=== PATIENT | male | born 1970 | race Caucasian/White ===

== ENCOUNTER 2024-02-08 15:34 | Emergency (ER) | payer MEDICAID, OTHER ==
[~2024-02-08] VITALS: Ht 170.2 cm; Wt 72.7 kg
[2024-02-08 15:42] VITALS: BP 134/90; PULSE 66; RESP 16; O2SAT 98
[2024-02-08] MEDS: diphenhdrAMINE HCL 50 MG/1 ML VL IM ONE (20:27)
[2024-02-08] MEDS: HALOPERIDOL LACTATE 5 MG/ML INJ VIAL IM ONE (20:27)
== END 2024-02-09 09:30 | disposition home or self-care (01) ==
LOC: ER 15:34 → EDBD 15:34 → ER 02-09 09:30
DX: D17.0 Benign lipomatous neoplasm of skin and subcutaneous tissue of head, face and neck (principal)
CPT/HCPCS: 70450; 96372; 99285; J1200; J1630

== ENCOUNTER 2024-02-19 18:02 | Emergency (ER) | payer MEDICAID ==
[~2024-02-19] VITALS: Ht 172.7 cm; Wt 85.0 kg
[2024-02-19 20:22] LABS: Basophils # (auto) 0 10 ^3/uL (0-0.2); Basophils % (auto) 0.6 % (0.0-2.0); Eosinophils # (auto) 0.2 10 ^3/uL (0-0.8); Eosinophils % (auto) 2.9 % (0.0-7.0); Hematocrit 39.6 % (41.0-53.0); Hemoglobin 13.2 g/dL (13.5-17.5); Lymphocytes # (auto) 2.2 10 ^3/uL (0.4-5.4); Mean Corpuscular Hemoglobin 29.4 pg (28.0-32.0); Mean Corpuscular Hgb Conc. 33.4 g/dL (32.0-36.0); Monocytes # (auto) 0.7 10 ^3/uL (0-1.3); Monocytes % (auto) 8.6 % (0.0-12.0); Neutrophils # (auto) 4.8 10 ^3/uL (1.6-8.6); Neutrophils % (auto) 59.9 % (37.0-80.0); Nucleated Red Blood Cells % 0.1 %; Red Cell Distribution Width 17.1 % (11.8-14.3)
[2024-02-19 20:33] LABS: Chloride 107 mmol/L (98-107); Potassium 3.9 mmol/L (3.5-5.1); Sodium 143 mmol/L (136-145)
[2024-02-19 20:34] LABS: Anion Gap 8 (5-15); Calcium 9.6 mg/dL (8.5-10.1); Carbon Dioxide 28 mmol/L (20-30)
[2024-02-19 20:39] LABS: BUN/Creatinine Ratio 21.3 (10.0-20.0); Blood Urea Nitrogen 17 mg/dL (9-23); Glucose 96 mg/dL (74-106)
[2024-02-19 20:40] LABS: Blood Alcohol < 3.0 mg/dL (<10)
[2024-02-19 21:23] VITALS: TEMP 97.8
[2024-02-19 21:27] VITALS: PULSE 90; RESP 18; O2SAT 98
[2024-02-19] MEDS: LORazepam 2MG/ML-1ML VIAL IM ONE (21:55)
[2024-02-20 08:00] VITALS: BP 148/86; PULSE 101; RESP 22; O2SAT 98
[2024-02-20] MEDS: diphenhdrAMINE HCL 50 MG/1 ML VL IM ONE (08:00)
[2024-02-20] MEDS: LORazepam 2MG/ML-1ML VIAL IM ONE (08:00)
[2024-02-20] MEDS: HALOPERIDOL LACTATE 5 MG/ML INJ VIAL IM ONE (08:00)
[2024-02-20] MEDS: LORazepam 0.5 MG TAB PO ONE (11:56)
== END 2024-02-20 15:53 ==
LOC: EDBD 18:02 → ER 18:02
DX: R41.82 Altered mental status, unspecified (principal); F31.9 Bipolar disorder, unspecified; F20.9 Schizophrenia, unspecified
CPT/HCPCS: 36415; 71045; 80048; 80320; 83605; 85025; 96372; 99284; J1200; J1630; J2060

== ENCOUNTER 2024-03-10 03:54 | Emergency (ER) | payer MEDICAID ==
[~2024-03-10] VITALS: Ht 154.9 cm; Wt 54.4 kg
[2024-03-10 12:46] VITALS: BP 156/89; PULSE 106; RESP 18; TEMP 98; O2SAT 97
== END 2024-03-10 12:47 | disposition home or self-care (01) ==
LOC: EDBD 03:54 → ER 03:54
DX: S01.01XA Laceration without foreign body of scalp, initial encounter (principal); W18.09XA Striking against other object with subsequent fall, initial encounter; Y93.89 Activity, other specified; Y92.89 Other specified places as the place of occurrence of the external cause; Y99.8 Other external cause status
CPT/HCPCS: 12002; 70450

== ENCOUNTER 2024-05-22 22:07 | Emergency (ER) | payer MEDICAID ==
[~2024-05-22] VITALS: Ht 162.6 cm; Wt 65.0 kg
[2024-05-23] LABS: Basophils # (auto) 0 10 ^3/uL (0-0.2); Basophils % (auto) 0.3 % (0.0-2.0); Eosinophils # (auto) 0.2 10 ^3/uL (0-0.8); Eosinophils % (auto) 2.9 % (0.0-7.0); Hematocrit 36.4 % (41.0-53.0); Lymphocytes % (auto) 15.2 % (10.0-50.0); Mean Corpuscular Hemoglobin 31.2 pg (28.0-32.0); Mean Corpuscular Hgb Conc. 32.9 g/dL (32.0-36.0); Mean Corpuscular Volume 94.9 fL (80.0-100.0); Monocytes # (auto) 0.6 10 ^3/uL (0-1.3); Monocytes % (auto) 8.8 % (0.0-12.0); Neutrophils # (auto) 4.6 10 ^3/uL (1.6-8.6); Neutrophils % (auto) 72.8 % (37.0-80.0); Red Blood Cells 3.84 10^6/uL (4.5-5.90); White Blood Cell 6.3 10^3/uL (4.4-10.8)
[2024-05-23 00:05] LABS: Chloride 113 mmol/L (98-107); Sodium 148 mmol/L (136-145)
[2024-05-23 00:06] LABS: Anion Gap 8 (5-15); Carbon Dioxide 27 mmol/L (20-30)
[2024-05-23 00:07] VITALS: PULSE 85; RESP 17; O2SAT 100
[2024-05-23 00:07] LABS: Calcium 9.2 mg/dL (8.7-10.4)
[2024-05-23 00:12] LABS: Blood Urea Nitrogen 21 mg/dL (9-23); Glucose 87 mg/dL (74-106)
[2024-05-23] MEDS ORDERED: ACET1CAP14 PO (04:54)
[2024-05-23] MEDS ORDERED: BAC09TP TOP (04:54)
[2024-05-23] MEDS: SODIUM CHLORIDE 0.9% 1,000 ML IV ONE (04:57)
[2024-05-23 05:00] VITALS: TEMP 98.2
[2024-05-23 06:00] VITALS: BP 140/92; O2SAT 98
[2024-05-23 07:35] VITALS: RESP 18
[2024-05-23 07:50] VITALS: PULSE 67
[2024-05-23] MEDS: LORazepam 2MG/ML-1ML VIAL ONE (08:27)
[2024-05-23] MEDS: LORazepam 2MG/ML-1ML VIAL IV ONE (08:36)
== END 2024-05-23 13:05 | disposition home or self-care (01) ==
LOC: EDBD 22:07 → ER 22:07
DX: S00.31XA Abrasion of nose, initial encounter (principal); M54.2 Cervicalgia; W06.XXXA Fall from bed, initial encounter; Y93.89 Activity, other specified; Y92.89 Other specified places as the place of occurrence of the external cause; Y99.8 Other external cause status
CPT/HCPCS: 36415; 70450; 70486; 72125; 80048; 84484; 85025; 93005; 96361; 96374; 99285; J2060; J7030

== ENCOUNTER 2024-06-29 09:16 | Emergency (ER) | payer MEDICAID ==
[~2024-06-29] VITALS: Ht 152.4 cm; Wt 45.5 kg
[~2024-06-29 09:16] MED LIST: ACET1CAP14 PO; BAC09TP TOP
[2024-06-29] MEDS: LORazepam 2MG/ML-1ML VIAL IM ONE (11:20)
[2024-06-29] MEDS: diphenhdrAMINE HCL 50 MG/1 ML VL IM ONE (11:20)
[2024-06-29] MEDS: HALOPERIDOL LACTATE 5 MG/ML INJ VIAL IM ONE (11:20)
[2024-06-29 12:00] VITALS: RESP 12; O2SAT 99
[2024-06-29 12:01] VITALS: PULSE 51; RESP 12; O2SAT 95
[2024-06-29 18:00] VITALS: BP 139/83; RESP 12; TEMP 97.8; O2SAT 98
[2024-06-29 18:27] VITALS: PULSE 51
== END 2024-06-29 19:36 ==
LOC: ER 09:16 → EDBD 09:16 → ER 19:30
DX: M79.10 Myalgia, unspecified site (principal); F20.9 Schizophrenia, unspecified; Z79.1 Long term (current) use of non-steroidal anti-inflammatories (NSAID); W18.39XA Other fall on same level, initial encounter; Y93.89 Activity, other specified; Y92.89 Other specified places as the place of occurrence of the external cause; Y99.8 Other external cause status
CPT/HCPCS: 70450; 70486; 72125; 96372; 99285; J1200; J1630; J2060

== ENCOUNTER 2024-07-03 19:01 | Inpatient (IN) | payer MEDICAID ==
[~2024-07-03] VITALS: Ht 162.6 cm; Wt 52.0 kg
[2024-07-03] MEDS: SODIUM CHLORIDE 0.9% 1,000 ML IV ONE (19:29)
[2024-07-03 19:31] LABS: Basophils # (auto) 0 10 ^3/uL (0-0.2); Basophils % (auto) 0.6 % (0.0-2.0); Eosinophils # (auto) 0 10 ^3/uL (0-0.8); Eosinophils % (auto) 0.7 % (0.0-7.0); Hematocrit 28.4 % (41.0-53.0); Hemoglobin 9.7 g/dL (13.5-17.5); Lymphocytes # (auto) 0.7 10 ^3/uL (0.4-5.4); Lymphocytes % (auto) 11.7 % (10.0-50.0); Mean Corpuscular Hemoglobin 31.6 pg (28.0-32.0); Mean Corpuscular Hgb Conc. 34.4 g/dL (32.0-36.0); Monocytes # (auto) 0.4 10 ^3/uL (0-1.3); Monocytes % (auto) 6.5 % (0.0-12.0); Neutrophils # (auto) 4.6 10 ^3/uL (1.6-8.6); Neutrophils % (auto) 80.5 % (37.0-80.0); Red Blood Cells 3.08 10^6/uL (4.5-5.90); Red Cell Distribution Width 15.4 % (11.8-14.3); White Blood Cell 5.8 10^3/uL (4.4-10.8)
[2024-07-03 19:35] VITALS: PULSE 80; RESP 18; O2SAT 96
[2024-07-03] MEDS: ONDANSETRON HCL 4 MG/2 ML VIAL IV ONE (19:38)
[2024-07-03] MEDS: ACETAMINOPHEN IV 1000 MG/100ML (10MG/ML) IV STA (19:41)
[2024-07-03 19:57] LABS: Alanine Aminotransferase 17 U/L (7-40); Albumin 3.7 g/dL (3.2-4.8); Alkaline Phosphatase 100 U/L (46-116); Anion Gap 9 (5-15); Aspartate Aminotransferase 11 U/L (13-40); BUN/Creatinine Ratio 27.3 (10.0-20.0); Bilirubin, Total 0.5 mg/dL (0.2-1.0); Blood Urea Nitrogen 24 mg/dL (9-23); Calcium 8.4 mg/dL (8.7-10.4); Carbon Dioxide 24 mmol/L (20-30); Chloride 109 mmol/L (98-107); Glucose 148 mg/dL (74-106); Potassium 3.4 mmol/L (3.5-5.1); Sodium 142 mmol/L (136-145); Total Protein 5.8 g/dL (5.7-8.2)
[2024-07-03] MEDS: HALOPERIDOL LACTATE 5 MG/ML INJ VIAL ONE (23:08)
[2024-07-03] MEDS: HALOPERIDOL LACTATE 5 MG/ML INJ VIAL IM ONE (23:09)
[2024-07-03] MEDS ORDERED: HYDROcodone-ACET 5/325MG TAB PO PRN (23:30)
[2024-07-03] MEDS ORDERED: ONDANSETRON HCL 4 MG/2 ML VIAL IV PRN (23:30)
[2024-07-03] MEDS ORDERED: DOCUSATE SOD 100 MG CAP PO PRN (23:30)
[2024-07-03] MEDS ORDERED: ACETAMINOPHEN 325 MG TAB PO PRN (23:30)
[2024-07-03] MEDS ORDERED: NITROGLYCERIN 0.4 MG SL TAB SL PRN (23:45)
[2024-07-03] MEDS ORDERED: MORPHINE SULFATE INJ 2 MG/ml SYRG IV PRN (23:45)
[2024-07-04] MEDS: cefTRIAXone 1GM/50ML D5W 50 ML IV ONE (00:28)
[2024-07-04] MEDS: POTASSIUM CHL 20MEQ/100ML 100 ML IV ONE (01:04)
[2024-07-04 01:19] LABS: Urine Bacteria None Seen /hpf (None Seen)
[2024-07-04 01:29] LABS: Urine Blood Negative /uL (Negative); Urine Clarity Clear (Clear); Urine Color Yellow (Yellow); Urine Mucus MODERATE (None Seen); Urine Protein, UAD Negative (Negative); Urine Specific Gravity 1.019 (1.001-1.035); Urine Urobilinogen 4 mg/dL (Negative); Urine WBC 1 /hpf (0 - 3)
[2024-07-04] MEDS: SODIUM CHLOR 0.9% PF (SALINE LOCK) 10ML VIAL/SYR IV SCH (06:02)
[2024-07-04 06:52] LABS: Basophils # (auto) 0.1 10 ^3/uL (0-0.2); Basophils % (auto) 0.8 % (0.0-2.0); Eosinophils # (auto) 0.1 10 ^3/uL (0-0.8); Eosinophils % (auto) 1.6 % (0.0-7.0); Hematocrit 32.8 % (41.0-53.0); Hemoglobin 10.9 g/dL (13.5-17.5); Lymphocytes # (auto) 1.5 10 ^3/uL (0.4-5.4); Lymphocytes % (auto) 22.1 % (10.0-50.0); Mean Corpuscular Hemoglobin 30.9 pg (28.0-32.0); Mean Corpuscular Hgb Conc. 33.1 g/dL (32.0-36.0); Mean Corpuscular Volume 93.4 fL (80.0-100.0); Monocytes # (auto) 0.6 10 ^3/uL (0-1.3); Monocytes % (auto) 8.6 % (0.0-12.0); Neutrophils # (auto) 4.4 10 ^3/uL (1.6-8.6); Neutrophils % (auto) 66.9 % (37.0-80.0); Nucleated Red Blood Cells % 0.1 %; Red Blood Cells 3.51 10^6/uL (4.5-5.90); Red Cell Distribution Width 15.2 % (11.8-14.3); White Blood Cell 6.6 10^3/uL (4.4-10.8)
[2024-07-04 07:16] LABS: Alanine Aminotransferase 15 U/L (7-40); Albumin 3.3 g/dL (3.2-4.8); Alkaline Phosphatase 89 U/L (46-116); Anion Gap 5 (5-15); Aspartate Aminotransferase 17 U/L (13-40); BUN/Creatinine Ratio 17.2 (10.0-20.0); Bilirubin, Total 0.3 mg/dL (0.2-1.0); Blood Urea Nitrogen 10 mg/dL (9-23); Calcium 8.1 mg/dL (8.7-10.4); Carbon Dioxide 27 mmol/L (20-30); Chloride 108 mmol/L (98-107); Glucose 82 mg/dL (74-106); Potassium 3.6 mmol/L (3.5-5.1); Sodium 140 mmol/L (136-145); Total Protein 5.5 g/dL (5.7-8.2)
[2024-07-04 07:30] VITALS: PULSE 54; RESP 10; O2SAT 100
[2024-07-04] MEDS: D5W/SOD CHL 0.45% 1,000 ML IV SCH (12:01)
[2024-07-04] MEDS: hydrALAZINE HCL 20 MG/ML VL IV PRN (12:33)
[2024-07-04] MEDS: QUEtiapine FUMARATE 100 MG TAB PO SCH ×2 (14:14→21:38)
[2024-07-04] MEDS: LORazepam 0.5 MG TAB PO PRN (14:14)
[2024-07-04] MEDS: HALOPERIDOL LACTATE 5 MG/ML INJ VIAL IM PRN (15:51)
[2024-07-04] MEDS: LORazepam 2MG/ML-1ML VIAL ONE (21:37)
[2024-07-04] MEDS: LORazepam 2MG/ML-1ML VIAL IV PRN (21:38)
[2024-07-04 21:47] VITALS: PULSE 72; RESP 12; O2SAT 99
[2024-07-04 21:58] VITALS: BP 134/100; PULSE 65; RESP 18; TEMP 97.6; O2SAT 99
[2024-07-04 22:05] VITALS: BP 134/100; PULSE 65; RESP 17; TEMP 97.6; O2SAT 99
[2024-07-05 01:00] VITALS: BP 138/100; PULSE 61; RESP 16; TEMP 97.4; O2SAT 100
[2024-07-05] MEDS: MELATONIN 5 MG TAB PO SCH (01:05)
[2024-07-05 05:00] VITALS: BP 116/48; PULSE 53; RESP 14; TEMP 97.4; O2SAT 96
[2024-07-05 07:25] VITALS: PULSE 64
[2024-07-05] MEDS: LISINOPRIL 20 MG TAB PO SCH (08:29)
[2024-07-05 08:30] VITALS: BP 133/92; PULSE 66; RESP 18; TEMP 98; O2SAT 98
[2024-07-05] MEDS: BENZTROPINE MESY 0.5 MG TAB PO SCH (11:59)
[2024-07-05 13:47] LABS: Basophils # (auto) 0 10 ^3/uL (0-0.2); Basophils % (auto) 0.5 % (0.0-2.0); Eosinophils # (auto) 0.1 10 ^3/uL (0-0.8); Eosinophils % (auto) 1.5 % (0.0-7.0); Hematocrit 32.2 % (41.0-53.0); Hemoglobin 10.9 g/dL (13.5-17.5); Lymphocytes # (auto) 1.2 10 ^3/uL (0.4-5.4); Lymphocytes % (auto) 21.8 % (10.0-50.0); Mean Corpuscular Hemoglobin 31.3 pg (28.0-32.0); Mean Corpuscular Hgb Conc. 33.8 g/dL (32.0-36.0); Mean Corpuscular Volume 92.6 fL (80.0-100.0); Monocytes # (auto) 0.5 10 ^3/uL (0-1.3); Monocytes % (auto) 8.8 % (0.0-12.0); Neutrophils # (auto) 3.8 10 ^3/uL (1.6-8.6); Neutrophils % (auto) 67.4 % (37.0-80.0); Nucleated Red Blood Cells % 0.1 %; Red Blood Cells 3.48 10^6/uL (4.5-5.90); Red Cell Distribution Width 15.7 % (11.8-14.3); White Blood Cell 5.7 10^3/uL (4.4-10.8)
[2024-07-05 14:12] LABS: Alanine Aminotransferase 16 U/L (7-40); Albumin 3.3 g/dL (3.2-4.8); Alkaline Phosphatase 86 U/L (46-116); Anion Gap 5 (5-15); Aspartate Aminotransferase 13 U/L (13-40); BUN/Creatinine Ratio 17.9 (10.0-20.0); Blood Urea Nitrogen 10 mg/dL (9-23); Calcium 8.4 mg/dL (8.7-10.4); Carbon Dioxide 29 mmol/L (20-30); Chloride 109 mmol/L (98-107); Glucose 86 mg/dL (74-106); Potassium 3.8 mmol/L (3.5-5.1); Sodium 143 mmol/L (136-145)
[2024-07-05 14:13] LABS: Bilirubin, Total 0.4 mg/dL (0.2-1.0); Total Protein 5.3 g/dL (5.7-8.2)
[2024-07-05] MEDS: QUEtiapine FUMARATE 100 MG TAB PO SCH (16:14)
[2024-07-05] MEDS: LORazepam 2MG/ML-1ML VIAL IV PRN (16:14)
[2024-07-05 16:47] VITALS: BP 135/95; PULSE 61; RESP 18; TEMP 98.3; O2SAT 98
[2024-07-05] MEDS: HALOPERIDOL LACTATE 5 MG/ML INJ VIAL IM PRN (19:35)
[2024-07-06 05:00] VITALS: BP 136/92; PULSE 67; RESP 19; TEMP 98.2; O2SAT 97
[2024-07-06 08:00] VITALS: PULSE 64; RESP 17
[2024-07-06 09:00] VITALS: BP 120/90; PULSE 64; RESP 17; TEMP 98; O2SAT 98
[2024-07-06 13:00] VITALS: BP 112/81; PULSE 78; RESP 18; TEMP 97.8; O2SAT 98
[2024-07-06] MEDS ORDERED: QUET100T47 PO (15:05)
[2024-07-06] MEDS ORDERED: MELA5TAB16 PO (15:05)
[2024-07-06] MEDS ORDERED: LISI20TA56 PO (15:05)
[2024-07-06] MEDS ORDERED: DIVA1TAB58 PO (15:05)
[2024-07-06] MEDS ORDERED: BENZ0.5T PO (15:05)
[2024-07-06 17:00] VITALS: BP 116/79; PULSE 69; RESP 18; TEMP 97.9; O2SAT 97
== END 2024-07-06 19:43 | disposition home or self-care (01) | DRG 52 ==
LOC: EDBD 19:01 → ER 19:01 → TELE 23:33 → TELE-CENTR 07-04 22:00
PROVIDERS: ADMIT Nurse Practitioner Family; ATTEND Hospitalist
DX: G93.41 Metabolic encephalopathy (principal); E86.0 Dehydration; R53.1 Weakness; R50.9 Fever, unspecified; F20.9 Schizophrenia, unspecified; E87.6 Hypokalemia; Z87.820 Personal history of traumatic brain injury
CPT/HCPCS: 36415; 70450; 71045; 80053; 80164; 81001; 82140; 82550; 83605; 83880; 84484; 85025; 86850; 86900; 86901; 93005; 96365; 96372; 96375; G0378; J0131; J3480

== ENCOUNTER 2024-10-24 20:37 | Inpatient (IN) | payer MEDICAID ==
[~2024-10-24] VITALS: Ht 165.1 cm; Wt 68.0 kg
[~2024-10-24 20:37] MED LIST changes: +BENZ0.5T PO; +DIVA1TAB58 PO; +LISI20TA56 PO; +MELA5TAB16 PO; +QUET100T47 PO
--- NOTE | 2024-10-24 20:57 | ED.PDOC ---
Altered Mental Status HPI Comments 53-year-old with history of TBI who was responsive to pain but will not follow one-step commands, according to paramedics no one is sick at the facility per report, he has been lying in bed more than usual since about 4:00 a.m. which was about 5 hours ago, otherwise nothing abnormal reported earlier in the day. Per EMS patient is typically agitated and a bit more aggressive and his current behaviors different than normal. Patient is not able to perform 10 point review of systems at this time. Time Seen by MD: 20:43 Primary Care Provider: COLLIN Allergies: Coded Allergies: NO KNOWN ALLERGIES (Unverified , 02/08/24) Home Meds Active Scripts Benztropine Mesylate (Benztropine Mesylate) 0.5 Mg Tab, 1 MG PO DAILY, #30 TAB Prov:GWENDOLYN FERREIRA MD 07/06/24 Divalproex Sodium (Divalproex Sodium Dr) 250 Mg Tab, 250 MG PO TID, #30 TAB Prov:GWENDOLYN FERREIRA MD 07/06/24 Lisinopril (Lisinopril) 20 Mg Tab, 20 MG PO DAILY, #30 TAB Prov:GWENDOLYN FERREIRA MD 07/06/24 Melatonin (Melatonin) 5 Mg Tab, 5 MG PO HS, #30 TAB Prov:GWENDOLYN FERREIRA MD 07/06/24 Quetiapine Fumerate (QUETIAPINE FUMARATE) 100 Mg Tab, 200 MG PO TID, #30 TAB Prov:GWENDOLYN FERREIRA MD 07/06/24 Acetaminophen (Tylenol) 325 Mg Cap, 650 MG PO Q6HP PRN, #30 CAP Prov:CAROLINA MORALES MD 05/23/24 Bacitracin (Bacitracin Oint) 1 Applic Ap, 1 APPLIC TOP TID, #30 GRAMS Apply to facial abrasions Prov:CAROLINA MORALES MD 05/23/24 Past Medical History PAST MEDICAL HISTORY: Schizophrenia Surgical History: Denies all surgeries Family History Family History: Reviewed,noncontributory to illness, No family hx of Cancer, No family hx of DM, No family hx of Heart leilani, No family hx of HTN, No family hx ofKidney leilani, No family hx of Liver leilani, No family hx of Lung leilani, No family hx of Stroke Social History Smoker: Non-Smoker Alcohol: Denies ETOH Use Drugs: Denies Drug Use Lives In: Assisted Care Physical Exam General Appearance: No Apparent Distress, Thin HEENT: Normal ENT Inspection, Pharynx Normal Neck: Full Range of Motion Respiratory: No Accessory Muscle Use, Rhonchi Cardiovascular: Normal Peripheral Pulses Breast Exam: Deferred Gastrointestinal: Abnormal Bowel Sounds, Soft, Other (NTTP) Genitalia: Normal Pelvic: Deferred Rectal: Deferred Extremities: Non-tender, No pedal edema Neurologic: Other (Patient not following one-step commands, does respond to pain, does withdraw across all 4 extremities) Cerebellar Function: NOT DONE Reflexes: NOT DONE Skin: None Lymphatic: No Adenopathy EKG EKG : Comments Sinus rhythm with a left axis deviation no QT prolongation no acute ischemic findings this is a nonpathologic EKG in my opinion Was a procedure done? Was a procedure done?: No Differential Diagnosis (ALOC) Differential Diagnosis: Other Other Differential Diagnosis Infectious etiology including pneumonia being the most likely based on his lung sounds, X-Ray, Labs, Meds, VS Vital Signs Date Time Temp Pulse Resp B/P (MAP) Pulse Ox O2 Delivery O2 Flow Rate FiO2 10/25/24 00:00 67 14 137/98 (111) 97 10/24/24 22:26 81 18 96 Room Air* 0 21 10/24/24 22:00 69 11 133/93 (106) 97 10/24/24 21:20 97.9 81 18 159/81 (107) 96 97.9 10/24/24 21:04 73 10/24/24 20:55 98.6 70 16 137/74 (95) 97 Lab Test 10/24/24 22:15 10/24/24 21:37 10/24/24 21:02 Range/Units Troponin I High Sensitivity < 3 L < 3 L </=54 ng/L Blood Gas Specimen Type Arterial Blood Gas Sample Site Right brachial Blood Gas Patient Temperature 37.0 Arterial Blood Date Drawn [id number] Arterial Blood pH 7.462 H 7.350-7.450 Arterial Blood Partial Pressure CO2 35.4 35.0-48.0 mmHg Arterial Blood Partial Pressure O2 60.1 L 83.0-108.0 mmHg Arterial Blood HCO3 24.7 21.0-28.0 mmol/L Arterial Blood Oxygen Saturation 91.6 L 94.0-98.0 % Arterial Blood Base Excess 1.3 -2.0-3.0 mmol/L Arterial Blood Oxyhemoglobin 90.8 L 94.0-98.0 % Arterial Blood Carboxyhemoglobin 0.5 0.5-1.5 % Arterial Blood Methemoglobin 0.4 0.0-1.5 % Rafael Test Modified Blood Gas Total Hemoglobin 13.10 L 13.5-17.5 g/dL Blood Gas Liter Flow 0.00 Blood Gas Modality Room air Blood Gas Spontaneous Rate 18 FiO2 % 21.0 Specimen Drawn By Blanco jacobson, rt White Blood Count 7.7 4.4-10.8 10^3/uL Red Blood Count 4.35 L 4.5-5.90 10^6/uL Hemoglobin 13.1 L 13.5-17.5 g/dL Hematocrit 39.4 L 41.0-53.0 % Mean Corpuscular Volume 90.6 80.0-100.0 fL Mean Corpuscular Hemoglobin 30.1 28.0-32.0 pg Mean Corpuscular Hemoglobin Concent 33.3 32.0-36.0 g/dL Red Cell Distribution Width 15.8 H 11.8-14.3 % Platelet Count 61 L 140-450 10^3/uL Mean Platelet Volume 7.4 6.9-10.8 fL Neutrophils (%) (Auto) 67.2 37.0-80.0 % Lymphocytes (%) (Auto) 18.6 10.0-50.0 % Monocytes (%) (Auto) 11.9 0.0-12.0 % Eosinophils (%) (Auto) 2.1 0.0-7.0 % Basophils (%) (Auto) 0.2 0.0-2.0 % Neutrophils # (Auto) 5.2 1.6-8.6 10 ^3/uL Lymphocytes # (Auto) 1.4 0.4-5.4 10 ^3/uL Monocytes # (Auto) 0.9 0-1.3 10 ^3/uL Eosinophils # (Auto) 0.2 0-0.8 10 ^3/uL Basophils # (Auto) 0 0-0.2 10 ^3/uL Nucleated Red Blood Cells 0.0 % Prothrombin Time 11.4 9.3-11.8 sec Prothrombin Time INR 1.08 0.9-1.15 Activated Partial Thromboplast Time 28.2 24.5-34.5 SEC Sodium Level 141 136-145 mmol/L Potassium Level 4.3 3.5-5.1 mmol/L Chloride Level 108 H 98-107 mmol/L Carbon Dioxide Level 26 20-31 mmol/L Anion Gap 7 5-15 Blood Urea Nitrogen 17 9-23 mg/dL Creatinine 0.93 0.700-1.30 mg/dL Glomerular Filtration Rate Calc 98 >90 mL/min BUN/Creatinine Ratio 18.3 10.0-20.0 Serum Glucose 88 74-106 mg/dL Lactic Acid Level 1.0 0.4-2.0 mmol/L Calcium Level 9.0 8.7-10.4 mg/dL Total Bilirubin 0.5 0.2-1.0 mg/dL Aspartate Amino Transferase (AST) 15 13-40 U/L Alanine Aminotransferase (ALT) 17 7-40 U/L Alkaline Phosphatase 59 46-116 U/L B-Type Natriuretic Peptide 13.57 0-100 pg/mL Total Protein 6.2 5.7-8.2 g/dL Albumin 3.5 3.2-4.8 g/dL Plasma/Serum Blood Alcohol < 3.0 <10 mg/dL Current Medications Medications (Trade) Dose Ordered Sig/Negra Route Start Time Stop Time Status Last Admin Sodium Chloride 1,000 ml @ 1,000 mls/hr Q1H ONCE IVB 10/24/24 20:45 10/24/24 21:44 DC 10/24/24 22:38 Levofloxacin/ Dextrose 150 ml @ 100 mls/hr ONCE ONCE IV 10/24/24 21:45 10/24/24 23:14 DC 10/24/24 23:22 Ceftriaxone Sodium 50 ml @ 100 mls/hr ONCE ONCE IV 10/24/24 21:45 10/24/24 22:14 DC 10/24/24 22:37 X-Ray, Labs, Meds, VS Comment ORDERING PHYSICIAN: CHARBEL RODRIGUEZ MD PROCEDURE(s): HWOCT - HEAD WITHOUT CONTRAST REASON: AMS ORDER NUMBER(s): [id number], ACCESSION NUMBER(s): [id number] CT HEAD WITHOUT CONTRAST INDICATION: AMS COMPARISON: CT HEAD WITHOUT CONTRAST on DOS: 07/03/24, CT HEAD WITHOUT CONTRAST on DOS: 06/29/24, CT CERVICAL WITHOUT CONTRAST on DOS: 06/29/24, CT HEAD WITHOUT CONTRAST on DOS: 05/23/24, CT CERVICAL WITHOUT CONTRAST on DOS: 05/23/24 TECHNIQUE: CT of the head without intravenous contrast. RADIATION DOSE: CTDIvol: 56.2 mGy, DLP: 995 mGy*cm FINDINGS: There is no evidence of acute intracranial hemorrhage, extra-axial collection, mass effect, midline shift, herniation or hydrocephalus. The ventricles, sulci and cisterns are age appropriate. Postsurgical changes are again seen in the left frontoparietal brain. No evidence of acute infarct. The visualized paranasal sinuses and mastoid air cells are clear. The surrounding soft tissues and osseous structures are unremarkable. IMPRESSION: 1. No evidence of acute infarct or intracranial hemorrhage. ORDERING PHYSICIAN: CHARBEL RODRIGUEZ MD PROCEDURE(s): CXRP - CHEST PORTABLE REASON: [facility] ORDER NUMBER(s): [id number], ACCESSION NUMBER(s): [id number] CHEST RADIOGRAPH Indication: AMS Technique: Single frontal view of the chest was obtained COMPARISON: XY CHEST PORTABLE on DOS: 08/29/24, XY CHEST PORTABLE on DOS: 07/03/24, XY CHEST PORTABLE on DOS: 02/26/24, XY CHEST PORTABLE on DOS: 02/19/24 FINDINGS: Lines and Tubes: None Lungs: Questionable mild interstitial pulmonary edema. Pleura: No effusion. No pneumothorax. Cardiomediastinal contours: Mild cardiomegaly Bones: Unremarkable IMPRESSION: 1. Questionable mild interstitial pulmonary edema ICAL DISCREPANCY: I HAVE EVALUATED THE SAME CHEST X-RAY BUT I HAVE THE ADVANTAGE OF A CLINICAL EXAM AND I THINK THERE IS A RIGHT LOWER LOBE PNEUMONIA CONSISTENT WITH THE RHONCHI THAT THE PATIENT HAS THE RIGHT LOWER MIDDLE LOBES. Time of 1ST Reevaluation: 22:39 Reevaluation 1ST: Unchanged (He is lethargic but maintaining airway, O2 sat vessel it is but goes down to 88 and so nursing staff placed on supplemental oxygen which keeps the sat up) Patient Education/Counseling: Diagnosis, Treatment Family Education/Counseling: No Family Present Departure 1 Departure Time of Disposition: 00:46 Impression: Primary Impression: Altered mental status Additional Impressions: Pneumonia Hypoxia Disposition: ADMITTED INPATIENT Admit to: Tele Condition: Guarded Critical Care Note Critical Care Time?: No Stability Stability form required: No CHARBEL RODRIGUEZ MD Oct 24, 2024 20:57
[2024-10-24 21:16] LABS: Basophils # (auto) 0 10 ^3/uL (0-0.2); Basophils % (auto) 0.2 % (0.0-2.0); Eosinophils # (auto) 0.2 10 ^3/uL (0-0.8); Eosinophils % (auto) 2.1 % (0.0-7.0); Hematocrit 39.4 % (41.0-53.0); Hemoglobin 13.1 g/dL (13.5-17.5); Lymphocytes # (auto) 1.4 10 ^3/uL (0.4-5.4); Lymphocytes % (auto) 18.6 % (10.0-50.0); Mean Corpuscular Hemoglobin 30.1 pg (28.0-32.0); Mean Corpuscular Hgb Conc. 33.3 g/dL (32.0-36.0); Mean Corpuscular Volume 90.6 fL (80.0-100.0); Monocytes # (auto) 0.9 10 ^3/uL (0-1.3); Monocytes % (auto) 11.9 % (0.0-12.0); Neutrophils # (auto) 5.2 10 ^3/uL (1.6-8.6); Neutrophils % (auto) 67.2 % (37.0-80.0); Platelet Count (auto) 61 10^3/uL (140-450); Red Blood Cells 4.35 10^6/uL (4.5-5.90); Red Cell Distribution Width 15.8 % (11.8-14.3); White Blood Cell 7.7 10^3/uL (4.4-10.8)
--- NOTE | 2024-10-24 21:25 | ECG ---
[facility] Test Date: 2024-10-24 Test Time: 21:04:55 Pat Name: SUHAIL STEWARD Department: ER Room: [address] [place] [address] Gender: M Clinical Account Specialist: RASHARD : 1970 Requested By: CHARBEL RODRIGUEZ Order Number: [id number] Reading MD: Ernie Ling Measurements Intervals [place] Rate: 73 P: 6 TX: 152 QRS: -34 QRSD: 91 T: 159 QT: 359 QTc: 396 Interpretive Statements Sinus rhythm Left axis deviation Nonspecific T abnormalities, lateral leads Electronically Signed On 10-28-2024 16:10:44 PST by Ernie Ling Please click the below link to view image of tracing.
[2024-10-24 21:30] LABS: INR 1.08 (0.9-1.15); Partial Thromboplastin Time 28.2 SEC (24.5-34.5); Prothrombin Time 11.4 sec (9.3-11.8)
[2024-10-24 21:33] LABS: Alanine Aminotransferase 17 U/L (7-40); Albumin 3.5 g/dL (3.2-4.8); Alkaline Phosphatase 59 U/L (46-116); Anion Gap 7 (5-15); Aspartate Aminotransferase 15 U/L (13-40); BUN/Creatinine Ratio 18.3 (10.0-20.0); Bilirubin, Total 0.5 mg/dL (0.2-1.0); Blood Urea Nitrogen 17 mg/dL (9-23); Carbon Dioxide 26 mmol/L (20-31); Glucose 88 mg/dL (74-106); Potassium 4.3 mmol/L (3.5-5.1); Sodium 141 mmol/L (136-145); Total Protein 6.2 g/dL (5.7-8.2)
[2024-10-24 21:34] LABS: Blood Alcohol < 3.0 mg/dL (<10); Chloride 108 mmol/L (98-107)
[2024-10-24 21:43] LABS: Base Excess 1.3 mmol/L (-2.0-3.0)
[2024-10-24 22:26] VITALS: PULSE 81; RESP 18; O2SAT 96
[2024-10-24] MEDS: cefTRIAXone 1GM/50ML D5W 50 ML IV ONE (22:37)
[2024-10-24] MEDS: SODIUM CHLORIDE 0.9% 1,000 ML IVB ONE (22:38)
--- NOTE | 2024-10-24 23:06 | DVH ---
CHEST RADIOGRAPH Indication: AMS Technique: Single frontal view of the chest was obtained COMPARISON: XY CHEST PORTABLE on DOS: 08/29/24, XY CHEST PORTABLE on DOS: 07/03/24, XY CHEST PORTABLE on DOS: 02/26/24, XY CHEST PORTABLE on DOS: 02/19/24 FINDINGS: Lines and Tubes: None Lungs: Questionable mild interstitial pulmonary edema. Pleura: No effusion. No pneumothorax. Cardiomediastinal contours: Mild cardiomegaly Bones: Unremarkable IMPRESSION: 1. Questionable mild interstitial pulmonary edema
[2024-10-24] MEDS: levoFLOXacin 750MG 150 ML IV ONE (23:22)
--- NOTE | 2024-10-24 23:37 | DVH ---
CT HEAD WITHOUT CONTRAST INDICATION: AMS COMPARISON: CT HEAD WITHOUT CONTRAST on DOS: 07/03/24, CT HEAD WITHOUT CONTRAST on DOS: 06/29/24, CT CERV ICAL WITHOUT CONTRAST on DOS: 06/29/24, CT HEAD WITHOUT CONTRAST on DOS: 05/23/24, CT CERVICAL WITHOUT C ONTRAST on DOS: 05/23/24 TECHNIQUE: CT of the head without intravenous contrast. RADIATION DOSE: CTDIvol: 56.2 mGy, DLP: 995 mGy*cm FINDINGS: There is no evidence of acute intracranial hemorrhage, extra-axial collection, mass effect, midline s hift, herniation or hydrocephalus. The ventricles, sulci and cisterns are age appropriate. Postsurgi rashard changes are again seen in the left frontoparietal brain. No evidence of acute infarct. The visual ized paranasal sinuses and mastoid air cells are clear. The surrounding soft tissues and osseous str uctures are unremarkable. IMPRESSION: 1. No evidence of acute infarct or intracranial hemorrhage.
[2024-10-25 01:37] LABS: COVID19 ANTIGEN SOFIA FIA NEGATIVE (NEGATIVE); Rapid Influenza A Negative (Negative); Rapid Influenza B Negative (Negative)
[2024-10-25] MEDS ORDERED: ONDANSETRON HCL 4 MG/2 ML VIAL IV PRN (06:30)
[2024-10-25] MEDS ORDERED: MORPHINE SULFATE INJ 2 MG/ml SYRG IV PRN (06:30)
[2024-10-25] MEDS ORDERED: NITROGLYCERIN 0.4 MG SL TAB SL PRN (06:30)
[2024-10-25] MEDS ORDERED: HYDROcodone-ACET 5/325MG TAB PO PRN (06:30)
[2024-10-25] MEDS ORDERED: ACETAMINOPHEN 325 MG TAB PO PRN (06:30)
[2024-10-25] MEDS ORDERED: DOCUSATE SOD 100 MG CAP PO PRN (06:30)
[2024-10-25] MEDS: FUROSEMIDE 20 MG/2 ML VIAL IV ONE (06:48)
--- NOTE | 2024-10-25 07:09 | DVHHP2 ---
History of Present Illness Reason for Visit: Altered mental status History of Present Illness The patient is a 53-year-old male with past medical history of schizophrenia and hypertension who presented to [facility] ED for evaluation of altered level of consciousness. As reported, television engineering teacher were called due to patien t's behavior, has been lying in bed more than usual all day, agitated, shortness of breaths, more aggressive and his current behavior different than normal. Patient was seen and evaluated in the ED, laboratory data shows WBC 7.7, platelets 68676, sodium 141, potassium 4.3, BUN 17, creatinine 0.93, glucose 88, troponin 3, BNP 13.57, blood pressure 134/90, heart rate 60, temperature 97.9 degrees F, O2 saturation 96% on room air. Chest x-ray revealing questionable mild interstitial pulmonary edema. Head CT showed no evidence of acute infarct or intracranial hemorrhage. Please see medication orders section in the computer. On my assessment, no diaphoresis, no dizziness, no palpitation, no shortness of breath, no diarrhea, no nausea, no vomiting, no fever, no chills. Patient was admitted for further evaluation and medical management. Past Medical History Schizophrenia, HTN Past Surgical History Denies all surgeries Family History Reviewed, noncontributory to the management of this case. Past Social History The patient lives at home, denies smoking, alcohol or illicit drugs abuse. Review of Systems Constitutional: Yes: Weakness; No: Fever, Chills, Sweats, Malaise, Other Eyes: No: Pain, Vision change, Conjunctivae inflammation, Eyelid inflammation, Other, Redness ENT: No: Ear pain, Ear discharge, Nose pain, Nose discharge, Nose congestion, Mouth pain, Mouth swelling, Throat pain, Throat swelling, Other Respiratory: Shortness of breath; No: Cough, Dry, SOB with excertion, Wheezing, Hemoptysis, Pleuritic Pain, Sputum, Wheezing, Other Cardiovascular: No: Chest Pain, Palpitations, Orthopnea, Paroxysmal Noc. Dyspnea, Edema, Lt Headedness, Other Gastrointestinal: No: Nausea, Vomiting, Abdominal Pain, Diarrhea, Constipation, Melena, Hematochezia, Other Genitourinary: No Dysuria, No Frequency, No Incontinence, No Hematuria, No Retention, No Other Musculoskeletal: No: other, neck pain, shoulder pain, arm pain, back pain, hand pain, leg pain, foot pain Skin: No: Rash, Lesions, Jaundice, Bruising, Other Neurological: Other (Altered level of consciousness); No: Weakness, Numbness, Incoordination, Change in speech, Confusion, Seizures Allergies: Coded Allergies: NO KNOWN ALLERGIES (Unverified , 02/08/24) Exam Vital Signs Vital Signs Date Time Temp Pulse Resp B/P (MAP) Pulse Ox O2 Delivery O2 Flow Rate FiO2 10/25/24 06:00 59 11 134/90 (105) 96 10/24/24 22:26 Room Air* 0 21 10/24/24 21:20 97.9 97.9 General Appearance: Alert, Cooperative, No acute distress, Other (Oriented x2) HEENT: Atraumatic, PERRLA, EOMI, Mucous membr. moist/pink Respiratory: Normal air movement Cardiovascular: Regular rate, Normal S1, No murmurs Abdominal: Normal bowel sounds, Soft, No tenderness, No hepatospenomegaly, No masses Extremities: No clubbing, No cyanosis, No edema, Normal pulses, No tenderness/swelling Skin: No rashes, No breakdown, No significant lesion Neuro: Normal speech, Normal tone, Sensation intact, Cranial nerves 3-12 NL, Reflexes 2+, Other (Generalized weakness) Psych/Mental Status: Mood NL, Other (Altered mental status) Labs/Xrays Labs Test 10/25/24 01:00 10/24/24 22:15 10/24/24 21:37 10/24/24 21:02 Range/Units Influenza Type A Antigen Negative Negative Influenza Type B Antigen Negative Negative SARS-CoV-2 Antigen (Rapid) Negative NEGATIVE Troponin I High Sensitivity < 3 L </=54 ng/L Blood Gas Specimen Type Arterial Blood Gas Sample Site Right brachial Blood Gas Patient Temperature 37.0 Arterial Blood Date Drawn [id number] Arterial Blood pH 7.462 H 7.350-7.450 Arterial Blood Partial Pressure CO2 35.4 35.0-48.0 mmHg Arterial Blood Partial Pressure O2 60.1 L 83.0-108.0 mmHg Arterial Blood HCO3 24.7 21.0-28.0 mmol/L Arterial Blood Oxygen Saturation 91.6 L 94.0-98.0 % Arterial Blood Base Excess 1.3 -2.0-3.0 mmol/L Arterial Blood Oxyhemoglobin 90.8 L 94.0-98.0 % Arterial Blood Carboxyhemoglobin 0.5 0.5-1.5 % Arterial Blood Methemoglobin 0.4 0.0-1.5 % Rafael Test Modified Blood Gas Total Hemoglobin 13.10 L 13.5-17.5 g/dL Blood Gas Liter Flow 0.00 Blood Gas Modality Room air Blood Gas Spontaneous Rate 18 FiO2 % 21.0 Specimen Drawn By Blanco jacobson, rt White Blood Count 7.7 4.4-10.8 10^3/uL Red Blood Count 4.35 L 4.5-5.90 10^6/uL Hemoglobin 13.1 L 13.5-17.5 g/dL Hematocrit 39.4 L 41.0-53.0 % Mean Corpuscular Volume 90.6 80.0-100.0 fL Mean Corpuscular Hemoglobin 30.1 28.0-32.0 pg Mean Corpuscular Hemoglobin Concent 33.3 32.0-36.0 g/dL Red Cell Distribution Width 15.8 H 11.8-14.3 % Platelet Count 61 L 140-450 10^3/uL Mean Platelet Volume 7.4 6.9-10.8 fL Neutrophils (%) (Auto) 67.2 37.0-80.0 % Lymphocytes (%) (Auto) 18.6 10.0-50.0 % Monocytes (%) (Auto) 11.9 0.0-12.0 % Eosinophils (%) (Auto) 2.1 0.0-7.0 % Basophils (%) (Auto) 0.2 0.0-2.0 % Neutrophils # (Auto) 5.2 1.6-8.6 10 ^3/uL Lymphocytes # (Auto) 1.4 0.4-5.4 10 ^3/uL Monocytes # (Auto) 0.9 0-1.3 10 ^3/uL Eosinophils # (Auto) 0.2 0-0.8 10 ^3/uL Basophils # (Auto) 0 0-0.2 10 ^3/uL Nucleated Red Blood Cells 0.0 % Prothrombin Time 11.4 9.3-11.8 sec Prothrombin Time INR 1.08 0.9-1.15 Activated Partial Thromboplast Time 28.2 24.5-34.5 SEC Sodium Level 141 136-145 mmol/L Potassium Level 4.3 3.5-5.1 mmol/L Chloride Level 108 H 98-107 mmol/L Carbon Dioxide Level 26 20-31 mmol/L Anion Gap 7 5-15 Blood Urea Nitrogen 17 9-23 mg/dL Creatinine 0.93 0.700-1.30 mg/dL Glomerular Filtration Rate Calc 98 >90 mL/min BUN/Creatinine Ratio 18.3 10.0-20.0 Serum Glucose 88 74-106 mg/dL Lactic Acid Level 1.0 0.4-2.0 mmol/L Calcium Level 9.0 8.7-10.4 mg/dL Total Bilirubin 0.5 0.2-1.0 mg/dL Aspartate Amino Transferase (AST) 15 13-40 U/L Alanine Aminotransferase (ALT) 17 7-40 U/L Alkaline Phosphatase 59 46-116 U/L B-Type Natriuretic Peptide 13.57 0-100 pg/mL Total Protein 6.2 5.7-8.2 g/dL Albumin 3.5 3.2-4.8 g/dL Plasma/Serum Blood Alcohol < 3.0 <10 mg/dL PATIENT: SUHAIL STEWARD ACCT: [id number] UNIT: [id number] : 1970 LOC: ER ROOM / BED: / AGE / SEX: 53 / M ADM STATUS: REG ER SERVICE 44 ORDERING PHYSICIAN: CHARBEL RODRIGUEZ MD PROCEDURE(s): HWOCT - HEAD WITHOUT CONTRAST REASON: [facility] ORDER NUMBER(s): [id number], ACCESSION NUMBER(s): [id number] CT HEAD WITHOUT CONTRAST INDICATION: [facility] COMPARISON: CT HEAD WITHOUT CONTRAST on DOS: 07/03/24, CT HEAD WITHOUT CONTRAST on DOS: 06/29/24, CT CERVICAL WITHOUT CONTRAST on DOS: 06/29/24, CT HEAD WITHOUT CONTRAST on DOS: 05/23/24, CT CERVICAL WITHOUT CONTRAST on DOS: 05/23/24 TECHNIQUE: CT of the head without intravenous contrast. RADIATION DOSE: CTDIvol: 56.2 mGy, DLP: 995 mGy*cm FINDINGS: There is no evidence of acute intracranial hemorrhage, extra-axial collection, mass effect, midline shift, herniation or hydrocephalus. The ventricles, sulci and cisterns are age appropriate. Postsurgical changes are again seen in the left frontoparietal brain. No evidence of acute infarct. The visualized paranasal sinuses and mastoid air cells are clear. The surrounding soft tissues and osseous structures are unremarkable. IMPRESSION: 1. No evidence of acute infarct or intracranial hemorrhage. ORDERING PHYSICIAN: CHARBEL RODRIGUEZ MD PROCEDURE(s): CXRP - CHEST PORTABLE REASON: AMS ORDER NUMBER(s): [id number], ACCESSION NUMBER(s): [id number] CHEST RADIOGRAPH Indication: AMS Technique: Single frontal view of the chest was obtained COMPARISON: XY CHEST PORTABLE on DOS: 08/29/24, XY CHEST PORTABLE on DOS: 07/03/24, XY CHEST PORTABLE on DOS: 02/26/24, XY CHEST PORTABLE on DOS: 02/19/24 FINDINGS: Lines and Tubes: None Lungs: Questionable mild interstitial pulmonary edema. Pleura: No effusion. No pneumothorax. Cardiomediastinal contours: Mild cardiomegaly Bones: Unremarkable IMPRESSION: 1. Questionable mild interstitial pulmonary edema Assessment/Plan Assessment/Plan Altered mental status Pulmonary edema Thrombocytopenia Generalized weakness Plan 1. Admit to telemetry unit 2. Breathing treatment 3. Pain control management 4. IV antibiotic management 5. Management of fluids and electrolytes 6. Consultation for hospitalist 7. Diagnostic test chest x-ray 8. DVT prophylaxis on SCDs 9. Repeat labs CBC, CMP in a.m. 10. Home medication reviewed and reconciled 11. Continue with current medical management 12. Treatment plan discussed with patient and RN. Patient will need reinstatement information given mental status. Plan discussed with: Patient, Other (RN) My Orders Orders - ALEXANDER JAIN DNP Procedure Category Date Status Time Complete Blood Count LAB 10/25/24 Transmitted 06:27 Comprehensive LAB 10/25/24 Transmitted Metabolic Panel 06:27 Ceftriaxone 1gm/50ml PHA 10/25/24 Logged D5w (Rocephin) 09:00 Admit ADMIT 10/25/24 Transmitted 06:27 Allergies NATALIIA 10/25/24 In Process 06:27 Code Status CODE 10/25/24 Transmitted 06:27 Sodium Chloride Lock PHA 10/25/24 Logged (Saline Lock Ns) 14:00 Oxygen Per Hour RT 10/25/24 Transmitted 06:27 Hydrocodone-Acet PHA 10/25/24 Logged 5/325mg Tab ([place] 06:30 Ondansetron Hcl PHA 10/25/24 Logged (Zofran) 06:30 Docusate Sodium PHA 10/25/24 Transmitted Capsule (Colace 06:30 Fall Risk Precautions [facility] 10/25/[address] 06:27 Complete Blood Count LAB 10/26/24 Verified 04:00 Comprehensive LAB 10/26/24 Verified Metabolic Panel 04:00 Cardiac DIET 10/25/24 Transmitted Diet-2gna,Lofat,Lochol Breakfast Condition: Serious [facility] 10/25/24 In Process 06:27 Acetaminophen Tablet [facility] 10/25/24 Logged (Tylenol Tablet) 06:30 Sequential [facility] 10/25/24 In Process Compression Device Nitroglycerin [facility] 10/25/24 Logged Sublingual (Ntrostat 06:30 Morphine Sulfate [facility] 10/25/24 Logged Injection 06:30 Notify Of Changes [facility] 10/25/24 In Process From Base 06:27 Manager Of Applications Development For [facility] 10/25/24 In Process 24 Hours 06:27 Emergency Dysrhythmia [facility] 10/25/24 In Process Protocol 06:27 Rhythm Strips Once [facility] 10/25/24 In Process Every Shift 06:27 Oxygen By Nasal RT 10/25/24 Transmitted Cannula 06:27 Furosemide Injection [facility] 10/25/24 Transmitted (Lasix Injection) 10:00 Furosemide Injection [facility] 10/25/24 Transmitted (Lasix Injection) 06:30 Lisinopril Tablet [facility] 10/25/24 Transmitted (Zestril Tablet) 10:00 Problem List: (1) Altered mental status (2) Pulmonary edema (3) Thrombocytopenia (4) Generalized weakness Date of Service: Oct 25, 2024 Billing Provider: ALEXANDER JAIN DNP Common Visit Codes: [id number] INP/OBS CARE (HIGH) ALEXANDER JAIN DNP Oct 25, 2024 07:09
[2024-10-25 07:30] VITALS: PULSE 61; RESP 16; O2SAT 98
[2024-10-25] MEDS: LISINOPRIL 20 MG TAB PO SCH (10:30)
[2024-10-25] MEDS: LORazepam 2MG/ML-1ML VIAL IV ONE (12:51)
--- NOTE | 2024-10-25 13:34 | DVHPN2 ---
Reviewed: Care Plan, H&P, Medications, Previous Orders, Radiology Changes from previous H/P or p: No Changes Eyes: No Pain, No Vision change, No Conjunctivae inflammation, No Eyelid inflammation, No Other, No Redness ENT: No Ear pain, No Ear discharge, No Nose pain, No Nose discharge, No Nose congestion, No Mouth pain, No Mouth swelling, No Throat pain, No Throat swelling, No Other Cardiovascular: No Chest Pain, No Palpitations, No Orthopnea, No Paroxysmal Noc. Dyspnea, No Edema, No Lt Headedness, No Other Respiratory: No Cough, No Dry; Shortness of breath; No SOB with excertion, No Wheezing, No Hemoptysis, No Pleuritic Pain, No Sputum, No Other Gastrointestinal: No Nausea, No Vomiting, No Abdominal Pain, No Diarrhea, No Constipation, No Melena, No Hematochezia, No Other Genitourinary: No Dysuria, No Frequency, No Incontinence, No Hematuria, No Retention, No Other Musculoskeletal: No other, No neck pain, No shoulder pain, No arm pain, No back pain, No hand pain, No leg pain, No foot pain Skin: No Rash, No Lesions, No Jaundice, No Bruising, No Other Objective Vitals Vital Signs Date Time Temp Pulse Resp B/P (MAP) Pulse Ox O2 Delivery O2 Flow Rate FiO2 10/25/24 11:30 60 10/25/24 11:00 14 97/44 (61) 96 10/25/24 07:30 Nasal Cannula* 2 28 10/24/24 21:20 97.9 97.9 Intake/Output Intake and Output 10/25/24 07:00 Intake Total 1200 ml Balance 1200 ml Intake IV Total 1200 ml Medications Current Medications Medications Dose Ordered Sig/Negra Route Start Time Stop Time Status Last Admin Dose Admin Ceftriaxone Sodium 50 ml @ 100 mls/hr DAILY@2300 IV 10/25/24 23:00 Sodium Chloride 10 ml Q8HR IV 10/25/24 14:00 Acetaminophen/ Hydrocodone Bitart 1 tab Q4HP PRN PO 10/25/24 06:30 Ondansetron HCl 4 mg Q4HP PRN IV 10/25/24 06:30 Docusate Sodium 100 mg BIDPRN PRN PO 10/25/24 06:30 Acetaminophen 650 mg Q6HP PRN PO 10/25/24 06:30 Nitroglycerin 0.4 mg Q5MINP PRN SL 10/25/24 06:30 Morphine Sulfate 2 mg Q30M PRN IV 10/25/24 06:30 Furosemide 20 mg DAILY IV 10/26/24 10:00 Lisinopril 20 mg DAILY PO 10/25/24 10:00 10/25/24 10:30 20 MG Laboratory Results Laboratory Tests 10/24/24 21:02 Chemistry Test 10/24/24 21:02 Albumin 3.5 g/dL (3.2-4.8) Calcium Level 9.0 mg/dL (8.7-10.4) Total Protein 6.2 g/dL (5.7-8.2) Coagulation Test 10/24/24 21:02 Prothrombin Time 11.4 sec (9.3-11.8) Prothrombin Time INR 1.08 (0.9-1.15) Activated Partial Thromboplast Time 28.2 SEC (24.5-34.5) Cardiac Markers Test 10/24/24 21:02 B-Type Natriuretic Peptide 13.57 pg/mL (0-100) LFT Test 10/24/24 21:02 Alanine Aminotransferase (ALT) 17 U/L (7-40) Alkaline Phosphatase 59 U/L (46-116) Aspartate Amino Transferase (AST) 15 U/L (13-40) Total Bilirubin 0.5 mg/dL (0.2-1.0) Blood Gas Results Test 10/24/24 21:37 Arterial Blood pH 7.462 (7.350-7.450) FiO2 % 21.0 Labs and/or images reviewed: Labs reviewed by me, Image(s) reviewed by me Assessment/Plan Assessment/Plan Acute metabolic encephalopathy Schizophrenia Hypertension Blood alcohol negative Elli negative Flu test negative Will Check urine drug screen Plan discussed with: Patient My Orders Orders - PATTIE EARLY MD Procedure Category Date Status Time Drug Screen LAB 10/25/24 Verified 13:33 Date of Service: Oct 25, 2024 Billing Provider: PATTIE EARLY MD Common Visit Codes: [id number] INP/OBS CARE(HIGH) PATTIE EARLY MD Oct 25, 2024 13:34
[2024-10-25] MEDS: SODIUM CHLOR 0.9% PF (SALINE LOCK) 10ML VIAL/SYR IV SCH (14:10)
[2024-10-25 14:51] LABS: Basophils # (auto) 0 10 ^3/uL (0-0.2); Basophils % (auto) 0.4 % (0.0-2.0); Eosinophils # (auto) 0.1 10 ^3/uL (0-0.8); Eosinophils % (auto) 2.2 % (0.0-7.0); Hematocrit 40.9 % (41.0-53.0); Hemoglobin 13.4 g/dL (13.5-17.5); Lymphocytes % (auto) 15.9 % (10.0-50.0); Mean Corpuscular Hemoglobin 30.2 pg (28.0-32.0); Mean Corpuscular Hgb Conc. 32.9 g/dL (32.0-36.0); Mean Corpuscular Volume 91.7 fL (80.0-100.0); Monocytes % (auto) 16.3 % (0.0-12.0); Neutrophils # (auto) 4.2 10 ^3/uL (1.6-8.6); Neutrophils % (auto) 65.2 % (37.0-80.0); Nucleated Red Blood Cells % 0.1 %; Platelet Count (auto) 66 10^3/uL (140-450); Red Blood Cells 4.46 10^6/uL (4.5-5.90); Red Cell Distribution Width 16.1 % (11.8-14.3); White Blood Cell 6.4 10^3/uL (4.4-10.8)
[2024-10-25 15:11] LABS: Alanine Aminotransferase 20 U/L (7-40); Albumin 3.8 g/dL (3.2-4.8); Alkaline Phosphatase 60 U/L (46-116); Anion Gap 9 (5-15); Aspartate Aminotransferase 17 U/L (13-40); BUN/Creatinine Ratio 17.9 (10.0-20.0); Bilirubin, Total 0.6 mg/dL (0.2-1.0); Blood Urea Nitrogen 15 mg/dL (9-23); Calcium 9.1 mg/dL (8.7-10.4); Carbon Dioxide 27 mmol/L (20-31); Chloride 105 mmol/L (98-107); Glucose 79 mg/dL (74-106); Potassium 3.9 mmol/L (3.5-5.1); Sodium 141 mmol/L (136-145); Total Protein 6.6 g/dL (5.7-8.2)
[2024-10-25] MEDS: LORazepam 2MG/ML-1ML VIAL IV PRN (16:14)
[2024-10-25] MEDS: HALOPERIDOL LACTATE 5 MG/ML INJ VIAL IM ONE (21:13)
[2024-10-25] MEDS: cefTRIAXone 1GM/50ML D5W 50 ML IV SCH (22:27)
[2024-10-26 07:50] VITALS: TEMP 97.9; O2SAT 100
[2024-10-26 08:28] LABS: Basophils # (auto) 0 10 ^3/uL (0-0.2); Basophils % (auto) 0.5 % (0.0-2.0); Eosinophils # (auto) 0.2 10 ^3/uL (0-0.8); Eosinophils % (auto) 3.4 % (0.0-7.0); Hematocrit 40.8 % (41.0-53.0); Hemoglobin 13.6 g/dL (13.5-17.5); Lymphocytes % (auto) 18.5 % (10.0-50.0); Mean Corpuscular Hemoglobin 30.3 pg (28.0-32.0); Mean Corpuscular Hgb Conc. 33.3 g/dL (32.0-36.0); Mean Corpuscular Volume 90.7 fL (80.0-100.0); Monocytes # (auto) 0.8 10 ^3/uL (0-1.3); Monocytes % (auto) 14.1 % (0.0-12.0); Neutrophils # (auto) 3.5 10 ^3/uL (1.6-8.6); Neutrophils % (auto) 63.5 % (37.0-80.0); Platelet Count (auto) 73 10^3/uL (140-450); Red Blood Cells 4.49 10^6/uL (4.5-5.90); Red Cell Distribution Width 15.5 % (11.8-14.3); White Blood Cell 5.5 10^3/uL (4.4-10.8)
[2024-10-26 08:47] LABS: Alanine Aminotransferase 20 U/L (7-40); Albumin 3.9 g/dL (3.2-4.8); Alkaline Phosphatase 61 U/L (46-116); Anion Gap 8 (5-15); BUN/Creatinine Ratio 18.8 (10.0-20.0); Bilirubin, Total 0.7 mg/dL (0.2-1.0); Blood Urea Nitrogen 15 mg/dL (9-23); Calcium 9.5 mg/dL (8.7-10.4); Carbon Dioxide 28 mmol/L (20-31); Chloride 103 mmol/L (98-107); Glucose 75 mg/dL (74-106); Potassium 4.7 mmol/L (3.5-5.1); Sodium 139 mmol/L (136-145); Total Protein 6.9 g/dL (5.7-8.2)
[2024-10-26 08:50] LABS: Aspartate Aminotransferase 43 U/L (13-40)
[2024-10-26 09:01] VITALS: PULSE 62
[2024-10-26] MEDS: FUROSEMIDE 20 MG/2 ML VIAL IV SCH (10:24)
--- NOTE | 2024-10-26 16:42 | DVHDS2 ---
Discharge Summary Date of Admission Oct 25, 2024 at 06:27 Date of Discharge: Oct 26, 2024 Admitting Diagnosis Altered mental status Labs/Diagnostic Data: Laboratory Results Test 10/26/24 08:12 10/25/24 01:00 10/24/24 22:15 10/24/24 21:37 White Blood Count 5.5 10^3/uL (4.4-10.8) Red Blood Count 4.49 10^6/uL (4.5-5.90) Hemoglobin 13.6 g/dL (13.5-17.5) Hematocrit 40.8 % (41.0-53.0) Mean Corpuscular Volume 90.7 fL (80.0-100.0) Mean Corpuscular Hemoglobin 30.3 pg (28.0-32.0) Mean Corpuscular Hemoglobin Concent 33.3 g/dL (32.0-36.0) Red Cell Distribution Width 15.5 % (11.8-14.3) Platelet Count 73 10^3/uL (140-450) Mean Platelet Volume 7.1 fL (6.9-10.8) Neutrophils (%) (Auto) 63.5 % (37.0-80.0) Lymphocytes (%) (Auto) 18.5 % (10.0-50.0) Monocytes (%) (Auto) 14.1 % (0.0-12.0) Eosinophils (%) (Auto) 3.4 % (0.0-7.0) Basophils (%) (Auto) 0.5 % (0.0-2.0) Neutrophils # (Auto) 3.5 10 ^3/uL (1.6-8.6) Lymphocytes # (Auto) 1.0 10 ^3/uL (0.4-5.4) Monocytes # (Auto) 0.8 10 ^3/uL (0-1.3) Eosinophils # (Auto) 0.2 10 ^3/uL (0-0.8) Basophils # (Auto) 0 10 ^3/uL (0-0.2) Nucleated Red Blood Cells 0.0 % Sodium Level 139 mmol/L (136-145) Potassium Level 4.7 mmol/L (3.5-5.1) Chloride Level 103 mmol/L (98-107) Carbon Dioxide Level 28 mmol/L (20-31) Anion Gap 8 (5-15) Blood Urea Nitrogen 15 mg/dL (9-23) Creatinine 0.80 mg/dL (0.700-1.30) Glomerular Filtration Rate Calc 105 mL/min (>90) BUN/Creatinine Ratio 18.8 (10.0-20.0) Serum Glucose 75 mg/dL (74-106) Calcium Level 9.5 mg/dL (8.7-10.4) Total Bilirubin 0.7 mg/dL (0.2-1.0) Aspartate Amino Transferase (AST) 43 U/L (13-40) Alanine Aminotransferase (ALT) 20 U/L (7-40) Alkaline Phosphatase 61 U/L (46-116) Total Protein 6.9 g/dL (5.7-8.2) Albumin 3.9 g/dL (3.2-4.8) Influenza Type A Antigen Negative (Negative) Influenza Type B Antigen Negative (Negative) SARS-CoV-2 Antigen (Rapid) Negative (NEGATIVE) Troponin I High Sensitivity < 3 ng/L (</=54) Blood Gas Specimen Type Arterial Blood Gas Sample Site Right brachial Blood Gas Patient Temperature 37.0 Arterial Blood Date Drawn [id number] Arterial Blood pH 7.462 (7.350-7.450) Arterial Blood Partial Pressure CO2 35.4 mmHg (35.0-48.0) Arterial Blood Partial Pressure O2 60.1 mmHg (83.0-108.0) Arterial Blood HCO3 24.7 mmol/L (21.0-28.0) Arterial Blood Oxygen Saturation 91.6 % (94.0-98.0) Arterial Blood Base Excess 1.3 mmol/L (-2.0-3.0) Arterial Blood Oxyhemoglobin 90.8 % (94.0-98.0) Arterial Blood Carboxyhemoglobin 0.5 % (0.5-1.5) Arterial Blood Methemoglobin 0.4 % (0.0-1.5) Rafael Test Modified Blood Gas Total Hemoglobin 13.10 g/dL (13.5-17.5) Blood Gas Liter Flow 0.00 Blood Gas Modality Room air Blood Gas Spontaneous Rate 18 FiO2 % 21.0 Specimen Drawn By Blanco jacobson, rt Test 10/24/24 21:02 Prothrombin Time 11.4 sec (9.3-11.8) Prothrombin Time INR 1.08 (0.9-1.15) Activated Partial Thromboplast Time 28.2 SEC (24.5-34.5) Lactic Acid Level 1.0 mmol/L (0.4-2.0) B-Type Natriuretic Peptide 13.57 pg/mL (0-100) Plasma/Serum Blood Alcohol < 3.0 mg/dL (<10) Other Laboratory Tests 10/26/24 08:12 Brief Hx & Hospital Course: History of Present Illness The patient is a 53-year-old male with past medical history of schizophrenia and hypertension who presented to [facility] ED for evaluation of altered level of consciousness. As reported, incoming inspector were called due to patient's behavior, has been lying in bed more than usual all day, agitated, shortness of breaths, more aggressive and his current behavior different than normal. Patient was seen and evaluated in the ED, laboratory data shows WBC 7.7, platelets 61899, sodium 141, potassium 4.3, BUN 17, creatinine 0.93, glucose 88, troponin 3, BNP 13.57, blood pressure 134/90, heart rate 60, temperature 97.9 degrees F, O2 saturation 96% on room air. Chest x-ray revealing questionable mild interstitial pulmonary edema. Head CT showed no evidence of acute infarct or intracranial hemorrhage. Please see medication orders section in the computer. On my assessment, no diaphoresis, no dizziness, no palpitation, no shortness of breath, no diarrhea, no nausea, no vomiting, no fever, no chills. Patient was admitted for further evaluation and medical management. Course of hospitalization: Patient was given cessation of all home medications. CT scan of the head was performed which was negative for any acute pathology. Today, the patient was more alert, agitated. Patient was agreeable to be discharged back to his facility. It was recommended that he has follow up with his psychiatrist managing his medications for his latest episode of having metabolic encephalopathy. Physical examination General: Alert and Oriented x3. No acute distress. Well-nourished. Eyes: EOMI. Anicteric. HENT: Moist mucous membranes. Lungs: Clear to auscultation bilaterally. No accessory muscle use. Cardiovascular: Regular rate and rhythm. No murmur. No JVD. Abdomen: Soft, non-tender and non-distended. No palpable masses. Extremities: No edema. Non-tender. Skin: No rashes or lesions. Warm. Neurologic: No focal neurological deficits. CN II-XII grossly intact, but not individually tested. Psychiatric: Cooperative. Appropriate mood and affect. Total time spent with patient discussing and formulating plan of care: 35 minutes. This medical document was created using an electronic medical record system with [employer] dictation system. Although this document has been carefully reviewed, there may still be some phonetic and typographical errors. These areas are purely typographical due to imperfections of the software programs, and do not reflect any compromise in the patient's medical care. Condition at Discharge: Fair Final Diagnosis/Problems List Metabolic encephalopathy Secondary Diagnosis: History of traumatic brain injury Schizophrenia Discharge Disposition: Home Discharge Instruct/Medications Diet: Regular Activity: No Restrictions, As Tolerated Follow Up/Referral: Please have psychiatrist re-evaluate patient was antipsychotics given probable side effect of over medicating Medications: Continue all previous home medications 36 Discharge Statement: "Patient was advised to return to the ER or call 911 if any headaches, dizziness, shortness of breath, chest pain, abdominal pain, bleeding, fevers, or worsening of medical condition. Patient was counseled about treatment plan, medications, possible side effects, patientverbalized understanding. All questions were answered to the best of my ability. This discharge took greater then 30 minutes in planning, reviewing documentation, counseling the patient, and discussing with other team members." ASSESSMENT ASSESSMENT Assessment Metabolic encephalopathy Date of Service: Oct 26, 2024 Billing Provider: CHAPARRO GARCIA NP Common Visit Codes: [id number] DISCH DAY >30min CHAPARRO GARCIA NP Oct 26, 2024 16:42
[2024-10-26] MEDS: LORazepam 2MG/ML-1ML VIAL IV PRN (17:32)
[2024-10-26 18:15] VITALS: BP 149/89; PULSE 65; RESP 14
== END 2024-10-26 18:36 | DRG 137 ==
LOC: EDUNIT# 20:37 → ER 20:37 → EDBD 20:37 → TELE 10-25 06:27
PROVIDERS: ADMIT Nurse Practitioner Family; ATTEND Nurse Practitioner Acute Care
DX: J15.69 Pneumonia due to other Gram-negative bacteria (principal); G93.41 Metabolic encephalopathy; D69.6 Thrombocytopenia, unspecified; J81.1 Chronic pulmonary edema; F20.9 Schizophrenia, unspecified; J15.9 Unspecified bacterial pneumonia; Z20.822 Contact with and (suspected) exposure to COVID-19; I10 Essential (primary) hypertension; R09.02 Hypoxemia; Z79.899 Other long term (current) drug therapy
CPT/HCPCS: 36415; 36600; 70450; 71045; 80053; 80320; 82805; 83605; 83880; 84484; 85025; 85610; 85730; 87040; 87426; 87804; 93005; G0378; J1956

== ENCOUNTER 2024-11-25 07:16 | Emergency (ER) | payer MEDICAID ==
[~2024-11-25] VITALS: Ht 152.4 cm; Wt 65.0 kg
[2024-11-25 08:00] VITALS: PULSE 70; O2SAT 95
--- NOTE | 2024-11-25 08:46 | ED.PDOC ---
History of Present Illness HPI Comments 54Y M with PMHx Dn, HTN, bipolar, and schizophrenia presents to ED via EMS for chief complaint fever x last night. Additional symptoms per assisted living facility include nausea and congestion. Pt is currently living at [facility]. Per EMS, no fever on arrival. Current temp in ED 98.7F. Chief Complaint: Fever Time Seen by MD: 08:35 Reviewed Notes: Nurses Notes, Mending Carrier Notes, Medications, Allergies Information Source: Patient, Emergency Med Personnel Mode of Arrival: EMS Timing: Hours Duration: Since onset Prehospital treatment: 12 Lead EKG Severity: Mild Fever: Questionable Context: Recent: None Symptoms: Fever Modifying Factors: Nothing Associated Signs and Symptoms: Weakness, Other Past Medical History PAST MEDICAL HISTORY: DM, HTN, Schizophrenia Past Medical History (Other): Bipolar Surgical History: Denies all surgeries Family History Family History: Reviewed,noncontributory to illness, No family hx of Cancer, No family hx of DM, No family hx of Heart leilani, No family hx of HTN, No family hx ofKidney leilani, No family hx of Liver leilani, No family hx of Lung leilani, No family hx of Stroke Social History Smoker: Non-Smoker Alcohol: Denies ETOH Use Drugs: Denies Drug Use Lives In: Assisted Care Constitutional: Fever EENTM: Nose Congestion Respiratory: No Symptoms Reported Cardiovascular: No Symptoms Reported Gastrointestinal: Nausea Genitourinary: No Symptoms Reported Neurological: No Symptoms Reported Musculoskeletal: No Symptoms Reported Integumentary: No Symptoms Reported Allergic/Immunocompromised: others Hematologic/Lymphatic: No Symptoms Reported Endocrine: No Symptoms Reported Psychiatric: No symptoms Reported All Other Systems: Reviewed and Negative Physical Exam General Appearance: No Apparent Distress, Normal, Other (Patient unconscious) HEENT: Normal ENT Inspection, PERRL/EOMI, Pharynx Normal, TMs Normal, Other (No facial asymmetry) Neck: Full Range of Motion, Non-Tender, Normal, Normal Inspection Respiratory: Chest Non-Tender, Lungs Clear, No Accessory Muscle Use, No Respiratory Distress, Normal Breath Sounds Cardiovascular: No Edema, No JVD, No Murmur, No Gallop, Normal Peripheral Pulses, Regular Rate/Rhythm Breast Exam: Deferred Gastrointestinal: No Organomegaly, Non Tender, No Pulsatile Mass, Normal Bowel Sounds, Soft Genitalia: Deferred Pelvic: Deferred Rectal: Deferred Extremities: Normal capillary refill, Normal inspection, No pedal edema Musculoskeletal : Apperance: Normal Neurologic: No Motor Deficits, Normal Affect, Normal Mood, No Sensory Deficits, Other (Patient unconscious and left-sided spastic hemiplegia) Cerebellar Function: Unable to Test Reflexes: Normal, NOT DONE Skin: Dry, Normal Color, Warm Peripheral Pulses: 1+ carotid (R), 1+ carotid (L) Lymphatic: No Adenopathy Was a procedure done? Was a procedure done?: No EKG EKG : Pulse Rate (adult): 72 [place]: LAD Cardiac Rhythm: NSR Fever Differential Dx Differential Diagnosis: Electrolyte Imbalance, Pneumonia, Sepsis, UTI, Viral Syndrome X-Ray, Labs, Meds, VS Vital Signs Date Time Temp Pulse Resp B/P (MAP) Pulse Ox O2 Delivery O2 Flow Rate FiO2 11/25/24 10:05 88 14 156/129 (138) 96 11/25/24 08:52 72 11/25/24 08:11 98.7 70 16 124/72 (89) 95 98.7 11/25/24 08:00 70 95 Room Air* 0 21 11/25/24 07:29 98.7 64 18 120/75 (90) 97 11/25/24 07:21 72 Lab Test 11/25/24 11:44 11/25/24 08:47 11/25/24 00:00 Range/Units White Blood Count 5.6 4.4-10.8 10^3/uL Red Blood Count 3.82 L 4.5-5.90 10^6/uL Hemoglobin 12.0 L 13.5-17.5 g/dL Hematocrit 36.1 L 41.0-53.0 % Mean Corpuscular Volume 94.7 80.0-100.0 fL Mean Corpuscular Hemoglobin 31.5 28.0-32.0 pg Mean Corpuscular Hemoglobin Concent 33.3 32.0-36.0 g/dL Red Cell Distribution Width 21.1 H 11.8-14.3 % Platelet Count 61 L 140-450 10^3/uL Mean Platelet Volume 6.9 6.9-10.8 fL Neutrophils (%) (Auto) 59.3 37.0-80.0 % Lymphocytes (%) (Auto) 16.5 10.0-50.0 % Monocytes (%) (Auto) 23.1 H 0.0-12.0 % Eosinophils (%) (Auto) 0.6 0.0-7.0 % Basophils (%) (Auto) 0.5 0.0-2.0 % Neutrophils # (Auto) 3.3 1.6-8.6 10 ^3/uL Lymphocytes # (Auto) 0.9 0.4-5.4 10 ^3/uL Monocytes # (Auto) 1.3 0-1.3 10 ^3/uL Eosinophils # (Auto) 0 0-0.8 10 ^3/uL Basophils # (Auto) 0 0-0.2 10 ^3/uL Nucleated Red Blood Cells 0.1 % Platelet Estimate Pending Sodium Level 145 136-145 mmol/L Potassium Level 3.8 3.5-5.1 mmol/L Chloride Level 112 H 98-107 mmol/L Carbon Dioxide Level 25 20-31 mmol/L Anion Gap 8 5-15 Blood Urea Nitrogen 21 9-23 mg/dL Creatinine 1.07 0.700-1.30 mg/dL Glomerular Filtration Rate Calc 82 >90 mL/min BUN/Creatinine Ratio 19.6 10.0-20.0 Serum Glucose 80 74-106 mg/dL Calcium Level 9.1 8.7-10.4 mg/dL Magnesium Level 2.1 1.6-2.6 mg/dL Total Bilirubin 0.9 0.2-1.0 mg/dL Aspartate Amino Transferase (AST) 26 13-40 U/L Alanine Aminotransferase (ALT) 21 7-40 U/L Alkaline Phosphatase 57 46-116 U/L Total Protein 6.4 5.7-8.2 g/dL Albumin 3.6 3.2-4.8 g/dL Influenza Type A Antigen Negative Negative Influenza Type B Antigen Negative Negative SARS-CoV-2 Antigen (Rapid) Negative NEGATIVE Current Medications Medications (Trade) Dose Ordered Sig/Negra Route Start Time Stop Time Status Last Admin Sodium Chloride 1,000 ml @ 1,000 mls/hr Q1H ONCE IVB 11/25/24 09:00 11/25/24 09:59 DC 11/25/24 12:[address] [address] Ph: [phone] DIAGNOSTIC IMAGING Diagnostic Imaging Report : [id number] Signed PATIENT: SUHAIL STEWARD ACCT: [id number] UNIT: [id number] : 1970 LOC: ER ROOM / BED: / AGE / SEX: 54 / M ADM STATUS: REG ER SERVICE 6 ORDERING PHYSICIAN: CHEIKH ABRAMS MD PROCEDURE(s): HWOCT - HEAD WITHOUT CONTRAST REASON: Altered level of consciousness ORDER NUMBER(s): [id number], ACCESSION NUMBER(s): [id number] EXAM: CT HEAD WITHOUT CONTRAST INDICATION: Altered level of consciousness TECHNIQUE: CT of the head without intravenous contrast. Radiation Dose : 1. Head: CT Dose: CTDI volume is 53.73 mGy. Dose-length product is 970.63 mGy*cm The dose indicators for CT are the volume Computed Tomography (CT) Dose Index (CTDIvol) and the Dose Length Product (DLP), and are measured in units of mGy and mGy-cm, respectively. These indicators are not patient dose, but values generated from the CT scanner acquisition factors. The report includes radiation exposure data for exposures received during this examination. COMPARISON: CT HEAD WITHOUT CONTRAST on DOS: 10/24/24, CT HEAD WITHOUT CONTRAST on DOS: 07/03/24, CT HEAD WITHOUT CONTRAST on DOS: 06/29/24, CT CERVICAL WITHOUT CONTRAST on DOS: 06/29/24, CT HEAD WITHOUT CONTRAST on DOS: 05/23/24 FINDINGS: There is no evidence of acute intracranial hemorrhage, extra-axial collection, mass effect, midline shift, herniation or hydrocephalus. Left frontal lobe encephalomalacia. The ventricles, sulci and cisterns are age appropriate. The harris-white differentiation is intact. Patchy periventricular and subcortical white matter hypoattenuation is nonspecific but may be related to small vessel ischemic disease. The visualized paranasal sinuses and mastoid air cells are clear. Left frontal craniotomy. IMPRESSION: No acute intracranial abnormality. Radiation optimization: All CT scans at this facility use at least one of these dose optimization techniques: automated exposure control mA and/or kV adjustment per patient size (includes targeted exams where dose is matched to clinical indication) or iterative reconstruction. ATED BY: ELVIN RAY MD DICTATED DATE/TIME: 11/25/24935 SIGNED BY: ELVIN RAY MD SIGNED DATE/TIME: 11/25/24935 CC: [facility] [id number] [facility] [address] Ph: [phone] DIAGNOSTIC IMAGING Diagnostic Imaging Report : [id number] Signed PATIENT: SUHAIL STEWARD ACCT: [id number] UNIT: [id number] : 1970 LOC: ER ROOM / BED: / AGE / SEX: 54 / M ADM STATUS: REG ER SERVICE 1125 ORDERING PHYSICIAN: CHEIKH ABRAMS MD PROCEDURE(s): CXRP - CHEST PORTABLE REASON: Altered level of consciousness ORDER NUMBER(s): [id number], ACCESSION NUMBER(s): [id number] CHEST RADIOGRAPH Indication: Altered level of consciousness Technique: Single frontal view of the chest was obtained COMPARISON: XY CHEST PORTABLE on DOS: 10/24/24, XY CHEST PORTABLE on DOS: 08/29/24, XY CHEST PORTABLE on DOS: 07/03/24, XY CHEST PORTABLE on DOS: 02/26/24, XY CHEST PORTABLE on DOS: 02/19/24 FINDINGS: Lines and Tubes: None Lungs: Mild congestion Pleura: No effusion. No pneumothorax. Cardiomediastinal contours: Cardiomegaly Bones: Unremarkable IMPRESSION: Mild congestion ATED BY: ELVIN RAY MD DICTATED DATE/TIME: 11/25/24 1140 SIGNED BY: ELVIN ARY MD SIGNED DATE/TIME: 11/25/24 1140 CC: X-Ray, Labs, Meds, VS Comment Course in the emergency department eventful patient came in because of fever and cough Patient with a history of TBI hypertension bipolar schizophrenia and diabetes The chest x-ray is fine EKG shows normal sinus rhythm at 72 with left axis deviation CT of the head is normal except for a craniotomy CBC normal CMP negative Magnesium 2.1 COVID-19 negative Influenza a negative Influenza B negative Patient has been observed for several hours he is stable and will be discharged to follow up with his PCP Time of 1ST Reevaluation: 09:05 Reevaluation 1ST: Unchanged Time of 2ND Reevaluation: 13:30 Reevaluation 2ND: Improved Consultation: PCP Patient Education/Counseling: Diagnosis, Treatment, Prognosis, Need For Follow Up Family Education/Counseling: Diagnosis, Treatment, Prognosis, Need For Follow Up, No Family Present Departure 1 Departure Time of Disposition: 13:31 Impression: Primary Impression: Viral syndrome Additional Impressions: TBI (traumatic brain injury) History of traumatic brain injury Bipolar 1 disorder Disposition: 03 NURSING HOME FACILITY Condition: Fair Additional Instructions: Push fluids and four cough and fever use Tylenol Discharged With: Self Critical Care Note Critical Care Time?: No Stability Stability form required: No Heart Score Heart Score: Heart Score Response (Comments) Value History N/A 0 EKG Normal 0 Age 45-64 1 Risk Factors 1 or 2 risk factors 1 Troponin N/A 0 Total 2 I personally scribed for CHEIKH ABRAMS MD ([email or web address]) on 11/25/24 at 08:46. Electronically submitted by Nahomy Van ([employer]). I personally scribed for CHEIKH ABRAMS MD ([email or web address]) on 11/25/24 at 08:52. Electronically submitted by Nahomy Van ([employer]). I personally scribed for CHEIKH ABRAMS MD ([email or web address]) on 11/25/24 at 09:54. Electronically submitted by Nahomy Van ([email or web address]). I personally scribed for CHEIKH ABRAMS MD ([email or web address]) on 11/25/24 at 11:46. Electronically submitted by Nahomy Van ([employer]). CHEIKH ABRAMS MD Nov 25, 2024 08:46
--- NOTE | 2024-11-25 09:40 | DVH ---
EXAM: CT HEAD WITHOUT CONTRAST INDICATION: Altered level of consciousness TECHNIQUE: CT of the head without intravenous contrast. Radiation Dose : 1. Head: CT Dose: CTDI volume is 53.73 mGy. Dose-length product is 970.63 mGy*cm The dose indicators for CT are the volume Computed Tomography (CT) Dose Index (CTDIvol) and the Dose Length Product (DLP), and are measured in units of mGy and mGy-cm, respectively. These indicators are not patient dose, but values generated from the CT scanner acquisition factors. The report includes radiation exposure data for exposures received during this examination. COMPARISON: CT HEAD WITHOUT CONTRAST on DOS: 10/24/24, CT HEAD WITHOUT CONTRAST on DOS: 07/03/24, CT HE AD WITHOUT CONTRAST on DOS: 06/29/24, CT CERVICAL WITHOUT CONTRAST on DOS: 06/29/24, CT HEAD WITHOUT CONT RAST on DOS: 05/23/24 FINDINGS: There is no evidence of acute intracranial hemorrhage, extra-axial collection, mass effect, midline s hift, herniation or hydrocephalus. Left frontal lobe encephalomalacia. The ventricles, sulci and cisterns are age appropriate. The harris-white differentiation is intact. Patchy periventricular and subcortical white matter hypoattenuation is nonspecific but may be related to small vessel ischemic disease. The visualized paranasal sinuses and mastoid air cells are clear. Left frontal craniotomy. IMPRESSION: No acute intracranial abnormality. Radiation optimization: All CT scans at this facility use at least one of these dose optimization fabiana hniques: automated exposure control mA and/or kV adjustment per patient size (includes targeted exam s where dose is matched to clinical indication) or iterative reconstruction.
[2024-11-25 11:26] LABS: COVID19 ANTIGEN SOFIA FIA NEGATIVE (NEGATIVE)
[2024-11-25 11:26] LABS: Rapid Influenza A Negative (Negative); Rapid Influenza B Negative (Negative)
--- NOTE | 2024-11-25 11:44 | DVH ---
CHEST RADIOGRAPH Indication: Altered level of consciousness Technique: Single frontal view of the chest was obtained COMPARISON: XY CHEST PORTABLE on DOS: 10/24/24, XY CHEST PORTABLE on DOS: 08/29/24, XY CHEST PORTABLE on DOS: 07/03/24, XY CHEST PORTABLE on DOS: 02/26/24, XY CHEST PORTABLE on DOS: 02/19/24 FINDINGS: Lines and Tubes: None Lungs: Mild congestion Pleura: No effusion. No pneumothorax. Cardiomediastinal contours: Cardiomegaly Bones: Unremarkable IMPRESSION: Mild congestion
[2024-11-25] MEDS: SODIUM CHLORIDE 0.9% 1,000 ML IVB ONE (12:20)
[2024-11-25 12:23] LABS: Basophils # (auto) 0 10 ^3/uL (0-0.2); Eosinophils # (auto) 0 10 ^3/uL (0-0.8); Lymphocytes # (auto) 0.9 10 ^3/uL (0.4-5.4); Lymphocytes % (auto) 16.5 % (10.0-50.0); Mean Corpuscular Hemoglobin 31.5 pg (28.0-32.0); Monocytes # (auto) 1.3 10 ^3/uL (0-1.3); Neutrophils # (auto) 3.3 10 ^3/uL (1.6-8.6); Nucleated Red Blood Cells % 0.1 %; White Blood Cell 5.6 10^3/uL (4.4-10.8)
[2024-11-25 12:26] LABS: Basophils % (auto) 0.5 % (0.0-2.0); Eosinophils % (auto) 0.6 % (0.0-7.0); Hematocrit 36.1 % (41.0-53.0); Mean Corpuscular Hgb Conc. 33.3 g/dL (32.0-36.0); Mean Corpuscular Volume 94.7 fL (80.0-100.0); Neutrophils % (auto) 59.3 % (37.0-80.0); Platelet Count (auto) 61 10^3/uL (140-450); Red Blood Cells 3.82 10^6/uL (4.5-5.90)
[2024-11-25 12:34] LABS: Monocytes % (auto) 23.1 % (0.0-12.0); Red Cell Distribution Width 21.1 % (11.8-14.3)
[2024-11-25 13:07] LABS: Alanine Aminotransferase 21 U/L (7-40); Albumin 3.6 g/dL (3.2-4.8); Alkaline Phosphatase 57 U/L (46-116); Anion Gap 8 (5-15); Aspartate Aminotransferase 26 U/L (13-40); BUN/Creatinine Ratio 19.6 (10.0-20.0); Blood Urea Nitrogen 21 mg/dL (9-23); Calcium 9.1 mg/dL (8.7-10.4); Carbon Dioxide 25 mmol/L (20-31); Glucose 80 mg/dL (74-106); Magnesium 2.1 mg/dL (1.6-2.6); Potassium 3.8 mmol/L (3.5-5.1); Sodium 145 mmol/L (136-145)
[2024-11-25 13:08] LABS: Bilirubin, Total 0.9 mg/dL (0.2-1.0); Total Protein 6.4 g/dL (5.7-8.2)
[2024-11-25 13:11] LABS: Chloride 112 mmol/L (98-107)
[2024-11-25 13:40] LABS: Anisocytosis Slight
[2024-11-25 13:41] LABS: Platelet Estimate Decreased
[2024-11-25] MEDS: SODIUM CHLORIDE 0.9% 1,000 ML IV ONE (15:21)
[2024-11-25 20:18] VITALS: PULSE 64; RESP 16; O2SAT 98
[2024-11-26] MEDS: OLANZapine 5 MG TAB PO ONE (01:36)
[2024-11-26 09:02] LABS: Urine Bacteria None Seen /hpf (None Seen)
[2024-11-26 09:42] LABS: Urine Blood 1+ /uL (Negative); Urine Clarity Clear (Clear); Urine Color Light-Yellow (Yellow); Urine Protein, UAD Negative (Negative); Urine Specific Gravity 1.016 (1.001-1.035); Urine Squamous Epithelial Cell FEW /hpf (<5); Urine Urobilinogen 4 mg/dL (Negative); Urine WBC 1 /hpf (0 - 3)
[2024-11-26 10:16] VITALS: BP 147/100; PULSE 63; RESP 15; TEMP 98; O2SAT 95
[2024-11-26] MEDS: LORazepam 2MG/ML-1ML VIAL IV ONE (10:27)
== END 2024-11-25 13:29 ==
LOC: ER 07:16 → EDBD 07:16 → ER 13:29
DX: B34.9 Viral infection, unspecified (principal); F31.9 Bipolar disorder, unspecified; I10 Essential (primary) hypertension; E11.9 Type 2 diabetes mellitus without complications; F20.9 Schizophrenia, unspecified; Z87.820 Personal history of traumatic brain injury; Z20.822 Contact with and (suspected) exposure to COVID-19
CPT/HCPCS: 36415; 70450; 71045; 80053; 81001; 83735; 85025; 87040; 87086; 87426; 87804; 96361; 96374; 99285; J7030

== ENCOUNTER 2024-12-24 18:05 | Emergency (ER) | payer MEDICAID ==
[~2024-12-24] VITALS: Ht 165.1 cm; Wt 59.0 kg
--- NOTE | 2024-12-24 18:42 | ED.PDOC ---
History of Present Illness HPI Comments 54-year-old male who comes in with chief complaint of injury to the left facial area. The patient was at [facility] facility and the patient fell down in the left side of his head. The injury occurred at approximately 5:00 a.m. this evening. The patient denies any loss of consciousness. There has been no na usea, vomiting or diarrhea. Chief Complaint: Facial Injury Time Seen by MD: 18:11 Primary Care Provider: COLLIN Armendariz Notes: Nurses Notes, Sample Book Maker Notes, Medications, Allergies (No allergies to medications) Allergies: Coded Allergies: NO KNOWN ALLERGIES (Unverified , 02/08/24) Home Meds Active Scripts Benztropine Mesylate (Benztropine Mesylate) 0.5 Mg Tab, 1 MG PO DAILY, #30 TAB Prov:GWENDOLYN FERREIRA MD 07/06/24 Divalproex Sodium (Divalproex Sodium Dr) 250 Mg Tab, 250 MG PO TID, #30 TAB Prov:GWENDOLYN FERREIRA MD 07/06/24 Lisinopril (Lisinopril) 20 Mg Tab, 20 MG PO DAILY, #30 TAB Prov:GWENDOLYN FERREIRA MD 07/06/24 Melatonin (Melatonin) 5 Mg Tab, 5 MG PO HS, #30 TAB Prov:GWENDOLYN FERREIRA MD 07/06/24 Quetiapine Fumerate (QUETIAPINE FUMARATE) 100 Mg Tab, 200 MG PO TID, #30 TAB Prov:GWENDOLYN FERREIRA MD 07/06/24 Acetaminophen (Tylenol) 325 Mg Cap, 650 MG PO Q6HP PRN, #30 CAP Prov:CAROLINA MORALES MD 05/23/24 Bacitracin (Bacitracin Oint) 1 Applic Ap, 1 APPLIC TOP TID, #30 GRAMS Apply to facial abrasions Prov:CAROLINA MORALES MD 05/23/24 Information Source: Patient, Emergency Med Personnel Mode of Arrival: EMS Severity: Mild Timing: Hours Duration: Since onset Prehospital treatment: None Associated signs and symptoms Left facial swelling Past Medical History PAST MEDICAL HISTORY: DM, HTN, Schizophrenia Past Medical History (Other): Neuropathy Surgical History: Denies all surgeries Family History Family History: Reviewed,noncontributory to illness, No family hx of Cancer, No family hx of DM, No family hx of Heart leilani, No family hx of HTN, No family hx ofKidney leilani, No family hx of Liver leilani, No family hx of Lung leilani, No family hx of Stroke Social History Smoker: Non-Smoker Alcohol: Denies ETOH Use Drugs: Denies Drug Use Lives In: Assisted Care Constitutional: denies: chills, diaphoresis, fatigue, fever, malaise, sweats, weakness, others EENTM: reports: others (Left facial swelling and pain); denies: blurred vision, double vision, ear bleeding, ear discharge, ear drainage, ear pain, ear ringing, eye pain, eye redness, hearing loss, mouth pain, mouth swelling, nasal discharge, nose bleeding, nose congestion, nose pain, photophobia, tearing, throat pain, throat swelling, voice changes Respiratory: denies: cough, hemoptysis, orthopnea, SOB at rest, shortness of b reath, SOB with excertion, stridor, wheezing, others Cardiovascular: denies: chest pain, dizzy spells, diaphoresis, Dyspnea on exertion, edema, irregular heart beat, left arm pain, lightheadedness, palpitations, PND, syncope, others Gastrointestinal: denies: abdomen distended, abdominal pain, blood streaked bowels, constipated, diarrhea, dysphagia, difficulty swallowing, hematemesis, melena, nausea, poor appetite, poor fluid intake, rectal bleeding, rectal pain, vomiting, others Genitourinary: denies: burning, dysuria, flank pain, frequency, hematuria, incontinence, penile discharge, penile sore, pain, testicle pain, testicle swelling, urgency, others Neurological: denies: dizziness, fainting, headache, left sided numbness, left sided weakness, numbness, paresthesia, pre-existing deficit, right sided numbness, right sided weakness, seizure, speech problems, tingling, tremors, weakness, others Musculoskeletal: denies: back pain, gout, joint pain, joint swelling, muscle pain, muscle stiffness, neck pain, others Integumetry: denies: bruises, change in color, change in hair/nails, dryness, laceration, lesions, lumps, rash, wounds, others Allergic/Immunocompromised: denies: Difficulty Healing, Frequent Infections, Hives, Itching, others Hematologic/Lymphatic: denies: anemia, blood clots, easy bleeding, easy bruising, swollen glands, others Endocrine: denies: excessive hunger, excessive sweating, excessive thirst, excessive urination, flushing, intolerance to cold, intolerance to heat, unexplained weight gain, unexplained weight loss, others Psychiatric: denies: anxiety, bipolar disorder, depression, hopeless, panic disorder, schizophrenia, sleepless, suicidal, others Physical Exam General Appearance: Moderate Distress HEENT: Pharynx Normal, TMs Normal, Other (Swelling over the left zygoma as well as the left periorbital area) Neck: Full Range of Motion, Non-Tender, Normal, Normal Inspection Respiratory: Chest Non-Tender, Lungs Clear, No Accessory Muscle Use, No Respiratory Distress, Normal Breath Sounds Cardiovascular: No Edema, No JVD, No Murmur, No Gallop, Normal Peripheral Pulses, Regular Rate/Rhythm Breast Exam: Deferred Gastrointestinal: No Organomegaly, Non Tender, No Pulsatile Mass, Normal Bowel Sounds, Soft Genitalia: Deferred Pelvic: Deferred Rectal: Deferred Extremities: No calf tenderness, Normal capillary refill, Normal inspection, Normal range of motion, Non-tender, No pedal edema Musculoskeletal : Apperance: Normal 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 Was a procedure done?: No Differential Dx Considerations may include: Fracture, strain, contusion X-Ray, Labs, Meds, VS Vital Signs Date Time Temp Pulse Resp B/P (MAP) Pulse Ox O2 Delivery O2 Flow Rate FiO2 12/24/24 18:17 99.1 84 16 141/110 (120) 100 Lab Test 12/24/24 18:54 Range/Units White Blood Count 7.2 4.4-10.8 10^3/uL Red Blood Count 3.61 L 4.5-5.90 10^6/uL Hemoglobin 11.9 L 13.5-17.5 g/dL Hematocrit 36.1 L 41.0-53.0 % Mean Corpuscular Volume 99.9 80.0-100.0 fL Mean Corpuscular Hemoglobin 32.9 H 28.0-32.0 pg Mean Corpuscular Hemoglobin Concent 32.9 32.0-36.0 g/dL Red Cell Distribution Width 17.8 H 11.8-14.3 % Platelet Count 81 L 140-450 10^3/uL Mean Platelet Volume 8.0 6.9-10.8 fL Neutrophils (%) (Auto) 72.6 37.0-80.0 % Lymphocytes (%) (Auto) 15.8 10.0-50.0 % Monocytes (%) (Auto) 10.0 0.0-12.0 % Eosinophils (%) (Auto) 1.2 0.0-7.0 % Basophils (%) (Auto) 0.4 0.0-2.0 % Neutrophils # (Auto) 5.3 1.6-8.6 10 ^3/uL Lymphocytes # (Auto) 1.1 0.4-5.4 10 ^3/uL Monocytes # (Auto) 0.7 0-1.3 10 ^3/uL Eosinophils # (Auto) 0.1 0-0.8 10 ^3/uL Basophils # (Auto) 0 0-0.2 10 ^3/uL Nucleated Red Blood Cells 0.1 % Sodium Level 145 136-145 mmol/L Potassium Level 3.6 3.5-5.1 mmol/L Chloride Level 108 H 98-107 mmol/L Carbon Dioxide Level 28 20-31 mmol/L Anion Gap 9 5-15 Blood Urea Nitrogen 20 9-23 mg/dL Creatinine 1.11 0.700-1.30 mg/dL Glomerular Filtration Rate Calc 78 >90 mL/min BUN/Creatinine Ratio 18.0 10.0-20.0 Serum Glucose 78 74-106 mg/dL Calcium Level 9.1 8.7-10.4 mg/dL Plasma/Serum Blood Alcohol < 3.0 <10 mg/dL The patient's CBC is within normal limits The chemistry panel is within normal limits The alcohol level is negative At this time, the patient was being discharged The patient will follow up with the primary care doctor The patient will return to the emergency department's condition worsens The CT scan of the maxillofacial shows: Impression: 1. No evidence of an acute fracture. 2. Moderate left buccal soft tissue edema with a small central hematoma. 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
[2024-12-24 19:08] LABS: Basophils # (auto) 0 10 ^3/uL (0-0.2); Basophils % (auto) 0.4 % (0.0-2.0); Eosinophils # (auto) 0.1 10 ^3/uL (0-0.8); Eosinophils % (auto) 1.2 % (0.0-7.0); Hematocrit 36.1 % (41.0-53.0); Hemoglobin 11.9 g/dL (13.5-17.5); Lymphocytes # (auto) 1.1 10 ^3/uL (0.4-5.4); Lymphocytes % (auto) 15.8 % (10.0-50.0); Mean Corpuscular Hemoglobin 32.9 pg (28.0-32.0); Mean Corpuscular Hgb Conc. 32.9 g/dL (32.0-36.0); Mean Corpuscular Volume 99.9 fL (80.0-100.0); Monocytes # (auto) 0.7 10 ^3/uL (0-1.3); Neutrophils # (auto) 5.3 10 ^3/uL (1.6-8.6); Neutrophils % (auto) 72.6 % (37.0-80.0); Nucleated Red Blood Cells % 0.1 %; Red Blood Cells 3.61 10^6/uL (4.5-5.90); Red Cell Distribution Width 17.8 % (11.8-14.3); White Blood Cell 7.2 10^3/uL (4.4-10.8)
[2024-12-24 19:10] LABS: Platelet Count (auto) 81 10^3/uL (140-450)
[2024-12-24 19:24] LABS: Potassium 3.6 mmol/L (3.5-5.1); Sodium 145 mmol/L (136-145)
[2024-12-24 19:25] LABS: Anion Gap 9 (5-15); Carbon Dioxide 28 mmol/L (20-31)
[2024-12-24 19:26] LABS: Calcium 9.1 mg/dL (8.7-10.4)
--- NOTE | 2024-12-24 19:26 | DVH ---
EXAM: CT MAXILLOFACIAL WITHOUT INDICATION: fall EXAM DATE: 12/24/2024 06:56 PM COMPARISON: CT MAXILLOFACIAL WITHOUT on DOS: 06/29/24, CT MAXILLOFACIAL WITHOUT on DOS: 05/23/24 TECHNIQUE: Multiple axial CT images of the maxilla and face were obtained using bone algorithm. Axial and coronal reformatting was done. Bone and soft tissue windows were reviewed. Radiation Dose Information: CT Dose: CTDI volume is 65.78 mGy. Dose-length product is 1339.49 mGy*cm Findings: There is no evidence of an acute fracture or traumatic subluxations. No evidence of lytic, blastic, or osseous destructive lesions. The paranasal sinuses, middle ear cavities, and mastoid air cells are normally aerated. The globes an d orbits are within normal limits. The nasal septum, nasal cavity, nasopharynx, and oropharynx are grossly unremarkable. Moderate left buccal soft tissue edema with a small central hematoma. Impression: 1. No evidence of an acute fracture. 2. Moderate left buccal soft tissue edema with a small central hematoma.
[2024-12-24 19:31] LABS: Blood Urea Nitrogen 20 mg/dL (9-23); Glucose 78 mg/dL (74-106)
[2024-12-24 19:33] LABS: Blood Alcohol < 3.0 mg/dL (<10); Chloride 108 mmol/L (98-107)
[2024-12-25 08:10] VITALS: PULSE 66; RESP 18; O2SAT 99
[2024-12-25 10:10] VITALS: BP 120/91; PULSE 70; RESP 16; TEMP 98.1; O2SAT 99
== END 2024-12-25 10:45 | disposition home or self-care (01) ==
LOC: EDSEX 18:05 → EDBD 18:05 → ER 18:05 → EDUNIT# 18:05 → ER 19:42
DX: S09.90XA Unspecified injury of head, initial encounter (principal); R22.0 Localized swelling, mass and lump, head; E11.40 Type 2 diabetes mellitus with diabetic neuropathy, unspecified; I10 Essential (primary) hypertension; F20.9 Schizophrenia, unspecified; W18.30XA Fall on same level, unspecified, initial encounter; Y93.89 Activity, other specified; Y92.89 Other specified places as the place of occurrence of the external cause; Y99.8 Other external cause status
CPT/HCPCS: 36415; 70486; 80048; 80320; 85025

== ENCOUNTER 2025-01-25 12:01 | Inpatient (IN) | payer MEDICAID ==
[~2025-01-25] VITALS: Ht 165.1 cm; Wt 61.1 kg
--- NOTE | 2025-01-25 12:25 | ED.PDOC ---
History of Present Illness HPI Comments 54 year old male brought in by EMS presents to the ED with a chief complaint of fall injury onset today (01/25/25). Per EMS, patient is from [facility], has been experiencing frequent falls the past few weeks. Patient has LT cheek swelling s/p fall 1 week ago, mouth swelling s/p fall 2 weeks ago. Patient is currently experiencing LT eye pain, redness s/p fall this morning as well as headache. He states he is usually able to walk on his own with no walker. PMHx TBI, HTN, DM, schizophrenia. No other symptoms or modifying factors present at this time. Chief Complaint: Fall Injury Time Seen by MD: 12:10 Primary Care Provider: COLLIN Reviewed Notes: Medications, Allergies Allergies: Coded Allergies: NO KNOWN ALLERGIES (Unverified , 02/08/24) Home Meds Active Scripts Benztropine Mesylate (Benztropine Mesylate) 0.5 Mg Tab, 1 MG PO DAILY, #30 TAB Prov:GWENDOLYN FERREIRA MD 07/06/24 Divalproex Sodium (Divalproex Sodium Dr) 250 Mg Tab, 250 MG PO TID, #30 TAB Prov:GWENDOLYN FERREIRA MD 07/06/24 Lisinopril (Lisinopril) 20 Mg Tab, 20 MG PO DAILY, #30 TAB Prov:GWENDOLYN FERREIRA MD 07/06/24 Melatonin (Melatonin) 5 Mg Tab, 5 MG PO HS, #30 TAB Prov:GWENDOLYN FERREIRA MD 07/06/24 Quetiapine Fumerate (QUETIAPINE FUMARATE) 100 Mg Tab, 200 MG PO TID, #30 TAB Prov:GWENDOLYN FERREIRA MD 07/06/24 Acetaminophen (Tylenol) 325 Mg Cap, 650 MG PO Q6HP PRN, #30 CAP Prov:CAROLINA MORALES MD 05/23/24 Bacitracin (Bacitracin Oint) 1 Applic Ap, 1 APPLIC TOP TID, #30 GRAMS Apply to facial abrasions Prov:CAROLINA MORALES MD 05/23/24 Information Source: Patient, Emergency Med Personnel Mode of Arrival: EMS Severity: Moderate Timing: Hours Duration: Since onset Prehospital treatment: None Past Medical History PAST MEDICAL HISTORY: DM, HTN, Schizophrenia Past Medical History (Other): TBI Surgical History: Denies all surgeries Family History Family History: Reviewed,noncontributory to illness, No family hx of Cancer, No family hx of DM, No family hx of Heart leilani, No family hx of HTN, No family hx ofKidney leilani, No family hx of Liver leilani, No family hx of Lung leilani, No family hx of Stroke Social History Smoker: Non-Smoker Alcohol: Denies ETOH Use Drugs: Denies Drug Use Lives In: Assisted Care EENTM: reports: eye pain, eye redness Neurological: reports: headache Physical Exam General Appearance: Moderate Distress HEENT: Normal ENT Inspection, Pharynx Normal, TMs Normal Neck: Full Range of Motion, Non-Tender, Normal, Normal Inspection Respiratory: Chest Non-Tender, Lungs Clear, No Accessory Muscle Use, No Respiratory Distress, Normal Breath Sounds Cardiovascular: No Edema, No JVD, No Murmur, No Gallop, Normal Peripheral Pulses, Regular Rate/Rhythm Breast Exam: Deferred Gastrointestinal: No Organomegaly, Non Tender, No Pulsatile Mass, Normal Bowel Sounds, Soft Genitalia: Deferred Pelvic: Deferred Rectal: Deferred Extremities: Decreased range of motion Musculoskeletal : Apperance: Normal Neurologic: Alert, Motor Weakness Cerebellar Function: NOT DONE Reflexes: NOT DONE Skin: Bruises (Facial), Wounds (Facial) Lymphatic: No Adenopathy Was a procedure done? Was a procedure done?: No Differential Dx Considerations may include: Head injury Electrolyte imbalance X-Ray, Labs, Meds, VS Vital Signs Date Time Temp Pulse Resp B/P (MAP) Pulse Ox O2 Delivery O2 Flow Rate FiO2 01/25/25 13:21 97.7 74 16 142/88 (106) 97 97.7 01/25/25 12:10 98.4 79 18 128/76 (93) 100 Lab Test 01/25/25 13:30 Range/Units White Blood Count Pending Red Blood Count Pending Hemoglobin Pending Hematocrit Pending Mean Corpuscular Volume Pending Mean Corpuscular Hemoglobin Pending Mean Corpuscular Hemoglobin Concent Pending Red Cell Distribution Width Pending Platelet Count Pending Mean Platelet Volume Pending Neutrophils (%) (Auto) Pending Lymphocytes (%) (Auto) Pending Monocytes (%) (Auto) Pending Basophils (%) (Auto) Pending Neutrophils # (Auto) Pending Lymphocytes # (Auto) Pending Monocytes # (Auto) Pending Sodium Level Pending Potassium Level Pending Chloride Level Pending Carbon Dioxide Level Pending Anion Gap Pending Blood Urea Nitrogen Pending Creatinine Pending Glomerular Filtration Rate Calc Pending BUN/Creatinine Ratio Pending Serum Glucose Pending Calcium Level Pending Patient alert. Vitals stable. Has been falling frequently. Saturation pristine on room air. He has not been walking properly for a long time. He has a injuries of the face. Left side of the face swollen. Abrasion with superficial laceration on the left eyebrow. Possibly will need MRI. Explained to the patient. Continue monitoring. [place] [id number] Ph: [phone] DIAGNOSTIC IMAGING Diagnostic Imaging Report : [id number] Signed PATIENT: SUHAIL STEWARD ACCT: [id number] UNIT: [id number] : 1970 LOC: ER ROOM / BED: / AGE / SEX: 54 / M ADM STATUS: REG ER SERVICE 1222 ORDERING PHYSICIAN: THERON TAPIA MD PROCEDURE(s): HWOCT - HEAD WITHOUT CONTRAST REASON: fall ORDER NUMBER(s): [id number], ACCESSION NUMBER(s): [id number] EXAM: CT HEAD WITHOUT CONTRAST HISTORY: fall COMPARISON: CT HEAD WITHOUT CONTRAST on DOS: 11/25/24, CT HEAD WITHOUT CONTRAST on DOS: 10/24/24, CT HEAD WITHOUT CONTRAST on DOS: 07/03/24 TECHNIQUE: Axial images were obtained and reformatted in coronal and sagittal planes. All CT scans at this medical facility are performed using dose modulation techniques as appropriate to a performed exam including the following: Automated exposure control was utilized; adjustment of the MA and/or KV according to patient size; and use of iterative reconstruction technique. CT Dose: CTDI volume is 56 mGy. Dose-length product is 1005.8 mGy*cm FINDINGS: Supratentorial Region: No evidence for large acute territorial ischemia. No intracranial hemorrhage is noted. Moderate-sized left frontal encephalomalacia reflecting an old infarct. 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 Brainstem: Unremarkable. Sellar/Suprasellar Region: Unremarkable. Ventricles, Cisterns, Sulci: Age-appropriate. Orbits: Unremarkable. Paranasal Sinuses: Unremarkable. Mastoid Air Cells: Unremarkable. Vasculature: Unremarkable. Bones/Soft Tissues: No acute abnormality. Remote left frontoparietal craniotomy Other: None. IMPRESSION: 1. No acute intracranial process. ATED BY: TANNA PUENTES MD DICTATED DATE/TIME: 01/25/25 133 SIGNED BY: TANNA PUENTES MD SIGNED DATE/TIME: 01/25/251329 CC: [place] [id number] Ph: [phone] DIAGNOSTIC IMAGING Diagnostic Imaging Report : [id number] Signed PATIENT: SUHAIL STEWARD ACCT: [id number] UNIT: [id number] : 1970 LOC: ER ROOM / BED: / AGE / SEX: 54 / M ADM STATUS: REG ER SERVICE 1222 ORDERING PHYSICIAN: THERON TAPIA MD PROCEDURE(s): FAC2C - MAXILLOFACIAL WITHOUT REASON: fall ORDER NUMBER(s): [id number], ACCESSION NUMBER(s): [id number] EXAM: CT MAXILLOFACIAL WITHOUT HISTORY: fall COMPARISON: CT MAXILLOFACIAL WITHOUT on DOS: 12/24/24, CT MAXILLOFACIAL WITHOUT on DOS: 06/29/24, CT MAXILLOFACIAL WITHOUT on DOS: 05/23/24 TECHNIQUE: Axial images were obtained and reformatted in coronal and sagittal planes. All CT scans at this medical facility are performed using dose mo dulation techniques as appropriate to a performed exam including the following: Automated exposure control was utilized; adjustment of the MA and/or KV according to patient size; and use of iterative reconstruction technique. CT Dose: CTDI volume is 65.73 mGy. Dose-length product is 1223.45 mGy*cm FINDINGS: PARANASAL SINUSES: Clear with no evidence for mucoperiosteal thickening or air- fluid level. A mucous retention cyst noted in the right maxillary sinus. OSTIOMEATAL COMPLEXES: Unremarkable. Specifically, the infundibulum are patent. NASAL CAVITY: The osseous nasal septum is midline. The nasal turbinates are unremarkable. MASTOIDS: Unremarkable. TEMPOROMANDIBULAR JOINTS: Unremarkable. ORBITS: Unremarkable. ORAL CAVITY: Grossly unremarkable. TONSILS AND ADENOIDS: Unremarkable. BONES/SOFT TISSUES: Age-indeterminate depressed fracture of the left nasal bone without significant overlying soft tissue swelling probably chronic. Moderate left facial soft tissue contusion with underlying 3.2 x 1.3 cm complex fluid collection likely hematoma. Orbital bones, zygomatic arches anterior nasal spine are intact. OTHER: Multiple dental caries are noted. Calcification of the bilateral carotid bulbs noted. IMPRESSION: 1. Age-indeterminate depressed fracture of the left nasal bone. Correlate with point tenderness. No significant overlying soft tissue swelling. 2. Moderate left facial soft tissue contusion with a 3.2 cm subcutaneous hematoma in the lateral aspect of the maxilla inferior to the zygomatic arch. 3. Multiple dental caries. Recommend dental consultation. ATED BY: TANNA PUENTES MD DICTATED DATE/TIME: 01/25/25 1328 SIGNED BY: TANNA PUENTES MD SIGNED DATE/TIME: 01/25/25 1328 CC: Time of 1ST Reevaluation: 12:40 Reevaluation 1ST: Unchanged Patient Education/Counseling: Diagnosis, Treatment, Prognosis Family Education/Counseling: No Family Present Additional Information The following tests were ordered, and results were reviewed by me: CBC, UA, BMP, CT MAXILLOFACIAL WO CON, CT HEAD WO CONTRAST Additional Information was gathered from interviewing the following independent historians: EMS I reviewed and agreed with the following test results read by other providers: CT MAXILLOFACIAL WO CON, CT HEAD WO CONTRAST I discussed treatment and results with medical personnel and: patient Departure 1 Departure Time of Disposition: 13:39 Impression: Primary Impression: Head injury Qualified Codes: S09.90XA - Unspecified injury of head, initial encounter Additional Impressions: HTN (hypertension) Qualified Codes: I10 - Essential (primary) hypertension Nasal bone fracture Qualified Codes: S02.2XXA - Fracture of nasal bones, initial encounter for closed fracture Disposition: ADMITTED INPATIENT Admit to: Med Surg Condition: Guarded Critical Care Note Critical Care Time?: No Stability Stability form required: No Heart Score Heart Score: Heart Score Response (Comments) Value History N/A 0 EKG N/A 0 Age N/A 0 Risk Factors N/A 0 Troponin N/A 0 Total 0 I personally scribed for THERON TAPIA MD ([email or web address]) on 01/25/25 at 12:25. Electronically submitted by Shagufta Johnson ([email or web address]). I personally scribed for THERON TAPIA MD ([email or web address]) on 01/25/25 at 12:33. Electronically submitted by Shagufta Johnson ([email or web address]). I personally scribed for THERON TAPIA MD ([email or web address]) on 01/25/25 at 13:44. Electronically submitted by Shagufta Johnson ([email or web address]). THERON TAPIA MD Jan 25, 2025 12:25
--- NOTE | 2025-01-25 13:30 | DVH ---
EXAM: CT MAXILLOFACIAL WITHOUT HISTORY: fall COMPARISON: CT MAXILLOFACIAL WITHOUT on DOS: 12/24/24, CT MAXILLOFACIAL WITHOUT on DOS: 06/29/24, CT MAX ILLOFACIAL WITHOUT on DOS: 05/23/24 TECHNIQUE: Axial images were obtained and reformatted in coronal and sagittal planes. All CT scans at this medical facility are performed using dose modulation techniques as appropriate to a performed e xam including the following: Automated exposure control was utilized; adjustment of the MA and/or KV according to patient size; and use of iterative reconstruction technique. CT Dose: CTDI volume is 65. 73 mGy. Dose-length product is 1223.45 mGy*cm FINDINGS: PARANASAL SINUSES: Clear with no evidence for mucoperiosteal thickening or air-fluid level. A mucous retention cyst noted in the right maxillary sinus. OSTIOMEATAL COMPLEXES: Unremarkable. Specifically, the infundibulum are patent. NASAL CAVITY: The osseous nasal septum is midline. The nasal turbinates are unremarkable. MASTOIDS: Unremarkable. TEMPOROMANDIBULAR JOINTS: Unremarkable. ORBITS: Unremarkable. ORAL CAVITY: Grossly unremarkable. TONSILS AND ADENOIDS: Unremarkable. BONES/SOFT TISSUES: Age-indeterminate depressed fracture of the left nasal bone without significant o verlying soft tissue swelling probably chronic. Moderate left facial soft tissue contusion with unde rlying 3.2 x 1.3 cm complex fluid collection likely hematoma. Orbital bones, zygomatic arches anterio r nasal spine are intact. OTHER: Multiple dental caries are noted. Calcification of the bilateral carotid bulbs noted. IMPRESSION: 1. Age-indeterminate depressed fracture of the left nasal bone. Correlate with point tenderness. No significant overlying soft tissue swelling. 2. Moderate left facial soft tissue contusion with a 3.2 cm subcutaneous hematoma in the lateral aspe ct of the maxilla inferior to the zygomatic arch. 3. Multiple dental caries. Recommend dental consultation.
--- NOTE | 2025-01-25 13:33 | DVH ---
EXAM: CT HEAD WITHOUT CONTRAST HISTORY: fall COMPARISON: CT HEAD WITHOUT CONTRAST on DOS: 11/25/24, CT HEAD WITHOUT CONTRAST on DOS: 10/24/24, CT HE AD WITHOUT CONTRAST on DOS: 07/03/24 TECHNIQUE: Axial images were obtained and reformatted in coronal and sagittal planes. All CT scans at this medical facility are performed using dose modulation techniques as appropriate t o a performed exam including the following: Automated exposure control was utilized; adjustment of th e MA and/or KV according to patient size; and use of iterative reconstruction technique. CT Dose: CTDI volume is 56 mGy. Dose-length product is 1005.8 mGy*cm FINDINGS: Supratentorial Region: No evidence for large acute territorial ischemia. No intracranial hemorrhage is noted. Moderate-sized left frontal encephalomalacia reflecting an old infarct. 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 Brainstem: Unremarkable. Sellar/Suprasellar Region: Unremarkable. Ventricles, Cisterns, Sulci: Age-appropriate. Orbits: Unremarkable. Paranasal Sinuses: Unremarkable. Mastoid Air Cells: Unremarkable. Vasculature: Unremarkable. Bones/Soft Tissues: No acute abnormality. Remote left frontoparietal craniotomy Other: None. IMPRESSION: 1. No acute intracranial process.
[2025-01-25 13:53] LABS: Mean Corpuscular Hemoglobin 34.2 pg (28.0-32.0)
[2025-01-25 13:55] LABS: Hematocrit 36.2 % (41.0-53.0); Mean Corpuscular Hgb Conc. 33.1 g/dL (32.0-36.0); Mean Corpuscular Volume 103.3 fL (80.0-100.0); Platelet Count (auto) 156 10^3/uL (140-450); Potassium 3.8 mmol/L (3.5-5.1); Red Cell Distribution Width 14.5 % (11.8-14.3); Sodium 143 mmol/L (136-145); White Blood Cell 8.3 10^3/uL (4.4-10.8)
[2025-01-25 13:56] LABS: Carbon Dioxide 25 mmol/L (20-31)
[2025-01-25 13:57] LABS: Calcium 9.2 mg/dL (8.7-10.4)
[2025-01-25 14:01] LABS: Glucose 78 mg/dL (74-106)
[2025-01-25 14:02] LABS: BUN/Creatinine Ratio 23.2 (10.0-20.0); Blood Urea Nitrogen 16 mg/dL (9-23)
[2025-01-25 14:03] LABS: Anion Gap 9 (5-15); Basophils % (manual) 0 (0.0-2.0); Blast Cells 0; Chloride 109 mmol/L (98-107); Myelocytes % 0; Promyelocytes % 0; Reactive Lymphocytes 0
[2025-01-25 14:27] LABS: Band Neutrophils % (manual) 4; Eosinophils % (manual) 3 (0-7); Lymphocytes % (manual) 22 (10.0-50.0); Metamyelocytes % 4; Monocytes % (manual) 1 (0-12)
[2025-01-25 14:28] LABS: Platelet Estimate Adequate
[2025-01-25] MEDS: LABETALOL HCL 20 MG/4 ML VL IV ONE (14:45)
[2025-01-25] MEDS: LORazepam 2MG/ML-1ML VIAL IV ONE ×2 (15:40→18:07)
[2025-01-25 16:00] VITALS: PULSE 83; RESP 16; O2SAT 95
[2025-01-25] MEDS: HALOPERIDOL LACTATE 5 MG/ML INJ VIAL IM ONE ×2 (16:35→18:07)
[2025-01-25] MEDS: HALOPERIDOL LACTATE 5 MG/ML INJ VIAL ONE (16:36)
[2025-01-25] MEDS ORDERED: ONDANSETRON HCL 4 MG/2 ML VIAL IV PRN (16:45)
[2025-01-25] MEDS: cefTRIAXone 1GM/50ML D5W 50 ML IV ONE (16:45)
[2025-01-25] MEDS ORDERED: ACETAMINOPHEN 325 MG TAB PO PRN (16:45)
[2025-01-25] MEDS ORDERED: DOCUSATE SOD 100 MG CAP PO PRN (16:45)
[2025-01-25] MEDS ORDERED: HYDROcodone-ACET 5/325MG TAB PO PRN (16:45)
[2025-01-25] MEDS: InsuLIN REG 1unit/0.01ml Soln (100units/ml) SC SCH (17:00)
[2025-01-25] MEDS: ACCU-CHEK COMFORT CURVE STRIP VI SCH (17:00)
[2025-01-25] MEDS: MIDAZOLAM HCL 2MG/2ML 2ml VIAL (1mg/ml) IV ONE (17:49)
--- NOTE | 2025-01-25 17:58 | DVHHP2 ---
History of Present Illness Reason for Visit: Head injury History of Present Illness The patient is a 54-year-old male with past medical history of TBI, DM, hypertension, and schizophrenia who presented to [facility] ED for evaluation of fall injury. As reported by EMS, patient is residing at [facility], has been experiencing frequent falls for the past few weeks, associated left eye pain, redness, as well as headache. Patient has sustained left cheek injury, mouth swelling from fall 2 weeks ago. Patient was seen and evaluated in the ED, laboratory data shows WBC 8.3, platelets 156, sodium 143, potassium 3.8, BUN 16, creatinine 0.69, GFR 109, glucose 78, calcium 9.2. Maxillofacial CT revealing age indeterminate depressed fracture of the left nasal bone, correlate with point tenderness, no significant overlying soft tissue swelling; moderate left facial soft tissue contusion with a 3.2 cm subcutaneous hematoma in the lateral aspect of the maxilla inferior to the zygomatic arch, multiple dental caries, recommending dental consultation. Patient was started on IV antibiotic regimen azithromycin, please medication orders section in the computer. On my assessment, patient remains agitated, disorganized, no diaphoresis, no shortness of breath, no nausea, no vomiting, no fever, no chills. Patient was admitted for further evaluation and medical management. Past Medical History DM, HTN, Schizophrenia, TBI Past Surgical History Denies all surgeries Family History Reviewed, noncontributory to the management of this case. Past Social History The patient lives at home, denies smoking, alcohol or illicit drugs abuse. Review of Systems Constitutional: Yes: Weakness, Other (Facial swelling); No: Fever, Chills, Sweats, Malaise Eyes: Other (eye pain, eye redness); No: Pain, Vision change, Conjunctivae inflammation, Eyelid inflammation, Redness ENT: No: Ear pain, Ear discharge, Nose pain, Nose discharge, Nose congestion, Mouth pain, Mouth swelling, Throat pain, Throat swelling, Other Respiratory: No: Cough, Dry, Shortness of breath, SOB with excertion, Wheezing, Hemoptysis, Pleuritic Pain, Sputum, Wheezing, Other Cardiovascular: No: Chest Pain, Palpitations, Orthopnea, Paroxysmal Noc. Dyspnea, Edema, Lt Headedness, Other Gastrointestinal: No: Nausea, Vomiting, Abdominal Pain, Diarrhea, Constipation, Melena, Hematochezia, Other Genitourinary: No Dysuria, No Frequency, No Incontinence, No Hematuria, No Retention, No Other Musculoskeletal: No: other, neck pain, shoulder pain, arm pain, back pain, hand pain, leg pain, foot pain Skin: Bruising (Facial); No: Rash, Lesions, Jaundice, Other Neurological: Other (Headache); No: Weakness, Numbness, Incoordination, Change in speech, Confusion, Seizures Allergies: Coded Allergies: NO KNOWN ALLERGIES (Unverified , 02/08/24) Medications Current Medications Medications Dose Ordered Sig/Negra Route Start Time Stop Time Status Last Admin Dose Admin Lorazepam 1 mg Q8HP PRN IV 01/25/25 16:45 Hydralazine HCl 10 mg Q6HP PRN IV 01/25/25 16:45 Ceftriaxone Sodium 50 ml @ 100 mls/hr DAILY@09 IV 01/26/25 09:00 Quetiapine Fumarate 100 mg BID PO 01/25/25 22:00 Divalproex Sodium 250 mg TID PO 01/25/25 22:00 Lisinopril 20 mg DAILY PO 01/26/25 10:00 Diagnostic Test (Pha) 1 strip ACHS 01/25/25 17:00 01/25/25 17:00 1 STRIP Insulin Human Regular ACHS SC 01/25/25 17:00 Dextrose 50 ml UD PRN IV 01/25/25 16:45 Sodium Chloride 10 ml Q8HR IV 01/25/25 22:00 Acetaminophen/ Hydrocodone Bitart 1 tab Q4HP PRN PO 01/25/25 16:45 Ondansetron HCl 4 mg Q4HP PRN IV 01/25/25 16:45 Docusate Sodium 100 mg BIDPRN PRN PO 01/25/25 16:45 Acetaminophen 650 mg Q6HP PRN PO 01/25/25 16:45 Exam Vital Signs Vital Signs Date Time Temp Pulse Resp B/P (MAP) Pulse Ox O2 Delivery O2 Flow Rate FiO2 01/25/25 16:00 97.6 96 16 138/94 (109) 97 97.6 01/25/25 16:00 Nasal Cannula* 2 28 General Appearance: Alert, Oriented X3, Cooperative, No acute distress, Other (Agitated, disorganized) HEENT: Atraumatic, PERRLA, EOMI, Mucous membr. moist/pink Respiratory: Clear to auscultation, Normal air movement Cardiovascular: Regular rate, Normal S1, Normal S2, No murmurs Abdominal: Normal bowel sounds, Soft, No tenderness, No hepatospenomegaly Extremities: No clubbing, No cyanosis, No edema, Normal pulses, No tenderness/swelling Skin: No rashes, No breakdown, No significant lesion Neuro: Normal speech, Normal tone, Sensation intact, Cranial nerves 3-12 NL, Reflexes 2+, Other (Unsteady gait) Psych/Mental Status: Mood NL, Other (Agitated) Labs/Xrays Labs Test 01/25/25 13:30 Range/Units White Blood Count 8.3 4.4-10.8 10^3/uL Red Blood Count 3.50 L 4.5-5.90 10^6/uL Hemoglobin 12.0 L 13.5-17.5 g/dL Hematocrit 36.2 L 41.0-53.0 % Mean Corpuscular Volume 103.3 H 80.0-100.0 fL Mean Corpuscular Hemoglobin 34.2 H 28.0-32.0 pg Mean Corpuscular Hemoglobin Concent 33.1 32.0-36.0 g/dL Red Cell Distribution Width 14.5 H 11.8-14.3 % Platelet Count 156 140-450 10^3/uL Mean Platelet Volume 6.5 L 6.9-10.8 fL Neutrophils (%) (Auto) 37.0-80.0 % Lymphocytes (%) (Auto) 10.0-50.0 % Monocytes (%) (Auto) 0.0-12.0 % Basophils (%) (Auto) 0.0-2.0 % Neutrophils # (Auto) 1.6-8.6 10 ^3/uL Lymphocytes # (Auto) 0.4-5.4 10 ^3/uL Monocytes # (Auto) 0-1.3 10 ^3/uL Differential Total Cells Counted 100.0 100 Neutrophils % (Manual) 66 37.0-80.0 Band Neutrophils % (Manual) 4 Lymphocytes % (Manual) 22 10.0-50.0 Monocytes % (Manual) 1 0-12 Eosinophils % (Manual) 3 0-7 Basophils % (Manual) 0 0.0-2.0 Metamyelocytes % (manual) 4 Myelocytes % (Manual) 0 Promyelocytes % (Manual) 0 Blast Cells % (Manual) 0 Reactive Lymphocytes 0 Platelet Estimate Adequate Sodium Level 143 136-145 mmol/L Potassium Level 3.8 3.5-5.1 mmol/L Chloride Level 109 H 98-107 mmol/L Carbon Dioxide Level 25 20-31 mmol/L Anion Gap 9 5-15 Blood Urea Nitrogen 16 9-23 mg/dL Creatinine 0.69 L 0.700-1.30 mg/dL Glomerular Filtration Rate Calc 109 >90 mL/min BUN/Creatinine Ratio 23.2 H 10.0-20.0 Serum Glucose 78 74-106 mg/dL Calcium Level 9.2 8.7-10.4 mg/dL PATIENT: SUHAIL STEWARD ACCT: [id number] UNIT: [id number] : 1970 LOC: ER ROOM / BED: / AGE / SEX: 54 / M ADM STATUS: REG ER SERVICE 1222 ORDERING PHYSICIAN: THERON TAPIA MD PROCEDURE(s): HWOCT - HEAD WITHOUT CONTRAST REASON: fall ORDER NUMBER(s): [id number], ACCESSION NUMBER(s): [id number] EXAM: CT HEAD WITHOUT CONTRAST HISTORY: fall COMPARISON: CT HEAD WITHOUT CONTRAST on DOS: 11/25/24, CT HEAD WITHOUT CONTRAST on DOS: 10/24/24, CT HEAD WITHOUT CONTRAST on DOS: 07/03/24 TECHNIQUE: Axial images were obtained and reformatted in coronal and sagittal planes. All CT scans at this medical facility are performed using dose modulation techniques as appropriate to a performed exam including the following: Automated exposure control was utilized; adjustment of the MA and/or KV according to patient size; and use of iterative reconstruction technique. CT Dose: CTDI volume is 56 mGy. Dose-length product is 1005.8 mGy*cm FINDINGS: Supratentorial Region: No evidence for large acute territorial ischemia. No intracranial hemorrhage is noted. Moderate-sized left frontal encephalomalacia reflecting an old infarct. 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 Brainstem: Unremarkable. Sellar/Suprasellar Region: Unremarkable. Ventricles, Cisterns, Sulci: Age-appropriate. Orbits: Unremarkable. Paranasal Sinuses: Unremarkable. Mastoid Air Cells: Unremarkable. Vasculature: Unremarkable. Bones/Soft Tissues: No acute abnormality. Remote left frontoparietal craniotomy Other: None. IMPRESSION: 1. No acute intracranial process. ORDERING PHYSICIAN: THERON TAPIA MD PROCEDURE(s): FAC2C - MAXILLOFACIAL WITHOUT REASON: fall ORDER NUMBER(s): [id number], ACCESSION NUMBER(s): [id number] EXAM: CT MAXILLOFACIAL WITHOUT HISTORY: fall COMPARISON: CT MAXILLOFACIAL WITHOUT on DOS: 12/24/24, CT MAXILLOFACIAL WITHOUT on DOS: 06/29/24, CT MAXILLOFACIAL WITHOUT on DOS: 05/23/24 TECHNIQUE: Axial images were obtained and reformatted in coronal and sagittal planes. All CT scans at this medical facility are performed using dose modulation techniques as appropriate to a performed exam including the following: Automated exposure control was utilized; adjustment of the MA and/or KV according to patient size; and use of iterative reconstruction technique. CT Dose: CTDI volume is 65.73 mGy. Dose-length product is 1223.45 mGy*cm FINDINGS: PARANASAL SINUSES: Clear with no evidence for mucoperiosteal thickening or air- fluid level. A mucous retention cyst noted in the right maxillary sinus. OSTIOMEATAL COMPLEXES: Unremarkable. Specifically, the infundibulum are patent. NASAL CAVITY: The osseous nasal septum is midline. The nasal turbinates are unremarkable. MASTOIDS: Unremarkable. TEMPOROMANDIBULAR JOINTS: Unremarkable. ORBITS: Unremarkable. ORAL CAVITY: Grossly unremarkable. TONSILS AND ADENOIDS: Unremarkable. BONES/SOFT TISSUES: Age-indeterminate depressed fracture of the left nasal bone without significant overlying soft tissue swelling probably chronic. Moderate le ft facial soft tissue contusion with underlying 3.2 x 1.3 cm complex fluid collection likely hematoma. Orbital bones, zygomatic arches anterior nasal spine are intact. OTHER: Multiple dental caries are noted. Calcification of the bilateral carotid bulbs noted. IMPRESSION: 1. Age-indeterminate depressed fracture of the left nasal bone. Correlate with point tenderness. No significant overlying soft tissue swelling. 2. Moderate left facial soft tissue contusion with a 3.2 cm subcutaneous hematoma in the lateral aspect of the maxilla inferior to the zygomatic arch. 3. Multiple dental caries. Recommend dental consultation. Assessment/Plan Assessment/Plan Head injury Unspecified injury of head, initial encounter HTN (hypertension) Essential (primary) hypertension Nasal bone fracture Fracture of nasal bones, initial encounter for closed fracture Plan 1. Admit to telemetry unit 2. Breathing treatment 3. Pain control management 4. IV antibiotic management 5. Management of fluids and electrolytes 6. Consultation for hospitalist 7. Diagnostic test head CT 8. DVT prophylaxis on SCDs 9. Repeat labs CBC, CMP in a.m. 10. Home medication reviewed and reconciled 11. Continue with current medical management 12. Treatment plan discussed with patient and RN. Patient verbalized understanding. Plan discussed with: Patient, Other (RN) My Orders Orders - ALEXANDER JAIN DNP Procedure Category Date Status Time Lorazepam 2mg/Ml Inj PHA 01/25/25 In Process (Ativan Inj) 16:45 Hydralazine Injection PHA 01/25/25 In Process (Apresoline Inject 16:45 Ceftriaxone 1gm/50ml PHA 01/26/25 In Process D5w (Rocephin) 09:00 Quetiapine Fumarate PHA 01/25/25 In Process Tablet (Seroquel Tab 22:[address] Tablet PHA 01/25/25 In Process (Depakote "Dr" Tabl 22:00 Lisinopril Tablet PHA 01/26/25 In Process (Zestril Tablet) 10:00 Consistent DIET 01/25/25 Transmitted Carb(Ccho)Diabetes Dinner Glucose Blood PHA 01/25/25 In Process (Accu-Chek Comfort 17:00 Insulin R (Human) PHA 01/25/25 In Process (Insulin R) 17:00 Dextrose 50% Syringe PHA 01/25/25 In Process 16:45 Allergies NATALIIA 01/25/25 In Process 16:38 Code Status CODE 01/25/25 Transmitted 16:38 Sodium Chloride Lock PHA 01/25/25 In Process (Saline Lock Ns) 22:00 Oxygen Per Hour RT 01/25/25 Transmitted 16:38 Hydrocodone-Acet PHA 01/25/25 In Process 5/325mg Tab ([place] 16:45 Ondansetron Hcl PHA 01/25/25 In Process (Zofran) 16:45 Docusate Sodium PHA 01/25/25 In Process Capsule (Colace 16:45 Complete Blood Count LAB 01/26/25 Verified 04:00 Comprehensive LAB 01/26/25 Verified Metabolic Panel 04:00 Condition: Serious NATALIIA 01/25/25 In Process 16:38 Acetaminophen Tablet PHA 01/25/25 In Process (Tylenol Tablet) 16:45 Bedrest With Bathroom NATALIIA 01/25/25 In Process Privileg 16:38 Sequential NATALIIA 01/25/25 In Process Compression Device Med/Surg Behavior RENEW 01/25/25 Transmitted Restraint 17:00 Restraints Assessment NATALIIA 01/25/25 In Process Medsurg 17:00 Problem List: (1) Head injury (2) Unspecified injury of head, initial encounter (3) HTN (hypertension) (4) Nasal bone fracture (5) Essential (primary) hypertension (6) Fracture of nasal bones, initial encounter for closed fracture Date of Service: Jan 25, 2025 Billing Provider: ALEXANDER JAIN DNP Common Visit Codes: [id number] INP/OBS CARE (HIGH) ALEXANDER JAIN DNP Jan 25, 2025 17:58
[2025-01-25] MEDS ORDERED: MORPHINE SULFATE INJ 2 MG/ml SYRG IV PRN (18:00)
[2025-01-25] MEDS ORDERED: NITROGLYCERIN 0.4 MG SL TAB SL PRN (18:00)
[2025-01-25] MEDS: diphenhdrAMINE HCL 50 MG/1 ML VL IV ONE (18:08)
[2025-01-25 19:30] VITALS: PULSE 96; RESP 20; O2SAT 97
[2025-01-25 22:00] VITALS: BP 122/82; PULSE 75; RESP 17; TEMP 98.3; O2SAT 97
[2025-01-25] MEDS: QUEtiapine FUMARATE 100 MG TAB PO SCH (22:00)
[2025-01-25] MEDS: SODIUM CHLOR 0.9% PF (SALINE LOCK) 10ML VIAL/SYR IV SCH (23:58)
[2025-01-26] VITALS (8 sets, daily range): BP systolic 82–146; BP diastolic 81–99; PULSE 69–95; RESP 17–18; TEMP 96.8–98; O2SAT 94–99
[2025-01-26] MEDS ORDERED: LACT10SO3 PO (01:11)
[2025-01-26] MEDS ORDERED: AML5T PO (01:11)
[2025-01-26] MEDS ORDERED: LISI40TA16 PO (01:11)
[2025-01-26] MEDS ORDERED: QUET400T PO (01:11)
[2025-01-26] MEDS ORDERED: DIVA1TAB59 PO (01:11)
[2025-01-26] MEDS ORDERED: LORA-1121 PO (01:11)
[2025-01-26] MEDS ORDERED: DIPH25TA31 PO (01:11)
[2025-01-26] MEDS ORDERED: BENZ1TAB6 PO (01:11)
[2025-01-26 07:16] LABS: Hematocrit 36.1 % (41.0-53.0); Hemoglobin 12.1 g/dL (13.5-17.5); Mean Corpuscular Hemoglobin 33.2 pg (28.0-32.0); Mean Corpuscular Hgb Conc. 33.5 g/dL (32.0-36.0); Mean Corpuscular Volume 99.1 fL (80.0-100.0); Platelet Count (auto) 192 10^3/uL (140-450); Red Blood Cells 3.64 10^6/uL (4.5-5.90); Red Cell Distribution Width 14.2 % (11.8-14.3); White Blood Cell 6.7 10^3/uL (4.4-10.8)
[2025-01-26 07:20] LABS: Alanine Aminotransferase 15 U/L (7-40); Albumin 3.6 g/dL (3.2-4.8); Alkaline Phosphatase 53 U/L (46-116); Anion Gap 9 (5-15); Aspartate Aminotransferase 20 U/L (13-40); BUN/Creatinine Ratio 23.6 (10.0-20.0); Blood Urea Nitrogen 17 mg/dL (9-23); Carbon Dioxide 26 mmol/L (20-31); Total Protein 6.3 g/dL (5.7-8.2)
[2025-01-26 07:21] LABS: Bilirubin, Total 0.6 mg/dL (0.2-1.0)
[2025-01-26 07:33] LABS: Calcium 8.6 mg/dL (8.7-10.4); Chloride 110 mmol/L (98-107); Glucose 72 mg/dL (74-106); Potassium 3.2 mmol/L (3.5-5.1); Sodium 145 mmol/L (136-145)
[2025-01-26 07:52] LABS: Basophils % (manual) 0 (0.0-2.0); Metamyelocytes % 0; Myelocytes % 0
[2025-01-26 07:53] LABS: Blast Cells 0; Promyelocytes % 0; Reactive Lymphocytes 0
[2025-01-26] MEDS: cefTRIAXone 1GM/50ML D5W 50 ML IV SCH (09:25)
[2025-01-26] MEDS: LISINOPRIL 20 MG TAB PO SCH (09:26)
[2025-01-26] MEDS: LORazepam 2MG/ML-1ML VIAL IV PRN ×2 (10:16→14:45)
[2025-01-26] MEDS: HALOPERIDOL LACTATE 5 MG/ML INJ VIAL IM SCH (10:53)
[2025-01-26 11:09] LABS: Urine Bacteria None Seen /hpf (None Seen)
[2025-01-26 11:31] LABS: Band Neutrophils % (manual) 3; Eosinophils % (manual) 9 (0-7); Lymphocytes % (manual) 24 (10.0-50.0); Monocytes % (manual) 7 (0-12); Platelet Estimate Adequate
[2025-01-26 11:49] LABS: Urine Blood Negative /uL (Negative); Urine Clarity Clear (Clear); Urine Color Yellow (Yellow); Urine Mucus FEW (None Seen); Urine Protein, UAD TRACE (Negative); Urine Specific Gravity 1.028 (1.001-1.035); Urine Squamous Epithelial Cell FEW /hpf (<5); Urine Urobilinogen Normal (Negative); Urine WBC 2 /HPF (0-3); Urine pH 6.5 (5.0-9.0)
--- NOTE | 2025-01-26 18:29 | DVHPN2 ---
Subjective He is very combative today and had to place restraints Changes from previous H/P or p: No Changes Eyes: No Pain, No Vision change, No Conjunctivae inflammation, No Eyelid inflammation; Other (eye pain, eye redness); No Redness ENT: No Ear pain, No Ear discharge, No Nose pain, No Nose discharge, No Nose congestion, No Mouth pain, No Mouth swelling, No Throat pain, No Throat swelling, No Other Cardiovascular: No Chest Pain, No Palpitations, No Orthopnea, No Paroxysmal Noc. Dyspnea, No Edema, No Lt Headedness, No Other Respiratory: No Cough, No Dry, No Shortness of breath, No SOB with excertion, No Wheezing, No Hemoptysis, No Pleuritic Pain, No Sputum, No Other Gastrointestinal: No Nausea, No Vomiting, No Abdominal Pain, No Diarrhea, No Constipation, No Melena, No Hematochezia, No Other Genitourinary: No Dysuria, No Frequency, No Incontinence, No Hematuria, No Retention, No Other Musculoskeletal: No other, No neck pain, No shoulder pain, No arm pain, No back pain, No hand pain, No leg pain, No foot pain Skin: No Rash, No Lesions, No Jaundice; Bruising (Facial); No Other Objective Vitals Vital Signs Date Time Temp Pulse Resp B/P (MAP) Pulse Ox O2 Delivery O2 Flow Rate FiO2 01/26/25 17:04 97.8 95 18 146/99 (115) 94 97.8 01/26/25 08:00 Room Air* 0 21 Intake/Output Intake and Output 01/26/25 07:00 Intake Total 50 ml Balance 50 ml Intake Oral 0 ml IV Total 50 ml # Voids 3 General Appearance: severe distress, Other (combative and not following commands) HEENT: Atraumatic, PERRLA Lungs: Clear to auscultation Cardiovascular: Regular rate, Normal S1 Medications Current Medications Medications Dose Ordered Sig/Negra Route Start Time Stop Time Status Last Admin Dose Admin Hydralazine HCl 10 mg Q6HP PRN IV 01/25/25 16:45 Ceftriaxone Sodium 50 ml @ 100 mls/hr DAILY@09 IV 01/26/25 09:00 01/26/25 09:25 100 MLS/HR Diagnostic Test (Pha) 1 strip ACHS 01/25/25 17:00 01/26/25 17:34 1 STRIP Insulin Human Regular ACHS SC 01/25/25 17:00 Dextrose 50 ml UD PRN IV 01/25/25 16:45 Sodium Chloride 10 ml Q8HR IV 01/25/25 22:00 01/26/25 06:10 10 ML Acetaminophen/ Hydrocodone Bitart 1 tab Q4HP PRN PO 01/25/25 16:45 Ondansetron HCl 4 mg Q4HP PRN IV 01/25/25 16:45 Docusate Sodium 100 mg BIDPRN PRN PO 01/25/25 16:45 Acetaminophen 650 mg Q6HP PRN PO 01/25/25 16:45 Nitroglycerin 0.4 mg Q5MINP PRN SL 01/25/25 18:00 Morphine Sulfate 2 mg Q30M PRN IV 01/25/25 18:00 Haloperidol Lactate 5 mg Q12HR IM 01/26/25 10:30 01/26/25 10:53 5 MG Lorazepam 2 mg Q1HP PRN IV 01/26/25 11:15 01/26/25 17:29 2 MG Enoxaparin Sodium 40 mg DAILY SC 01/27/25 10:00 Quetiapine Fumarate 200 mg BID PO 01/26/25 22:00 UNV Amlodipine Besylate 10 mg DAILY PO 01/27/25 10:00 UNV Lisinopril 40 mg DAILY PO 01/27/25 10:00 UNV Divalproex Sodium 750 mg BID PO 01/26/25 22:00 UNV Laboratory Results Laboratory Tests 01/26/25 05:05 Chemistry Test 01/26/25 05:05 Albumin 3.6 g/dL (3.2-4.8) Calcium Level 8.6 mg/dL (8.7-10.4) L Total Protein 6.3 g/dL (5.7-8.2) LFT Test 01/26/25 05:05 Alanine Aminotransferase (ALT) 15 U/L (7-40) Alkaline Phosphatase 53 U/L (46-116) Aspartate Amino Transferase (AST) 20 U/L (13-40) Total Bilirubin 0.6 mg/dL (0.2-1.0) Urinalysis Test 01/26/25 11:07 Urine Color Yellow (Yellow) Urine Clarity Clear (Clear) Urine pH 6.5 (5.0-9.0) Urine Specific [place] 1.028 (1.001-1.035) Urine Protein Trace (Negative) H Urine Ketones Negative (Negative) Urine Blood Negative /uL (Negative) Urine Nitrite Negative (Negative) Urine Bilirubin Negative (Negative) Urine Urobilinogen Normal mg/dL (Negative) Urine Leukocyte Esterase Negative /uL (Negative) Urine RBC 1 /hpf (0 - 3) Urine Microscopic WBC 2 /HPF (0-3) Urine Squamous Epithelial Cells Few /hpf (<5) Urine Bacteria None seen /hpf (None Seen) Urine Mucus Few (None Seen) Urine Glucose Normal mg/dL (Normal) Assessment/Plan Assessment/Plan #Head injury #facial contusion #Nasal bone fracture #Fracture of nasal bones, initial encounter for closed fracture Monitor for pain control #Acute metabolic encephalopathy #Hypokalemia #Head contusion Very combative Ativan and restraints Replace K #HTN (hypertension) continue home medications Plan discussed with: Other (nurse) My Orders Orders - SOPHIA ISABEL MD Procedure Category Date Status Time Haloperidol Lactate PHA 01/26/25 In Process Injection (Haldol) 10:30 Lorazepam 2mg/Ml Inj PHA 01/26/25 In Process (Ativan Inj) 11:15 Enoxaparin Sodium PHA 01/27/25 In Process (Lovenox) 10:00 Quetiapine Fumarate PHA 01/26/25 Logged Tablet (Seroquel Tab 22:00 Amlodipine Tablet PHA 01/27/25 Logged (Norvasc Tablet) 10:00 Lisinopril Tablet PHA 01/27/25 Logged (Zestril Tablet) 10:[address] Tablet PHA 01/26/25 Logged (Depakote "Dr" Tabl 22:00 Date of Service: Jan 26, 2025 Billing Provider: SOPHIA ISABEL MD Common Visit Codes: [id number] INP/OBS CARE(HIGH) SOPHIA ISABEL MD Jan 26, 2025 18:29
[2025-01-26] MEDS: QUEtiapine FUMARATE 100 MG TAB PO SCH (22:06)
[2025-01-27] VITALS (9 sets, daily range): BP systolic 107–130; BP diastolic 67–85; PULSE 71–88; RESP 16–18; TEMP 96.9–97.8; O2SAT 92–98
[2025-01-27] MEDS: amLODIPine BESYLATE 5 MG TAB PO SCH (09:42)
[2025-01-27] MEDS: LISINOPRIL 20 MG TAB PO SCH (09:42)
[2025-01-27] MEDS: ENOXAPARIN SOD 40 MG/0.4 ML SYRINGE SC SCH (10:09)
--- NOTE | 2025-01-27 16:40 | DVHPN2 ---
Subjective more calm in bed resting Changes from previous H/P or p: No Changes Eyes: No Pain, No Vision change, No Conjunctivae inflammation, No Eyelid inflammation; Other (eye pain, eye redness); No Redness ENT: No Ear pain, No Ear discharge, No Nose pain, No Nose discharge, No Nose congestion, No Mouth pain, No Mouth swelling, No Throat pain, No Throat swelling, No Other Cardiovascular: No Chest Pain, No Palpitations, No Orthopnea, No Paroxysmal Noc. Dyspnea, No Edema, No Lt Headedness, No Other Respiratory: No Cough, No Dry, No Shortness of breath, No SOB with excertion, No Wheezing, No Hemoptysis, No Pleuritic Pain, No Sputum, No Other Gastrointestinal: No Nausea, No Vomiting, No Abdominal Pain, No Diarrhea, No Constipation, No Melena, No Hematochezia, No Other Genitourinary: No Dysuria, No Frequency, No Incontinence, No Hematuria, No Retention, No Other Musculoskeletal: No other, No neck pain, No shoulder pain, No arm pain, No back pain, No hand pain, No leg pain, No foot pain Skin: No Rash, No Lesions, No Jaundice; Bruising (Facial); No Other Objective Vitals Vital Signs Date Time Temp Pulse Resp B/P (MAP) Pulse Ox O2 Delivery O2 Flow Rate FiO2 01/27/25 13:00 96.9 72 16 115/85 (95) 92 96.9 01/27/25 08:10 Room Air* 0 21 Intake/Output Intake and Output 01/27/25 07:00 Intake Total 1250 ml Balance 1250 ml Intake Oral 1200 ml IV Total 50 ml # Voids 6 General Appearance: severe distress, Other (combative and not following commands) HEENT: Atraumatic, PERRLA Lungs: Clear to auscultation Cardiovascular: Regular rate, Normal S1 Medications Current Medications Medications Dose Ordered Sig/Negra Route Start Time Stop Time Status Last Admin Dose Admin Hydralazine HCl 10 mg Q6HP PRN IV 01/25/25 16:45 Ceftriaxone Sodium 50 ml @ 100 mls/hr DAILY@09 IV 01/26/25 09:00 01/27/25 08:36 100 MLS/HR Diagnostic Test (Pha) 1 strip ACHS 01/25/25 17:00 01/27/25 11:08 1 STRIP Insulin Human Regular ACHS SC 01/25/25 17:00 Dextrose 50 ml UD PRN IV 01/25/25 16:45 Sodium Chloride 10 ml Q8HR IV 01/25/25 22:00 01/27/25 13:46 10 ML Acetaminophen/ Hydrocodone Bitart 1 tab Q4HP PRN PO 01/25/25 16:45 Ondansetron HCl 4 mg Q4HP PRN IV 01/25/25 16:45 Docusate Sodium 100 mg BIDPRN PRN PO 01/25/25 16:45 Acetaminophen 650 mg Q6HP PRN PO 01/25/25 16:45 Nitroglycerin 0.4 mg Q5MINP PRN SL 01/25/25 18:00 Morphine Sulfate 2 mg Q30M PRN IV 01/25/25 18:00 Haloperidol Lactate 5 mg Q12HR IM 01/26/25 10:30 01/27/25 09:41 5 MG Lorazepam 2 mg Q1HP PRN IV 01/26/25 11:15 01/26/25 17:29 2 MG Enoxaparin Sodium 40 mg DAILY SC 01/27/25 10:00 01/27/25 10:09 40 MG Quetiapine Fumarate 200 mg BID PO 01/26/25 22:00 01/27/25 09:42 200 MG Amlodipine Besylate 10 mg DAILY PO 01/27/25 10:00 Lisinopril 40 mg DAILY PO 01/27/25 10:00 Divalproex Sodium 750 mg BID PO 01/26/25 22:00 01/27/25 09:42 750 MG Laboratory Results Laboratory Tests 01/26/25 05:05 Urinalysis Test 01/26/25 11:07 Urine Color Yellow (Yellow) Urine Clarity Clear (Clear) Urine pH 6.5 (5.0-9.0) Urine Specific [place] 1.028 (1.001-1.035) Urine Protein Trace (Negative) H Urine Ketones Negative (Negative) Urine Blood Negative /uL (Negative) Urine Nitrite Negative (Negative) Urine Bilirubin Negative (Negative) Urine Urobilinogen Normal mg/dL (Negative) Urine Leukocyte Esterase Negative /uL (Negative) Urine RBC 1 /hpf (0 - 3) Urine Microscopic WBC 2 /HPF (0-3) Urine Squamous Epithelial Cells Few /hpf (<5) Urine Bacteria None seen /hpf (None Seen) Urine Mucus Few (None Seen) Urine Glucose Normal mg/dL (Normal) Assessment/Plan Assessment/Plan #Head injury #facial contusion #Nasal bone fracture #Fracture of nasal bones, initial encounter for closed fracture Monitor for pain control #Acute metabolic encephalopathy #Hypokalemia #Head contusion Very combative Ativan and restraints Replace K #HTN (hypertension) continue home medications Plan discussed with: Other (nurse) My Orders Orders - SOPHIA ISABEL MD Procedure Category Date Status Time Quetiapine Fumarate PHA 01/26/25 In Process Tablet (Seroquel Tab 22:00 Amlodipine Tablet PHA 01/27/25 In Process (Norvasc Tablet) 10:00 Lisinopril Tablet PHA 01/27/25 In Process (Zestril Tablet) 10:[address] Tablet PHA 01/26/25 In Process (Depakote "Dr" Tabl 22:00 * Swallow Request ST 01/27/25 Transmitted 13:42 Date of Service: Jan 27, 2025 Billing Provider: SOPHIA ISABEL MD Common Visit Codes: [id number] INP/OBS CARE(HIGH) SOPHIA ISABEL MD Jan 27, 2025 16:40
[2025-01-28] VITALS (7 sets, daily range): BP systolic 99–124; BP diastolic 66–92; PULSE 65–83; RESP 17–20; TEMP 97.5–98.5; O2SAT 92–99
--- NOTE | 2025-01-28 17:36 | DVHPN2 ---
Subjective more calm in bed resting Changes from previous H/P or p: No Changes Eyes: No Pain, No Vision change, No Conjunctivae inflammation, No Eyelid inflammation; Other (eye pain, eye redness); No Redness ENT: No Ear pain, No Ear discharge, No Nose pain, No Nose discharge, No Nose congestion, No Mouth pain, No Mouth swelling, No Throat pain, No Throat swelling, No Other Cardiovascular: No Chest Pain, No Palpitations, No Orthopnea, No Paroxysmal Noc. Dyspnea, No Edema, No Lt Headedness, No Other Respiratory: No Cough, No Dry, No Shortness of breath, No SOB with excertion, No Wheezing, No Hemoptysis, No Pleuritic Pain, No Sputum, No Other Gastrointestinal: No Nausea, No Vomiting, No Abdominal Pain, No Diarrhea, No Constipation, No Melena, No Hematochezia, No Other Genitourinary: No Dysuria, No Frequency, No Incontinence, No Hematuria, No Retention, No Other Musculoskeletal: No other, No neck pain, No shoulder pain, No arm pain, No back pain, No hand pain, No leg pain, No foot pain Skin: No Rash, No Lesions, No Jaundice; Bruising (Facial); No Other Objective Vitals Vital Signs Date Time Temp Pulse Resp B/P (MAP) Pulse Ox O2 Delivery O2 Flow Rate FiO2 01/28/25 16:54 97.7 80 20 115/83 (94) 92 97.7 01/28/25 08:10 Room Air* 0 21 Intake/Output Intake and Output 01/28/25 07:00 Intake Total 536 ml Balance 536 ml Intake Oral 536 ml # Voids 7 # Bowel Movements 1 General Appearance: severe distress, Other (combative and not following commands) HEENT: Atraumatic, PERRLA Lungs: Clear to auscultation Cardiovascular: Regular rate, Normal S1 Medications Current Medications Medications Dose Ordered Sig/Negra Route Start Time Stop Time Status Last Admin Dose Admin Hydralazine HCl 10 mg Q6HP PRN IV 01/25/25 16:45 Ceftriaxone Sodium 50 ml @ 100 mls/hr DAILY@09 IV 01/26/25 09:00 01/28/25 09:16 100 MLS/HR Diagnostic Test (Pha) 1 strip ACHS 01/25/25 17:00 01/28/25 11:08 1 STRIP Insulin Human Regular ACHS SC 01/25/25 17:00 Dextrose 50 ml UD PRN IV 01/25/25 16:45 Sodium Chloride 10 ml Q8HR IV 01/25/25 22:00 01/28/25 14:00 10 ML Acetaminophen/ Hydrocodone Bitart 1 tab Q4HP PRN PO 01/25/25 16:45 Ondansetron HCl 4 mg Q4HP PRN IV 01/25/25 16:45 Docusate Sodium 100 mg BIDPRN PRN PO 01/25/25 16:45 Acetaminophen 650 mg Q6HP PRN PO 01/25/25 16:45 Nitroglycerin 0.4 mg Q5MINP PRN SL 01/25/25 18:00 Morphine Sulfate 2 mg Q30M PRN IV 01/25/25 18:00 Haloperidol Lactate 5 mg Q12HR IM 01/26/25 10:30 01/28/25 09:22 5 MG Lorazepam 2 mg Q1HP PRN IV 01/26/25 11:15 01/28/25 11:36 2 MG Enoxaparin Sodium 40 mg DAILY SC 01/27/25 10:00 01/28/25 09:21 40 MG Quetiapine Fumarate 200 mg BID PO 01/26/25 22:00 01/28/25 09:28 200 MG Amlodipine Besylate 10 mg DAILY PO 01/27/25 10:00 01/28/25 09:19 10 MG Lisinopril 40 mg DAILY PO 01/27/25 10:00 01/28/25 09:20 40 MG Divalproex Sodium 750 mg BID PO 01/26/25 22:00 01/28/25 09:20 750 MG Laboratory Results Laboratory Tests 01/26/25 05:05 Urinalysis Test 01/26/25 11:07 Urine Color Yellow (Yellow) Urine Clarity Clear (Clear) Urine pH 6.5 (5.0-9.0) Urine Specific [place] 1.028 (1.001-1.035) Urine Protein Trace (Negative) H Urine Ketones Negative (Negative) Urine Blood Negative /uL (Negative) Urine Nitrite Negative (Negative) Urine Bilirubin Negative (Negative) Urine Urobilinogen Normal mg/dL (Negative) Urine Leukocyte Esterase Negative /uL (Negative) Urine RBC 1 /hpf (0 - 3) Urine Microscopic WBC 2 /HPF (0-3) Urine Squamous Epithelial Cells Few /hpf (<5) Urine Bacteria None seen /hpf (None Seen) Urine Mucus Few (None Seen) Urine Glucose Normal mg/dL (Normal) Assessment/Plan Assessment/Plan #Head injury #facial contusion #Nasal bone fracture #Fracture of nasal bones, initial encounter for closed fracture Monitor for pain control #Acute metabolic encephalopathy #Hypokalemia #Head contusion Very combative Ativan and restraints Replace K #HTN (hypertension) continue home medications Plan discussed with: Other (nurse) My Orders Orders - SOPHIA ISABEL MD Procedure Category Date Status Time Pureed DIET 01/28/25 Transmitted Dinner Date of Service: Jan 28, 2025 Billing Provider: SOPHIA ISABEL MD Common Visit Codes: [id number] INP/OBS CARE(HIGH) SOPHIA ISABEL MD Jan 28, 2025 17:36
[2025-01-29] VITALS (9 sets, daily range): BP systolic 103–149; BP diastolic 70–97; PULSE 58–78; RESP 17–19; TEMP 96.9–98.3; O2SAT 92–98
--- NOTE | 2025-01-29 14:29 | MEDREC ---
[facility] Intervention Section I [facility] Intervention: Review courses of therapy (PLEASE CONSIDER DISCONTINUING ANTIBIOTIC (ROCEPHIN) DUE TO LACK OF EVIDENCE OF INFECTION) ARTHUR PALACIO Jan 29, 2025 14:29
[2025-01-29] MEDS: LORazepam 2MG/ML-1ML VIAL IM ONE (15:50)
--- NOTE | 2025-01-29 17:56 | DVHPN2 ---
Subjective confused and yelling Reviewed: Care Plan Changes from previous H/P or p: No Changes Eyes: No Pain, No Vision change, No Conjunctivae inflammation, No Eyelid inflammation; Other (eye pain, eye redness); No Redness ENT: No Ear pain, No Ear discharge, No Nose pain, No Nose discharge, No Nose congestion, No Mouth pain, No Mouth swelling, No Throat pain, No Throat swelling, No Other Cardiovascular: No Chest Pain, No Palpitations, No Orthopnea, No Paroxysmal Noc. Dyspnea, No Edema, No Lt Headedness, No Other Respiratory: No Cough, No Dry, No Shortness of breath, No SOB with excertion, No Wheezing, No Hemoptysis, No Pleuritic Pain, No Sputum, No Other Gastrointestinal: No Nausea, No Vomiting, No Abdominal Pain, No Diarrhea, No Constipation, No Melena, No Hematochezia, No Other Genitourinary: No Dysuria, No Frequency, No Incontinence, No Hematuria, No Retention, No Other Musculoskeletal: No other, No neck pain, No shoulder pain, No arm pain, No back pain, No hand pain, No leg pain, No foot pain Skin: No Rash, No Lesions, No Jaundice; Bruising (Facial); No Other Objective Vitals Vital Signs Date Time Temp Pulse Resp B/P (MAP) Pulse Ox O2 Delivery O2 Flow Rate FiO2 01/29/25 17:00 97.8 68 17 112/70 (84) 95 97.8 01/29/25 08:10 Room Air* 0 21 Intake/Output Intake and Output 01/29/25 07:00 Intake Total 1330 ml Balance 1330 ml Intake Oral 1280 ml IV Total 50 ml # Voids 11 General Appearance: severe distress, Other (combative and not following commands) HEENT: Atraumatic, PERRLA Lungs: Clear to auscultation Cardiovascular: Regular rate, Normal S1 Medications Current Medications Medications Dose Ordered Sig/Negra Route Start Time Stop Time Status Last Admin Dose Admin Hydralazine HCl 10 mg Q6HP PRN IV 01/25/25 16:45 Ceftriaxone Sodium 50 ml @ 100 mls/hr DAILY@09 IV 01/26/25 09:00 01/29/25 10:06 100 MLS/HR Diagnostic Test (Pha) 1 strip ACHS 01/25/25 17:00 01/29/25 17:00 1 STRIP Insulin Human Regular ACHS SC 01/25/25 17:00 01/28/25 22:00 2 UNITS Dextrose 50 ml UD PRN IV 01/25/25 16:45 Sodium Chloride 10 ml Q8HR IV 01/25/25 22:00 01/29/25 14:00 10 ML Acetaminophen/ Hydrocodone Bitart 1 tab Q4HP PRN PO 01/25/25 16:45 Ondansetron HCl 4 mg Q4HP PRN IV 01/25/25 16:45 Docusate Sodium 100 mg BIDPRN PRN PO 01/25/25 16:45 Acetaminophen 650 mg Q6HP PRN PO 01/25/25 16:45 Nitroglycerin 0.4 mg Q5MINP PRN SL 01/25/25 18:00 Morphine Sulfate 2 mg Q30M PRN IV 01/25/25 18:00 Haloperidol Lactate 5 mg Q12HR IM 01/26/25 10:30 01/29/25 10:06 5 MG Lorazepam 2 mg Q1HP PRN IV 01/26/25 11:15 01/29/25 17:32 2 MG Enoxaparin Sodium 40 mg DAILY SC 01/27/25 10:00 01/29/25 10:08 40 MG Quetiapine Fumarate 200 mg BID PO 01/26/25 22:00 01/29/25 10:19 200 MG Amlodipine Besylate 10 mg DAILY PO 01/27/25 10:00 01/29/25 10:09 10 MG Lisinopril 40 mg DAILY PO 01/27/25 10:00 01/29/25 10:08 40 MG Divalproex Sodium 750 mg BID PO 01/26/25 22:00 01/29/25 10:07 750 MG Laboratory Results Laboratory Tests 01/26/25 05:05 Urinalysis Test 01/26/25 11:07 Urine Color Yellow (Yellow) Urine Clarity Clear (Clear) Urine pH 6.5 (5.0-9.0) Urine Specific [place] 1.028 (1.001-1.035) Urine Protein Trace (Negative) H Urine Ketones Negative (Negative) Urine Blood Negative /uL (Negative) Urine Nitrite Negative (Negative) Urine Bilirubin Negative (Negative) Urine Urobilinogen Normal mg/dL (Negative) Urine Leukocyte Esterase Negative /uL (Negative) Urine RBC 1 /hpf (0 - 3) Urine Microscopic WBC 2 /HPF (0-3) Urine Squamous Epithelial Cells Few /hpf (<5) Urine Bacteria None seen /hpf (None Seen) Urine Mucus Few (None Seen) Urine Glucose Normal mg/dL (Normal) Assessment/Plan Assessment/Plan #Head injury #facial contusion #Nasal bone fracture #Fracture of nasal bones, initial encounter for closed fracture Monitor for pain control #Acute metabolic encephalopathy #Hypokalemia #Head contusion Very combative Ativan and restraints Replace K #HTN (hypertension) continue home medications Plan discussed with: Other (nurse) Date of Service: Jan 29, 2025 Billing Provider: SOPHIA ISABEL MD Common Visit Codes: [id number] INP/OBS CARE(HIGH) SOPHIA ISABEL MD Jan 29, 2025 17:56
[2025-01-30] VITALS (8 sets, daily range): BP systolic 123–152; BP diastolic 76–95; PULSE 66–84; RESP 14–20; TEMP 97.5–98.6; O2SAT 93–98
[2025-01-30] MEDS: DEXTROSE (50%) 50ML SYRG IV PRN (06:19)
[2025-01-30] MEDS: D5W/SOD CHL 0.45% 1,000 ML IV SCH (11:15)
--- NOTE | 2025-01-30 16:07 | DVHPN2 ---
Subjective confused and yelling Reviewed: Care Plan Changes from previous H/P or p: No Changes Eyes: No Pain, No Vision change, No Conjunctivae inflammation, No Eyelid inflammation; Other (eye pain, eye redness); No Redness ENT: No Ear pain, No Ear discharge, No Nose pain, No Nose discharge, No Nose congestion, No Mouth pain, No Mouth swelling, No Throat pain, No Throat swelling, No Other Cardiovascular: No Chest Pain, No Palpitations, No Orthopnea, No Paroxysmal Noc. Dyspnea, No Edema, No Lt Headedness, No Other Respiratory: No Cough, No Dry, No Shortness of breath, No SOB with excertion, No Wheezing, No Hemoptysis, No Pleuritic Pain, No Sputum, No Other Gastrointestinal: No Nausea, No Vomiting, No Abdominal Pain, No Diarrhea, No Constipation, No Melena, No Hematochezia, No Other Genitourinary: No Dysuria, No Frequency, No Incontinence, No Hematuria, No Retention, No Other Musculoskeletal: No other, No neck pain, No shoulder pain, No arm pain, No back pain, No hand pain, No leg pain, No foot pain Skin: No Rash, No Lesions, No Jaundice; Bruising (Facial); No Other Objective Vitals Vital Signs Date Time Temp Pulse Resp B/P (MAP) Pulse Ox O2 Delivery O2 Flow Rate FiO2 01/30/25 13:00 97.5 66 14 128/84 (99) 97 97.5 01/30/25 07:53 Room Air* 0 21 Intake/Output Intake and Output 01/30/25 07:00 Intake Total 1670 ml Balance 1670 ml Intake Oral 1620 ml IV Total 50 ml # Voids 9 # Bowel Movements 1 General Appearance: severe distress, Other (combative and not following commands) HEENT: Atraumatic, PERRLA Lungs: Clear to auscultation Cardiovascular: Regular rate, Normal S1 Medications Current Medications Medications Dose Ordered Sig/Negra Route Start Time Stop Time Status Last Admin Dose Admin Hydralazine HCl 10 mg Q6HP PRN IV 01/25/25 16:45 Ceftriaxone Sodium 50 ml @ 100 mls/hr DAILY@09 IV 01/26/25 09:00 01/30/25 09:30 100 MLS/HR Diagnostic Test (Pha) 1 strip ACHS 01/25/25 17:00 01/30/25 11:38 1 STRIP Insulin Human Regular ACHS SC 01/25/25 17:00 01/28/25 22:00 2 UNITS Dextrose 50 ml UD PRN IV 01/25/25 16:45 01/30/25 06:19 50 ML Sodium Chloride 10 ml Q8HR IV 01/25/25 22:00 01/30/25 14:53 10 ML Acetaminophen/ Hydrocodone Bitart 1 tab Q4HP PRN PO 01/25/25 16:45 Ondansetron HCl 4 mg Q4HP PRN IV 01/25/25 16:45 Docusate Sodium 100 mg BIDPRN PRN PO 01/25/25 16:45 Acetaminophen 650 mg Q6HP PRN PO 01/25/25 16:45 Nitroglycerin 0.4 mg Q5MINP PRN SL 01/25/25 18:00 Morphine Sulfate 2 mg Q30M PRN IV 01/25/25 18:00 Haloperidol Lactate 5 mg Q12HR IM 01/26/25 10:30 01/29/25 21:07 5 MG Lorazepam 2 mg Q1HP PRN IV 01/26/25 11:15 01/30/25 14:53 2 MG Enoxaparin Sodium 40 mg DAILY SC 01/27/25 10:00 01/30/25 09:31 40 MG Quetiapine Fumarate 200 mg BID PO 01/26/25 22:00 01/29/25 21:07 200 MG Amlodipine Besylate 10 mg DAILY PO 01/27/25 10:00 01/29/25 10:09 10 MG Lisinopril 40 mg DAILY PO 01/27/25 10:00 01/29/25 10:08 40 MG Divalproex Sodium 750 mg BID PO 01/26/25 22:00 01/29/25 21:07 750 MG Dextrose/Sodium Chloride 1,000 ml @ 100 mls/hr Q10H IV 01/30/25 11:15 01/30/25 11:15 100 MLS/HR Laboratory Results Laboratory Tests 01/26/25 05:05 Urinalysis Test 01/26/25 11:07 Urine Color Yellow (Yellow) Urine Clarity Clear (Clear) Urine pH 6.5 (5.0-9.0) Urine Specific [place] 1.028 (1.001-1.035) Urine Protein Trace (Negative) H Urine Ketones Negative (Negative) Urine Blood Negative /uL (Negative) Urine Nitrite Negative (Negative) Urine Bilirubin Negative (Negative) Urine Urobilinogen Normal mg/dL (Negative) Urine Leukocyte Esterase Negative /uL (Negative) Urine RBC 1 /hpf (0 - 3) Urine Microscopic WBC 2 /HPF (0-3) Urine Squamous Epithelial Cells Few /hpf (<5) Urine Bacteria None seen /hpf (None Seen) Urine Mucus Few (None Seen) Urine Glucose Normal mg/dL (Normal) Assessment/Plan Assessment/Plan #Head injury #facial contusion #Nasal bone fracture #Fracture of nasal bones, initial encounter for closed fracture Monitor for pain control #Acute metabolic encephalopathy #Hypokalemia #Head contusion Very combative Ativan and restraints Replace K #HTN (hypertension) continue home medications Plan discussed with: Patient My Orders Orders - SOPHIA ISABEL MD Procedure Category Date Status Time Basic Metabolic Panel LAB 01/31/25 Verified 05:00 Basic Metabolic Panel LAB 02/01/25 Verified 05:00 Basic Metabolic Panel LAB 02/02/25 Verified 05:00 Basic Metabolic Panel LAB 02/03/25 Verified 05:00 Basic Metabolic Panel LAB 02/04/25 Verified 05:00 Basic Metabolic Panel LAB 02/05/25 Verified 05:00 D5w/Sod Chl 0.45% PHA 01/30/25 In Process (D5w 1/2ns) 11:15 Date of Service: Jan 30, 2025 Billing Provider: SOPHIA ISABEL MD Common Visit Codes: [id number] INP/OBS CARE(HIGH) SOPHIA ISABEL MD Jan 30, 2025 16:07
[2025-01-31] VITALS (8 sets, daily range): BP systolic 112–142; BP diastolic 72–90; PULSE 60–79; RESP 16–18; TEMP 96.9–98; O2SAT 91–98
[2025-01-31 13:48] LABS: Potassium 4.8 mmol/L (3.5-5.1); Sodium 139 mmol/L (136-145)
[2025-01-31 13:49] LABS: Anion Gap 6 (5-15); Calcium 9.5 mg/dL (8.7-10.4); Carbon Dioxide 23 mmol/L (20-31)
[2025-01-31 13:54] LABS: Glucose 105 mg/dL (74-106)
[2025-01-31 13:55] LABS: BUN/Creatinine Ratio 7.6 (10.0-20.0)
[2025-01-31 13:56] LABS: Blood Urea Nitrogen 6 mg/dL (9-23); Chloride 110 mmol/L (98-107)
--- NOTE | 2025-01-31 20:06 | DVHPN2 ---
Subjective Still confused Reviewed: Care Plan Changes from previous H/P or p: No Changes Eyes: No Pain, No Vision change, No Conjunctivae inflammation, No Eyelid inflammation; Other (eye pain, eye redness); No Redness ENT: No Ear pain, No Ear discharge, No Nose pain, No Nose discharge, No Nose congestion, No Mouth pain, No Mouth swelling, No Throat pain, No Throat swelling, No Other Cardiovascular: No Chest Pain, No Palpitations, No Orthopnea, No Paroxysmal Noc. Dyspnea, No Edema, No Lt Headedness, No Other Respiratory: No Cough, No Dry, No Shortness of breath, No SOB with excertion, No Wheezing, No Hemoptysis, No Pleuritic Pain, No Sputum, No Other Gastrointestinal: No Nausea, No Vomiting, No Abdominal Pain, No Diarrhea, No Constipation, No Melena, No Hematochezia, No Other Genitourinary: No Dysuria, No Frequency, No Incontinence, No Hematuria, No Retention, No Other Musculoskeletal: No other, No neck pain, No shoulder pain, No arm pain, No back pain, No hand pain, No leg pain, No foot pain Skin: No Rash, No Lesions, No Jaundice; Bruising (Facial); No Other Objective Vitals Vital Signs Date Time Temp Pulse Resp B/P (MAP) Pulse Ox O2 Delivery O2 Flow Rate FiO2 01/31/25 17:00 96.9 64 17 142/90 (107) 97 96.9 01/31/25 08:00 Room Air* 0 21 Intake/Output Intake and Output 01/31/25 07:00 Intake Total 1250 ml Output Total 0 ml Balance 1250 ml Intake Oral 1200 ml IV Total 50 ml Output Stool Total 0 ml # Voids 7 General Appearance: severe distress, Other (combative and not following commands) HEENT: Atraumatic, PERRLA Lungs: Clear to auscultation Cardiovascular: Regular rate, Normal S1 Medications Current Medications Medications Dose Ordered Sig/Negra Route Start Time Stop Time Status Last Admin Dose Admin Hydralazine HCl 10 mg Q6HP PRN IV 01/25/25 16:45 Ceftriaxone Sodium 50 ml @ 100 mls/hr DAILY@09 IV 01/26/25 09:00 01/31/25 10:18 100 MLS/HR Diagnostic Test (Pha) 1 strip ACHS 01/25/25 17:00 01/31/25 17:00 1 STRIP Insulin Human Regular ACHS SC 01/25/25 17:00 01/28/25 22:00 2 UNITS Dextrose 50 ml UD PRN IV 01/25/25 16:45 01/30/25 06:19 50 ML Sodium Chloride 10 ml Q8HR IV 01/25/25 22:00 01/31/25 14:16 10 ML Acetaminophen/ Hydrocodone Bitart 1 tab Q4HP PRN PO 01/25/25 16:45 Ondansetron HCl 4 mg Q4HP PRN IV 01/25/25 16:45 Docusate Sodium 100 mg BIDPRN PRN PO 01/25/25 16:45 Acetaminophen 650 mg Q6HP PRN PO 01/25/25 16:45 Nitroglycerin 0.4 mg Q5MINP PRN SL 01/25/25 18:00 Morphine Sulfate 2 mg Q30M PRN IV 01/25/25 18:00 Haloperidol Lactate 5 mg Q12HR IM 01/26/25 10:30 01/31/25 10:19 5 MG Lorazepam 2 mg Q1HP PRN IV 01/26/25 11:15 01/31/25 16:16 2 MG Enoxaparin Sodium 40 mg DAILY SC 01/27/25 10:00 01/31/25 10:19 40 MG Quetiapine Fumarate 200 mg BID PO 01/26/25 22:00 01/31/25 10:20 200 MG Amlodipine Besylate 10 mg DAILY PO 01/27/25 10:00 01/31/25 10:22 10 MG Lisinopril 40 mg DAILY PO 01/27/25 10:00 01/31/25 10:21 40 MG Divalproex Sodium 750 mg BID PO 01/26/25 22:00 01/31/25 10:22 750 MG Dextrose/Sodium Chloride 1,000 ml @ 100 mls/hr Q10H IV 01/30/25 11:15 01/31/25 17:15 100 MLS/HR Laboratory Results Laboratory Tests 01/26/25 05:05 01/31/25 13:22 Chemistry Test 01/31/25 13:22 Calcium Level 9.5 mg/dL (8.7-10.4) Urinalysis Test 01/26/25 11:07 Urine Color Yellow (Yellow) Urine Clarity Clear (Clear) Urine pH 6.5 (5.0-9.0) Urine Specific [place] 1.028 (1.001-1.035) Urine Protein Trace (Negative) H Urine Ketones Negative (Negative) Urine Blood Negative /uL (Negative) Urine Nitrite Negative (Negative) Urine Bilirubin Negative (Negative) Urine Urobilinogen Normal mg/dL (Negative) Urine Leukocyte Esterase Negative /uL (Negative) Urine RBC 1 /hpf (0 - 3) Urine Microscopic WBC 2 /HPF (0-3) Urine Squamous Epithelial Cells Few /hpf (<5) Urine Bacteria None seen /hpf (None Seen) Urine Mucus Few (None Seen) Urine Glucose Normal mg/dL (Normal) Assessment/Plan Assessment/Plan #Head injury #facial contusion #Nasal bone fracture #Fracture of nasal bones, initial encounter for closed fracture Monitor for pain control #Acute metabolic encephalopathy #Hypokalemia #Head contusion Very combative Ativan and restraints Replace K #HTN (hypertension) continue home medications Plan discussed with: Other (nurse) Date of Service: Jan 31, 2025 Billing Provider: SOPHIA ISABEL MD Common Visit Codes: [id number] INP/OBS CARE(HIGH) SOPHIA ISABEL MD Jan 31, 2025 20:06
[2025-02-01] VITALS (8 sets, daily range): BP systolic 137–160; BP diastolic 71–99; PULSE 58–93; RESP 17–19; TEMP 97.1–98.6; O2SAT 92–97
[2025-02-01] MEDS: hydrALAZINE HCL 20 MG/ML VL IV PRN (12:38)
--- NOTE | 2025-02-01 15:26 | DVHINCON2 ---
Date of Service if different f: Feb 01, 2025 Time of Service: 14:00 Consultation ([facility]) Consulting Physician: AKUA FORD MD Labs Laboratory Tests Test 01/26/25 05:05 01/26/25 11:07 01/31/25 13:22 02/01/25 11:09 White Blood Count 6.7 10^3/uL (4.4-10.8) Red Blood Count 3.64 10^6/uL (4.5-5.90) Hemoglobin 12.1 g/dL (13.5-17.5) Hematocrit 36.1 % (41.0-53.0) Mean Corpuscular Volume 99.1 fL (80.0-100.0) Mean Corpuscular Hemoglobin 33.2 pg (28.0-32.0) Mean Corpuscular Hemoglobin Concent 33.5 g/dL (32.0-36.0) Red Cell Distribution Width 14.2 % (11.8-14.3) Platelet Count 192 10^3/uL (140-450) Mean Platelet Volume 6.6 fL (6.9-10.8) Neutrophils (%) (Auto) % (37.0-80.0) Lymphocytes (%) (Auto) % (10.0-50.0) Monocytes (%) (Auto) % (0.0-12.0) Basophils (%) (Auto) % (0.0-2.0) Neutrophils # (Auto) 10 ^3/uL (1.6-8.6) Lymphocytes # (Auto) 10 ^3/uL (0.4-5.4) Monocytes # (Auto) 10 ^3/uL (0-1.3) Differential Total Cells Counted 100.0 (100) Neutrophils % (Manual) 57 (37.0-80.0) Band Neutrophils % (Manual) 3 Lymphocytes % (Manual) 24 (10.0-50.0) Monocytes % (Manual) 7 (0-12) Eosinophils % (Manual) 9 (0-7) Basophils % (Manual) 0 (0.0-2.0) Metamyelocytes % (manual) 0 Myelocytes % (Manual) 0 Promyelocytes % (Manual) 0 Blast Cells % (Manual) 0 Reactive Lymphocytes 0 Platelet Estimate Adequate Total Bilirubin 0.6 mg/dL (0.2-1.0) Aspartate Amino Transf (AST/SGOT) 20 U/L (13-40) Alanine Aminotransferase (ALT/SGPT) 15 U/L (7-40) Alkaline Phosphatase 53 U/L (46-116) Total Protein 6.3 g/dL (5.7-8.2) Albumin 3.6 g/dL (3.2-4.8) Urine Color Yellow (Yellow) Urine Clarity Clear (Clear) Urine pH 6.5 (5.0-9.0) Urine Specific [place] 1.028 (1.001-1.035) Urine Protein Trace (Negative) Urine Ketones Negative (Negative) Urine Blood Negative /uL (Negative) Urine Nitrite Negative (Negative) Urine Bilirubin Negative (Negative) Urine Urobilinogen Normal mg/dL (Negative) Urine Leukocyte Esterase Negative /uL (Negative) Urine RBC 1 /hpf (0 - 3) Urine Microscopic WBC 2 /HPF (0-3) Urine Squamous Epithelial Cells Few /hpf (<5) Urine Bacteria None seen /hpf (None Seen) Urine Mucus Few (None Seen) Urine Glucose Normal mg/dL (Normal) Sodium Level 139 mmol/L (136-145) Potassium Level 4.8 mmol/L (3.5-5.1) Chloride Level 110 mmol/L (98-107) Carbon Dioxide Level 23 mmol/L (20-31) Anion Gap 6 (5-15) Blood Urea Nitrogen 6 mg/dL (9-23) Creatinine 0.79 mg/dL (0.700-1.30) Glomerular Filtration Rate Calc 105 mL/min (>90) BUN/Creatinine Ratio 7.6 (10.0-20.0) Serum Glucose 105 mg/dL (74-106) Calcium Level 9.5 mg/dL (8.7-10.4) Bedside Glucose 79 mg/dl (70-106) Appearance: Older than stated age Psychomotor activity: Agitated Behavioral: Uncooperative Eye contact: Avoids Speech: Dysarthric, Mute Affect: Irritable Mood: Anxious Thought processes: Disorganized Thought content: Paucity of thoughts Suicidal ideations: Absent Homicidal ideations: Absent Orientation: Confused Memory intact: Poor Abstractability: Marginal Concentration: Limited Attention: Limited Judgement: Poor Insight: Poor Vitals Vital Signs Date Time Temp Pulse Resp B/P (MAP) Pulse Ox O2 Delivery O2 Flow Rate FiO2 02/01/25 12:38 159/97 02/01/25 09:00 97.1 59 19 92 97.1 02/01/25 08:16 Room Air* 0 21 Current medications Current Medications Medications Dose Ordered Sig/Negra Route Start Time Stop Time Status Last Admin Dose Admin Hydralazine HCl 10 mg Q6HP PRN IV 01/25/25 16:45 02/01/25 12:38 10 MG Diagnostic Test (Pha) 1 strip ACHS 01/25/25 17:00 02/01/25 12:02 1 STRIP Insulin Human Regular ACHS SC 01/25/25 17:00 01/28/25 22:00 2 UNITS Dextrose 50 ml UD PRN IV 01/25/25 16:45 01/30/25 06:19 50 ML Sodium Chloride 10 ml Q8HR IV 01/25/25 22:00 02/01/25 13:45 10 ML Acetaminophen/ Hydrocodone Bitart 1 tab Q4HP PRN PO 01/25/25 16:45 Ondansetron HCl 4 mg Q4HP PRN IV 01/25/25 16:45 Docusate Sodium 100 mg BIDPRN PRN PO 01/25/25 16:45 Acetaminophen 650 mg Q6HP PRN PO 01/25/25 16:45 Nitroglycerin 0.4 mg Q5MINP PRN SL 01/25/25 18:00 Morphine Sulfate 2 mg Q30M PRN IV 01/25/25 18:00 Haloperidol Lactate 5 mg Q12HR IM 01/26/25 10:30 01/31/25 10:19 5 MG Lorazepam 2 mg Q1HP PRN IV 01/26/25 11:15 02/01/25 05:55 2 MG Enoxaparin Sodium 40 mg DAILY SC 01/27/25 10:00 01/31/25 10:19 40 MG Quetiapine Fumarate 200 mg BID PO 01/26/25 22:00 01/31/25 10:20 200 MG Amlodipine Besylate 10 mg DAILY PO 01/27/25 10:00 01/31/25 10:22 10 MG Lisinopril 40 mg DAILY PO 01/27/25 10:00 01/31/25 10:21 40 MG Divalproex Sodium 750 mg BID PO 01/26/25 22:00 01/31/25 10:22 750 MG Dextrose/Sodium Chloride 1,000 ml @ 100 mls/hr Q10H IV 01/30/25 11:15 02/01/25 03:15 100 MLS/HR Treatment plan discussed: With staff Medication adjusted: Yes Labs ordered: No Psychotherapy provided: No Type: Voluntary History of Present Illness Reason for Consult : psychiatric evaluation PER H&P: The patient is a 54-year-old male with past medical history of TBI, DM, hypertension, and schizophrenia who presented to [facility] ED for evaluation of fall injury. As reported by EMS, patient is residing at [facility], has been experiencing frequent falls for the past few weeks, associated left eye pain, redness, as well as headache. Patient has sustained left cheek injury, mouth swelling from fall 2 weeks ago. Patient was seen and evaluated in the ED, laboratory data shows WBC 8.3, platelets 156, sodium 143, potassium 3.8, BUN 16, creatinine 0.69, GFR 109, glucose 78, calcium 9.2. Maxillofacial CT revealing age indeterminate depressed fracture of the left nasal bone, correlate with point tenderness, no significant overlying soft tissue swelling; moderate left facial soft tissue contusion with a 3.2 cm subcutaneous hematoma in the lateral aspect of the maxilla inferior to the zygomatic arch, multiple dental caries, recommending dental consultation. Patient was started on IV antibiotic regimen azithromycin, please medication orders section in the computer. On my assessment, patient remains agitated, disorganized, no diaphoresis, no shortness of breath, no nausea, no vomiting, no fever, no chills. Patient was admitted for further evaluation and medical management. PSYCHIATRIST HPI: The patient was seen and evaluated at [facility] via telepsychiatry platform. 54 yr old male was admitted for head injury. He is a long time resident at [facility] for schizophrenia and TBI. When I saw him, he was in bilateral mittens to protect himself and prevent removal of lines. He was not making any sense and not talking much or responding directly t o questions. He was unable to answer any of my questions. RN was unsure of what his baseline at [facility] was. He had been more agitated at night so Haldol 5mg BID was added and nursing reported he had been calmer. Past Psychiatric History: Diagnosed with schizophrenia Current psych medications: Depakote DR 750 bid Haldol 5mg BID seroquel 200mg BID Substance use: unknown Social History : Lives at [facility], [place]. DIAGNOSIS: Schizophrenia Formulation: This 54 yr old male appears to suffer from schizophrenia. He is calmer on Haldol 5mg BID, so recommend continuing that along with start Benztropine 1mg BID to reduce side effects. He may also benefit from an increase in his seroquel if he has return of agitation or combativeness. Plan: 1. Medical Decision Making. He does not appear to have medical decision making capability. 2. Legal-voluntary. 3. Medications: Recommend continuing the following :Depakote DR 750 bid Haldol 5mg BID seroquel 200mg BID Start Cogentin 1mg BID May increase seroquel to 300mg in AM or evening if there is continued agitation. 4. Case discussed with physician Dr Goodman. 5. Please recontact psychiatry for further follow up or reevaluation. Assessment/Diagnosis/Plan Reviewed: Labs, Medications, Previous Orders, Radiology AKUA FORD MD Feb 01, 2025 14:01
--- NOTE | 2025-02-01 17:03 | DVHPNRES ---
Progress Note Date Seen: Feb 01, 2025 Resident Creating Document: NAZARIO RODAS RESIDENT Medical Necessity Reason Pt with a Central, PICC or Fol: No Subjective Review of Systems Patient was seen and examined at bedside. He is calmed today, he has been sleeping most of the day. Objective vital signs Vital Sign Date Time Temp Pulse Resp B/P (MAP) Pulse Ox O2 Delivery O2 Flow Rate FiO2 02/01/25 12:38 159/97 02/01/25 09:00 97.1 59 19 92 97.1 02/01/25 08:16 Room Air* 0 21 Total Intake and Output 01/31/25 01/31/25 02/01/25 15:00 23:00 07:00 Intake Total 400 ml 0 ml Balance 400 ml 0 ml medications Current Medications Medications Dose Ordered Sig/Negra Route Start Time Stop Time Status Last Admin Dose Admin Hydralazine HCl 10 mg Q6HP PRN IV 01/25/25 16:45 02/01/25 12:38 10 MG Diagnostic Test (Pha) 1 strip ACHS 01/25/25 17:00 02/01/25 16:44 1 STRIP Insulin Human Regular ACHS SC 01/25/25 17:00 01/28/25 22:00 2 UNITS Dextrose 50 ml UD PRN IV 01/25/25 16:45 01/30/25 06:19 50 ML Sodium Chloride 10 ml Q8HR IV 01/25/25 22:00 02/01/25 13:45 10 ML Acetaminophen/ Hydrocodone Bitart 1 tab Q4HP PRN PO 01/25/25 16:45 Ondansetron HCl 4 mg Q4HP PRN IV 01/25/25 16:45 Docusate Sodium 100 mg BIDPRN PRN PO 01/25/25 16:45 Acetaminophen 650 mg Q6HP PRN PO 01/25/25 16:45 Nitroglycerin 0.4 mg Q5MINP PRN SL 01/25/25 18:00 Morphine Sulfate 2 mg Q30M PRN IV 01/25/25 18:00 Haloperidol Lactate 5 mg Q12HR IM 01/26/25 10:30 01/31/25 10:19 5 MG Lorazepam 2 mg Q1HP PRN IV 01/26/25 11:15 02/01/25 16:43 2 MG Enoxaparin Sodium 40 mg DAILY SC 01/27/25 10:00 01/31/25 10:19 40 MG Quetiapine Fumarate 200 mg BID PO 01/26/25 22:00 01/31/25 10:20 200 MG Amlodipine Besylate 10 mg DAILY PO 01/27/25 10:00 01/31/25 10:22 10 MG Lisinopril 40 mg DAILY PO 01/27/25 10:00 01/31/25 10:21 40 MG Divalproex Sodium 750 mg BID PO 01/26/25 22:00 01/31/25 10:22 750 MG Dextrose/Sodium Chloride 1,000 ml @ 100 mls/hr Q10H IV 01/30/25 11:15 02/01/25 03:15 100 MLS/HR Examination General: Awake, alert, comfortable appearing, in no acute distress. HEENT: Head is normocephalic and atraumatic. Pupils are equal, round, and reactive to light. Neck: Supple with no cervical lymphadenopathy Heart: Regular rate without murmur, rub, or gallop. Lungs: Equal breath sounds bilaterally with no wheezing, rales, or rhonchi. There is no chest wall tenderness or instability. Abdomen: No external sign of injury. Bowel sounds are present. Abdomen is soft, nontender. No rebound, no guarding, no rigidity. Extremities: Strong peripheral pulses. There is no clubbing, no cyanosis, and no edema. Skin: No rash. laboratory and microbiology Laboratory Tests 01/31/25 13:22 01/26/25 05:05 Test 01/31/25 13:22 Range/Units Serum Glucose 105 74-106 mg/dL Labs and/or images reviewed: Labs reviewed by me, Image(s) reviewed by me Problem List/Assessment/Plan Problem List/Assessment/Plan #Nasal bone fracture status post fall Monitor for pain control Head CT unremarkable #Schizophrenia #Acute psychosis Very combative; one-to-one sitter Ativan IV p.r.n. and restraints Divalproex 750 mg p.o. b.i.d. Quetiapine 200 mg p.o. b.i.d., may increase to 300 mg p.o. in the a.m. or evening if agitation worsens Haldol 5 mg IM b.i.d. Consulted tele psych Started Cogentin 1 mg p.o. b.i.d. # hypertension Lisinopril 40 mg p.o. q.d. Amlodipine 10 mg p.o. q.d. #Mild anemia, macrocytic ordered b12, folate patient is refusing blood draws Goals of care discussed with the patient's family for 20 minutes; full code Case was discussed with Dr. Triana Plan discussed with: Other (RN; uncle) My Orders My Orders Orders - NAZARIO RODAS RESIDENT Procedure Category Date Status Time Comprehensive LAB 02/01/25 Logged Metabolic Panel 10:52 Magnesium LAB 02/01/25 Logged 10:52 Vitamin B12 LAB 02/01/25 Logged 10:52 Folate (Folic Acid) LAB 02/01/25 Logged 10:52 Ammonia LAB 02/01/25 Logged 10:52 C-Reactive Protein LAB 02/01/25 Logged 10:52 Drug Screen LAB 02/01/25 Logged 10:52 Complete Blood Count LAB 02/01/25 Logged 10:52 *Tele Psych Consult CONS 02/01/25 Transmitted 13:19 Benztropine Tablet PHA 02/01/25 Transmitted (Cogentin Tablet) 22:00 Dietary Evaluation Review Comments: 1) Continue to promote PO intake, monitor appetite and labs, and plan of care 2) Collect HbA1c d/t hypoglycemia x 3 POC - 65, 49, 53 mg/dL 3) Consider referral to PT to help improve balance d/t frequent falls Expected Outcomes/Goals: 1) appetite and labs to improve 2) f/u in 5 days Addendum Addendum Addendum I was physically present for the choe portions of the service provided to patient by THE RESIDENT. I have reviewed the documentation, discussed the case with resident and agree with the resident's documentation except as noted. Also the patient's clinical case was discussed with the patient's nurse. This medical document was created using an electronic medical record system with computerized dictation system. Although this document has been carefully reviewed, there might still be some phonetic and typographical errors. These areas are purely typographical due to imperfections of the software programs, and do not reflect any compromise in the patient's medical care. Late signature. Date of Service: Feb 01, 2025 Billing Provider: IVANNA TRIANA MD Common Visit Codes: [id number] INP/OBS CARE(HIGH) Secondary Visit Codes: [id number] CARE PLAN 30 MINUTES (20 minutes) NAZARIO RODAS RESIDENT Feb 01, 2025 17:03 IVANNA TRIANA MD Feb 02, 2025 04:53
[2025-02-01 20:01] LABS: Basophils # (auto) 0.1 10 ^3/uL (0-0.2); Eosinophils # (auto) 0.2 10 ^3/uL (0-0.8); Lymphocytes # (auto) 1.5 10 ^3/uL (0.4-5.4)
[2025-02-01 20:03] LABS: Basophils % (auto) 0.8 % (0.0-2.0); Eosinophils % (auto) 2.6 % (0.0-7.0); Hematocrit 37.4 % (41.0-53.0); Lymphocytes % (auto) 19.8 % (10.0-50.0); Mean Corpuscular Hemoglobin 34.1 pg (28.0-32.0); Mean Corpuscular Hgb Conc. 34.8 g/dL (32.0-36.0); Monocytes # (auto) 0.7 10 ^3/uL (0-1.3); Monocytes % (auto) 8.6 % (0.0-12.0); Neutrophils # (auto) 5.2 10 ^3/uL (1.6-8.6); Neutrophils % (auto) 68.2 % (37.0-80.0); Platelet Count (auto) 154 10^3/uL (140-450); Red Blood Cells 3.82 10^6/uL (4.5-5.90); Red Cell Distribution Width 13.9 % (11.8-14.3); White Blood Cell 7.7 10^3/uL (4.4-10.8)
[2025-02-01 20:22] LABS: Alanine Aminotransferase 19 U/L (7-40); Albumin 4.1 g/dL (3.2-4.8); Alkaline Phosphatase 66 U/L (46-116); Anion Gap 7 (5-15); Aspartate Aminotransferase 33 U/L (13-40); BUN/Creatinine Ratio 11.8 (10.0-20.0); Blood Urea Nitrogen 10 mg/dL (9-23); CRP High Sensitivity 0.14 mg/dL (<1.0); Calcium 9.2 mg/dL (8.7-10.4); Carbon Dioxide 27 mmol/L (20-31); Chloride 106 mmol/L (98-107); Glucose 94 mg/dL (74-106); Potassium 4.1 mmol/L (3.5-5.1); Sodium 140 mmol/L (136-145); Total Protein 7.2 g/dL (5.7-8.2)
[2025-02-01 20:23] LABS: Bilirubin, Total 0.5 mg/dL (0.2-1.0)
[2025-02-01 20:45] LABS: Folate (Folic Acid) 14.42 ng/mL (>5.38)
[2025-02-01] MEDS: BENZTROPINE MESY 0.5 MG TAB PO SCH (21:30)
[2025-02-02] VITALS (7 sets, daily range): BP systolic 93–137; BP diastolic 62–94; PULSE 65–88; RESP 16–20; TEMP 97.4–98; O2SAT 92–100
[2025-02-02] MEDS: LACTULOSE 20Gm/30ML SOLN PO ONE (08:55)
[2025-02-02 10:24] LABS: Chloride 105 mmol/L (98-107); Potassium 3.8 mmol/L (3.5-5.1); Sodium 141 mmol/L (136-145)
[2025-02-02 10:25] LABS: Anion Gap 8 (5-15); Carbon Dioxide 28 mmol/L (20-31)
[2025-02-02 10:26] LABS: Calcium 9.3 mg/dL (8.7-10.4)
[2025-02-02 10:30] LABS: BUN/Creatinine Ratio 11.1 (10.0-20.0); Blood Urea Nitrogen 10 mg/dL (9-23); Glucose 82 mg/dL (74-106)
[2025-02-02] MEDS ORDERED: HALOPERIDOL LACTATE 5 MG/ML INJ VIAL IM PRN (11:00)
--- NOTE | 2025-02-02 11:35 | DVHPNRES ---
Progress Note Date Seen: Feb 02, 2025 Resident Creating Document: NAZARIO RODAS RESIDENT Medical Necessity Reason Pt with a Central, PICC or Fol: No Subjective Review of Systems Patient was seen and examined at bedside. He is calmed today. Objective vital signs Vital Sign Date Time Temp Pulse Resp B/P (MAP) Pulse Ox O2 Delivery O2 Flow Rate FiO2 02/02/25 08:54 111/65 02/02/25 08:54 65 18 100 02/02/25 01:00 98.0 98.0 02/01/25 20:00 Room Air* 0 21 Total Intake and Output 02/01/25 02/01/25 02/02/25 15:00 23:00 07:00 Intake Total 50 ml 550 ml 950 ml Balance 50 ml 550 ml 950 ml medications Current Medications Medications Dose Ordered Sig/Negra Route Start Time Stop Time Status Last Admin Dose Admin Hydralazine HCl 10 mg Q6HP PRN IV 01/25/25 16:45 02/01/25 12:38 10 MG Diagnostic Test (Pha) 1 strip ACHS 01/25/25 17:00 02/02/25 11:10 1 STRIP Insulin Human Regular ACHS SC 01/25/25 17:00 01/28/25 22:00 2 UNITS Dextrose 50 ml UD PRN IV 01/25/25 16:45 01/30/25 06:19 50 ML Sodium Chloride 10 ml Q8HR IV 01/25/25 22:00 02/02/25 06:00 10 ML Acetaminophen/ Hydrocodone Bitart 1 tab Q4HP PRN PO 01/25/25 16:45 Ondansetron HCl 4 mg Q4HP PRN IV 01/25/25 16:45 Docusate Sodium 100 mg BIDPRN PRN PO 01/25/25 16:45 Acetaminophen 650 mg Q6HP PRN PO 01/25/25 16:45 Nitroglycerin 0.4 mg Q5MINP PRN SL 01/25/25 18:00 Morphine Sulfate 2 mg Q30M PRN IV 01/25/25 18:00 Lorazepam 2 mg Q1HP PRN IV 01/26/25 11:15 02/01/25 20:15 2 MG Enoxaparin Sodium 40 mg DAILY SC 01/27/25 10:00 02/02/25 08:53 40 MG Quetiapine Fumarate 200 mg BID PO 01/26/25 22:00 02/02/25 08:55 200 MG Amlodipine Besylate 10 mg DAILY PO 01/27/25 10:00 02/02/25 08:54 10 MG Lisinopril 40 mg DAILY PO 01/27/25 10:00 02/02/25 08:54 40 MG Benztropine Mesylate 1 mg Q12HR PO 02/01/25 22:00 02/02/25 08:55 1 MG Lactulose 30 ml Q8HR PO 02/02/25 14:00 Divalproex Sodium 250 mg TID PO 02/02/25 14:00 Haloperidol 5 mg BID PO 02/02/25 22:00 Haloperidol Lactate 2.5 mg Q12HP PRN IM 02/02/25 11:00 Examination General: In no acute distress. HEENT: Head is normocephalic and atraumatic. Pupils are equal, round, and reactive to light. Neck: Supple with no cervical lymphadenopathy Heart: Regular rate without murmur, rub, or gallop. Lungs: Equal breath sounds bilaterally with no wheezing, rales, or rhonchi. There is no chest wall tenderness or instability. Abdomen: No external sign of injury. Bowel sounds are present. Abdomen is soft, nontender. No rebound, no guarding, no rigidity. Extremities: Strong peripheral pulses. There is no clubbing, no cyanosis, and no edema. Skin: No rash. laboratory and microbiology Laboratory Tests 02/02/25 09:56 02/01/25 19:26 Test 02/02/25 09:56 Range/Units Serum Glucose 82 74-106 mg/dL Labs and/or images reviewed: Labs reviewed by me, Image(s) reviewed by me Problem List/Assessment/Plan Problem List/Assessment/Plan #Nasal bone fracture status post fall Monitor for pain control Head CT unremarkable #Schizophrenia #Acute psychosis Very combative Ativan IV p.r.n. and restraints Divalproex 250 mg p.o. t.i.d. Quetiapine 100 mg p.o qam and 200mg po qhs. Haldol 5 mg po b.i.d. prn Consulted tele psych continue Cogentin 1 mg p.o. b.i.d. # drug-induced hyperammonemia Came down from divalproex from 750 p.o. b.i.d. to 250 mg p.o. t.i.d. as his has usual dose. Lactulose 30 mL p.o. q.8 hours # hypertension Lisinopril 40 mg p.o. q.d. Amlodipine 10 mg p.o. q.d. #Mild anemia, macrocytic Continue monitoring Goals of care discussed for over 30 mins, full code Case was discussed with Dr. Rea Plan discussed with: Patient, Other (RN) My Orders My Orders Orders - NAZARIO RODAS RESIDENT Procedure Category Date Status Time *Tele Psych Consult CONS 02/01/25 Transmitted 13:19 Benztropine Tablet PHA 02/01/25 In Process (Cogentin Tablet) 22:00 Lactulose Oral PHA 02/02/25 In Process 14:[address] Tablet PHA 02/02/25 In Process (Depakote "Dr" Tabl 14:00 Haloperidol Tablet PHA 02/02/25 In Process (Haldol Tablet) 22:00 Haloperidol Lactate PHA 02/02/25 In Process Injection (Haldol) 11:00 Ammonia LAB 02/03/25 Verified 04:00 Dietary Evaluation Review Comments: 1) Continue to promote PO intake, monitor appetite and labs, and plan of care 2) Collect HbA1c d/t hypoglycemia x 3 POC - 65, 49, 53 mg/dL 3) Consider referral to PT to help improve balance d/t frequent falls Expected Outcomes/Goals: 1) appetite and labs to improve 2) f/u in 5 days Date of Service: Feb 02, 2025 Billing Provider: MOHSEN REA MD Common Visit Codes: [id number] INP/OBS CARE(HIGH) NAZARIO RODAS RESIDENT Feb 02, 2025 11:35 MOHSEN REA MD Feb 03, 2025 17:37
[2025-02-02] MEDS: SODIUM CHLORIDE 0.9% 500 ML IV ONE (14:05)
[2025-02-02] MEDS: LACTULOSE 20Gm/30ML SOLN PO SCH (15:37)
[2025-02-02] MEDS: QUEtiapine FUMARATE 100 MG TAB PO SCH (21:05)
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
[2025-02-02] MEDS ORDERED: HALOPERIDOL 5 MG TAB PO SCH (22:00)
[2025-02-02] MEDS ORDERED: HALOPERIDOL 5 MG TAB PO PRN (22:00)
[2025-02-02] MEDS: HALOPERIDOL LACTATE 5 MG/ML INJ VIAL IM ONE (22:08)
[2025-02-03] VITALS (7 sets, daily range): BP systolic 103–144; BP diastolic 69–92; PULSE 58–101; RESP 16–20; TEMP 97.3–98.5; O2SAT 95–100
[2025-02-03 06:32] LABS: Anion Gap 7 (5-15); Calcium 9.1 mg/dL (8.7-10.4); Carbon Dioxide 26 mmol/L (20-31); Potassium 4.2 mmol/L (3.5-5.1); Sodium 143 mmol/L (136-145)
[2025-02-03 06:36] LABS: Chloride 110 mmol/L (98-107)
[2025-02-03 06:37] LABS: BUN/Creatinine Ratio 10.3 (10.0-20.0); Glucose 78 mg/dL (74-106)
[2025-02-03 06:39] LABS: Blood Urea Nitrogen 8 mg/dL (9-23)
[2025-02-03] MEDS: QUEtiapine FUMARATE 100 MG TAB PO SCH (10:15)
[2025-02-03] MEDS: LACTULOSE 20Gm/30ML SOLN PO SCH (10:17)
--- NOTE | 2025-02-03 14:16 | DVHPNRES ---
Progress Note Date Seen: Feb 03, 2025 Resident Creating Document: NAZARIO RODAS RESIDENT Medical Necessity Reason Pt with a Central, PICC or Fol: No Subjective Review of Systems Patient was seen and examined at bedside. He is more alert and awake than yesterday. Objective vital signs Vital Sign Date Time Temp Pulse Resp B/P (MAP) Pulse Ox O2 Delivery O2 Flow Rate FiO2 02/03/25 13:00 97.5 72 18 107/78 (88) 98 97.5 02/03/25 08:00 Room Air* 0 21 Total Intake and Output 02/02/25 02/02/25 02/03/25 15:00 23:00 07:00 Intake Total 200 ml 980 ml 100 ml Balance 200 ml 980 ml 100 ml medications Current Medications Medications Dose Ordered Sig/Negra Route Start Time Stop Time Status Last Admin Dose Admin Hydralazine HCl 10 mg Q6HP PRN IV 01/25/25 16:45 02/01/25 12:38 10 MG Diagnostic Test (Pha) 1 strip ACHS 01/25/25 17:00 02/03/25 11:56 1 STRIP Insulin Human Regular ACHS SC 01/25/25 17:00 01/28/25 22:00 2 UNITS Dextrose 50 ml UD PRN IV 01/25/25 16:45 01/30/25 06:19 50 ML Sodium Chloride 10 ml Q8HR IV 01/25/25 22:00 02/03/25 05:09 10 ML Acetaminophen/ Hydrocodone Bitart 1 tab Q4HP PRN PO 01/25/25 16:45 Ondansetron HCl 4 mg Q4HP PRN IV 01/25/25 16:45 Docusate Sodium 100 mg BIDPRN PRN PO 01/25/25 16:45 Acetaminophen 650 mg Q6HP PRN PO 01/25/25 16:45 Nitroglycerin 0.4 mg Q5MINP PRN SL 01/25/25 18:00 Morphine Sulfate 2 mg Q30M PRN IV 01/25/25 18:00 Lorazepam 2 mg Q1HP PRN IV 01/26/25 11:15 02/02/25 20:31 2 MG Enoxaparin Sodium 40 mg DAILY SC 01/27/25 10:00 02/03/25 10:18 40 MG Amlodipine Besylate 10 mg DAILY PO 01/27/25 10:00 02/03/25 10:14 10 MG Lisinopril 40 mg DAILY PO 01/27/25 10:00 02/02/25 08:54 40 MG Benztropine Mesylate 1 mg Q12HR PO 02/01/25 22:00 02/03/25 10:16 1 MG Divalproex Sodium 250 mg TID PO 02/02/25 14:00 02/02/25 21:04 250 MG Haloperidol Lactate 2.5 mg Q12HP PRN IM 02/02/25 11:00 Hold Haloperidol 5 mg BID PRN PO 02/02/25 22:00 Quetiapine Fumarate 200 mg HS PO 02/02/25 22:00 02/02/25 21:05 200 MG Quetiapine Fumarate 100 mg DAILY PO 02/03/25 10:00 02/03/25 10:15 100 MG Lactulose 30 ml DAILY PO 02/03/25 10:00 02/03/25 10:17 30 ML Examination General: In no acute distress. HEENT: Head is normocephalic and atraumatic. Pupils are equal, round, and reactive to light. Neck: Supple with no cervical lymphadenopathy Heart: Regular rate without murmur, rub, or gallop. Lungs: Equal breath sounds bilaterally with no wheezing, rales, or rhonchi. There is no chest wall tenderness or instability. Abdomen: No external sign of injury. Bowel sounds are present. Abdomen is soft, nontender. No rebound, no guarding, no rigidity. Extremities: Strong peripheral pulses. There is no clubbing, no cyanosis, and no edema. Skin: No rash. laboratory and microbiology Laboratory Tests 02/03/25 05:48 02/01/25 19:26 Test 02/03/25 05:48 Range/Units Serum Glucose 78 74-106 mg/dL Labs and/or images reviewed: Labs reviewed by me, Image(s) reviewed by me Problem List/Assessment/Plan Problem List/Assessment/Plan #Nasal bone fracture status post fall Monitor for pain control Head CT unremarkable #Schizophrenia #Acute psychosis, improved Ativan IV p.r.n. and restraints Divalproex 250 mg p.o. t.i.d. Quetiapine 100 mg p.o qam and 200mg po qhs. Haldol 5 mg po b.i.d. prn continue Cogentin 1 mg p.o. b.i.d. # drug-induced hyperammonemia, improved Continue divalproex 250 mg p.o. t.i.d. as his has usual dose. Lactulose 30 mL p.o. qd # hypertension Lisinopril 40 mg p.o. q.d. Amlodipine 10 mg p.o. q.d. #Mild anemia, macrocytic Continue monitoring Goals of care discussed for over 30 mins, full code Case was discussed with Dr. Rea Plan discussed with: Patient, Other (RN) My Orders My Orders Orders - NAZARIO RODAS RESIDENT Procedure Category Date Status Time Quetiapine Fumarate PHA 02/02/25 In Process Tablet (Seroquel Tab 22:00 Quetiapine Fumarate PHA 02/03/25 In Process Tablet (Seroquel Tab 10:00 Lactulose Oral PHA 02/03/25 In Process 10:00 Transfer Orders XFER 02/03/25 Transmitted 10:02 Discontinue Tele NATALIIA 02/03/25 In Process 10:02 Dietary Evaluation Review Comments: 1) Continue to promote PO intake, monitor appetite and labs, and plan of care 2) Collect HbA1c d/t hypoglycemia x 3 POC - 65, 49, 53 mg/dL 3) Consider referral to PT to help improve balance d/t frequent falls Expected Outcomes/Goals: 1) appetite and labs to improve 2) f/u in 5 days Date of Service: Feb 03, 2025 Billing Provider: MOHSEN REA MD Common Visit Codes: [id number] INP/OBS CARE(MOD) NAZARIO RODAS RESIDENT Feb 03, 2025 14:16 MOHSEN REA MD Feb 03, 2025 17:51
--- NOTE | 2025-02-03 16:01 | DVHPN2 ---
Progress Note - Dictate Date Seen: Feb 03, 2025 Medical Necessity Reason Pt with a Central, PICC or Fol: No Subjective Mr. Alicia is a 54 years old gentleman with a history of schizophrenia, traumatic brain injury, the patient was brought to the [facility] on 01/26/24 with a chief complaint of frequent falls. But patient was also has altered mental status in the hospital. I saw him on 07/05/2024 for ALOC I have seen and examined the patient, I have discussed with his nurse, and sitter, he was awake, confused, oriented to person only, he sometimes becomes agitated and noncooperative Urinalysis, 01/26/2025: WBC: 2, urine leukocyte esterase: Negative WBC/HB/PLT/MCV, 01/25/2025: 8.3/12/156/103.3, 02/01/2025: 7.7/13/154/98 BUN/CR, 01/25/2025: 16/0.69 CMP, 02/01/2025: Unremarkable Ammonia, 02/01/2025: 82 Vitamin B12, 02/01/2025: 1009 Folic acid, 02/01/2025: 14.42 CT head, 07/03/2024: No acute intracranial abnormality or significant interval change CT head, 01/25/2025: No acute intracranial process vital signs Vital Sign Date Time Temp Pulse Resp B/P (MAP) Pulse Ox O2 Delivery O2 Flow Rate FiO2 02/03/25 13:00 97.5 72 18 107/78 (88) 98 97.5 02/03/25 08:00 Room Air* 0 21 Total Intake and Output 02/02/25 02/02/25 02/03/25 15:00 23:00 07:00 Intake Total 200 ml 980 ml 100 ml Balance 200 ml 980 ml 100 ml medications Current Medications Medications Dose Ordered Sig/Negra Route Start Time Stop Time Status Last Admin Dose Admin Hydralazine HCl 10 mg Q6HP PRN IV 01/25/25 16:45 02/01/25 12:38 10 MG Diagnostic Test (Pha) 1 strip ACHS 01/25/25 17:00 02/03/25 11:56 1 STRIP Insulin Human Regular ACHS SC 01/25/25 17:00 01/28/25 22:00 2 UNITS Dextrose 50 ml UD PRN IV 01/25/25 16:45 01/30/25 06:19 50 ML Sodium Chloride 10 ml Q8HR IV 01/25/25 22:00 02/03/25 14:44 10 ML Acetaminophen/ Hydrocodone Bitart 1 tab Q4HP PRN PO 01/25/25 16:45 Ondansetron HCl 4 mg Q4HP PRN IV 01/25/25 16:45 Docusate Sodium 100 mg BIDPRN PRN PO 01/25/25 16:45 Acetaminophen 650 mg Q6HP PRN PO 01/25/25 16:45 Nitroglycerin 0.4 mg Q5MINP PRN SL 01/25/25 18:00 Morphine Sulfate 2 mg Q30M PRN IV 01/25/25 18:00 Lorazepam 2 mg Q1HP PRN IV 01/26/25 11:15 02/02/25 20:31 2 MG Enoxaparin Sodium 40 mg DAILY SC 01/27/25 10:00 02/03/25 10:18 40 MG Amlodipine Besylate 10 mg DAILY PO 01/27/25 10:00 02/03/25 10:14 10 MG Lisinopril 40 mg DAILY PO 01/27/25 10:00 02/02/25 08:54 40 MG Benztropine Mesylate 1 mg Q12HR PO 02/01/25 22:00 02/03/25 10:16 1 MG Divalproex Sodium 250 mg TID PO 02/02/25 14:00 02/03/25 14:45 250 MG Haloperidol Lactate 2.5 mg Q12HP PRN IM 02/02/25 11:00 Hold Haloperidol 5 mg BID PRN PO 02/02/25 22:00 Quetiapine Fumarate 200 mg HS PO 02/02/25 22:00 02/02/25 21:05 200 MG Quetiapine Fumarate 100 mg DAILY PO 02/03/25 10:00 02/03/25 10:15 100 MG Lactulose 30 ml DAILY PO 02/03/25 10:00 02/03/25 10:17 30 ML objective General: the patient is well developed and nourished. No acute distress. MENTAL STATUS: Awake and alert. Oriented to person, place SPEECH, LANGUAGE, HIGHER CORTICAL FUNCTION: no aphasia or dysathria. CRANIAL NERVES: Pupils are equal, round and reactive. EOMs full and conjugate. Facial sensation intact in all three divisions bilaterally. Mandibular strength intact. Facial muscles symmetrical and strength intact. SENSATION: Sensation to touch and pinprick is fine MOTOR: Normal tone in the upper and lower extremity. Normal muscle bulk. No fasciculations. No abnormal movements or posturing. Moves the extremities, the muscle power feels fine in all extremities REFLEXES: Deep tendon reflexes normal and symmetrical. No pathological reflexes. 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 Quetiapine 200 mg HS Depakote 250 mg t.i.d. Haldol 2 mg IM Q 8 hours p.r.n. for agitation Haldol 5 mg p.o. b.i.d. p.r.n. for agitation Seroquel 2.5 mg intramuscular Q 6 hours p.r.n. for agitation DVT prophylaxis/Lovenox More recommendation per clinical course This medical document was created using an electronic medical record system with [employer] computerized dictation system. Although this document has been carefully reviewed, there may still be some phonetic and typographical errors. These areas are purely typographical due to imperfections of the software programs, and do not reflect any compromise in the patient's medical care. Prognosis poor Dietary Evaluation Review Comments: 1) Continue to promote PO intake, monitor appetite and labs, and plan of care 2) Collect HbA1c d/t hypoglycemia x 3 POC - 65, 49, 53 mg/dL 3) Consider referral to PT to help improve balance d/t frequent falls Expected Outcomes/Goals: 1) appetite and labs to improve 2) f/u in 5 days Plan discussed with: Other ARI GALINDO MD Feb 03, 2025 16:01
[2025-02-03] MEDS: HALOPERIDOL LACTATE 5 MG/ML INJ VIAL IM PRN (21:26)
[2025-02-04 00:51] VITALS: BP 133/97; PULSE 98; RESP 18; TEMP 97.5; O2SAT 99
[2025-02-04 05:00] VITALS: BP 144/107; PULSE 80; RESP 16; TEMP 97.5; O2SAT 99
--- NOTE | 2025-02-04 06:27 | DVHPNRES ---
Progress Note Date Seen: Feb 05, 2025 Resident Creating Document: NAZARIO RODAS RESIDENT Medical Necessity Reason Pt with a Central, PICC or Fol: No Subjective Review of Systems Patient was seen and examined at bedside. He is more alert and awake than yesterday. Objective vital signs Vital Sign Date Time Temp Pulse Resp B/P (MAP) Pulse Ox O2 Delivery O2 Flow Rate FiO2 02/04/25 05:00 97.5 80 16 144/107 (119) 99 97.5 02/03/25 20:00 Room Air* 0 21 Total Intake and Output 02/03/25 02/03/25 02/04/25 15:00 23:00 07:00 Intake Total 840 ml 0 ml Balance 840 ml 0 ml medications Current Medications Medications Dose Ordered Sig/Negra Route Start Time Stop Time Status Last Admin Dose Admin Hydralazine HCl 10 mg Q6HP PRN IV 01/25/25 16:45 02/01/25 12:38 10 MG Diagnostic Test (Pha) 1 strip ACHS 01/25/25 17:00 02/03/25 21:25 1 STRIP Insulin Human Regular ACHS SC 01/25/25 17:00 01/28/25 22:00 2 UNITS Dextrose 50 ml UD PRN IV 01/25/25 16:45 01/30/25 06:19 50 ML Sodium Chloride 10 ml Q8HR IV 01/25/25 22:00 02/03/25 21:23 10 ML Ondansetron HCl 4 mg Q4HP PRN IV 01/25/25 16:45 Docusate Sodium 100 mg BIDPRN PRN PO 01/25/25 16:45 Acetaminophen 650 mg Q6HP PRN PO 01/25/25 16:45 Nitroglycerin 0.4 mg Q5MINP PRN SL 01/25/25 18:00 Lorazepam 2 mg Q1HP PRN IV 01/26/25 11:15 02/03/25 16:15 2 MG Enoxaparin Sodium 40 mg DAILY SC 01/27/25 10:00 02/03/25 10:18 40 MG Amlodipine Besylate 10 mg DAILY PO 01/27/25 10:00 02/03/25 10:14 10 MG Lisinopril 40 mg DAILY PO 01/27/25 10:00 02/02/25 08:54 40 MG Benztropine Mesylate 1 mg Q12HR PO 02/01/25 22:00 02/03/25 21:23 1 MG Divalproex Sodium 250 mg TID PO 02/02/25 14:00 02/03/25 21:24 250 MG Quetiapine Fumarate 200 mg HS PO 02/02/25 22:00 02/03/25 21:25 200 MG Quetiapine Fumarate 100 mg DAILY PO 02/03/25 10:00 02/03/25 10:15 100 MG Lactulose 30 ml DAILY PO 02/03/25 10:00 02/03/25 10:17 30 ML Haloperidol Lactate 2 mg Q8H PRN IM 02/03/25 16:45 02/03/25 21:26 2 MG Examination General: In no acute distress. HEENT: Head is normocephalic and atraumatic. Pupils are equal, round, and reactive to light. Neck: Supple with no cervical lymphadenopathy Heart: Regular rate without murmur, rub, or gallop. Lungs: Equal breath sounds bilaterally with no wheezing, rales, or rhonchi. There is no chest wall tenderness or instability. Abdomen: No external sign of injury. Bowel sounds are present. Abdomen is soft, nontender. No rebound, no guarding, no rigidity. Extremities: Strong peripheral pulses. There is no clubbing, no cyanosis, and no edema. Skin: No rash. laboratory and microbiology Laboratory Tests 02/03/25 05:48 02/01/25 19:26 Test 02/03/25 05:48 Range/Units Serum Glucose 78 74-106 mg/dL Labs and/or images reviewed: Labs reviewed by me, Image(s) reviewed by me Problem List/Assessment/Plan Problem List/Assessment/Plan #Nasal bone fracture status post fall Monitor for pain control Head CT unremarkable #Schizophrenia #Acute psychosis, improving Ativan IV p.r.n. Divalproex 250 mg p.o. t.i.d. Quetiapine 100 mg p.o qam and 200mg po qhs. Haldol 2 mg IM b.i.d. prn continue Cogentin 1 mg p.o. b.i.d. # drug-induced hyperammonemia, improved Continue divalproex 250 mg p.o. t.i.d. as his has usual dose. Lactulose 30 mL p.o. qd # hypertension Lisinopril 40 mg p.o. q.d. Amlodipine 10 mg p.o. q.d. #Mild anemia, macrocytic Continue monitoring Patient will be dscharged today considering his significant clinical improvement Goals of care discussed for over 30 mins, full code Case was discussed with Dr. Rea Plan discussed with: Patient, Other (RN) My Orders My Orders Orders - NAZARIO RODAS RESIDENT Procedure Category Date Status Time Lactulose Oral PHA 02/03/25 In Process 10:00 Transfer Orders XFER 02/03/25 Transmitted 10:02 Discontinue Tele NATALIIA 02/03/25 In Process 10:02 Dietary Evaluation Review Comments: 1) Continue to promote PO intake, monitor appetite and labs, and plan of care 2) Collect HbA1c d/t hypoglycemia x 3 POC - 65, 49, 53 mg/dL 3) Consider referral to PT to help improve balance d/t frequent falls Expected Outcomes/Goals: 1) appetite and labs to improve 2) f/u in 5 days Date of Service: Feb 05, 2025 Billing Provider: MOHSEN REA MD Common Visit Codes: [id number] INP/OBS CARE(HIGH) NAZARIO RODAS RESIDENT Feb 04, 2025 06:27 MOHSEN REA MD Feb 05, 2025 17:12
[2025-02-04 07:24] LABS: Anion Gap 9 (5-15); Calcium 9.3 mg/dL (8.7-10.4); Carbon Dioxide 26 mmol/L (20-31); Chloride 105 mmol/L (98-107); Potassium 3.9 mmol/L (3.5-5.1); Sodium 140 mmol/L (136-145)
[2025-02-04 07:30] LABS: BUN/Creatinine Ratio 12.9 (10.0-20.0)
[2025-02-04 07:34] LABS: Blood Urea Nitrogen 9 mg/dL (9-23); Glucose 70 mg/dL (74-106)
[2025-02-04 08:00] VITALS: PULSE 70; RESP 20; O2SAT 95
[2025-02-04 09:00] VITALS: BP 147/111; PULSE 70; RESP 20; TEMP 98.1; O2SAT 95
[2025-02-04 13:00] VITALS: BP 99/69; PULSE 64; RESP 20; TEMP 98.5; O2SAT 98
[2025-02-04 14:10] VITALS: BP 99/69; PULSE 64; RESP 20; TEMP 98.5; O2SAT 98
[2025-02-05] MEDS ORDERED: DIVA-139 PO (06:08)
[2025-02-05] MEDS ORDERED: QUET200T4 PO (06:08)
[2025-02-05] MEDS ORDERED: QUET50TA5 PO (06:08)
[2025-02-05] MEDS ORDERED: HAL5T PO (06:09)
--- NOTE | 2025-02-05 06:19 | DVHDSRES ---
Discharge Summary Date of Admission Resident Creating Document: NAZARIO RODAS RESIDENT Jan 25, 2025 at 17:56 Date of Discharge: Feb 04, 2025 Admitting Diagnosis Metabolic encephalopathy Wounds: Face lacerations, left-sided face hematoma, left nasal fracture Labs/Diagnostic Data: Laboratory Results Test 02/04/25 16:03 02/04/25 05:26 02/03/25 05:48 02/02/25 09:56 POC Glucose 91 mg/dl (70-106) Sodium Level 140 mmol/L (136-145) Potassium Level 3.9 mmol/L (3.5-5.1) Chloride Level 105 mmol/L (98-107) Carbon Dioxide Level 26 mmol/L (20-31) Anion Gap 9 (5-15) Blood Urea Nitrogen 9 mg/dL (9-23) Creatinine 0.70 mg/dL (0.700-1.30) Glomerular Filtration Rate Calc 109 mL/min (>90) BUN/Creatinine Ratio 12.9 (10.0-20.0) Serum Glucose 70 mg/dL (74-106) Calcium Level 9.3 mg/dL (8.7-10.4) Ammonia 16 umol/L (11-32) Thyroid Stimulating Hormone (TSH) 0.99 uIU/mL (0.55-4.78) Test 02/01/25 19:26 01/26/25 11:07 01/26/25 05:05 White Blood Count 7.7 10^3/uL (4.4-10.8) Red Blood Count 3.82 10^6/uL (4.5-5.90) Hemoglobin 13.0 g/dL (13.5-17.5) Hematocrit 37.4 % (41.0-53.0) Mean Corpuscular Volume 98.0 fL (80.0-100.0) Mean Corpuscular Hemoglobin 34.1 pg (28.0-32.0) Mean Corpuscular Hemoglobin Concent 34.8 g/dL (32.0-36.0) Red Cell Distribution Width 13.9 % (11.8-14.3) Platelet Count 154 10^3/uL (140-450) Mean Platelet Volume 7.3 fL (6.9-10.8) Neutrophils (%) (Auto) 68.2 % (37.0-80.0) Lymphocytes (%) (Auto) 19.8 % (10.0-50.0) Monocytes (%) (Auto) 8.6 % (0.0-12.0) Eosinophils (%) (Auto) 2.6 % (0.0-7.0) Basophils (%) (Auto) 0.8 % (0.0-2.0) Neutrophils # (Auto) 5.2 10 ^3/uL (1.6-8.6) Lymphocytes # (Auto) 1.5 10 ^3/uL (0.4-5.4) Monocytes # (Auto) 0.7 10 ^3/uL (0-1.3) Eosinophils # (Auto) 0.2 10 ^3/uL (0-0.8) Basophils # (Auto) 0.1 10 ^3/uL (0-0.2) Nucleated Red Blood Cells 0.0 % Magnesium Level 2.0 mg/dL (1.6-2.6) Total Bilirubin 0.5 mg/dL (0.2-1.0) Aspartate Amino Transferase (AST) 33 U/L (13-40) Alanine Aminotransferase (ALT) 19 U/L (7-40) Alkaline Phosphatase 66 U/L (46-116) C-Reactive Protein High Sensitivity 0.14 mg/dL (<1.0) Total Protein 7.2 g/dL (5.7-8.2) Albumin 4.1 g/dL (3.2-4.8) Vitamin B12 Level 1009 pg/mL (211-911) Folic Acid 14.42 ng/mL (>5.38) Urine Color Yellow (Yellow) Urine Clarity Clear (Clear) Urine pH 6.5 (5.0-9.0) Urine Specific [place] 1.028 (1.001-1.035) Urine Protein Trace (Negative) Urine Ketones Negative (Negative) Urine Blood Negative /uL (Negative) Urine Nitrite Negative (Negative) Urine Bilirubin Negative (Negative) Urine Urobilinogen Normal mg/dL (Negative) Urine Leukocyte Esterase Negative /uL (Negative) Urine RBC 1 /hpf (0 - 3) Urine Microscopic WBC 2 /HPF (0-3) Urine Squamous Epithelial Cells Few /hpf (<5) Urine Bacteria None seen /hpf (None Seen) Urine Mucus Few (None Seen) Urine Glucose Normal mg/dL (Normal) Differential Total Cells Counted 100.0 (100) Neutrophils % (Manual) 57 (37.0-80.0) Band Neutrophils % (Manual) 3 Lymphocytes % (Manual) 24 (10.0-50.0) Monocytes % (Manual) 7 (0-12) Eosinophils % (Manual) 9 (0-7) Basophils % (Manual) 0 (0.0-2.0) Metamyelocytes % (manual) 0 Myelocytes % (Manual) 0 Promyelocytes % (Manual) 0 Blast Cells % (Manual) 0 Reactive Lymphocytes 0 Platelet Estimate Adequate Other Laboratory Tests 02/04/25 05:26 02/01/25 19:26 Brief Hx & Hospital Course: This is a 54-year-old male who presented to [facility] ED for evaluation of fall injury. Past Medical History: DM, HTN, Schizophrenia, TBI Past Surgical History: Denies all surgeries Family History: Reviewed, noncontributory to the management of this case. Past Social History: The patient lives at home, denies smoking, alcohol or illicit drugs abuse. As reported by EMS, patient is residing at [facility], has been experiencing frequent falls for the past few weeks, associated left eye pain, redness, as well as headache. Patient has sustained left cheek injury, mouth swelling from fall 2 weeks ago. Patient was seen and evaluated in the ED, laboratory data shows WBC 8.3, platelets 156, sodium 143, potassium 3.8, BUN 16, creatinine 0.69, GFR 109, glucose 78, calcium 9.2. Maxillofacial CT revealing age indeterminate depressed fracture of the left nasal bone, correlate with point tenderness, no significant overlying soft tissue swelling; moderate left facial soft tissue contusion with a 3.2 cm subcutaneous hematoma in the lateral aspect of the maxilla inferior to the zygomatic arch, multiple dental caries, recommending dental consultation. Patient was started on IV antibiotic regimen azithromycin, please medication orders section in the computer. On my initial assessment, patient remains agitated, disorganized, no diaphoresis, no shortness of breath, no nausea, no vomiting, no fever, no chills. Patient was admitted for further evaluation and medical management. Patient continued to be agitated throughout his hospitalization, he was placed on antipsychotics. We had an evaluation by psychiatrist who recommended modifications on his therapy, patient was still combative, further workup revealed that he has ammonia levels were fairly high, we started lactulose, and modified his Seroquel and divalproex. After the patient started to be more alert, awake, he was speaking. Ammonia levels came down to normal. We will continue to monitor the patient and provide his medication, he continued to be more alert and awake. He denied any shortness of breath, chest pain, nausea, vomiting, he was tolerating diet. Physical examination as below: General: In no acute distress. HEENT: Head is normocephalic and atraumatic. Pupils are equal, round, and reactive to light. Neck: Supple with no cervical lymphadenopathy Heart: Regular rate without murmur, rub, or gallop. Lungs: Equal breath sounds bilaterally with no wheezing, rales, or rhonchi. There is no chest wall tenderness or instability. Abdomen: No external sign of injury. Bowel sounds are present. Abdomen is soft, nontender. No rebound, no guarding, no rigidity. Extremities: Strong peripheral pulses. There is no clubbing, no cyanosis, and no edema. Skin: No rash. Patient will be discharged home and back to his prior assisted living facility [facility]. He will continue taking it he has home medications, Seroquel 100 mg in the morning and 200 mg in the ABD, divalproex 250 mg p.o. t.i.d., Haldol 5 mg p.o. b.i.d., and his usual medications. We spent over 30 minutes explaining the DC plan. Case was discussed with Dr. Rea Consults/Reason for consult Psychiatrist was consulted due to acute psychosis due to schizophrenia Neurology was consulted due to encephalopathy Operations or Procedures [place] [id number] Ph: [phone] DIAGNOSTIC IMAGING Diagnostic Imaging Report : [id number] Signed PATIENT: SUHAIL STEWARD ACCT: [id number] UNIT: [id number] : 1970 LOC: ER ROOM / BED: / AGE / SEX: 54 / M ADM STATUS: REG ER SERVICE 1222 ORDERING PHYSICIAN: THERON TAPIA MD PROCEDURE(s): HWOCT - HEAD WITHOUT CONTRAST REASON: fall ORDER NUMBER(s): [id number], ACCESSION NUMBER(s): [id number] EXAM: CT HEAD WITHOUT CONTRAST HISTORY: fall COMPARISON: CT HEAD WITHOUT CONTRAST on DOS: 11/25/24, CT HEAD WITHOUT CONTRAST on DOS: 10/24/24, CT HEAD WITHOUT CONTRAST on DOS: 07/03/24 TECHNIQUE: Axial images were obtained and reformatted in coronal and sagittal planes. All CT scans at this medical facility are performed using dose modulation techniques as appropriate to a performed exam including the following: Automated exposure control was utilized; adjustment of the MA and/or KV according to patient size; and use of iterative reconstruction technique. CT Dose: CTDI volume is 56 mGy. Dose-length product is 1005.8 mGy*cm FINDINGS: Supratentorial Region: No evidence for large acute territorial ischemia. No intracranial hemorrhage is noted. Moderate-sized left frontal encephalomalacia reflecting an old infarct. 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 Brainstem: Unremarkable. Sellar/Suprasellar Region: Unremarkable. Ventricles, Cisterns, Sulci: Age-appropriate. Orbits: Unremarkable. Paranasal Sinuses: Unremarkable. Mastoid Air Cells: Unremarkable. Vasculature: Unremarkable. Bones/Soft Tissues: No acute abnormality. Remote left frontoparietal craniotomy Other: None. IMPRESSION: 1. No acute intracranial process. ATED BY: TANNA PUENTES MD DICTATED DATE/TIME: 01/25/25 133 SIGNED BY: TANNA PUENTES MD SIGNED DATE/TIME: 01/25/25 1330 CC: [place] [id number] Ph: [phone] DIAGNOSTIC IMAGING Diagnostic Imaging Report : [id number] Signed PATIENT: SUHAIL STEWARD ACCT: [id number] UNIT: [id number] : 1970 LOC: ER ROOM / BED: / AGE / SEX: 54 / M ADM STATUS: REG ER SERVICE 1222 ORDERING PHYSICIAN: THERON TAPIA MD PROCEDURE(s): FAC2C - MAXILLOFACIAL WITHOUT REASON: fall ORDER NUMBER(s): [id number], ACCESSION NUMBER(s): [id number] EXAM: CT MAXILLOFACIAL WITHOUT HISTORY: fall COMPARISON: CT MAXILLOFACIAL WITHOUT on DOS: 12/24/24, CT MAXILLOFACIAL WITHOUT on DOS: 06/29/24, CT MAXILLOFACIAL WITHOUT on DOS: 05/23/24 TECHNIQUE: Axial images were obtained and reformatted in coronal and sagittal planes. All CT scans at this medical facility are performed using dose modulation techniques as appropriate to a performed exam including the following: Automated exposure control was utilized; adjustment of the MA and/or KV according to patient size; and use of iterative reconstruction technique. CT Dose: CTDI volume is 65.73 mGy. Dose-length product is 1223.45 mGy*cm FINDINGS: PARANASAL SINUSES: Clear with no evidence for mucoperiosteal thickening or air- fluid level. A mucous retention cyst noted in the right maxillary sinus. OSTIOMEATAL COMPLEXES: Unremarkable. Specifically, the infundibulum are patent. NASAL CAVITY: The osseous nasal septum is midline. The nasal turbinates are unremarkable. MASTOIDS: Unremarkable. TEMPOROMANDIBULAR JOINTS: Unremarkable. ORBITS: Unremarkable. ORAL CAVITY: Grossly unremarkable. TONSILS AND ADENOIDS: Unremarkable. BONES/SOFT TISSUES: Age-indeterminate depressed fracture of the left nasal bone without significant overlying soft tissue swelling probably chronic. Moderate left facial soft tissue contusion with underlying 3.2 x 1.3 cm complex fluid collection likely hematoma. Orbital bones, zygomatic arches anterior nasal spine are intact. OTHER: Multiple dental caries are noted. Calcification of the bilateral carotid bulbs noted. IMPRESSION: 1. Age-indeterminate depressed fracture of the left nasal bone. Correlate with point tenderness. No significant overlying soft tissue swelling. 2. Moderate left facial soft tissue contusion with a 3.2 cm subcutaneous hematoma in the lateral aspect of the maxilla inferior to the zygomatic arch. 3. Multiple dental caries. Recommend dental consultation. ATED BY: TANNA PUENTES MD DICTATED DATE/TIME: 01/25/25 1328 SIGNED BY: TANNA PUENTES MD SIGNED DATE/TIME: 01/25/25 1328 CC: Condition at Discharge: Guarded Final Diagnosis/Problems List #schizophrenia with acute psychosis resolved #Nasal bone fracture status post fall #Schizophrenia # drug-induced hyperammonemia, improved # hypertension #Mild anemia, macrocytic Discharge Disposition: Home Discharge Instruct/Medications Diet: Regular Diet comment: Pureed Activity: No Restrictions, As Tolerated Follow Up/Referral: fu with pcp in 1-2 weeks Medications: continue home meds Discharge Statement: "Patient was advised to return to the ER or call 911 if any headaches, dizziness, shortness of breath, chest pain, abdominal pain, bleeding, fevers, or worsening of medical condition. Patient was counseled about treatment plan, medications, possible side effects, patientverbalized understanding. All questions were answered to the best of my ability. This discharge took greater then 30 minutes in planning, reviewing documentation, counseling the patient, and discussing with other team members." ASSESSMENT ASSESSMENT Assessment schizophrenia, acute psychosis resolved Date of Service: Feb 04, 2025 Billing Provider: MOHSEN REA MD Common Visit Codes: 42875-XCT/OBS DISCH DAY >30min NAZARIO RODAS RESIDENT Feb 05, 2025 06:19 MOHSEN REA MD Feb 05, 2025 17:13
== END 2025-02-04 16:43 | DRG 750 ==
LOC: EDBD 12:01 → EDSEX 12:01 → ER 12:01 → OVERFLOW 17:56 → TELE-WESTW 21:40 → TELE-CENTR 01-30 18:20 → CENTRAL 02-03 17:33
PROVIDERS: ADMIT Internal Medicine; ATTEND Internal Medicine
DX: F20.9 Schizophrenia, unspecified (principal); G93.41 Metabolic encephalopathy; E72.20 Disorder of urea cycle metabolism, unspecified; E11.9 Type 2 diabetes mellitus without complications; E87.6 Hypokalemia; D53.9 Nutritional anemia, unspecified; F09 Unspecified mental disorder due to known physiological condition; I10 Essential (primary) hypertension; S02.2XXA Fracture of nasal bones, initial encounter for closed fracture; S00.83XA Contusion of other part of head, initial encounter; T50.995A Adverse effect of other drugs, medicaments and biological substances, initial encounter; Z79.2 Long term (current) use of antibiotics; Z79.899 Other long term (current) drug therapy; Z87.820 Personal history of traumatic brain injury; W18.39XA Other fall on same level, initial encounter; Y93.89 Activity, other specified; Y92.89 Other specified places as the place of occurrence of the external cause; Y99.8 Other external cause status
CPT/HCPCS: 36415; 70450; 70486; 80048; 80053; 81001; 82140; 82607; 82746; 82962; 83735; 84443; 85007; 85027; 86141; 92610; 96365; 96372; 96375; 96376; 97163; G0378; J1815; J2250

== ENCOUNTER 2025-05-08 20:15 | Inpatient (IN) | payer MEDICAID ==
[~2025-05-08] VITALS: Ht 175.3 cm; Wt 60.8 kg
[~2025-05-08 20:15] MED LIST changes: -ACET1CAP14 PO; +AML5T PO; -BAC09TP TOP; -BENZ0.5T PO; +BENZ1TAB6 PO; +DIVA-139 PO; -DIVA1TAB58 PO; +HAL5T PO; +LACT10SO3 PO; -LISI20TA56 PO; +LISI40TA16 PO; +LORA-1121 PO; -QUET100T47 PO; +QUET200T4 PO; +QUET50TA5 PO
--- NOTE | 2025-05-08 20:35 | ED.PDOC ---
History of Present Illness HPI Comments 54 y/o M is BIBA from [facility] for 5x day history of ALOC. Per EMS report, patient has a history of anemia, dementia, drug-induced hyperammonemia, hypokalemia, DM, HTN, schizophrenia, TBI, and seizures. Faculty at facility called after patient being unarousable and bed-bound for the past 5x days. He was noted to have been responsive to painful stimuli on scene in addition to having a systolic pressure in the 90's-100's range, occasional PVC's via 12 lead, a blood glucose of 104, and a SpO2 of 80%RA. En route, patient was placed on oxygen, with SpO2 improving to the 90's range. Upon arrival to ED, patient remained unchanged from initial found altered state. Further history cannot be obtained, due to patient's current condition and absence of family/historians. Time Seen by MD: 20:20 Primary Care Provider: COLLIN Reviewed Notes: Nurses Notes, Medications, Allergies Allergies: Coded Allergies: NO KNOWN ALLERGIES (Unverified , 02/08/24) Home Meds Active Scripts Haloperidol (Haldol) 5 Mg Tb, 1 TAB PO BID for 30 Days, #60 TAB 1 Refill Prov:NAZARIO RODAS RESIDENT 02/05/25 Quetiapine Fumerate (Seroquel Xr) 200 Mg Tab, 1 TAB PO QPM for 30 Days, #30 TAB 2 Refills Prov:NAZARIO RODAS RESIDENT 02/05/25 Quetiapine Fumerate (Seroquel Xr) 50 Mg Tab, 2 TAB PO QAM for 30 Days, #60 TAB 2 Refills Prov:NAZARIO RODAS RESIDENT 02/05/25 Divalproex Sodium (Depakote) 250 Mg Tab, 1 TAB PO TID, #60 TAB 2 Refills Prov:NAZARIO RODAS RESIDENT 02/05/25 Melatonin (Melatonin) 5 Mg Tab, 5 MG PO HS, #30 TAB Prov:GWENDOLYN FERREIRA MD 07/06/24 Reported Medications Benztropine Mesylate (Benztropine Mesylate) 1 Mg Tab, 1 MG PO DAILY, TAB 01/26/25 Amlodipine Besylate (NORVASC TABLET) 5 Mg Tb, 10 MG PO DAILY, TAB 01/26/25 Lorazepam (ATIVAN TABLET) 0.5 Mg Tb, 1 MG PO Q4HP PRN for AGITATION, TAB 01/26/25 Lisinopril (Lisinopril) 40 Mg Tab, 40 MG PO DAILY, TAB 01/26/25 Lactulose (Lactulose) 10 Gm/15 Ml Mahnaz, 30 ML PO DAILY, ML 01/26/25 Information Source: Patient Mode of Arrival: EMS Severity: Moderate Timing: Days Duration: Since onset Prehospital treatment: 12 Lead EKG, Accucheck, Manager Support Services Past Medical History PAST MEDICAL HISTORY: Anemia (Mild, macrocytic), Dementia, DM, HTN, Schizophrenia, Seizures Past Medical History (Other): TBI Hypokalemia Nasal bone fracture status post fall Drug-induced hyperammonemia, improved Surgical History: Denies all surgeries Family History Family History: Reviewed,noncontributory to illness, No family hx of Cancer, No family hx of DM, No family hx of Heart lielani, No family hx of HTN, No family hx ofKidney leilani, No family hx of Liver leilani, No family hx of Lung leilani, No family hx of Stroke Social History Smoker: Non-Smoker Alcohol: Denies ETOH Use Drugs: Denies Drug Use Lives In: Assisted Care All Other Systems: Reviewed and Negative (As per HPI) Physical Exam General Appearance: No Apparent Distress, Normal, Other (appears ill) HEENT: Normal ENT Inspection, Pharynx Normal, TMs Normal Neck: Full Range of Motion, Non-Tender, Normal, Normal Inspection Respiratory: Chest Non-Tender, Lungs Clear, No Accessory Muscle Use, No Respiratory Distress, Normal Breath Sounds Cardiovascular: No Edema, No JVD, No Murmur, No Gallop, Normal Peripheral Pulses, Regular Rate/Rhythm Breast Exam: Deferred Gastrointestinal: No Organomegaly, Non Tender, No Pulsatile Mass, Normal Bowel Sounds, Soft Genitalia: Deferred Pelvic: Deferred Rectal: Deferred Extremities: No calf tenderness, Normal capillary refill, Normal inspection, Normal range of motion, Non-tender, No pedal edema Musculoskeletal : Apperance: Normal Neurologic: baggage screener II-XII nml as Tested, No Motor Deficits, No Sensory Deficits, Other (sluggish but responsive to painful stimuli) Cerebellar Function: Normal Reflexes: Normal Skin: Dry, Normal Color, Warm Lymphatic: No Adenopathy Was a procedure done? Was a procedure done?: No EKG EKG : Pulse Rate (adult): 87 [place]: Normal Cardiac Rhythm: NSR Block: None Hypertrophy: None ST: Normal Differential Dx Considerations may include: encephalopathy, dehydration, electrolyte imbalance, viral syndrome, among others X-Ray, Labs, Meds, VS Vital Signs Date Time Temp Pulse Resp B/P (MAP) Pulse Ox O2 Delivery O2 Flow Rate FiO2 05/08/25 21:54 98 12 92 Simple Mask* 6 50 05/08/25 21:33 98.3 87 12 105/76 (86) 88 98.3 05/08/25 20:35 87 05/08/25 20:15 98.6 88 24 93/71 (78) 90 98.6 Lab Test 05/08/25 22:26 05/08/25 22:15 05/08/25 21:37 Range/Units Blood Gas Specimen Type Arterial Blood Gas Sample Site Right radial Blood Gas Patient Temperature 37.0 Arterial Blood Date Drawn [id number] Arterial Blood pH 7.432 7.350-7.450 Arterial Blood Partial Pressure CO2 35.3 35.0-48.0 mmHg Arterial Blood Partial Pressure O2 70.1 L 83.0-108.0 mmHg Arterial Blood HCO3 23.0 21.0-28.0 mmol/L Arterial Blood Oxygen Saturation 92.9 L 94.0-98.0 % Arterial Blood Base Excess -0.6 -2.0-3.0 mmol/L Arterial Blood Oxyhemoglobin 91.5 L 94.0-98.0 % Arterial Blood Carboxyhemoglobin 0.9 0.5-1.5 % Arterial Blood Methemoglobin 0.6 0.0-1.5 % Rafael Test Yes Blood Gas Total Hemoglobin 16.30 13.5-17.5 g/dL Blood Gas Liter Flow 6.00 Blood Gas Modality Mask - simple FiO2 % 35.0 Prothrombin Time 12.4 H 9.3-11.8 sec Prothrombin Time INR 1.19 H 0.9-1.15 Activated Partial Thromboplast Time 29.9 24.5-34.5 SEC Troponin I High Sensitivity 7 7 </=54 ng/L White Blood Count 9.2 4.4-10.8 10^3/uL Red Blood Count 5.22 4.5-5.90 10^6/uL Hemoglobin 16.9 13.5-17.5 g/dL Hematocrit 53.0 41.0-53.0 % Mean Corpuscular Volume 101.5 H 80.0-100.0 fL Mean Corpuscular Hemoglobin 32.4 H 28.0-32.0 pg Mean Corpuscular Hemoglobin Concent 32.0 32.0-36.0 g/dL Red Cell Distribution Width 17.4 H 11.8-14.3 % Platelet Count 67 L 140-450 10^3/uL Mean Platelet Volume 7.2 6.9-10.8 fL Neutrophils (%) (Auto) 70.2 37.0-80.0 % Lymphocytes (%) (Auto) 20.0 10.0-50.0 % Monocytes (%) (Auto) 9.3 0.0-12.0 % Eosinophils (%) (Auto) 0.2 0.0-7.0 % Basophils (%) (Auto) 0.3 0.0-2.0 % Neutrophils # (Auto) 6.5 1.6-8.6 10 ^3/uL Lymphocytes # (Auto) 1.9 0.4-5.4 10 ^3/uL Monocytes # (Auto) 0.9 0-1.3 10 ^3/uL Eosinophils # (Auto) 0 0-0.8 10 ^3/uL Basophils # (Auto) 0 0-0.2 10 ^3/uL Nucleated Red Blood Cells 0.2 % Sodium Level 163 *H 136-145 mmol/L Potassium Level 4.7 3.5-5.1 mmol/L Chloride Level 123 H 98-107 mmol/L Carbon Dioxide Level 24 20-31 mmol/L Anion Gap 16 H 5-15 Blood Urea Nitrogen 113 *H 9-23 mg/dL Creatinine 3.92 H 0.700-1.30 mg/dL Glomerular Filtration Rate Calc 17 >90 mL/min BUN/Creatinine Ratio 28.8 H 10.0-20.0 Serum Glucose 94 74-106 mg/dL Lactic Acid Level 2.4 *H 0.4-2.0 mmol/L Calcium Level 8.6 L 8.7-10.4 mg/dL Total Bilirubin 0.6 0.2-1.0 mg/dL Aspartate Amino Transferase (AST) 66 H <34 U/L Alanine Aminotransferase (ALT) 41 H 7-40 U/L Alkaline Phosphatase 62 46-116 U/L Ammonia < 10 L 11-32 umol/L Total Protein 7.3 5.7-8.2 g/dL Albumin 3.9 3.2-4.8 g/dL Current Medications Medications (Trade) Dose Ordered Sig/Negra Route Start Time Stop Time Status Last Admin Sodium Chloride 2,000 ml @ 2,000 mls/hr ONCE ONCE IV 05/08/25 20:30 05/08/25 21:29 DC 05/08/25 22:00 Piperacillin Sod/ Tazobactam Sod 100 ml @ 100 mls/hr ONCE ONCE IV 05/08/25 20:30 05/08/25 21:29 DC 05/08/25 22:00 Time of 1ST Reevaluation: 20:50 Reevaluation 1ST: Unchanged Patient Education/Counseling: Other (patient is altered ) Family Education/Counseling: No Family Present Sepsis focused exam: focus exam completed (In the initial resuscitation at least 30 mL/kg of IV crystalloid fluid was NOT given within the first 3 hr due to concerns of fluid overload), time: (2199) Sepsis Sepsis Reasesment Focused Exam Sepsis focused exam: focus exam completed (In the initial resuscitation at least 30 mL/kg of IV crystalloid fluid was NOT given within the first 3 hr due to concerns of fluid overload), time: (2199) Orders: Laboratory Tests 05/08/25 21:37: Lactic Acid Level 2.4 Departure 1 Departure Time of Disposition: 23:05 Impression: Primary Impression: Metabolic encephalopathy Additional Impressions: Severe dehydration Acute renal injury Disposition: ADMITTED INPATIENT Condition: Guarded Discharged With: Self Comments Altered Mental Status with Severe Dehydration and Acute Kidney Injury Chief Complaint: Altered mental status History of Present Illness: 54-year-old male with a history of schizophrenia, traumatic brain injury, and dementia presents from a [facility] facility with progressively worsening mental status over the past 5 days. Staff report that the patient has not been eating or drinking adequately during this time and has become increasingly difficult to arouse. The patient was brought to the emergency department due to concerns about his deteriorating condition. There is no reported history of fever, recent medication changes, falls, or seizure activity. No known recent infections or exposures. Review of Systems: Constitutional: Lethargy, decreased oral intake, progressive decline in mental status. Neurological: Decreased responsiveness, difficult to arouse. Cardiovascular: Initial hypotension noted. Gastrointestinal: Poor oral intake. Genitourinary: No information available. Respiratory: Maintaining airway. All other systems: Unable to assess due to patient's mental status. Allergies: No known drug allergies documented at time of evaluation. Past Medical History: 1. Schizophrenia 2. Traumatic brain injury 3. Dementia 4. Other medical history pending from care facility records Social History: Patient resides in a care facility. Other social history details unavailable due to patient's mental status. Vital Signs: Blood pressure: 93/71 mmHg (initially low) Other vital signs not documented in industrial safety engineer. Physical Exam: General: Patient appears lethargic. Neurological: Difficult to arouse, sluggish response to painful stimulus. Respiratory: Maintaining airway independently. Other systems: Detailed examination limited by patient's mental status. Lab Results: CBC: - WBC: 9.0 (normal) - Hemoglobin: 17 g/dL (normal) - Hematocrit: 53% (normal) - Platelets: 67 K/uL (low) Chemistry: - BUN: 113 mg/dL (severely elevated) - Creatinine: 3.92 mg/dL (severely elevated) - Sodium: 163 mEq/L (severely elevated) - Potassium: 4.7 mEq/L (normal) - Chloride: 123 mEq/L (elevated) - Bicarbonate: 24 mEq/L (normal) - Anion gap: 16 (elevated) - Glucose: 94 mg/dL (normal) Other studies: - Lactic acid: 2.4 mmol/L (slightly elevated) - Troponin: 7 ng/L (normal) - Ammonia: <10 umol/L (normal) Imaging and Other Relevant Results: No imaging studies documented in industrial safety engineer. Medical Decision Making: Summary Statement: 54-year-old male with history of schizophrenia, traumatic brain injury, and dementia presenting with altered mental status in the setting of severe dehydration, hypernatremia, and acute kidney injury. Problem List: 1. Acute metabolic encephalopathy 2. Severe dehydration 3. Acute kidney injury 4. Hypernatremia 5. Thrombocytopenia 6. Schizophrenia 7. Traumatic brain injury 8. Dementia Differential Diagnosis: Metabolic encephalopathy due to dehydration and renal failure, medication effect or toxicity, infection (UTI, pneumonia, sepsis), progression of underlying dementia, subdural hematoma or other intracranial process, electrolyte abnormalities, hepatic encephalopathy (less likely given normal ammonia). ED Course: Patient received IV fluid resuscitation (30 cc/kg) and empiric IV antibiotics. Initial management focused on addressing severe dehydration and potential underlying infection. Patient remained hemodynamically stable after fluid resuscitation but continued to demonstrate altered mental status. Assessment and Plan: 1. Acute Metabolic Encephalopathy: - Multifactorial, primarily due to severe dehydration, hypernatremia, and acute kidney injury - Will continue IV fluid resuscitation with careful monitoring of electrolytes - Frequent neurological checks - Avoid sedating medications 2. Severe Dehydration: - Continue IV fluid resuscitation with normal saline - Careful correction of hypernatremia (no more than 8-10 mEq/L per 24 hours) - Monitor intake and output - Reassess volume status frequently 3. Acute Kidney Injury: - Likely pre-renal etiology due to severe dehydration - Continue IV fluid resuscitation - Monitor urine output - Serial BUN/Creatinine measurements - Avoid nephrotoxic medications - Nephrology consultation if no improvement with hydration 4. Hypernatremia: - Gradual correction with IV fluids - Monitor sodium levels every 4-6 hours initially - Adjust fluid rate and composition based on serial electrolyte measurements 5. Thrombocytopenia: - Monitor platelet count - Consider hematology consultation if platelets continue to decrease - Evaluate for potential causes including medication effect, infection 6. Chronic Conditions (Schizophrenia, TBI, Dementia): - Continue home medications as appropriate once able to take orally - Psychiatry consultation for medication management - Neurology consultation to evaluate baseline neurological status Disposition: Admit to Internal Medicine service with consideration for ICU level of care depending on response to initial resuscitation and need for close monit oring of electrolyte correction. Additional Notes: Patient from care facility with progressive mental status decline over 5 days Billing Information: ICD-10: F05 - Delirium due to known physiological condition ICD-10: E86.0 - Dehydration ICD-10: N17.9 - Acute kidney failure, unspecified ICD-10: E87.0 - Hypernatremia ICD-10: F20.9 - Schizophrenia, unspecified ICD-10: S06.2X9S - Traumatic brain injury, sequela ICD-10: F03 - Unspecified dementia Critical Care Note Critical Care Time?: Yes (35 min-critical care time only) Critical care comment: Total critical care time: Approximately 36 minutes Due to a high probability of clinically significant, life threatening deterioration, the patient required my highest level of preparedness to intervene emergently and I personally spent this critical care time directly and personally managing the patient. This critical care time included obtaining a history; examining the patient; pulse oximetry; ordering and review of studies; arranging urgent treatment with development of a management plan; evaluation of patient's response to treatment; frequent reassessment; and, discussions with other providers. This critical care time was performed to assess and manage the high probability of imminent, life-threatening deterioration that could result in multi-organ failure. It was exclusive of separately billable procedures and treating other patients. Stability Stability form required: No Heart Score Heart Score: Heart Score Response (Comments) Value History N/A 0 EKG N/A 0 Age N/A 0 Risk Factors N/A 0 Troponin N/A 0 Total 0 I personally scribed for EDMOND SINHA MD ([email or web address]) on 05/08/25 at 20:35. Electronically submitted by Tarik Jha ([email or web address]). EDMOND SINHA MD May 08, 2025 20:35
[2025-05-08 21:51] LABS: Hematocrit 53.0 % (41.0-53.0); Hemoglobin 16.9 g/dL (13.5-17.5); Mean Corpuscular Hemoglobin 32.4 pg (28.0-32.0); Mean Corpuscular Volume 101.5 fL (80.0-100.0); Nucleated Red Blood Cells % 0.2 %
[2025-05-08 21:54] VITALS: PULSE 98; RESP 12; O2SAT 92
[2025-05-08] MEDS: PIPERACILLIN-TAZOB 3.375GM 100 ML IV ONE (22:00)
[2025-05-08] MEDS: SODIUM CHLORIDE 0.9% 2,000 ML IV ONE (22:00)
[2025-05-08 22:10] LABS: Lactic Acid w/Reflex 2.4 mmol/L (0.4-2.0)
[2025-05-08 22:14] LABS: Albumin 3.9 g/dL (3.2-4.8); Alkaline Phosphatase 62 U/L (46-116); Anion Gap 16 (5-15); BUN/Creatinine Ratio 28.8 (10.0-20.0); Carbon Dioxide 24 mmol/L (20-31); Glucose 94 mg/dL (74-106); Potassium 4.7 mmol/L (3.5-5.1); Total Protein 7.3 g/dL (5.7-8.2)
[2025-05-08 22:15] LABS: Bilirubin, Total 0.6 mg/dL (0.2-1.0)
--- NOTE | 2025-05-08 22:15 | DVH ---
EXAM: CT HEAD WITHOUT CONTRAST INDICATION: ALOC TECHNIQUE: CT of the head without intravenous contrast. Radiation Dose Information: CT Dose: CTDI volume is 54.31 mGy. Dose-length product is 1070.36 mGy*cm The dose indicators for CT are the volume Computed Tomography (CT) Dose Index (CTDIvol) and the Dose Length Product (DLP), and are measured in units of mGy and mGy-cm, respectively. These indicators are not patient dose, but values generated from the CT scanner acquisition factors. The report includes radiation exposure data for exposures received during this examination. COMPARISON: CT HEAD WITHOUT CONTRAST on DOS: 01/25/25, CT HEAD WITHOUT CONTRAST on DOS: 11/25/24, CT HEAD WITHOUT CONTRAST on DOS: 10/24/24 FINDINGS: There is no evidence of acute intracranial hemorrhage, extra-axial collection, mass effect, midline s hift, herniation or hydrocephalus. Craniotomy defect left frontal parietal skull territorial encephalomalacia reflecting postoperative c hange. Small lacunar infarct left thalamus. Unchanged from prior study The ventricles, sulci and cisterns are age appropriate. The harris-white differentiation is intact. Patchy periventricular and subcortical white matter hypoattenuation is nonspecific but may be related to small vessel ischemic disease. The visualized paranasal sinuses and mastoid air cells are clear. The surrounding soft tissues and osseous structures are unremarkable. IMPRESSION: 1. No acute intracranial hemorrhage 2. Stable changes from a left frontal parietal craniotomy with territorial encephalomalacia most like ly postoperative changes. These findings are stable and unchanged from 01/25/2025. 3. No significant change from 01/25/2025.
[2025-05-08 22:22] LABS: Alanine Aminotransferase 41 U/L (7-40); Calcium 8.6 mg/dL (8.7-10.4); Chloride 123 mmol/L (98-107)
[2025-05-08 22:23] LABS: Blood Urea Nitrogen 113 mg/dL (9-23); Sodium 163 mmol/L (136-145)
[2025-05-08 22:32] LABS: Base Excess -0.6 mmol/L (-2.0-3.0)
--- NOTE | 2025-05-08 22:36 | DVH ---
CHEST RADIOGRAPH Indication: SOB Technique: Single frontal view of the chest was obtained Comparison: XY CHEST PORTABLE on DOS: 11/25/24, XY CHEST PORTABLE on DOS: 10/24/24, XY CHEST PORTABLE o n DOS: 08/29/24 FINDINGS: Lines and Tubes: None Lungs: No focal consolidation. Pleura: No effusion. No pneumothorax. Cardiomediastinal contours: Unremarkable ectatic mildly dilated thoracic aorta appears slightly large r than prior study of 11/25/2024. Bones: No acute osseous abnormality. IMPRESSION: 1. Ectatic tortuous thoracic aorta appears slightly larger than 11/25/2024. 2. If mediastinal masses of concern recommend contrast CT of the chest.
[2025-05-08 22:46] LABS: INR 1.19 (0.9-1.15); Partial Thromboplastin Time 29.9 SEC (24.5-34.5); Prothrombin Time 12.4 sec (9.3-11.8)
[2025-05-08] MEDS ORDERED: MORPHINE SULFATE INJ 2 MG/ml SYRG IV PRN (23:45)
[2025-05-08] MEDS ORDERED: NITROGLYCERIN 0.4 MG SL TAB SL PRN (23:45)
[2025-05-08] MEDS ORDERED: ONDANSETRON HCL 4 MG/2 ML VIAL IV PRN (23:45)
[2025-05-08] MEDS ORDERED: DOCUSATE SOD 100 MG CAP PO PRN (23:45)
[2025-05-08] MEDS ORDERED: HYDROcodone-ACET 5/325MG TAB PO PRN (23:45)
[2025-05-08] MEDS ORDERED: hydrALAZINE HCL 20 MG/ML VL IV PRN (23:45)
[2025-05-08] MEDS ORDERED: IBUPROFEN 600 MG TAB PO PRN (23:45)
--- NOTE | 2025-05-08 23:57 | DVHHP2 ---
History of Present Illness Reason for Visit: Metabolic encephalopathy History of Present Illness The patient is a 54-year-old male with multiple past medical history including anemia, dementia, DM, schizophrenia, seizures, and hypertension who presented to [facility] ED for evaluation of altered level of consciousness. As reported patient is currently residing at assisted care living, facility called concerning patient's altered mental status, unarousable, bed-bound for the past 5 days. When EMS arrived on the scene, patient was noted to have been responsive to painful stimuli on scene, systolic pressure in the 90's-100's range, occasional PVC's via 12 lead, blood glucose of 104, SpO2 of 80% room air and was placed on oxygen, with SpO2 improving to the 90's range. Patient was seen and evaluated in the ED, laboratory data shows WBC 9.2, platelets 96013, sodium 163, potassium 4.7, BUN 113, creatinine 3.92, glucose 94, calcium 8.6, lactic acid 2.4 trending down to 2.0, AST 66, ALT 41, blood pressure 97/75, heart rate 85, temperature 98.4 F, O2 saturation 93% on oxygen. Head CT revealing stable changes from a left frontoparietal craniectomy with territorial encephalomalacia most likely postoperative changes. Patient was started on IV fluid D5 water, please see medication orders section in the computer. On my assessment, patient remains altered, no diaphoresis, currently on oxygen, no nausea, no vomiting, no fever, no chills. Patient was admitted for further evaluation and medical management. Past Medical History Anemia (Mild, macrocytic), Dementia, DM, HTN, Schizophrenia, Seizures TBI, Hypokalemia Nasal bone fracture status post fall Drug-induced hyperammonemia, improved Past Surgical History Left frontal parietal craniotomy Family History Reviewed, noncontributory to the management of this case. Past Social History The patient lives at home, denies smoking, alcohol or illicit drugs abuse. Review of Systems Constitutional: Yes: Weakness; No: Fever, Chills, Sweats, Malaise, Other Eyes: No: Pain, Vision change, Conjunctivae inflammation, Eyelid inflammation, Other, Redness ENT: No: Ear pain, Ear discharge, Nose pain, Nose discharge, Nose congestion, Mouth pain, Mouth swelling, Throat pain, Throat swelling, Other Respiratory: Shortness of breath; No: Cough, Dry, SOB with excertion, Wheezing, Hemoptysis, Pleuritic Pain, Sputum, Wheezing, Other Cardiovascular: No: Chest Pain, Palpitations, Orthopnea, Paroxysmal Noc. Dyspnea, Edema, Lt Headedness, Other Gastrointestinal: No: Nausea, Vomiting, Abdominal Pain, Diarrhea, Constipation, Melena, Hematochezia, Other Genitourinary: No Dysuria, No Frequency, No Incontinence, No Hematuria, No Retention, No Other Musculoskeletal: No: other, neck pain, shoulder pain, arm pain, back pain, hand pain, leg pain, foot pain Skin: No: Rash, Lesions, Jaundice, Bruising, Other Neurological: Other (Altered level of consciousness); No: Weakness, Numbness, Incoordination, Change in speech, Confusion, Seizures Allergies: Coded Allergies: NO KNOWN ALLERGIES (Unverified , 02/08/24) Exam Vital Signs Vital Signs Date Time Temp Pulse Resp B/P (MAP) Pulse Ox O2 Delivery O2 Flow Rate FiO2 05/08/25 23:33 85 20 97/75 (82) 93 05/08/25 21:54 Simple Mask* 6 50 05/08/25 21:33 98.3 98.3 General Appearance: Alert, Cooperative, No acute distress, Other (Oriented x1) HEENT: Atraumatic, PERRLA, EOMI, Mucous membr. moist/pink Respiratory: Normal air movement Cardiovascular: Regular rate, Normal S1, Normal S2, No murmurs Abdominal: Normal bowel sounds, Soft, No tenderness, No hepatospenomegaly, No masses Extremities: No clubbing, No cyanosis, No edema, Normal pulses, No tenderness/swelling Skin: No rashes, No breakdown, No significant lesion Neuro: Sensation intact, Cranial nerves 3-12 NL, Reflexes 2+, Other (Generalized weakness) Psych/Mental Status: Mood NL, Other (Altered mental status) Labs/Xrays Labs Test 05/08/25 23:30 05/08/25 22:26 05/08/25 22:15 05/08/25 21:37 Range/Units Blood Gas Specimen Type Arterial Blood Gas Sample Site Right radial Blood Gas Patient Temperature 37.0 Arterial Blood Date Drawn [id number] Arterial Blood pH 7.432 7.350-7.450 Arterial Blood Partial Pressure CO2 35.3 35.0-48.0 mmHg Arterial Blood Partial Pressure O2 70.1 L 83.0-108.0 mmHg Arterial Blood HCO3 23.0 21.0-28.0 mmol/L Arterial Blood Oxygen Saturation 92.9 L 94.0-98.0 % Arterial Blood Base Excess -0.6 -2.0-3.0 mmol/L Arterial Blood Oxyhemoglobin 91.5 L 94.0-98.0 % Arterial Blood Carboxyhemoglobin 0.9 0.5-1.5 % Arterial Blood Methemoglobin 0.6 0.0-1.5 % Rafael Test Yes Blood Gas Total Hemoglobin 16.30 13.5-17.5 g/dL Blood Gas Liter Flow 6.00 Blood Gas Modality Mask - simple FiO2 % 35.0 Prothrombin Time 12.4 H 9.3-11.8 sec Prothrombin Time INR 1.19 H 0.9-1.15 Activated Partial Thromboplast Time 29.9 24.5-34.5 SEC Troponin I High Sensitivity 7 </=54 ng/L White Blood Count 9.2 4.4-10.8 10^3/uL Red Blood Count 5.22 4.5-5.90 10^6/uL Hemoglobin 16.9 13.5-17.5 g/dL Hematocrit 53.0 41.0-53.0 % Mean Corpuscular Volume 101.5 H 80.0-100.0 fL Mean Corpuscular Hemoglobin 32.4 H 28.0-32.0 pg Mean Corpuscular Hemoglobin Concent 32.0 32.0-36.0 g/dL Red Cell Distribution Width 17.4 H 11.8-14.3 % Platelet Count 67 L 140-450 10^3/uL Mean Platelet Volume 7.2 6.9-10.8 fL Neutrophils (%) (Auto) 70.2 37.0-80.0 % Lymphocytes (%) (Auto) 20.0 10.0-50.0 % Monocytes (%) (Auto) 9.3 0.0-12.0 % Eosinophils (%) (Auto) 0.2 0.0-7.0 % Basophils (%) (Auto) 0.3 0.0-2.0 % Neutrophils # (Auto) 6.5 1.6-8.6 10 ^3/uL Lymphocytes # (Auto) 1.9 0.4-5.4 10 ^3/uL Monocytes # (Auto) 0.9 0-1.3 10 ^3/uL Eosinophils # (Auto) 0 0-0.8 10 ^3/uL Basophils # (Auto) 0 0-0.2 10 ^3/uL Nucleated Red Blood Cells 0.2 % Sodium Level 163 *H 136-145 mmol/L Potassium Level 4.7 3.5-5.1 mmol/L Chloride Level 123 H 98-107 mmol/L Carbon Dioxide Level 24 20-31 mmol/L Anion Gap 16 H 5-15 Blood Urea Nitrogen 113 *H 9-23 mg/dL Creatinine 3.92 H 0.700-1.30 mg/dL Glomerular Filtration Rate Calc 17 >90 mL/min BUN/Creatinine Ratio 28.8 H 10.0-20.0 Serum Glucose 94 74-106 mg/dL Calcium Level 8.6 L 8.7-10.4 mg/dL Total Bilirubin 0.6 0.2-1.0 mg/dL Aspartate Amino Transferase (AST) 66 H <34 U/L Alanine Aminotransferase (ALT) 41 H 7-40 U/L Alkaline Phosphatase 62 46-116 U/L Ammonia < 10 L 11-32 umol/L Total Protein 7.3 5.7-8.2 g/dL Albumin 3.9 3.2-4.8 g/dL PATIENT: SUHAIL STEWARD ACCT: [id number] UNIT: [id number] : 1970 LOC: ER ROOM / BED: / AGE / SEX: 54 / M ADM STATUS: REG ER SERVICE 20 ORDERING PHYSICIAN: EDMOND SINHA MD PROCEDURE(s): HWOCT - HEAD WITHOUT CONTRAST REASON: ALOC ORDER NUMBER(s): [id number], ACCESSION NUMBER(s): [id number] EXAM: CT HEAD WITHOUT CONTRAST INDICATION: ALOC TECHNIQUE: CT of the head without intravenous contrast. Radiation Dose Information: CT Dose: CTDI volume is 54.31 mGy. Dose-length product is 1070.36 mGy*cm The dose indicators for CT are the volume Computed Tomography (CT) Dose Index (CTDIvol) and the Dose Length Product (DLP), and are measured in units of mGy and mGy-cm, respectively. These indicators are not patient dose, but values gen erated from the CT scanner acquisition factors. The report includes radiation exposure data for exposures received during this examination. COMPARISON: CT HEAD WITHOUT CONTRAST on DOS: 01/25/25, CT HEAD WITHOUT CONTRAST on DOS: 11/25/24, CT HEAD WITHOUT CONTRAST on DOS: 10/24/24 FINDINGS: There is no evidence of acute intracranial hemorrhage, extra-axial collection, mass effect, midline shift, herniation or hydrocephalus. Craniotomy defect left frontal parietal skull territorial encephalomalacia reflecting postoperative change. Small lacunar infarct left thalamus. Unchanged from prior study The ventricles, sulci and cisterns are age appropriate. The harris-white differentiation is intact. Patchy periventricular and subcortical white matter hypoattenuation is nonspecific but may be related to small vessel ischemic disease. The visualized paranasal sinuses and mastoid air cells are clear. The surrounding soft tissues and osseous structures are unremarkable. IMPRESSION: 1. No acute intracranial hemorrhage 2. Stable changes from a left frontal parietal craniotomy with territorial encephalomalacia most likely postoperative changes. These findings are stable and unchanged from 01/25/2025. 3. No significant change from 01/25/2025. ORDERING PHYSICIAN: EDMOND SINHA MD PROCEDURE(s): CXRP - CHEST PORTABLE REASON: SOB ORDER NUMBER(s): [id number], ACCESSION NUMBER(s): [id number] CHEST RADIOGRAPH Indication: SOB Technique: Single frontal view of the chest was obtained Comparison: XY CHEST PORTABLE on DOS: 11/25/24, XY CHEST PORTABLE on DOS: 10/24/24, XY CHEST PORTABLE on DOS: 08/29/24 FINDINGS: Lines and Tubes: None Lungs: No focal consolidation. Pleura: No effusion. No pneumothorax. Cardiomediastinal contours: Unremarkable ectatic mildly dilated thoracic aorta appears slightly larger than prior study of 11/25/2024. Bones: No acute osseous abnormality. IMPRESSION: 1. Ectatic tortuous thoracic aorta appears slightly larger than 11/25/2024. 2. If mediastinal masses of concern recommend contrast CT of the chest. Assessment/Plan Assessment/Plan Metabolic encephalopathy Hypernatremia Severe dehydration Acute renal failure Thrombocytopenia Elevated liver enzymes Elevated lactic acid level Altered mental status Generalized weakness Plan 1. Admit to step-down unit 2. Breathing treatment 3. Pain control management 4. IV antibiotic management 5. Management of fluids and electrolytes 6. Consultation for Nephrology/hospitalist 7. Diagnostic test head CT 8. DVT prophylaxis-on SCDs 9. Repeat labs CBC, CMP in a.m. 10. Home medication reviewed and reconciled 11. Continue with current medical management 12. Treatment plan discussed with patient and RN. Patient will need reinstateme nt of information given mental status. Plan discussed with: Patient, Other (RN) Problem List: (1) Metabolic encephalopathy (2) Hypernatremia (3) Severe dehydration (4) Thrombocytopenia (5) Altered mental status (6) Elevated lactic acid level (7) Acute renal failure (8) Generalized weakness (9) Elevated liver enzymes Date of Service: May 09, 2025 Billing Provider: ALEXANDER JAIN DNP Common Visit Codes: [id number] INP/OBS CARE (HIGH) ALEXANDER JAIN DNP May 08, 2025 23:57
[2025-05-09] VITALS (20 sets, daily range): BP systolic 105–181; BP diastolic 51–116; PULSE 58–95; RESP 11–18; TEMP 97–99; O2SAT 93–100
[2025-05-09 04:44] LABS: Hematocrit 46.4 % (41.0-53.0); Hemoglobin 15.1 g/dL (13.5-17.5); Mean Corpuscular Hemoglobin 31.6 pg (28.0-32.0); Mean Corpuscular Volume 96.6 fL (80.0-100.0); Nucleated Red Blood Cells % 0.1 %
[2025-05-09 05:00] LABS: Alanine Aminotransferase 33 U/L (7-40); Albumin 3.3 g/dL (3.2-4.8); Alkaline Phosphatase 53 U/L (46-116); Anion Gap 15 (5-15); BUN/Creatinine Ratio 31.2 (10.0-20.0); Bilirubin, Total 0.6 mg/dL (0.2-1.0); Carbon Dioxide 24 mmol/L (20-31); Glucose 94 mg/dL (74-106); Potassium 4.4 mmol/L (3.5-5.1); Total Protein 6.3 g/dL (5.7-8.2)
[2025-05-09 05:02] LABS: Calcium 7.8 mg/dL (8.7-10.4); Chloride 126 mmol/L (98-107)
[2025-05-09 05:04] LABS: Blood Urea Nitrogen 105 mg/dL (9-23); Sodium 165 mmol/L (136-145)
[2025-05-09] MEDS: D5W 5% 1,000 ML IV ONE (05:25)
[2025-05-09] MEDS: D5W 5% 1,000 ML IV SCH (05:30)
--- NOTE | 2025-05-09 06:39 | ECG ---
[facility] Test Date: 2025-05-08 Test Time: 20:22:14 Pat Name: SUHAIL STEWARD Department: ED Room: [address] [place] [address] Gender: M Hay Sorter: : 1970 Requested By: EDMOND SINHA Order Number: [id number] Reading MD: Ernie Ling Measurements Intervals [place] Rate: 87 P: 56 WA: 139 QRS: -29 QRSD: 80 T: 179 QT: 344 QTc: 414 Interpretive Statements Sinus rhythm Borderline left axis deviation Nonspecific repol abnormality, diffuse leads Electronically Signed On 05-09-2025 17:31:55 PDT by Ernie Ling Please click the below link to view image of tracing.
[2025-05-09 09:21] LABS: Urine Protein, UAD Negative (Negative)
[2025-05-09 09:29] LABS: Benzodiazephine Screen, Urine Neg (NEGATIVE)
[2025-05-09 09:30] LABS: Amphetamine Screen, Urine Neg (NEGATIVE); Barbiturate Scree,Urine Neg (NEGATIVE); Cannabinoid Screen, Urine Neg (NEGATIVE); Cocaine Screen, Urine Neg (NEGATIVE); Opiate Scree,Urine Neg (NEGATIVE); Phencyclidine Screen, Urine Neg (NEGATIVE)
[2025-05-09] MEDS: cefTRIAXone 1GM/50ML D5W 50 ML IV SCH (10:03)
[2025-05-09] MEDS ORDERED: DIVA250T12 PO (10:23)
[2025-05-09] MEDS ORDERED: LORA-1121 PO (10:26)
[2025-05-09] MEDS ORDERED: QUET200T45 PO (10:37)
[2025-05-09] MEDS ORDERED: LOSA-534 PO (10:46)
--- NOTE | 2025-05-09 12:25 | DVHINCON2 ---
Date of service: May 09, 2025 Reason for Consultation SRINIVAS History of Present Illness 54-year-old male past medical history of schizophrenia, traumatic brain injury, diabetes, who lives in a chronic care facility presents to the hospital due to change in mental state. Nephrology consulted due to elevated serum sodium and acute kidney injury. Comparison of previous hospitalization in January of this year showed that baseline renal function is normal. Upon my evaluation ER patient appears altered and significantly dehydrated. Allergies: Coded Allergies: NO KNOWN ALLERGIES (Unverified , 02/08/24) Home Meds Active Scripts Melatonin (Melatonin) 5 Mg Tab, 5 MG PO HS, #30 TAB Prov:GWENDOLYN FERREIRA MD 07/06/24 Reported Medications Losartan Potassium (Losartan Potassium) 50 Mg Tab, 50 MG PO DAILY for 30 Days, MG 05/09/25 Quetiapine Fumerate (QUETIAPINE FUMARATE) 200 Mg Tab, 200 MG PO BIDAC for 30 Days, MG 05/09/25 Lorazepam (ATIVAN TABLET) 0.5 Mg Tb, 2 TAB PO QIDP PRN for ANXIETY, #90 TAB 05/09/25 Divalproex Sodium (Divalproex Sodium) 250 Mg Tab, 750 MG PO BID for 30 Days, MG 05/09/25 Benztropine Mesylate (Benztropine Mesylate) 1 Mg Tab, 1 MG PO DAILY, TAB 01/26/25 Amlodipine Besylate (NORVASC TABLET) 5 Mg Tb, 10 MG PO DAILY, TAB 01/26/25 Lisinopril (Lisinopril) 40 Mg Tab, 40 MG PO DAILY, TAB 01/26/25 Lactulose (Lactulose) 10 Gm/15 Ml Mahnaz, 30 ML PO DAILY, ML 01/26/25 Current Medications Current Medications Medications (Trade) Dose Ordered Sig/Negra Route PRN Reason Start Time Stop Time Status Last Admin Amlodipine Besylate (Norvasc Tablet) 5 mg DAILY PO 05/09/25 10:00 Hydralazine HCl (Apresoline Injection) 10 mg Q6HP PRN IV SBP>150 05/08/25 23:45 05/09/25 12:51 DC Ibuprofen (Motrin Tablet) 600 mg Q6HP PRN PO PAIN SCALE 1-3 OR TEMP>100.4 05/08/25 23:45 05/09/25 12:51 DC Ceftriaxone Sodium 50 ml @ 100 mls/hr DAILY@09 IV 05/09/25 09:00 05/09/25 10:03 Acetaminophen/ Hydrocodone Bitart (Bucyrus 5/325MG Tab) 1 tab Q4HP PRN PO MODERATE PAIN (4-6 PAIN SCALE) 05/08/25 23:45 05/09/25 12:51 DC Ondansetron HCl (Zofran) 4 mg Q4HP PRN IV NAUSEA / VOMITING 05/08/25 23:45 05/09/25 12:51 DC Docusate Sodium (Colace Capsule) 100 mg BIDPRN PRN PO FOR CONSTIPATION 05/08/25 23:45 05/09/25 12:51 DC Nitroglycerin (Ntrostat Sublingual) 0.4 mg Q5MINP PRN SL FOR CHEST PAIN 05/08/25 23:45 05/09/25 12:51 DC Morphine Sulfate 2 mg Q30M PRN IV FOR CHEST PAIN 05/08/25 23:45 05/09/25 12:51 DC Dextrose 1,000 ml @ 125 mls/hr Q8H IV 05/09/25 05:30 05/09/25 13:42 Diagnostic Test (Pha) (Accu-Chek Comfort Curve T) 1 strip Q6HR 05/09/25 18:00 Insulin Human Regular (InsuLIN R) Q6HR SC 05/09/25 18:00 Dextrose 50 ml UD PRN IV Blood Sugar LESS THAN 60 05/09/25 13:30 Family History: Patient reports no known family medical history. Review of Systems Altered mental state H&P Exam Vital Signs/I&O Vital Sign Date Time Temp Pulse Resp B/P (MAP) Pulse Ox O2 Delivery O2 Flow Rate FiO2 05/09/25 12:01 72 05/09/25 12:00 97.0 14 131/91 (104) 95 97.0 05/09/25 08:00 Simple Mask* 6 50 Intake and Output 05/08/25 05/09/25 19:00 07:00 Intake Total 3225 ml Balance 3225 ml Intake IV Total 3225 ml Physical Exam Malnourished middle-aged male Appears cachectic, dry mucous membranes crusted mucus bilateral nostrils and around lips No elevated JVD Regular rate and rhythm Abdomen is soft No pitting edema Labs/Diagnostic Data Labs/Diagnostic Data Laboratory Tests Test 05/09/25 12:53 05/09/25 09:29 05/09/25 09:00 05/09/25 03:53 Range/Units Sodium Level 160 H 165 *H 136-145 mmol/L Potassium Level 4.1 4.4 3.5-5.1 mmol/L Chloride Level 126 H 126 H 98-107 mmol/L Carbon Dioxide Level 18 L 24 20-31 mmol/L Anion Gap 16 H 15 5-15 Blood Urea Nitrogen 84 #*H 105 *H 9-23 mg/dL Creatinine 2.87 H 3.37 H 0.700-1.30 mg/dL Glomerular Filtration Rate Calc 25 21 >90 mL/min BUN/Creatinine Ratio 29.3 H 31.2 H 10.0-20.0 Serum Glucose 112 H 94 74-106 mg/dL Calcium Level 7.4 L 7.8 L 8.7-10.4 mg/dL B-Type Natriuretic Peptide 17.85 0-100 pg/mL POC Glucose 91 70-106 mg/dl Urine Color Yellow Yellow Urine Clarity Clear Clear Urine pH 5.5 5.0-9.0 Urine Specific [place] 1.026 1.001-1.035 Urine Protein Negative Negative Urine Ketones Negative Negative Urine Blood 1+ H Negative /uL Urine Nitrite Negative Negative Urine Bilirubin Negative Negative Urine Urobilinogen 2 H Negative mg/dL Urine Leukocyte Esterase Trace Negative /uL Urine RBC 7 0 - 3 /hpf Urine Microscopic WBC 11 H 0-3 /HPF Urine Squamous Epithelial Cells Few <5 /hpf Urine Bacteria None seen None Seen /hpf Urine Mucus Few None Seen Urine Glucose Normal Normal mg/dL Urine Opiates Screen Neg NEGATIVE Urine Fentanyl Screen Neg NEGATIVE Urine Barbiturates Screen Neg NEGATIVE Urine Phencyclidine Screen Neg NEGATIVE Urine Amphetamines Screen Neg NEGATIVE Urine Benzodiazepines Screen Neg NEGATIVE Urine Cocaine Screen Neg NEGATIVE Urine Cannabinoids Screen Neg NEGATIVE White Blood Count 8.6 4.4-10.8 10^3/uL Red Blood Count 4.80 4.5-5.90 10^6/uL Hemoglobin 15.1 13.5-17.5 g/dL Hematocrit 46.4 # 41.0-53.0 % Mean Corpuscular Volume 96.6 # 80.0-100.0 fL Mean Corpuscular Hemoglobin 31.6 28.0-32.0 pg Mean Corpuscular Hemoglobin Concent 32.7 32.0-36.0 g/dL Red Cell Distribution Width 16.7 H 11.8-14.3 % Platelet Count 57 L 140-450 10^3/uL Mean Platelet Volume 7.1 6.9-10.8 fL Neutrophils (%) (Auto) 73.0 37.0-80.0 % Lymphocytes (%) (Auto) 12.8 10.0-50.0 % Monocytes (%) (Auto) 13.5 H 0.0-12.0 % Eosinophils (%) (Auto) 0.2 0.0-7.0 % Basophils (%) (Auto) 0.5 0.0-2.0 % Neutrophils # (Auto) 6.3 1.6-8.6 10 ^3/uL Lymphocytes # (Auto) 1.1 0.4-5.4 10 ^3/uL Monocytes # (Auto) 1.2 0-1.3 10 ^3/uL Eosinophils # (Auto) 0 0-0.8 10 ^3/uL Basophils # (Auto) 0 0-0.2 10 ^3/uL Nucleated Red Blood Cells 0.1 % Platelet Estimate Decreased Total Bilirubin 0.6 0.2-1.0 mg/dL Aspartate Amino Transferase (AST) 54 H <34 U/L Alanine Aminotransferase (ALT) 33 7-40 U/L Alkaline Phosphatase 53 46-116 U/L Total Protein 6.3 5.7-8.2 g/dL Albumin 3.3 3.2-4.8 g/dL Test 05/08/25 23:30 05/08/25 22:26 05/08/25 22:15 05/08/25 21:37 Range/Units Lactic Acid Level 2.0 2.4 *H 0.4-2.0 mmol/L Troponin I High Sensitivity 6 7 7 </=54 ng/L Blood Gas Specimen Type Arterial Blood Gas Sample Site Right radial Blood Gas Patient Temperature 37.0 Arterial Blood Date Drawn [id number] Arterial Blood pH 7.432 7.350-7.450 Arterial Blood Partial Pressure CO2 35.3 35.0-48.0 mmHg Arterial Blood Partial Pressure O2 70.1 L 83.0-108.0 mmHg Arterial Blood HCO3 23.0 21.0-28.0 mmol/L Arterial Blood Oxygen Saturation 92.9 L 94.0-98.0 % Arterial Blood Base Excess -0.6 -2.0-3.0 mmol/L Arterial Blood Oxyhemoglobin 91.5 L 94.0-98.0 % Arterial Blood Carboxyhemoglobin 0.9 0.5-1.5 % Arterial Blood Methemoglobin 0.6 0.0-1.5 % Rafael Test Yes Blood Gas Total Hemoglobin 16.30 13.5-17.5 g/dL Blood Gas Liter Flow 6.00 Blood Gas Modality Mask - simple FiO2 % 35.0 Prothrombin Time 12.4 H 9.3-11.8 sec Prothrombin Time INR 1.19 H 0.9-1.15 Activated Partial Thromboplast Time 29.9 24.5-34.5 SEC White Blood Count 9.2 4.4-10.8 10^3/uL Red Blood Count 5.22 4.5-5.90 10^6/uL Hemoglobin 16.9 13.5-17.5 g/dL Hematocrit 53.0 41.0-53.0 % Mean Corpuscular Volume 101.5 H 80.0-100.0 fL Mean Corpuscular Hemoglobin 32.4 H 28.0-32.0 pg Mean Corpuscular Hemoglobin Concent 32.0 32.0-36.0 g/dL Red Cell Distribution Width 17.4 H 11.8-14.3 % Platelet Count 67 L 140-450 10^3/uL Mean Platelet Volume 7.2 6.9-10.8 fL Neutrophils (%) (Auto) 70.2 37.0-80.0 % Lymphocytes (%) (Auto) 20.0 10.0-50.0 % Monocytes (%) (Auto) 9.3 0.0-12.0 % Eosinophils (%) (Auto) 0.2 0.0-7.0 % Basophils (%) (Auto) 0.3 0.0-2.0 % Neutrophils # (Auto) 6.5 1.6-8.6 10 ^3/uL Lymphocytes # (Auto) 1.9 0.4-5.4 10 ^3/uL Monocytes # (Auto) 0.9 0-1.3 10 ^3/uL Eosinophils # (Auto) 0 0-0.8 10 ^3/uL Basophils # (Auto) 0 0-0.2 10 ^3/uL Nucleated Red Blood Cells 0.2 % Sodium Level 163 *H 136-145 mmol/L Potassium Level 4.7 3.5-5.1 mmol/L Chloride Level 123 H 98-107 mmol/L Carbon Dioxide Level 24 20-31 mmol/L Anion Gap 16 H 5-15 Blood Urea Nitrogen 113 *H 9-23 mg/dL Creatinine 3.92 H 0.700-1.30 mg/dL Glomerular Filtration Rate Calc 17 >90 mL/min BUN/Creatinine Ratio 28.8 H 10.0-20.0 Serum Glucose 94 74-106 mg/dL Calcium Level 8.6 L 8.7-10.4 mg/dL Total Bilirubin 0.6 0.2-1.0 mg/dL Aspartate Amino Transferase (AST) 66 H <34 U/L Alanine Aminotransferase (ALT) 41 H 7-40 U/L Alkaline Phosphatase 62 46-116 U/L Ammonia < 10 L 11-32 umol/L Total Protein 7.3 5.7-8.2 g/dL Albumin 3.9 3.2-4.8 g/dL Assessment 54-year-old male with history of traumatic brain injury who lives in a chronic care facility presented to the hospital due to altered mental state in the setting of volume depletion and decreased p.o. intake Acute kidney injury prerenal due to volume depletion Hypernatremia due to volume depletion No previous CKD Cognitive impairment at baseline Continue with the D5W Replace electrolytes as needed Review of labs show improvement with IV fluids. Recommend nutritional consult Rule out infection Avoid hypotension Case management to evaluate patient's outpatient living condition Evaluation of patient's medication reconciliation as was noted on the chart was lisinopril and losartan which both can not be used concurrently. At this time I recommend holding these medications Rest of care as per primary medical team Plan discussed with: SULEMA Valadez MD May 09, 2025 12:25
[2025-05-09 13:39] LABS: Potassium 4.1 mmol/L (3.5-5.1)
[2025-05-09 13:40] LABS: Anion Gap 16 (5-15)
[2025-05-09 13:45] LABS: BUN/Creatinine Ratio 29.3 (10.0-20.0)
[2025-05-09 13:48] LABS: Calcium 7.4 mg/dL (8.7-10.4); Carbon Dioxide 18 mmol/L (20-31); Chloride 126 mmol/L (98-107); Glucose 112 mg/dL (74-106); Sodium 160 mmol/L (136-145)
[2025-05-09 13:50] LABS: Blood Urea Nitrogen 84 mg/dL (9-23)
--- NOTE | 2025-05-09 16:25 | DVHPN2 ---
Assessment/Plan Assessment/Plan progress note 54 yo M with hx of schizophrenia, TBI livign in [facility] admitted for AMS. physical exam AOx1 to self PERRLA dry mucous membrane, poor oral hygiene CTAB s1 s2 rrr abdomen soft no le edema sklin dry labs egk imaging reviewed assessment and plan acute toxic metabolic encephalopathy hypovolemic hypernatremia severe dehydration likely due to poor oral intake SRINIVAS likely hemodynamic mediated seizures? schizophrenia? HTN c/w d5w @ 125, q12 BMP, aim to decrease by 6-10 per 24h obtain colateral empiric abx coverage keep NPO NGT for now resume home meds trend cr strict i/o ucx diet NPO dvt ppx lovenox condition critical full code critical care time 45 minutes Plan discussed with: Other My Orders Orders - VIRIDIANA MARAVILLA MD Procedure Category Date Status Time Basic Metabolic Panel LAB 05/09/25 Logged 22:00 Basic Metabolic Panel LAB 05/10/25 Verified 10:00 Basic Metabolic Panel LAB 05/10/25 Verified 22:00 Basic Metabolic Panel LAB 05/11/25 Verified 10:00 Basic Metabolic Panel LAB 05/11/25 Verified 22:00 Basic Metabolic Panel LAB 05/12/25 Verified 10:00 Basic Metabolic Panel LAB 05/12/25 Verified 22:00 Complete Blood Count LAB 05/10/25 Verified 04:00 Magnesium LAB 05/10/25 Verified 04:00 Phosphorus LAB 05/10/25 Verified 04:00 Glucose Blood PHA 05/09/25 In Process (Accu-Chek Comfort 18:00 Insulin R (Human) PHA 05/09/25 In Process (Insulin R) 18:00 Dextrose 50% Syringe PHA 05/09/25 In Process 13:30 Sodium LAB 05/09/25 Logged 16:30 Date of Service: May 09, 2025 Billing Provider: VIRIDIANA MARAVILLA MD Common Visit Codes: [id number] CARE 30-74 MIN VIRIDIANA MARAVILLA MD May 09, 2025 16:25
[2025-05-09] MEDS: InsuLIN REG 1unit/0.01ml Soln (100units/ml) SC SCH (17:08)
[2025-05-09] MEDS: ACCU-CHEK COMFORT CURVE STRIP VI SCH (17:08)
--- NOTE | 2025-05-09 17:27 | DVH ---
CHEST RADIOGRAPH Indication: NG TUBE PLACEMENT VERIFICATION Technique: Single frontal view of the chest was obtained COMPARISON: XY CHEST PORTABLE on DOS: 05/08/25, XY CHEST PORTABLE on DOS: 11/25/24, XY CHEST PORTABLE on DOS: 10/24/24, XY CHEST PORTABLE on DOS: 08/29/24, XY CHEST PORTABLE on DOS: 07/03/24 FINDINGS: Lines and Tubes: Nasogastric tube in satisfactory position. Lungs: Clear Pleura: No effusion. No pneumothorax. Cardiomediastinal contours: Unremarkable Bones: Unremarkable IMPRESSION: Nasogastric tube in satisfactory position.
[2025-05-09] MEDS ORDERED: VANCOMYCIN PER PHARMACY 0 MG IV SCH (20:45)
[2025-05-09] MEDS: VANCOMYCIN 1.25GM/250ML 250 ML IV ONE (21:32)
[2025-05-09 22:30] LABS: Potassium 4.0 mmol/L (3.5-5.1)
[2025-05-09 22:31] LABS: Anion Gap 10 (5-15); Carbon Dioxide 26 mmol/L (20-31)
[2025-05-09 22:33] LABS: Calcium 8.2 mg/dL (8.7-10.4); Chloride 123 mmol/L (98-107); Sodium 159 mmol/L (136-145)
[2025-05-09 22:36] LABS: BUN/Creatinine Ratio 37.9 (10.0-20.0)
[2025-05-09 22:41] LABS: Glucose 118 mg/dL (74-106)
[2025-05-09 22:43] LABS: Blood Urea Nitrogen 86 mg/dL (9-23)
[2025-05-10] VITALS (21 sets, daily range): BP systolic 118–164; BP diastolic 70–101; PULSE 53–87; RESP 11–20; TEMP 96.8–99.2; O2SAT 89–100
[2025-05-10 04:13] LABS: Hematocrit 45.4 % (41.0-53.0); Hemoglobin 15.0 g/dL (13.5-17.5); Mean Corpuscular Hemoglobin 31.6 pg (28.0-32.0); Mean Corpuscular Volume 95.6 fL (80.0-100.0); Nucleated Red Blood Cells % 0.1 %
[2025-05-10 04:31] LABS: Anion Gap 11 (5-15); Carbon Dioxide 25 mmol/L (20-31); Potassium 4.0 mmol/L (3.5-5.1)
[2025-05-10 04:37] LABS: BUN/Creatinine Ratio 40.6 (10.0-20.0)
[2025-05-10 04:50] LABS: Calcium 7.6 mg/dL (8.7-10.4); Chloride 120 mmol/L (98-107); Glucose 117 mg/dL (74-106); Magnesium 3.1 mg/dL (1.6-2.6); Sodium 156 mmol/L (136-145)
[2025-05-10 04:51] LABS: Blood Urea Nitrogen 84 mg/dL (9-23)
--- NOTE | 2025-05-10 15:47 | DVHPN2 ---
Assessment/Plan Assessment/Plan progress note 54 yo M with hx of schizophrenia, TBI livign in [facility] admitted for AMS. seen today. metnal status better, awake. soidum improved. kidney function improved physical exam AOx1 to self PERRLA dry mucous membrane, poor oral hygiene CTAB s1 s2 rrr abdomen soft no le edema sklin dry labs egk imaging reviewed assessment and plan acute toxic metabolic encephalopathy hypovolemic hypernatremia severe dehydration likely due to poor oral intake SRINIVAS likely hemodynamic mediated seizures? schizophrenia? HTN c/w d5w @ 125, q12 BMP, aim to decrease by 6-10 per 24h obtain colateral empiric abx coverage keep NPO NGT for now resume home meds trend cr strict i/o ucx tele diet NPO dvt ppx lovenox condition critical full code Plan discussed with: Other My Orders Orders - VIRIDIANA MARAVILLA MD Procedure Category Date Status Time Place Ng ORDERS 05/09/25 Transmitted 16:21 Strict I & O NATALIIA 05/09/25 In Process 16:[address] Tablet PHA 05/09/25 In Process (Depakote "Dr" Tabl 22:00 Amlodipine Tablet PHA 05/10/25 In Process (Norvasc Tablet) 10:00 Quetiapine Fumarate PHA 05/09/25 In Process Tablet (Seroquel Tab 22:00 Chest Portable XY 05/09/25 Resulted 16:56 Communication Order ORDERS 05/09/25 Transmitted 17:58 * Wound Consult CONS 05/10/25 Transmitted Transfer Orders XFER 05/10/25 Transmitted 11:01 * Dietary Consult CONS 05/10/25 Transmitted 14:06 Cover Wound With Foam NATALIIA 05/10/25 In Process Dressing 10:52 Date of Service: May 10, 2025 Billing Provider: VIRIDIANA MARAVILLA MD Common Visit Codes: [id number] INP/OBS CARE(HIGH) VIRIDIANA MARAVILLA MD May 10, 2025 15:47
--- NOTE | 2025-05-10 19:30 | DVHPN2 ---
Progress Note Date Seen: May 10, 2025 Medical Necessity Reason Pt with a Central, PICC or Fol: Yes The following are medically ne: Chew Catheter Subjective Patient reports: Other (altered) Review of Systems: Deferred Objective vital signs Vital Sign Date Time Temp Pulse Resp B/P (MAP) Pulse Ox O2 Delivery O2 Flow Rate FiO2 05/10/25 18:07 97.1 97.1 05/10/25 17:00 59 19 138/86 (103) 99 05/10/25 12:00 Nasal Cannula* 2 28 Total Intake and Output 05/09/25 05/09/25 05/10/25 15:00 23:00 07:00 Intake Total 1050 ml 1060 ml 1280 ml Output Total 400 ml 750 ml Balance 1050 ml 660 ml 530 ml medications Current Medications Medications Dose Ordered Sig/Negra Route Start Time Stop Time Status Last Admin Dose Admin Ceftriaxone Sodium 50 ml @ 100 mls/hr DAILY@09 IV 05/09/25 09:00 05/10/25 09:03 100 MLS/HR Dextrose 1,000 ml @ 125 mls/hr Q8H IV 05/09/25 05:30 05/10/25 05:30 125 MLS/HR Diagnostic Test (Pha) 1 strip Q6HR 05/09/25 18:00 05/10/25 17:11 1 STRIP Insulin Human Regular Q6HR SC 05/09/25 18:00 Dextrose 50 ml UD PRN IV 05/09/25 13:30 Divalproex Sodium 750 mg BID PO 05/09/25 22:00 Amlodipine Besylate 10 mg DAILY PO 05/10/25 10:00 05/10/25 09:04 10 MG Quetiapine Fumarate 100 mg BID PO 05/09/25 22:00 05/10/25 09:04 100 MG Mupirocin 1 applic BID EACHNOSTRI 05/10/25 22:00 05/15/25 21:59 Examination: GENERAL:Abnormal, NEURO:Abnormal laboratory and microbiology Laboratory Tests 05/10/25 03:11 Test 05/10/25 03:11 Range/Units Serum Glucose 117 H 74-106 mg/dL Microbiology Date/Time Source Procedure Growth Status 05/09/25 18:30 Nose MRSA Screen - Final Methicillin Resistant S.aureus Complete 05/08/25 21:37 Blood Blood Culture - Preliminary Resulted Problem List/Assessment/Plan Problem List/Assessment/Plan Acute kidney injury prerenal due to volume depletion Hypernatremia due to volume depletion No previous CKD Cognitive impairment at baseline Continue with the D5W Plan discussed with: JAQUI Kohler MD May 10, 2025 19:30
[2025-05-10] MEDS: MUPIROCIN 2% OINT 15gm or 22gm FOR MRSA NARES EACHNOSTRI SCH (22:00)
[2025-05-10 22:44] LABS: Potassium 3.6 mmol/L (3.5-5.1)
[2025-05-10 22:45] LABS: Anion Gap 8 (5-15); Carbon Dioxide 28 mmol/L (20-31)
[2025-05-10 22:50] LABS: BUN/Creatinine Ratio 33.8 (10.0-20.0); Glucose 99 mg/dL (74-106)
[2025-05-10 22:52] LABS: Blood Urea Nitrogen 45 mg/dL (9-23); Calcium 8.1 mg/dL (8.7-10.4); Chloride 115 mmol/L (98-107); Sodium 151 mmol/L (136-145)
[2025-05-11] VITALS (8 sets, daily range): BP systolic 102–144; BP diastolic 74–101; PULSE 68–87; RESP 16–20; TEMP 97.1–98.3; O2SAT 95–100
[2025-05-11 11:04] LABS: Hematocrit 38.3 % (41.0-53.0); Hemoglobin 13.1 g/dL (13.5-17.5); Mean Corpuscular Hemoglobin 32.0 pg (28.0-32.0); Mean Corpuscular Volume 93.7 fL (80.0-100.0)
[2025-05-11 11:41] LABS: Anion Gap 7 (5-15); Carbon Dioxide 29 mmol/L (20-31)
[2025-05-11 11:42] LABS: Calcium 8.3 mg/dL (8.7-10.4); Chloride 112 mmol/L (98-107); Potassium 3.3 mmol/L (3.5-5.1); Sodium 148 mmol/L (136-145)
[2025-05-11 11:47] LABS: BUN/Creatinine Ratio 33.1 (10.0-20.0)
[2025-05-11 11:48] LABS: Blood Urea Nitrogen 40 mg/dL (9-23); Glucose 110 mg/dL (74-106)
[2025-05-11 11:55] LABS: Total Cells Counted 100.0 (100)
--- NOTE | 2025-05-11 14:14 | DVHPN2 ---
Assessment/Plan Assessment/Plan progress note 54 yo M with hx of schizophrenia, TBI livign in [facility] admitted for AMS. seen today. sodium improving. mental status baseline. pending speech eval physical exam AOx1 to self PERRLA dry mucous membrane, poor oral hygiene CTAB s1 s2 rrr abdomen soft no le edema sklin dry labs egk imaging reviewed assessment and plan acute toxic metabolic encephalopathy hypovolemic hypernatremia severe dehydration likely due to poor oral intake SRINIVAS likely hemodynamic mediated seizures? schizophrenia? HTN c/w d5w @ 125, q12 BMP, aim to decrease by 6-10 per 24h obtain colateral empiric abx coverage keep NPO NGT for now resume home meds trend cr strict i/o ucx tele diet tube feed dvt ppx lovenox condition critical full code Plan discussed with: Other My Orders Orders - VIRIDIANA MARAVILLA MD Procedure Category Date Status Time Speech Evaluation ST 05/10/25 Logged 15:47 Mupirocin 2% Oint PHA 05/10/25 In Process Mrsa Nares (Bactroban 22:00 Date of Service: May 11, 2025 Billing Provider: VIRIDIANA MARAVILLA MD Common Visit Codes: [id number] INP/OBS CARE(HIGH) VIRIDIANA MARAVILLA MD May 11, 2025 14:14
[2025-05-11] MEDS: POTASSIUM CHL 20MEQ/100ML 100 ML IV SCH (15:52)
--- NOTE | 2025-05-11 18:32 | DVHPN2 ---
Progress Note Date Seen: May 11, 2025 Medical Necessity Reason Pt with a Central, PICC or Fol: Yes The following are medically ne: Chew Catheter Subjective Patient reports: Other (sitter bedside,poor historian) Review of Systems: Deferred Objective vital signs Vital Sign Date Time Temp Pulse Resp B/P (MAP) Pulse Ox O2 Delivery O2 Flow Rate FiO2 05/11/25 17:00 97.1 70 17 139/99 (112) 100 97.1 05/11/25 08:13 Nasal Cannula* 2 28 Total Intake and Output 05/10/25 05/10/25 05/11/25 15:00 23:00 07:00 Intake Total 675 ml 400 ml 0 ml Output Total 1610 ml 450 ml Balance 675 ml -1210 ml -450 ml medications Current Medications Medications Dose Ordered Sig/Negra Route Start Time Stop Time Status Last Admin Dose Admin Ceftriaxone Sodium 50 ml @ 100 mls/hr DAILY@09 IV 05/09/25 09:00 05/11/25 08:46 100 MLS/HR Dextrose 1,000 ml @ 125 mls/hr Q8H IV 05/09/25 05:30 05/11/25 08:47 125 MLS/HR Diagnostic Test (Pha) 1 strip Q6HR 05/09/25 18:00 05/11/25 16:59 1 STRIP Insulin Human Regular Q6HR SC 05/09/25 18:00 Dextrose 50 ml UD PRN IV 05/09/25 13:30 Divalproex Sodium 750 mg BID PO 05/09/25 22:00 Amlodipine Besylate 10 mg DAILY PO 05/10/25 10:00 05/11/25 08:47 10 MG Quetiapine Fumarate 100 mg BID PO 05/09/25 22:00 05/11/25 08:47 100 MG Mupirocin 1 applic BID EACHNOSTRI 05/10/25 22:00 05/15/25 21:59 05/11/25 08:47 1 APPLIC Potassium Chloride 100 ml @ 50 mls/hr Q2H IV 05/11/25 15:45 05/11/25 19:44 05/11/25 17:26 50 MLS/HR Examination: GENERAL:Abnormal, LUNGS:Abnormal, MSK:Abnormal, NEURO:Abnormal laboratory and microbiology Laboratory Tests 05/11/25 10:47 Test 05/11/25 10:47 Range/Units Serum Glucose 110 H 74-106 mg/dL Microbiology Date/Time Source Procedure Growth Status 05/09/25 18:30 Nose MRSA Screen - Final Methicillin Resistant S.aureus Complete 05/08/25 21:37 Blood Blood Culture - Preliminary Resulted Problem List/Assessment/Plan Problem List/Assessment/Plan Acute kidney injury prerenal due to volume depletion Hypernatremia due to volume depletion No previous CKD Cognitive impairment at baseline Continue with the F2T-dcblbh rate once po intake better-ok to dc d5w in next 24 hrs i will sign off this case/pls reconsult if needed Plan discussed with: Other Dietary Evaluation Review Comments: CCHO-60 diet. glucerna 240ml PO BID when pt is off NPO. Expected Outcomes/Goals: Promote gradual wt gain JAQUI RODRIGUEZ MD May 11, 2025 18:32
[2025-05-11] MEDS: D5W 5% 1,000 ML IV SCH (18:35)
[2025-05-11 22:36] LABS: Potassium 3.7 mmol/L (3.5-5.1); Sodium 145 mmol/L (136-145)
[2025-05-11 22:37] LABS: Anion Gap 8 (5-15); Carbon Dioxide 25 mmol/L (20-31)
[2025-05-11 22:42] LABS: BUN/Creatinine Ratio 18.8 (10.0-20.0); Blood Urea Nitrogen 19 mg/dL (9-23); Glucose 103 mg/dL (74-106)
[2025-05-11 22:55] LABS: Calcium 8.4 mg/dL (8.7-10.4); Chloride 112 mmol/L (98-107)
[2025-05-12] VITALS (8 sets, daily range): BP systolic 123–149; BP diastolic 84–105; PULSE 80–90; RESP 14–18; TEMP 97.8–98.4; O2SAT 95–100
[2025-05-12 05:25] LABS: Anion Gap 8 (5-15); Carbon Dioxide 27 mmol/L (20-31); Potassium 3.6 mmol/L (3.5-5.1); Sodium 143 mmol/L (136-145)
[2025-05-12 05:31] LABS: BUN/Creatinine Ratio 18.9 (10.0-20.0); Blood Urea Nitrogen 18 mg/dL (9-23); Glucose 104 mg/dL (74-106)
[2025-05-12 05:33] LABS: Hemoglobin 12.9 g/dL (13.5-17.5)
[2025-05-12 05:34] LABS: Calcium 8.0 mg/dL (8.7-10.4); Chloride 108 mmol/L (98-107)
[2025-05-12 05:35] LABS: Hematocrit 37.3 % (41.0-53.0); Mean Corpuscular Hemoglobin 32.1 pg (28.0-32.0); Mean Corpuscular Volume 92.9 fL (80.0-100.0)
--- NOTE | 2025-05-12 05:44 | DVH ---
CHEST RADIOGRAPH Indication: Verify NG Tube Placement Technique: Single frontal view of the chest was obtained COMPARISON: XY CHEST PORTABLE on DOS: 05/09/25, XY CHEST PORTABLE on DOS: 05/08/25, XY CHEST PORTABLE o n DOS: 11/25/24, XY CHEST PORTABLE on DOS: 10/24/24, XY CHEST PORTABLE on DOS: 08/29/24 FINDINGS: Lines and Tubes: Nasogastric tube in satisfactory position. Lungs: Clear Pleura: No effusion. No pneumothorax. Cardiomediastinal contours: Unremarkable Bones: Unremarkable IMPRESSION: Nasogastric tube in satisfactory position.
[2025-05-12 06:02] LABS: Total Cells Counted 100.0 (100)
[2025-05-12 10:38] LABS: Anion Gap 8 (5-15); Carbon Dioxide 29 mmol/L (20-31); Potassium 3.8 mmol/L (3.5-5.1); Sodium 144 mmol/L (136-145)
[2025-05-12 10:39] LABS: Calcium 9.0 mg/dL (8.7-10.4)
[2025-05-12 10:44] LABS: BUN/Creatinine Ratio 17.4 (10.0-20.0); Blood Urea Nitrogen 19 mg/dL (9-23)
[2025-05-12 10:47] LABS: Chloride 107 mmol/L (98-107); Glucose 131 mg/dL (74-106)
--- NOTE | 2025-05-12 13:19 | DVHPN2 ---
Assessment/Plan Assessment/Plan progress note 54 yo M with hx of schizophrenia, TBI livign in [facility] admitted for AMS. seen today. more alert. hypona resolved. pending speech eval physical exam AOx1 to self PERRLA dry mucous membrane, poor oral hygiene CTAB s1 s2 rrr abdomen soft no le edema sklin dry labs egk imaging reviewed assessment and plan acute toxic metabolic encephalopathy hypovolemic hypernatremia severe dehydration likely due to poor oral intake SRINIVAS likely hemodynamic mediated seizures? schizophrenia? HTN c/w d5w @ 125, q12 BMP, aim to decrease by 6-10 per 24h obtain colateral empiric abx coverage keep NPO NGT for now resume home meds trend cr strict i/o ucx tele diet tube feed dvt ppx lovenox condition critical full code Plan discussed with: Patient My Orders Orders - VIRIDIANA MARAVILLA MD Procedure Category Date Status Time Chest Xray 1 View XY 05/12/25 Resulted 03:30 Npo (Nothing By DIET 05/12/25 Transmitted Mouth) Diet Lunch Lactated Ringer's PHA 05/12/25 In Process 12:00 Date of Service: May 12, 2025 Billing Provider: VIRIDIANA MARAVILLA MD Common Visit Codes: [id number] INP/OBS CARE(HIGH) VIRIDIANA MARAVILLA MD May 12, 2025 13:19
[2025-05-12] MEDS: LACTATED RINGER'S 1,000 ML IV SCH (14:51)
[2025-05-13] VITALS (8 sets, daily range): BP systolic 131–145; BP diastolic 87–107; PULSE 74–106; RESP 16–20; TEMP 97.8–100.4; O2SAT 96–100
[2025-05-13 06:41] LABS: Anion Gap 10 (5-15); Carbon Dioxide 28 mmol/L (20-31)
[2025-05-13 06:42] LABS: Calcium 9.3 mg/dL (8.7-10.4)
[2025-05-13 06:47] LABS: BUN/Creatinine Ratio 16.7 (10.0-20.0); Blood Urea Nitrogen 15 mg/dL (9-23); Glucose 88 mg/dL (74-106)
[2025-05-13 06:48] LABS: Chloride 108 mmol/L (98-107); Potassium 3.4 mmol/L (3.5-5.1); Sodium 146 mmol/L (136-145)
--- NOTE | 2025-05-13 22:34 | DVHPN2 ---
Assessment/Plan Assessment/Plan progress note 54 yo M with hx of schizophrenia, TBI livign in [facility] admitted for AMS. seen today. pending swallow eval physical exam AOx1 to self PERRLA dry mucous membrane, poor oral hygiene CTAB s1 s2 rrr abdomen soft no le edema sklin dry labs egk imaging reviewed assessment and plan acute toxic metabolic encephalopathy hypovolemic hypernatremia severe dehydration likely due to poor oral intake SRINIVAS likely hemodynamic mediated seizures? schizophrenia? HTN c/w d5w @ 125, q12 BMP, aim to decrease by 6-10 per 24h obtain colateral empiric abx coverage keep NPO NGT for now resume home meds trend cr strict i/o ucx tele diet tube feed dvt ppx lovenox condition critical full code Plan discussed with: Patient My Orders Orders - VIRIDIANA MARAVILLA MD Procedure Category Date Status Time * Swallow Request ST 05/13/25 Transmitted 11:48 Communication Order ORDERS 05/13/25 Transmitted 11:48 Date of Service: May 13, 2025 Billing Provider: VIRIDIANA MARAVILLA MD Common Visit Codes: [id number] INP/OBS CARE(HIGH) VIRIDIANA MARAVILLA MD May 13, 2025 22:34
[2025-05-14] VITALS (9 sets, daily range): BP systolic 102–148; BP diastolic 72–98; PULSE 58–97; RESP 12–24; TEMP 98.6–100.6; O2SAT 96–100
[2025-05-14] MEDS: VALPROIC ACID 250 MG/5 ML ORAL SOLN PO SCH (09:23)
--- NOTE | 2025-05-14 13:10 | DVHPN2 ---
Assessment/Plan Assessment/Plan progress note 54 yo M with hx of schizophrenia, TBI livign in [facility] admitted for AMS. seen today. pending swallow eval. start tube feeding in the interim physical exam AOx1 to self PERRLA dry mucous membrane, poor oral hygiene CTAB s1 s2 rrr abdomen soft no le edema sklin dry labs egk imaging reviewed assessment and plan acute toxic metabolic encephalopathy hypovolemic hypernatremia severe dehydration likely due to poor oral intake SRINIVAS likely hemodynamic mediated seizures? schizophrenia? HTN hypok c/w d5w @ 125, q12 BMP, aim to decrease by 6-10 per 24h obtain colateral empiric abx coverage keep NPO NGT for now resume home meds trend cr strict i/o ucx tele diet tube feed dvt ppx lovenox condition critical full code Plan discussed with: Other My Orders Orders - VIRIDIANA MARAVILLA MD Procedure Category Date Status Time Valproic Acid Oral PHA 05/14/25 In Process Soln (Depakene Oral S 10:00 Nutritional PHA 05/14/25 Transmitted Supplements (Jevity 13:15 Tube Feeding NOURISH 05/14/25 Transmitted 13:07 Tube Feeding DIET 05/14/25 Transmitted Lunch * Swallow Request ST 05/14/25 Transmitted 13:07 Swallow Eval Follow Up NATALIIA 05/14/25 Transmitted 13:07 Date of Service: May 14, 2025 Billing Provider: VIRIDIANA MARAVILLA MD Common Visit Codes: [id number] INP/OBS CARE(HIGH) VIRIDIANA MARAVILLA MD May 14, 2025 13:10
[2025-05-14] MEDS: POTASSIUM CHL 20MEQ/100ML 100 ML IV ONE (13:15)
[2025-05-15] VITALS (7 sets, daily range): BP systolic 98–126; BP diastolic 66–89; PULSE 48–201; RESP 14–20; TEMP 97.6–99.7; O2SAT 94–100
[2025-05-15] MEDS: Jevity 1.2 Cal/Fiber 1 Liter GT SCH (00:41)
[2025-05-15] MEDS: LACTATED RINGER'S 1,000 ML IV SCH (02:45)
[2025-05-15 08:13] LABS: Anion Gap 7 (5-15); Carbon Dioxide 29 mmol/L (20-31)
[2025-05-15 08:18] LABS: BUN/Creatinine Ratio 30.9 (10.0-20.0); Glucose 104 mg/dL (74-106)
[2025-05-15 08:28] LABS: Blood Urea Nitrogen 25 mg/dL (9-23); Calcium 8.3 mg/dL (8.7-10.4); Chloride 112 mmol/L (98-107); Potassium 3.4 mmol/L (3.5-5.1); Sodium 148 mmol/L (136-145)
--- NOTE | 2025-05-15 13:19 | DVHPN2 ---
Assessment/Plan Assessment/Plan progress note 54 yo M with hx of schizophrenia, TBI livign in [facility] admitted for AMS. seen today. swallow eval scheduled for tomorrow physical exam AOx1 to self PERRLA dry mucous membrane, poor oral hygiene CTAB s1 s2 rrr abdomen soft no le edema sklin dry labs egk imaging reviewed assessment and plan acute toxic metabolic encephalopathy hypovolemic hypernatremia severe dehydration likely due to poor oral intake SRINVIAS likely hemodynamic mediated seizures? schizophrenia? HTN hypok c/w d5w @ 125, q12 BMP, aim to decrease by 6-10 per 24h obtain colateral empiric abx coverage keep NPO NGT for now resume home meds trend cr strict i/o ucx tele diet tube feed dvt ppx lovenox condition critical full code Plan discussed with: Other Date of Service: May 15, 2025 Billing Provider: VIRIDIANA MARAVILLA MD Common Visit Codes: [id number] INP/OBS CARE(HIGH) VIRIDIANA MARAVILLA MD May 15, 2025 13:19
[2025-05-16] VITALS (62 sets, daily range): BP systolic 78–144; BP diastolic 5–107; PULSE 51–123; RESP 12–18; TEMP 96.6–99; O2SAT 64–100
[2025-05-16 07:37] LABS: Hematocrit 36.0 % (41.0-53.0); Hemoglobin 12.2 g/dL (13.5-17.5); Mean Corpuscular Hemoglobin 31.5 pg (28.0-32.0); Mean Corpuscular Volume 93.2 fL (80.0-100.0); Nucleated Red Blood Cells % 0.0 %
[2025-05-16 07:44] LABS: Anion Gap 9 (5-15); Carbon Dioxide 28 mmol/L (20-31)
[2025-05-16 07:47] LABS: Calcium 8.5 mg/dL (8.7-10.4); Chloride 112 mmol/L (98-107); Potassium 3.5 mmol/L (3.5-5.1); Sodium 149 mmol/L (136-145)
[2025-05-16 07:50] LABS: BUN/Creatinine Ratio 28.4 (10.0-20.0)
[2025-05-16 07:56] LABS: Blood Urea Nitrogen 23 mg/dL (9-23); Glucose 108 mg/dL (74-106)
[2025-05-16 08:49] LABS: Magnesium 2.0 mg/dL (1.6-2.6)
[2025-05-16] MEDS: NOREPINEPHRINE 8 MG/250ML KIT 250 ML IV ONE (10:32)
[2025-05-16] MEDS: fentaNYL Drip 2500mCg/250mlNS 250 ML IV ONE (10:32)
[2025-05-16] MEDS: ETOMIDATE (2MG/ML) 20ML VIAL IV ONE ×2 (10:32→10:41)
[2025-05-16] MEDS: ROCURONIUM 10MG/ML 10ML VIAL IV ONE ×3 (10:32→11:45)
[2025-05-16] MEDS: PROPOFOL 100 ML IV ONE (10:32)
[2025-05-16] MEDS: NOREPINEPHRINE 8 MG/250ML KIT 250 ML IV SCH (10:50)
--- NOTE | 2025-05-16 11:02 | DVH ---
CHEST XRAY: 1 view(s) was obtained HISTORY: SOB/ DECREASED SPO2 COMPARISON: XY CHEST XRAY 1 VIEW on DOS: 05/12/25, XY CHEST PORTABLE on DOS: 05/09/25, XY CHEST PORTABL E on DOS: 05/08/25, XY CHEST PORTABLE on DOS: 11/25/24, XY CHEST PORTABLE on DOS: 10/24/24 FINDINGS: The patient is rotated. There is a large right pleural effusion. There is cutoff of the right upper a nd intermediate bronchus. Cardiomediastinal solid partially obscured. No acute osis abnormality. IMPRESSION: 1. Large right pleural effusion with superimposed obstruction / atelactasis of the right lung airways which may be secondary to mucus plugging. Findings are new when compared to 05/12/25.
[2025-05-16] MEDS: PHENYLEPHRINE IV 250 ML IV ONE (11:14)
[2025-05-16] MEDS: VASOPRESSIN 20 UNIT/ML ONE (11:14)
[2025-05-16] MEDS: PHENYLEPHRINE IV 250 ML IV SCH (11:45)
[2025-05-16] MEDS: VASOPRESSIN 20 UNITS in SODIUM CHL 0.9% 99 ML IV SCH (11:45)
--- NOTE | 2025-05-16 11:50 | DVH ---
EXAM: XY CHEST XRAY 1 VIEW CLINICAL HISTORY: post intubation/ central line insertion TECHNIQUE: Single AP view of the chest WID: COMPARISON: XY CHEST XRAY 1 VIEW on DOS: 05/16/25 FINDINGS: Lines and tubes: Endotracheal tube in place projecting 3.2 cm above the sarbjit. Gastric tube in place with the tip appearing at the gastroesophageal junction. Defibrillator pads project over the left up per quadrant and left lower chest. Right subclavian central venous catheter with the tip projecting o josé manuel the low SVC. Chest: The heart size and pulmonary vasculature is within normal limits. Complete opacification of the right lung. Shifting of the trachea to the right. The left lung is christ r. The osseous structures are grossly intact. IMPRESSION: 1. Endotracheal tube projects above the sarbjit. Right subclavian central venous catheter in place as described. 2. Gastric tube in place with the tip appearing at the gastroesophageal junction and should be advanc ed at least 6 cm for more optimal positioning. 3. Complete opacification of the right lung which could reflect right lung atelectasis and/or effusio n.
[2025-05-16] MEDS: PROPOFOL 100 ML IV SCH (12:50)
[2025-05-16] MEDS: fentaNYL Drip 2500mCg/250mlNS 250 ML IV SCH (12:50)
--- NOTE | 2025-05-16 13:01 | DVHPN2 ---
Assessment/Plan Assessment/Plan progress note 54 yo M with hx of schizophrenia, TBI livign in [facility] admitted for AMS. seen today. hypoxic, placed on NRM with no improvement, xray with whiteout Right lung. decision made to intubate. bronch done after by pulm with mucous plugs. o2 sat improving. physical exam intubated, sedated on mechanical vent PERRLA dry mucous membrane, poor oral hygiene CTAB s1 s2 rrr abdomen soft no le edema skin dry labs egk imaging reviewed assessment and plan acute toxic metabolic encephalopathy acute hypoxic RF req mechanical ventilation septic shock mucous plug atelectasis hypovolemic hypernatremia severe dehydration likely due to poor oral intake SRINIVAS likely hemodynamic mediated seizures? schizophrenia? HTN hypok c/w mech vent pulm consult c/w pressors maintain MAP >65 c/w sedation RAAS -3 obtain colateral empiric abx coverage, escalating keep NPO NGT for now resume home meds trend cr strict i/o ucx admit to ICU lovenox diet tube feed dvt ppx lovenox condition critical prognosis poor full code critical care time spent 120 minutes Plan discussed with: Other My Orders Orders - VIRIDIANA MARAVILLA MD Procedure Category Date Status Time * Swallow Request ST 05/15/25 Transmitted 13:21 Abg W/ Co-Ox RT 05/16/25 Logged 10:15 Chest Xray 1 View XY 05/16/25 Resulted 10:15 Abg W/ Co-Ox RT 05/16/25 Logged 10:17 Chest Xray 1 View XY 05/16/25 Resulted 11:09 Ventilator Orders RT 05/16/25 Transmitted 11:10 Abg W/ Co-Ox RT 05/16/25 Logged 12:00 Respiratory Culture PRATEEK 05/16/25 In Process W/ Gs 11:10 Norepinephrine 8 PHA 05/16/25 In Process Mg/250ml Kit 11:45 Phenylephrine Iv PHA 05/16/25 In Process (Phenylephrine/Ns) 11:45 Sodium Chl 0.9% PHA 05/16/25 In Process (So... W/Vasopressin 11:45 Propofol (Diprivan) PHA 05/16/25 In Process 11:45 Fentanyl Drip PHA 05/16/25 In Process 2500mcg/250mlns 11:45 Communication Order ORDERS 05/16/25 Transmitted 11:47 Chest Portable XY 05/16/25 Taken 12:38 Date of Service: May 16, 2025 Billing Provider: VIRIDIANA MARAVILLA MD Common Visit Codes: [id number] CARE 30-74 MIN, [id number] CARE-EACH +30MIN VIRIDIANA MARAVILLA MD May 16, 2025 13:01
--- NOTE | 2025-05-16 13:04 | DVHNC2 ---
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 of talent acquisition relationship manager: Attending Physician Indication: Hypotension Computer Analyst Supervisor performed hand hygien: Yes Maximal sterile barrier precau: Mask/Eye shield, Sterile gown, Cap, Sterlie gloves, Large sterlie drape Skin Preparation: Chlorhexidine gluconate Insertion site: Right, Supraclavicular Central line catheter type: Mgs-ohjnluos-lib dialysis Number of lumens: 3 Post Assessment: Chest X-Ray, Proper placement, No Pneumothorax Date of Service: May 16, 2025 Billing Provider: VIRIDIANA MARAVILLA MD Common Visit Codes: PROCEDURE ONLY Procedure Codes: [id number] NON-TUNNEL CV CATH VIRIDIANA MARAVILLA MD May 16, 2025 13:04
[2025-05-16] MEDS ORDERED: VANCOMYCIN PER PHARMACY 0 MG IV SCH (13:15)
[2025-05-16] MEDS ORDERED: ATROPINE SULF 1 MG/10ml SYR IV ONE (13:40)
[2025-05-16] MEDS ORDERED: EPINEPHrine HCL 1 MG/10 ML SYRG IV ONE (13:42)
[2025-05-16 13:50] LABS: Base Excess 0.6 mmol/L (-2.0-3.0)
[2025-05-16] MEDS: CEFEPIME 1GM/ 50ML 50 ML IV SCH (13:54)
[2025-05-16] MEDS: ENOXAPARIN SOD 40 MG/0.4 ML SYRINGE SC ONE (13:54)
[2025-05-16 14:06] LABS: Hematocrit 35.3 % (41.0-53.0); Hemoglobin 11.7 g/dL (13.5-17.5); Mean Corpuscular Hemoglobin 31.1 pg (28.0-32.0); Mean Corpuscular Volume 93.7 fL (80.0-100.0); Nucleated Red Blood Cells % 0.0 %
[2025-05-16 14:21] LABS: Alanine Aminotransferase 15 U/L (7-40); Alkaline Phosphatase 53 U/L (46-116); Anion Gap 9 (5-15); BUN/Creatinine Ratio 26.7 (10.0-20.0); Bilirubin, Total 0.5 mg/dL (0.2-1.0); Blood Urea Nitrogen 23 mg/dL (9-23); Carbon Dioxide 27 mmol/L (20-31)
[2025-05-16 14:23] LABS: Albumin 3.0 g/dL (3.2-4.8); Calcium 8.0 mg/dL (8.7-10.4); Chloride 113 mmol/L (98-107); Glucose 148 mg/dL (74-106); Potassium 3.3 mmol/L (3.5-5.1); Sodium 149 mmol/L (136-145); Total Protein 5.5 g/dL (5.7-8.2)
[2025-05-16] MEDS: VANCOMYCIN 1GM/200ML PM 250 ML IV SCH (14:54)
--- NOTE | 2025-05-16 15:05 | DVH ---
EXAM: XY CHEST PORTABLE CLINICAL HISTORY: S/P BRONCHOSCOPY TECHNIQUE: Single AP view of the chest WID: COMPARISON: XY CHEST XRAY 1 VIEW on DOS: 05/16/25 FINDINGS: Lines and tubes: Endotracheal tube projects 3.7 cm above the sarbjit. A gastric tube tip projects ove r the body of the stomach. Right subclavian central venous catheter with the tip projecting over the low SVC. Chest: The heart size and pulmonary vasculature is within normal limits. Significant improvement in right lung consolidation, nearly resolved. No pneumothorax. The osseous structures are grossly intact. A few healed posterior right rib fracture deformities are seen. IMPRESSION: Significant improvement in right lung consolidation status post bronchoscopy likely resolution of rig ht lung atelectasis.
[2025-05-16] MEDS: POTASSIUM CHL 20MEQ/100ML 100 ML IV SCH (15:41)
--- NOTE | 2025-05-16 16:01 | DVHINCON2 ---
Date of service: May 16, [address] Gonzalez Reason for Consultation Acute respiratory failure History of Present Illness History Source: Patient, RN Notes, MD Notes Exam Limitations: Clinical condition HPI Patient is a 54-year old gentleman with a history of TBI who presented with altered mental status. Was seen in the emergency room where CT of the brain was negative for acute abnormalities and the patient was admitted for further workup. During admission, patient developed respiratory arrest and required emergent intubation. After intubation, there were significant difficulties ventilating patient requiring manual bagging. Chest x-ray demonstrates complete collapse of the right lung and pulmonology was consulted to assist in management. Home Meds Active Scripts Melatonin (Melatonin) 5 Mg Tab, 5 MG PO HS, #30 TAB Prov:GWENDOLYN FERREIRA MD 07/06/24 Reported Medications Losartan Potassium (Losartan Potassium) 50 Mg Tab, 50 MG PO DAILY for 30 Days, MG 05/09/25 Quetiapine Fumerate (QUETIAPINE FUMARATE) 200 Mg Tab, 200 MG PO BIDAC for 30 D ays, MG 05/09/25 Lorazepam (ATIVAN TABLET) 0.5 Mg Tb, 2 TAB PO QIDP PRN for ANXIETY, #90 TAB 05/09/25 Divalproex Sodium (Divalproex Sodium) 250 Mg Tab, 750 MG PO BID for 30 Days, MG 05/09/25 Benztropine Mesylate (Benztropine Mesylate) 1 Mg Tab, 1 MG PO DAILY, TAB 01/26/25 Amlodipine Besylate (NORVASC TABLET) 5 Mg Tb, 10 MG PO DAILY, TAB 01/26/25 Lisinopril (Lisinopril) 40 Mg Tab, 40 MG PO DAILY, TAB 01/26/25 Lactulose (Lactulose) 10 Gm/15 Ml Mahnaz, 30 ML PO DAILY, ML 01/26/25 Past Medical History Cardiac: No pertinent Hx Pulmonary: No pertinent Hx Central Nervous System: Other (TBI) GI: No pertinent Hx Hemotology/Oncology: No pertinent Hx Hepatobiliary: No pertinent Hx Psychiatric: No pertinent Hx Musculoskeletal: No pertinent Hx Rheumotologic: No pertinent Hx Infectious Disease: No peritnent Hx ENT: No pertinent Hx Renal/: No pertinent Hx Endocrine: No pertinent Hx Dermatology: No pertinent Hx Past Surgical History: No pertinent Hx Family History: No pertinent Hx Patient Family History: Patient reports no known family medical history. Smoker: No Hx (Negative) Alocohol: None Drugs: None Domestic Violence: Neg Review of Systems Comments unable to perform d/t intubated status H&P Exam Vital Signs Vital Signs Date Time Temp Pulse Resp B/P (MAP) Pulse Ox O2 Delivery O2 Flow Rate FiO2 05/16/25 15:30 100 05/16/25 15:30 70 05/16/25 15:15 16 103/74 (84) 100 05/16/25 15:14 98.3 98.3 05/16/25 08:00 Nasal Cannula* 2 General Appeara: Well developed, Well nourished, Normal Appearance Head Exam: Normal inspection Neck Exam: Normal inspection, Non-tender, Normal alignment Eye Exam: bilateral eye Normal inspection, bilateral eye PERRL, bilateral eye EOMI Ear Exam: bilateral ear Auricle normal, bilateral ear Canal normal, bilateral ear TM normal Nasal Exam: Normal inspection Mouth: Normal Inspection Pulmonary/Respiratory: Decreased breath sounds Cardiovascular/Chest: Normal inspection Peripheral Pulses: 4+ Radial (R), 4+ Radial (L), 4+ Brachial (R), 4+ Brachial (L) Abdominal Exam: Normal bowel sounds Labs/Xrays Labs Test 05/16/25 13:50 05/16/25 13:42 05/16/25 07:07 05/16/25 06:23 Range/Units White Blood Count 18.6 #H 4.4-10.8 10^3/uL Red Blood Count 3.76 L 4.5-5.90 10^6/uL Hemoglobin 11.7 L 13.5-17.5 g/dL Hematocrit 35.3 L 41.0-53.0 % Mean Corpuscular Volume 93.7 80.0-100.0 fL Mean Corpuscular Hemoglobin 31.1 28.0-32.0 pg Mean Corpuscular Hemoglobin Concent 33.2 32.0-36.0 g/dL Red Cell Distribution Width 15.2 H 11.8-14.3 % Platelet Count 331 140-450 10^3/uL Mean Platelet Volume 7.2 6.9-10.8 fL Neutrophils (%) (Auto) 81.6 H 37.0-80.0 % Lymphocytes (%) (Auto) 5.3 L 10.0-50.0 % Monocytes (%) (Auto) 11.4 0.0-12.0 % Eosinophils (%) (Auto) 1.5 0.0-7.0 % Basophils (%) (Auto) 0.2 0.0-2.0 % Neutrophils # (Auto) 15.2 H 1.6-8.6 10 ^3/uL Lymphocytes # (Auto) 1.0 0.4-5.4 10 ^3/uL Monocytes # (Auto) 2.1 H 0-1.3 10 ^3/uL Eosinophils # (Auto) 0.3 0-0.8 10 ^3/uL Basophils # (Auto) 0 0-0.2 10 ^3/uL Nucleated Red Blood Cells 0.0 % Sodium Level 149 H 136-145 mmol/L Potassium Level 3.3 L 3.5-5.1 mmol/L Chloride Level 113 H 98-107 mmol/L Carbon Dioxide Level 27 20-31 mmol/L Anion Gap 9 5-15 Blood Urea Nitrogen 23 9-23 mg/dL Creatinine 0.86 0.700-1.30 mg/dL Glomerular Filtration Rate Calc 102 >90 mL/min BUN/Creatinine Ratio 26.7 H 10.0-20.0 Serum Glucose 148 H 74-106 mg/dL Calcium Level 8.0 L 8.7-10.4 mg/dL Total Bilirubin 0.5 0.2-1.0 mg/dL Aspartate Amino Transferase (AST) 22 <34 U/L Alanine Aminotransferase (ALT) 15 7-40 U/L Alkaline Phosphatase 53 46-116 U/L Total Protein 5.5 L 5.7-8.2 g/dL Albumin 3.0 L 3.2-4.8 g/dL Blood Gas Specimen Type Arterial Blood Gas Sample Site Right radial Blood Gas Patient Temperature 37.0 Arterial Blood Date Drawn [id number] Arterial Blood pH 7.409 7.350-7.450 Arterial Blood Partial Pressure CO2 41.0 35.0-48.0 mmHg Arterial Blood Partial Pressure O2 142.3 H 83.0-108.0 mmHg Arterial Blood HCO3 25.3 21.0-28.0 mmol/L Arterial Blood Oxygen Saturation 98.6 H 94.0-98.0 % Arterial Blood Base Excess 0.6 -2.0-3.0 mmol/L Arterial Blood Oxyhemoglobin 98.2 H 94.0-98.0 % Arterial Blood Carboxyhemoglobin 0.1 L 0.5-1.5 % Arterial Blood Methemoglobin 0.3 0.0-1.5 % Rafael Test Modified Blood Gas Total Hemoglobin 12.50 L 13.5-17.5 g/dL Blood Gas Set Respiration Rate 16.0 Blood Gas Modality Vent - ac Blood Gas Spontaneous Rate 18 FiO2 % 100.0 Blood Gas Tidal Volume 450.0 Blood Gas PEEP or CPAP 8.0 Platelet Estimate Adequate Phosphorus Level 3.1 2.4-5.1 mg/dL Magnesium Level 2.0 # 1.6-2.6 mg/dL POC Glucose 110 H 70-106 mg/dl Test 05/12/25 04:54 05/11/25 10:47 05/09/25 12:53 05/09/25 09:00 Range/Units Differential Total Cells Counted 100.0 100 Neutrophils % (Manual) 76 37.0-80.0 Band Neutrophils % (Manual) 2 Lymphocytes % (Manual) 12 10.0-50.0 Monocytes % (Manual) 9 0-12 Eosinophils % (Manual) 0 0-7 Basophils % (Manual) 0 0.0-2.0 Metamyelocytes % (manual) 1 Myelocytes % (Manual) 0 Promyelocytes % (Manual) 0 Blast Cells % (Manual) 0 Reactive Lymphocytes 0 Random Vancomycin Level 5.8 5-10 ug/mL B-Type Natriuretic Peptide 17.85 0-100 pg/mL Urine Color Yellow Yellow Urine Clarity Clear Clear Urine pH 5.5 5.0-9.0 Urine Specific [place] 1.026 1.001-1.035 Urine Protein Negative Negative Urine Ketones Negative Negative Urine Blood 1+ H Negative /uL Urine Nitrite Negative Negative Urine Bilirubin Negative Negative Urine Urobilinogen 2 H Negative mg/dL Urine Leukocyte Esterase Trace Negative /uL Urine RBC 7 0 - 3 /hpf Urine Microscopic WBC 11 H 0-3 /HPF Urine Squamous Epithelial Cells Few <5 /hpf Urine Bacteria None seen None Seen /hpf Urine Mucus Few None Seen Urine Glucose Normal Normal mg/dL Urine Opiates Screen Neg NEGATIVE Urine Fentanyl Screen Neg NEGATIVE Urine Barbiturates Screen Neg NEGATIVE Urine Phencyclidine Screen Neg NEGATIVE Urine Amphetamines Screen Neg NEGATIVE Urine Benzodiazepines Screen Neg NEGATIVE Urine Cocaine Screen Neg NEGATIVE Urine Cannabinoids Screen Neg NEGATIVE Test 05/09/25 03:53 05/08/25 23:30 05/08/25 22:26 05/08/25 22:15 Range/Units Vitamin D 25-Hydroxy 23.4 L 30.0-100 ng/mL Lactic Acid Level 2.0 0.4-2.0 mmol/L Troponin I High Sensitivity 6 </=54 ng/L Blood Gas Liter Flow 6.00 Prothrombin Time 12.4 H 9.3-11.8 sec Prothrombin Time INR 1.19 H 0.9-1.15 Activated Partial Thromboplast Time 29.9 24.5-34.5 SEC Test 05/08/25 21:37 Range/Units Ammonia < 10 L 11-32 umol/L Microbiology Date/Time Source Procedure Growth Status 05/09/25 18:30 Nose MRSA Screen - Final Methicillin Resistant S.aureus Complete 05/08/25 21:37 Blood Blood Culture - Final Staphylococcus capitis Complete Assessment/Plan Plan Impression Acute hypoxemic respiratory failure Altered mental status Aspiration Pneumonia Patient seen and examined in ICU Events On mechanical ventilation S/p intubation PEEP 18, FiO2 100% Significant difficulties ventilating patient Chest x-ray demonstrates complete collapse of the right lung Bronchoscopy with bronchial washings was performed at the bedside See separate note for procedure in details Subsequent chest x-ray shows complete improvement in aeration ABG reviewed Management Vent support Titrate to maintain sats 90% or above Sedation for vent synchrony Antibiotics F/u cultures Bronchodilators Mucomyst with nebs Monitor renal function Monitor electrolytes Supplement as needed Pressors as needed for hemodynamic support To maintain a mean arterial pressure of 65 mmHg DVT prophylaxis Critical care time 35 minutes Plan discussed with: Other (Rn) YIMI GUILLEN MD May 16, 2025 16:01
--- NOTE | 2025-05-16 16:02 | DVHNC2 ---
Procedure - Procedure- Bronchoscopy and bronchial washings Indication- Collapsed right lung Procedure in detail Consent was obtained and timeout performed per protocol. The patient was placed on 100% FiO2. Olympus bronchoscope was used and passed through the endotracheal tube, tracheobronchial tree was examined. There were thick nonpurulent sec retions practically obstructing the right mainstem that were loosened up with approximately 50 cc of normal saline and thoroughly suctioned into a separate specimen container. There were no endobronchial lesions however, mucosa appeared inflamed and easily friable. After the procedure, the scope was removed. Patient tolerated the procedure well. YIMI GUILLEN MD May 16, 2025 16:02
[2025-05-16 19:44] LABS: Base Excess 3.1 mmol/L (-2.0-3.0)
[2025-05-17] VITALS (102 sets, daily range): BP systolic 81–125; BP diastolic 54–91; PULSE 49–88; RESP 9–30; TEMP 98–99; O2SAT 96–100
[2025-05-17 03:30] LABS: Potassium 3.7 mmol/L (3.5-5.1)
[2025-05-17 03:31] LABS: Anion Gap 9 (5-15); Carbon Dioxide 26 mmol/L (20-31)
[2025-05-17 03:35] LABS: Calcium 7.8 mg/dL (8.7-10.4); Chloride 113 mmol/L (98-107); Sodium 148 mmol/L (136-145)
[2025-05-17 03:36] LABS: BUN/Creatinine Ratio 26.2 (10.0-20.0); Blood Urea Nitrogen 28 mg/dL (9-23); Glucose 95 mg/dL (74-106); Magnesium 2.0 mg/dL (1.6-2.6)
--- NOTE | 2025-05-17 04:59 | DVH ---
CHEST RADIOGRAPH Indication: intubated Technique: Single frontal view of the chest was obtained COMPARISON: XY CHEST PORTABLE on DOS: 05/16/25, XY CHEST XRAY 1 VIEW on DOS: 05/16/25, XY CHEST XRAY 1 VIEW on DOS: 05/16/25, XY CHEST XRAY 1 VIEW on DOS: 05/12/25, XY CHEST PORTABLE on DOS: 05/09/25 FINDINGS: Lines and Tubes: Endotracheal tube and right central venous catheter in satisfactory position. Lungs: Clear Pleura: No effusion. No pneumothorax. Cardiomediastinal contours: Unremarkable Bones: Unremarkable IMPRESSION: Lines and tubes in satisfactory position. No significant interval change.
[2025-05-17 07:10] LABS: Base Excess 1.6 mmol/L (-2.0-3.0)
[2025-05-17] MEDS: ENOXAPARIN SOD 40 MG/0.4 ML SYRINGE SC SCH (09:53)
--- NOTE | 2025-05-17 10:31 | DVHPN2 ---
Assessment/Plan Assessment/Plan progress note 54 yo M with hx of schizophrenia, TBI living in [facility] admitted for AMS. seen today. improved after bronch. resume feeding. decreased UO, bolusing fluid physical exam intubated, sedated on mechanical vent PERRLA dry mucous membrane, poor oral hygiene CTAB s1 s2 rrr abdomen soft no le edema skin dry labs egk imaging reviewed assessment and plan acute toxic metabolic encephalopathy acute hypoxic RF req mechanical ventilation septic shock mucous plug atelectasis hypovolemic hypernatremia severe dehydration likely due to poor oral intake SRINIVAS likely hemodynamic mediated seizures? schizophrenia? HTN hypok c/w mech vent pulm consult c/w pressors maintain MAP >65 c/w sedation RAAS -3 obtain colateral empiric abx coverage, escalating NGT for now resume home meds trend cr strict i/o ucx admit to ICU lovenox diet tube feed dvt ppx lovenox condition critical prognosis poor full code critical care time spent 45 minutes Plan discussed with: Other My Orders Orders - VIRIDIANA MARAVILLA MD Procedure Category Date Status Time Chest Xray 1 View XY 05/16/25 Resulted 11:09 Ventilator Orders RT 05/16/25 Transmitted 11:10 Abg W/ Co-Ox RT 05/16/25 Logged 12:00 Respiratory Culture PRATEEK 05/16/25 In Process W/ Gs 11:10 Norepinephrine 8 PHA 05/16/25 In Process Mg/250ml Kit 11:45 Sodium Chl 0.9% PHA 05/16/25 In Process (So... W/Vasopressin 11:45 Propofol (Diprivan) PHA 05/16/25 In Process 11:45 Fentanyl Drip PHA 05/16/25 In Process 2500mcg/250mlns 11:45 Communication Order ORDERS 05/16/25 Transmitted 11:47 Chest Portable XY 05/16/25 Resulted 12:38 *Consult CONS 05/16/25 Transmitted / 13:01 Enoxaparin Sodium PHA 05/17/25 In Process (Lovenox) 10:00 Cefepime 1gm/ 50ml PHA 05/16/25 In Process (Maxipime 1gm/50ml) 14:00 Vancomycin Per PHA 05/16/25 In Process Pharmacy 13:15 Abg W/ Co-Ox RT 05/16/25 Logged 13:04 Vent Ip Init RT 05/16/25 Logged 11:10 Ventilator Orders RT 05/16/25 Transmitted 11:45 Ventilator Orders RT 05/16/25 Transmitted 12:14 Vancomycin 1.5gm/300ml PHA 05/17/25 In Process 15:00 Vancomycin,Trough LAB 05/19/25 Verified 14:00 Vancomycin Per NATALIIA 05/19/25 In Process Pharmacy Protoc 15:00 Chest Portable XY 05/17/25 Resulted 04:00 Ventilator Orders RT 05/17/25 Transmitted 09:41 Abg W/ Co-Ox RT 05/17/25 Logged 12:00 Basic Metabolic Panel LAB 05/18/25 Verified 04:00 Complete Blood Count LAB 05/18/25 Verified 04:00 Magnesium LAB 05/18/25 Verified 04:00 Phosphorus LAB 05/18/25 Verified 04:00 Lactated Ringer's PHA 05/17/25 Logged 10:30 Strict I & O NATALIIA 05/17/25 In Process 10:24 Nutritional PHA 05/17/25 Logged Supplements (Jevity 10:30 Date of Service: May 17, 2025 Billing Provider: VIRIDIANA MARAVILLA MD Common Visit Codes: [id number] CARE 30-74 MIN VIRIDIANA MARAVILLA MD May 17, 2025 10:31
[2025-05-17] MEDS: LACTATED RINGER'S 1,000 ML IV ONE (11:28)
[2025-05-17 11:54] LABS: Base Excess 0.8 mmol/L (-2.0-3.0)
[2025-05-17] MEDS: VANCOMYCIN 1.5GM/300ML 300 ML IV SCH (16:07)
[2025-05-17] MEDS: DEXTROSE (50%) 50ML SYRG IV PRN (17:42)
--- NOTE | 2025-05-17 19:10 | DVHPN2 ---
Progress Note - Dictate Date Seen: May 17, 2025 Medical Necessity Reason Pt with a Central, PICC or Fol: Yes The following are medically ne: Chew Catheter vital signs Vital Sign Date Time Temp Pulse Resp B/P (MAP) Pulse Ox O2 Delivery O2 Flow Rate FiO2 05/17/25 18:35 61 16 105/75 (85) 97 30 05/17/25 16:00 98.0 98.0 05/17/25 08:00 Mechanical Ventilator+ 05/16/25 20:00 16 Total Intake and Output 05/16/25 05/16/25 05/17/25 15:00 23:00 07:00 Intake Total 314.467 ml 229.811 ml 263.384 ml Output Total 400 ml 125 ml Balance 314.467 ml -170.189 ml 138.384 ml medications Current Medications Medications Dose Ordered Sig/Negra Route Start Time Stop Time Status Last Admin Dose Admin Diagnostic Test (Pha) 1 strip Q6HR 05/09/25 18:00 05/17/25 17:43 1 STRIP Insulin Human Regular Q6HR SC 05/09/25 18:00 Dextrose 50 ml UD PRN IV 05/09/25 13:30 05/17/25 17:42 50 ML Quetiapine Fumarate 100 mg BID PO 05/09/25 22:00 05/17/25 09:53 100 MG Valproate Sodium 750 mg BID PO 05/14/25 10:00 05/17/25 09:53 750 MG Norepinephrine Bitartrate 250 ml @ 3.75 mls/hr Q24H IV 05/16/25 11:45 05/17/25 06:11 11.25 MLS/HR Vasopressin 20 units/Sodium Chloride 100 ml @ 9 mls/hr Q11H7M IV 05/16/25 11:45 Propofol 100 ml @ 2.739 mls/ hr Q24H IV 05/16/25 11:45 05/17/25 09:55 2.739 MLS/HR Fentanyl Citrate 250 ml @ 2.5 mls/hr Q24H IV 05/16/25 11:45 05/16/25 12:50 2.5 MLS/HR Enoxaparin Sodium 40 mg DAILY SC 05/17/25 10:00 05/17/25 09:53 40 MG Cefepime HCl 50 ml @ 12.5 mls/hr Q8HR IV 05/16/25 14:00 05/17/25 13:38 12.5 MLS/HR Vancomycin HCl 0 ml @ 0 mls/hr UD IV 05/16/25 13:15 Vancomycin HCl 300 ml @ 200 mls/hr DAILY@1500 IV 05/17/25 15:00 05/17/25 16:07 200 MLS/HR Enteral Nutritional Formula 1,000 ml 30ML/HR GT 05/17/25 10:30 laboratory and microbiology Laboratory Tests 05/17/25 02:58 05/16/25 13:50 Test 05/17/25 02:58 Range/Units Serum Glucose 95 74-106 mg/dL Assessment/Plan Impression Acute hypoxemic respiratory failure Altered mental status Aspiration Pneumonia Patient seen and examined in ICU Events On mechanical ventilation S/p intubation Patient improving, on minimal settings PEEP 5, FiO2 30% Labs and imaging reviewed Chest x-ray shows improved lung aeration ABG reviewed pH 7.43, pCO2 39, pO2 82 Management Vent support Titrate to maintain sats 90% or above Sedation holiday If patient follows commands, proceed to weaning trial Pressure support 7/5, extubate when ready Continue antibiotics F/u cultures Bronchodilators Mucomyst with nebs Monitor renal function Monitor electrolytes Supplement as needed Pressors as needed for hemodynamic support To maintain a mean arterial pressure of 65 mmHg DVT prophylaxis Critical care time 35 minutes Dietary Evaluation Review Comments: CCHO-60 diet. glucerna 240ml PO BID when pt is off NPO. Expected Outcomes/Goals: Promote gradual wt gain Plan discussed with: Other (Rn) YIMI GUILLEN MD May 17, 2025 19:10
[2025-05-18] VITALS (104 sets, daily range): BP systolic 95–146; BP diastolic 64–97; PULSE 53–102; RESP 9–23; TEMP 97.8–99.3; O2SAT 97–100
[2025-05-18 03:43] LABS: Anion Gap 8 (5-15); Carbon Dioxide 27 mmol/L (20-31); Potassium 3.7 mmol/L (3.5-5.1)
[2025-05-18 03:48] LABS: Glucose 83 mg/dL (74-106)
[2025-05-18 03:49] LABS: BUN/Creatinine Ratio 34.2 (10.0-20.0); Magnesium 2.0 mg/dL (1.6-2.6)
[2025-05-18 03:51] LABS: Hematocrit 29.0 % (41.0-53.0); Hemoglobin 9.9 g/dL (13.5-17.5); Mean Corpuscular Hemoglobin 31.7 pg (28.0-32.0); Mean Corpuscular Volume 93.2 fL (80.0-100.0); Nucleated Red Blood Cells % 0.0 %
[2025-05-18 03:55] LABS: Blood Urea Nitrogen 26 mg/dL (9-23); Calcium 7.7 mg/dL (8.7-10.4); Chloride 112 mmol/L (98-107); Sodium 147 mmol/L (136-145)
[2025-05-18 06:14] LABS: Base Excess 1.8 mmol/L (-2.0-3.0)
--- NOTE | 2025-05-18 10:32 | DVHPN2 ---
Assessment/Plan Assessment/Plan progress note 54 yo M with hx of schizophrenia, TBI living in [facility] admitted for AMS. seen today. not tolerating cpap. UO still minimal, gfr stable. more IVF. will get brain MRI once able physical exam intubated, sedated on mechanical vent PERRLA dry mucous membrane, poor oral hygiene CTAB s1 s2 rrr abdomen soft no le edema skin dry labs egk imaging reviewed assessment and plan acute toxic metabolic encephalopathy acute hypoxic RF req mechanical ventilation septic shock mucous plug atelectasis hypovolemic hypernatremia severe dehydration likely due to poor oral intake SRINIVAS likely hemodynamic mediated seizures? schizophrenia? HTN hypok c/w mech vent pulm consult c/w pressors maintain MAP >65 c/w sedation RAAS -3 obtain colateral empiric abx coverage, escalating NGT for now resume home meds trend cr strict i/o ucx admit to ICU lovenox diet tube feed dvt ppx lovenox condition critical prognosis poor full code critical care time spent 45 minutes Plan discussed with: Patient Date of Service: May 18, 2025 Billing Provider: VIRIDIANA MARAVILLA MD Common Visit Codes: [id number] CARE 30-74 MIN VIRIDIANA MARAVILLA MD May 18, 2025 10:32
[2025-05-18] MEDS: LACTATED RINGER'S 1,000 ML IV ONE (11:26)
--- NOTE | 2025-05-18 12:52 | DVHPN2 ---
Progress Note - Dictate Date Seen: May 18, 2025 Medical Necessity Reason Pt with a Central, PICC or Fol: Yes The following are medically ne: Chew Catheter vital signs Vital Sign Date Time Temp Pulse Resp B/P (MAP) Pulse Ox O2 Delivery O2 Flow Rate FiO2 05/18/25 12:23 73 16 115/76 (89) 100 30 05/18/25 11:30 98.3 98.3 05/18/25 08:00 Mechanical Ventilator+ 05/16/25 20:00 16 Total Intake and Output 05/17/25 05/17/25 05/18/25 15:00 23:00 07:00 Intake Total 167.390 ml 333.173 ml 286.5 ml Output Total 400 ml 300 ml Balance 167.390 ml -66.827 ml -13.5 ml medications Current Medications Medications Dose Ordered Sig/Negra Route Start Time Stop Time Status Last Admin Dose Admin Diagnostic Test (Pha) 1 strip Q6HR 05/09/25 18:00 05/18/25 11:26 1 STRIP Insulin Human Regular Q6HR SC 05/09/25 18:00 Dextrose 50 ml UD PRN IV 05/09/25 13:30 05/17/25 17:42 50 ML Quetiapine Fumarate 100 mg BID PO 05/09/25 22:00 05/18/25 09:46 100 MG Valproate Sodium 750 mg BID PO 05/14/25 10:00 05/18/25 09:46 750 MG Norepinephrine Bitartrate 250 ml @ 3.75 mls/hr Q24H IV 05/16/25 11:45 05/17/25 06:11 11.25 MLS/HR Vasopressin 20 units/Sodium Chloride 100 ml @ 9 mls/hr Q11H7M IV 05/16/25 11:45 Propofol 100 ml @ 2.739 mls/ hr Q24H IV 05/16/25 11:45 05/17/25 09:55 2.739 MLS/HR Fentanyl Citrate 250 ml @ 2.5 mls/hr Q24H IV 05/16/25 11:45 05/18/25 08:56 5 MLS/HR Enoxaparin Sodium 40 mg DAILY SC 05/17/25 10:00 05/18/25 09:46 40 MG Cefepime HCl 50 ml @ 12.5 mls/hr Q8HR IV 05/16/25 14:00 05/18/25 05:37 12.5 MLS/HR Vancomycin HCl 0 ml @ 0 mls/hr UD IV 05/16/25 13:15 Vancomycin HCl 300 ml @ 200 mls/hr DAILY@1500 IV 05/17/25 15:00 05/17/25 16:07 200 MLS/HR Enteral Nutritional Formula 1,000 ml 30ML/HR GT 05/17/25 10:30 Lactated Ringer's 1,000 ml @ 50 mls/hr Q20H IV 05/18/25 14:00 laboratory and microbiology Laboratory Tests 05/18/25 02:56 Test 05/18/25 02:56 Range/Units Serum Glucose 83 74-106 mg/dL Assessment/Plan Impression Acute hypoxemic respiratory failure Altered mental status Aspiration Pneumonia Patient seen and examined in ICU Events On mechanical ventilation S/p intubation PEEP 5, FiO2 30% Labs and imaging reviewed ABG reviewed Management Vent support Titrate to maintain sats 90% or above Sedation holiday daily If patient follows commands, proceed to weaning trial Pressure support 05/29, extubate when ready Continue antibiotics F/u cultures Bronchodilators Mucomyst with nebs Monitor renal function Monitor electrolytes Supplement as needed Pressors as needed for hemodynamic support To maintain a mean arterial pressure of 65 mmHg DVT prophylaxis Critical care time 35 minutes Dietary Evaluation Review Comments: CCHO-60 diet. glucerna 240ml PO BID when pt is off NPO. Expected Outcomes/Goals: Promote gradual wt gain Plan discussed with: Other (Rn) YIMI GUILLEN MD May 18, 2025 12:52
[2025-05-18] MEDS: LACTATED RINGER'S 1,000 ML IV SCH (13:38)
[2025-05-19] VITALS (109 sets, daily range): BP systolic 97–150; BP diastolic 65–107; PULSE 52–114; RESP 9–21; TEMP 98.2–98.9; O2SAT 86–100
[2025-05-19 03:35] LABS: Hematocrit 27.9 % (41.0-53.0); Hemoglobin 9.6 g/dL (13.5-17.5); Mean Corpuscular Hemoglobin 31.8 pg (28.0-32.0); Mean Corpuscular Volume 92.7 fL (80.0-100.0); Nucleated Red Blood Cells % 0.0 %
[2025-05-19 03:54] LABS: Anion Gap 6 (5-15); Carbon Dioxide 29 mmol/L (20-31); Potassium 3.6 mmol/L (3.5-5.1); Sodium 145 mmol/L (136-145)
[2025-05-19 03:58] LABS: Calcium 7.8 mg/dL (8.7-10.4); Chloride 110 mmol/L (98-107)
[2025-05-19 04:00] LABS: Glucose 80 mg/dL (74-106)
[2025-05-19 04:01] LABS: BUN/Creatinine Ratio 34.5 (10.0-20.0); Blood Urea Nitrogen 20 mg/dL (9-23); Magnesium 1.9 mg/dL (1.6-2.6)
--- NOTE | 2025-05-19 05:08 | DVH ---
EXAM: XY CHEST PORTABLE HISTORY: intubated COMPARISON: XY CHEST PORTABLE on DOS: 05/17/25, XY CHEST PORTABLE on DOS: 05/16/25, XY CHEST XRAY 1 VIE W on DOS: 05/16/25, XY CHEST XRAY 1 VIEW on DOS: 05/16/25, XY CHEST XRAY 1 VIEW on DOS: 05/12/25 TECHNIQUE: Portable upright AP view of the chest was performed. FINDINGS: Endotracheal tube re-identified with its tip 5.8 cm above the sarbjit. OG tube and right subclavian ce ntral line are re-identified. There is right basilar infiltrate medially. No pneumothorax or pulmonar y edema. The heart is not enlarged. IMPRESSION: 1. Mechanical ventilation with tubes and lines as above. 2. Right basilar infiltrate medially. The lungs are otherwise clear.
[2025-05-19 07:09] LABS: Base Excess 4.8 mmol/L (-2.0-3.0)
--- NOTE | 2025-05-19 13:11 | DVHPN2 ---
Assessment/Plan Assessment/Plan progress note 54 yo M with hx of schizophrenia, TBI living in [facility] admitted for AMS. seen today. apneic on cpap. sedation vacation. awake, does not follow command physical exam intubated, on mechanical vent awake, calm, does not follow command PERRLA dry mucous membrane, poor oral hygiene CTAB s1 s2 rrr abdomen soft no le edema skin dry labs egk imaging reviewed assessment and plan acute toxic metabolic encephalopathy acute hypoxic RF req mechanical ventilation septic shock mucous plug atelectasis hypovolemic hypernatremia severe dehydration likely due to poor oral intake SRINIVAS likely hemodynamic mediated seizures? schizophrenia? HTN hypok c/w mech vent pulm consult c/w pressors maintain MAP >65 c/w sedation RAAS -3 obtain colateral empiric abx coverage, escalating NGT for now resume home meds trend cr strict i/o ucx admit to ICU lovenox diet tube feed dvt ppx lovenox condition critical prognosis poor full code critical care time spent 35 minutes Plan discussed with: Other My Orders Orders - VIRIDIANA MARAVILLA MD Procedure Category Date Status Time Chest Portable XY 05/19/25 Resulted 04:00 Date of Service: May 19, 2025 Billing Provider: VIRIDIANA MARAVILLA MD Common Visit Codes: [id number] CARE 30-74 MIN VIRIDIANA MARAVILLA MD May 19, 2025 13:11
--- NOTE | 2025-05-19 18:15 | DVHPN2 ---
Progress Note - Dictate Date Seen: May 19, 2025 Medical Necessity Reason Pt with a Central, PICC or Fol: Yes The following are medically ne: Chew Catheter vital signs Vital Sign Date Time Temp Pulse Resp B/P (MAP) Pulse Ox O2 Delivery O2 Flow Rate FiO2 05/19/25 16:06 69 21 138/91 (107) 98 30 05/19/25 16:00 98.8 98.8 05/19/25 08:00 Mechanical Ventilator+ Total Intake and Output 05/18/25 05/18/25 05/19/25 14:59 22:59 06:59 Intake Total 130.0 ml 1190.0 ml 827.5 ml Output Total 425 ml 690 ml Balance 130.0 ml 765.0 ml 137.5 ml medications Current Medications Medications Dose Ordered Sig/Negra Route Start Time Stop Time Status Last Admin Dose Admin Diagnostic Test (Pha) 1 strip Q6HR 05/09/25 18:00 05/19/25 18:03 1 STRIP Insulin Human Regular Q6HR SC 05/09/25 18:00 Dextrose 50 ml UD PRN IV 05/09/25 13:30 05/17/25 17:42 50 ML Quetiapine Fumarate 100 mg BID PO 05/09/25 22:00 05/19/25 10:04 100 MG Valproate Sodium 750 mg BID PO 05/14/25 10:00 05/19/25 10:05 750 MG Norepinephrine Bitartrate 250 ml @ 3.75 mls/hr Q24H IV 05/16/25 11:45 05/17/25 06:11 11.25 MLS/HR Vasopressin 20 units/Sodium Chloride 100 ml @ 9 mls/hr Q11H7M IV 05/16/25 11:45 Propofol 100 ml @ 2.739 mls/ hr Q24H IV 05/16/25 11:45 05/17/25 09:55 2.739 MLS/HR Fentanyl Citrate 250 ml @ 2.5 mls/hr Q24H IV 05/16/25 11:45 05/19/25 12:32 2.5 MLS/HR Enoxaparin Sodium 40 mg DAILY SC 05/17/25 10:00 05/19/25 10:05 40 MG Cefepime HCl 50 ml @ 12.5 mls/hr Q8HR IV 05/16/25 14:00 05/19/25 13:54 12.5 MLS/HR Vancomycin HCl 0 ml @ 0 mls/hr UD IV 05/16/25 13:15 Enteral Nutritional Formula 1,000 ml 30ML/HR GT 05/17/25 10:30 Lactated Ringer's 1,000 ml @ 50 mls/hr Q20H IV 05/18/25 14:00 05/19/25 08:37 50 MLS/HR Vancomycin HCl 250 ml @ 200 mls/hr Q12H IV 05/20/25 00:00 laboratory and microbiology Laboratory Tests 05/19/25 02:40 Test 05/19/25 02:40 Range/Units Serum Glucose 80 74-106 mg/dL Assessment/Plan Impression Acute hypoxemic respiratory failure Altered mental status Aspiration Pneumonia Patient seen and examined in ICU Events On mechanical ventilation S/p intubation PEEP 5, FiO2 30% pt more awake off sedation failed cpap due to apnea Labs and imaging reviewed ABG reviewed Management Vent support Titrate to maintain sats 90% or above Sedation holiday daily If patient follows commands, proceed to weaning trial Pressure support 05/29, extubate when ready Continue antibiotics F/u cultures Bronchodilators Mucomyst with nebs Monitor renal function Monitor electrolytes Supplement as needed Pressors as needed for hemodynamic support To maintain a mean arterial pressure of 65 mmHg DVT prophylaxis Critical care time 35 minutes Dietary Evaluation Review Comments: CCHO-60 diet. glucerna 240ml PO BID when pt is off NPO. Expected Outcomes/Goals: Promote gradual wt gain Plan discussed with: Patient YIMI GUILLEN MD May 19, 2025 18:15
[2025-05-19] MEDS: VANCOMYCIN 1GM/200ML PM 200 ML IV ONE (23:35)
[2025-05-19] MEDS: VANCOMYCIN 1GM/250ML KIT 250 ML IV SCH (23:38)
[2025-05-20] VITALS (97 sets, daily range): BP systolic 85–149; BP diastolic 53–101; PULSE 44–76; RESP 7–22; TEMP 97.7–99.7; O2SAT 97–100
[2025-05-20 03:29] LABS: Anion Gap 6 (5-15); Carbon Dioxide 31 mmol/L (20-31)
[2025-05-20 03:30] LABS: Hematocrit 25.0 % (41.0-53.0); Hemoglobin 8.6 g/dL (13.5-17.5); Mean Corpuscular Hemoglobin 32.0 pg (28.0-32.0); Mean Corpuscular Volume 92.8 fL (80.0-100.0); Nucleated Red Blood Cells % 0.0 %
[2025-05-20 03:35] LABS: BUN/Creatinine Ratio 32.1 (10.0-20.0); Blood Urea Nitrogen 17 mg/dL (9-23); Glucose 88 mg/dL (74-106)
[2025-05-20 03:36] LABS: Magnesium 1.8 mg/dL (1.6-2.6)
[2025-05-20 03:53] LABS: Calcium 7.5 mg/dL (8.7-10.4); Chloride 109 mmol/L (98-107); Potassium 3.4 mmol/L (3.5-5.1); Sodium 146 mmol/L (136-145)
--- NOTE | 2025-05-20 04:28 | DVH ---
EXAM: CT HEAD WITHOUT CONTRAST INDICATION: aloc TECHNIQUE: CT of the head without intravenous contrast. Radiation Dose : 1. Head: CT Dose: CTDI volume is 59.69 mGy. Dose-length product is 1176.13 mGy*cm The dose indicators for CT are the volume Computed Tomography (CT) Dose Index (CTDIvol) and the Dose Length Product (DLP), and are measured in units of mGy and mGy-cm, respectively. These indicators are not patient dose, but values generated from the CT scanner acquisition factors. The report includes radiation exposure data for exposures received during this examination. COMPARISON: CT HEAD WITHOUT CONTRAST on DOS: 05/08/25, CT HEAD WITHOUT CONTRAST on DOS: 01/25/25, CT HEA D WITHOUT CONTRAST on DOS: 11/25/24, CT HEAD WITHOUT CONTRAST on DOS: 10/24/24, CT HEAD WITHOUT CONTRAS T on DOS: 07/03/24 FINDINGS: There is no evidence of acute intracranial hemorrhage, extra-axial collection, mass effect, midline s hift, herniation or hydrocephalus. Postsurgical changes consistent with prior left frontotemporal craniotomy and craniectomy. Subjacent to the surgical calvarial defect is focal encephalomalacic change within the temporal cortex. Increased prominence of the ventricles, sulci and cisterns is consistent with the sequelae of atrophi c cortical volume loss. The harris-white differentiation is intact. Moderate diffuse confluent periventricular and subcortical white matter hypoattenuation is nonspecifi c but may be related to small vessel ischemic disease. Minimal right maxillary and left ethmoid mucosal sinus disease. The remaining visualized paranasal s inuses and mastoid air cells are clear. The surrounding soft tissues and osseous structures are unremarkable. IMPRESSION: 1. No acute intracranial abnormality. 2. Remote left frontotemporal postsurgical change with subjacent encephalomalacia. 3. Chronic sequelae of microvascular disease and atrophic cortical volume loss. Radiation optimization: All CT scans at this facility use at least one of these dose optimization fabiana hniques: automated exposure control mA and/or kV adjustment per patient size (includes targeted exam s where dose is matched to clinical indication) or iterative reconstruction.
[2025-05-20 07:12] LABS: Base Excess 4.7 mmol/L (-2.0-3.0)
[2025-05-20 11:47] LABS: Base Excess 4.6 mmol/L (-2.0-3.0)
--- NOTE | 2025-05-20 13:47 | DVHPN2 ---
Assessment/Plan Assessment/Plan progress note 54 yo M with hx of schizophrenia, TBI living in [facility] admitted for AMS. seen today. tolerating cpap today, low RR, good volume, parameters borderline. hx of trach prior. will continue cpap trial and possibly extubate tomorrow. physical exam intubated, on mechanical vent awake, calm, does not follow command PERRLA dry mucous membrane, poor oral hygiene CTAB s1 s2 rrr abdomen soft no le edema skin dry labs egk imaging reviewed assessment and plan acute toxic metabolic encephalopathy acute hypoxic RF req mechanical ventilation septic shock mucous plug atelectasis hypovolemic hypernatremia severe dehydration likely due to poor oral intake SRINIVAS likely hemodynamic mediated seizures? schizophrenia? HTN hypok c/w mech vent pulm consult c/w pressors maintain MAP >65 c/w sedation RAAS -3 obtain colateral empiric abx coverage, escalating NGT for now resume home meds trend cr strict i/o ucx admit to ICU lovenox diet tube feed dvt ppx lovenox condition critical prognosis poor full code critical care time spent 35 minutes Plan discussed with: Other My Orders Orders - VIRIDIANA MARAVILAL MD Procedure Category Date Status Time Vancomycin,Trough LAB 05/21/25 Verified 11:00 Vancomycin Per NATALIIA 05/21/25 In Process Pharmacy Protoc 12:00 Vancomycin 1gm/250ml PHA 05/20/25 In Process Kit 00:[address] 05/19/25 Resulted 17:37 Date of Service: May 20, 2025 Billing Provider: VIRIDIANA MARAVILLA MD Common Visit Codes: [id number] CARE 30-74 MIN VIRIDIANA MARAVILLA MD May 20, 2025 13:47
--- NOTE | 2025-05-20 15:31 | DVHPN2 ---
Progress Note - Dictate Date Seen: May 20, 2025 Medical Necessity Reason Pt with a Central, PICC or Fol: Yes The following are medically ne: Chew Catheter vital signs Vital Sign Date Time Temp Pulse Resp B/P (MAP) Pulse Ox O2 Delivery O2 Flow Rate FiO2 05/20/25 14:45 98.4 57 16 117/82 (94) 100 209.1 05/20/25 14:21 30 05/20/25 14:00 Mechanical Ventilator+ Total Intake and Output 05/19/25 05/19/25 05/20/25 15:00 23:00 07:00 Intake Total 471.0 ml 941.5 ml 930.0 ml Output Total 475 ml 350 ml Balance 471.0 ml 466.5 ml 580.0 ml medications Current Medications Medications Dose Ordered Sig/Negra Route Start Time Stop Time Status Last Admin Dose Admin Diagnostic Test (Pha) 1 strip Q6HR 05/09/25 18:00 05/20/25 11:38 1 STRIP Insulin Human Regular Q6HR SC 05/09/25 18:00 Dextrose 50 ml UD PRN IV 05/09/25 13:30 05/17/25 17:42 50 ML Quetiapine Fumarate 100 mg BID PO 05/09/25 22:00 05/20/25 09:59 100 MG Valproate Sodium 750 mg BID PO 05/14/25 10:00 05/20/25 09:53 750 MG Fentanyl Citrate 250 ml @ 2.5 mls/hr Q24H IV 05/16/25 11:45 05/19/25 12:32 2.5 MLS/HR Enoxaparin Sodium 40 mg DAILY SC 05/17/25 10:00 05/20/25 09:54 40 MG Cefepime HCl 50 ml @ 12.5 mls/hr Q8HR IV 05/16/25 14:00 05/20/25 15:16 12.5 MLS/HR Vancomycin HCl 0 ml @ 0 mls/hr UD IV 05/16/25 13:15 Enteral Nutritional Formula 1,000 ml 30ML/HR GT 05/17/25 10:30 Lactated Ringer's 1,000 ml @ 50 mls/hr Q20H IV 05/18/25 14:00 05/20/25 04:14 50 MLS/HR Vancomycin HCl 250 ml @ 200 mls/hr Q12H IV 05/20/25 00:00 05/20/25 12:19 200 MLS/HR laboratory and microbiology Laboratory Tests 05/20/25 02:40 Test 05/20/25 02:40 Range/Units Serum Glucose 88 74-106 mg/dL Assessment/Plan Impression Acute hypoxemic respiratory failure Altered mental status Aspiration Pneumonia Patient seen and examined in ICU Events On mechanical ventilation S/p intubation PEEP 5, FiO2 30% Off sedation, following commands Failed cpap due to apnea Labs and imaging reviewed ABG reviewed Management Vent support Titrate to maintain sats 90% or above Sedation holiday daily If patient follows commands, proceed to weaning trial Pressure support 05/29, extubate when ready Continue antibiotics F/u cultures Bronchodilators Mucomyst with nebs Monitor renal function Monitor electrolytes Supplement as needed Pressors as needed for hemodynamic support To maintain a mean arterial pressure of 65 mmHg DVT prophylaxis Critical care time 35 minutes Dietary Evaluation Review Comments: CCHO-60 diet. glucerna 240ml PO BID when pt is off NPO. Expected Outcomes/Goals: Promote gradual wt gain Plan discussed with: Other (Rn) YIMI GUILLEN MD May 20, 2025 15:31
[2025-05-20] MEDS: POTASSIUM CHL 20MEQ/100ML 200 ML IV ONE (21:18)
[2025-05-20] MEDS: POTASSIUM CHL 20MEQ/100ML 100 ML IV SCH (21:30)
[2025-05-20] MEDS: VANCOMYCIN 1GM/200ML PM 200 ML IV ONE (23:41)
[2025-05-21] VITALS (101 sets, daily range): BP systolic 89–160; BP diastolic 57–115; PULSE 48–98; RESP 8–29; TEMP 97.5–98.8; O2SAT 97–100
[2025-05-21 04:39] LABS: Hematocrit 28.0 % (41.0-53.0); Hemoglobin 9.7 g/dL (13.5-17.5); Mean Corpuscular Hemoglobin 31.8 pg (28.0-32.0); Mean Corpuscular Volume 91.8 fL (80.0-100.0); Nucleated Red Blood Cells % 0.0 %
[2025-05-21 04:53] LABS: Chloride 106 mmol/L (98-107); Potassium 3.9 mmol/L (3.5-5.1); Sodium 140 mmol/L (136-145)
[2025-05-21 04:54] LABS: Anion Gap 7 (5-15); Carbon Dioxide 27 mmol/L (20-31)
[2025-05-21 04:59] LABS: Glucose 82 mg/dL (74-106)
[2025-05-21 05:00] LABS: BUN/Creatinine Ratio 24.6 (10.0-20.0); Blood Urea Nitrogen 14 mg/dL (9-23); Magnesium 1.7 mg/dL (1.6-2.6)
[2025-05-21 05:10] LABS: Calcium 7.8 mg/dL (8.7-10.4)
[2025-05-21 08:47] LABS: Base Excess 3.7 mmol/L (-2.0-3.0)
--- NOTE | 2025-05-21 11:46 | DVHPN2 ---
Assessment/Plan Assessment/Plan progress note 54 yo M with hx of schizophrenia, TBI living in [facility] admitted for AMS. seen today. extubated to cool mist. not in distress. speech eval today physical exam on cool mist awake, calm, does not follow command PERRLA dry mucous membrane, poor oral hygiene CTAB s1 s2 rrr abdomen soft no le edema skin dry labs egk imaging reviewed assessment and plan acute toxic metabolic encephalopathy acute hypoxic RF req mechanical ventilation septic shock mucous plug atelectasis hypovolemic hypernatremia severe dehydration likely due to poor oral intake SRINIVAS likely hemodynamic mediated seizures? schizophrenia? HTN hypok c/w mech vent pulm consult c/w pressors maintain MAP >65 c/w sedation RAAS -3 obtain colateral empiric abx coverage, escalating NGT for now resume home meds trend cr strict i/o ucx admit to ICU lovenox diet tube feed dvt ppx lovenox condition critical prognosis poor full code critical care time spent 55 minutes Plan discussed with: Other My Orders Orders - VIRIDIANA MARAVILLA MD Procedure Category Date Status Time Respiratory Misc. RT 05/21/25 Transmitted Order 10:27 Extubate NATALIIA 05/21/25 In Process 10:27 Date of Service: May 21, 2025 Billing Provider: VIRIDIANA MARAVILLA MD Common Visit Codes: [id number] CARE 30-74 MIN VIRIDIANA MARAVILLA MD May 21, 2025 11:46
[2025-05-21] MEDS: VANCOMYCIN 1GM/200ML PM 200 ML IV ONE (13:12)
--- NOTE | 2025-05-21 13:49 | DVHPN2 ---
Progress Note - Dictate Date Seen: May 21, 2025 Medical Necessity Reason Pt with a Central, PICC or Fol: Yes The following are medically ne: Chew Catheter vital signs Vital Sign Date Time Temp Pulse Resp B/P (MAP) Pulse Ox O2 Delivery O2 Flow Rate FiO2 05/21/25 11:45 109/72 05/21/25 11:00 67 26 100 05/21/25 09:35 30 05/21/25 08:15 97.5 207.5 05/21/25 06:00 Mechanical Ventilator+ Total Intake and Output 05/20/25 05/20/25 05/21/25 15:00 23:00 07:00 Intake Total 687.5 ml 505.0 ml 860.0 ml Output Total 424 ml 525 ml Balance 687.5 ml 81.0 ml 335.0 ml medications Current Medications Medications Dose Ordered Sig/Negra Route Start Time Stop Time Status Last Admin Dose Admin Diagnostic Test (Pha) 1 strip Q6HR 05/09/25 18:00 05/21/25 11:48 1 STRIP Insulin Human Regular Q6HR SC 05/09/25 18:00 Dextrose 50 ml UD PRN IV 05/09/25 13:30 05/17/25 17:42 50 ML Quetiapine Fumarate 100 mg BID PO 05/09/25 22:00 05/21/25 10:42 100 MG Valproate Sodium 750 mg BID PO 05/14/25 10:00 05/21/25 10:42 750 MG Fentanyl Citrate 250 ml @ 2.5 mls/hr Q24H IV 05/16/25 11:45 05/19/25 12:32 2.5 MLS/HR Enoxaparin Sodium 40 mg DAILY SC 05/17/25 10:00 05/21/25 10:43 40 MG Cefepime HCl 50 ml @ 12.5 mls/hr Q8HR IV 05/16/25 14:00 05/21/25 06:04 12.5 MLS/HR Vancomycin HCl 0 ml @ 0 mls/hr UD IV 05/16/25 13:15 Enteral Nutritional Formula 1,000 ml 30ML/HR GT 05/17/25 10:30 Lactated Ringer's 1,000 ml @ 50 mls/hr Q20H IV 05/18/25 14:00 05/20/25 23:43 50 MLS/HR Vancomycin HCl 250 ml @ 200 mls/hr Q12H IV 05/20/25 00:00 05/21/25 13:14 200 MLS/HR laboratory and microbiology Laboratory Tests 05/21/25 03:40 Test 05/21/25 03:40 Range/Units Serum Glucose 82 74-106 mg/dL Assessment/Plan Impression Acute hypoxemic respiratory failure Altered mental status Aspiration Pneumonia Patient seen and examined in ICU Events Patient is successfully weaned off mechanical ventilation Extubated Currently stable on face mask Vital signs stable Labs and imaging reviewed ABG reviewed Management Supplemental O2/incentive spirometry Swallow eval and diet as tolerated Consult physical therapy Continue antibiotics F/u cultures Bronchodilators Mucomyst with nebs Monitor renal function Monitor electrolytes Supplement as needed DVT prophylaxis Critical care time 35 minutes Dietary Evaluation Review Comments: CCHO-60 diet. glucerna 240ml PO BID when pt is off NPO. Expected Outcomes/Goals: Promote gradual wt gain Plan discussed with: Patient YIMI GUILLEN MD May 21, 2025 13:49
[2025-05-21] MEDS: D5W/LACTATED RINGERS 1,000 ML IV SCH (18:52)
[2025-05-22] VITALS (46 sets, daily range): BP systolic 96–157; BP diastolic 64–104; PULSE 53–92; RESP 10–25; TEMP 97.8–98.7; O2SAT 96–100
[2025-05-22] MEDS: VANCOMYCIN 1GM/200ML PM 200 ML IV ONE (00:12)
[2025-05-22 04:28] LABS: Hematocrit 27.1 % (41.0-53.0); Hemoglobin 9.6 g/dL (13.5-17.5); Mean Corpuscular Hemoglobin 32.0 pg (28.0-32.0); Mean Corpuscular Volume 90.6 fL (80.0-100.0); Nucleated Red Blood Cells % 0.1 %
[2025-05-22 04:46] LABS: Anion Gap 6 (5-15); Carbon Dioxide 31 mmol/L (20-31); Chloride 104 mmol/L (98-107); Sodium 141 mmol/L (136-145)
[2025-05-22 04:50] LABS: Glucose 77 mg/dL (74-106)
[2025-05-22 04:51] LABS: Calcium 8.6 mg/dL (8.7-10.4); Potassium 3.3 mmol/L (3.5-5.1)
[2025-05-22 04:52] LABS: BUN/Creatinine Ratio 19.2 (10.0-20.0); Blood Urea Nitrogen 10 mg/dL (9-23); Magnesium 1.6 mg/dL (1.6-2.6)
[2025-05-22] MEDS: POTASSIUM CHL 20MEQ/100ML 100 ML IV ONE (06:15)
--- NOTE | 2025-05-22 23:24 | DVHPN2 ---
Subjective Patient seen and examined at bedside. No change overnight. Reviewed: Care Plan, H&P, Labs, Medications, Previous Orders, Radiology Changes from previous H/P or p: No Changes Eyes: No Pain, No Vision change, No Conjunctivae inflammation, No Eyelid inflammation, No Other, No Redness ENT: No Ear pain, No Ear discharge, No Nose pain, No Nose discharge, No Nose congestion, No Mouth pain, No Mouth swelling, No Throat pain, No Throat swelling, No Other Cardiovascular: No Chest Pain, No Palpitations, No Orthopnea, No Paroxysmal Noc. Dyspnea, No Edema, No Lt Headedness, No Other Respiratory: No Cough, No Dry; Shortness of breath; No SOB with excertion, No Wheezing, No Hemoptysis, No Pleuritic Pain, No Sputum, No Other Gastrointestinal: No Nausea, No Vomiting, No Abdominal Pain, No Diarrhea, No Constipation, No Melena, No Hematochezia, No Other Genitourinary: No Dysuria, No Frequency, No Incontinence, No Hematuria, No Retention, No Other Musculoskeletal: No other, No neck pain, No shoulder pain, No arm pain, No back pain, No hand pain, No leg pain, No foot pain Skin: No Rash, No Lesions, No Jaundice, No Bruising, No Other Objective Vitals Vital Signs Date Time Temp Pulse Resp B/P (MAP) Pulse Ox O2 Delivery O2 Flow Rate FiO2 05/22/25 22:00 13 100 Nasal Cannula* 3 32 05/22/25 22:00 92 05/22/25 22:00 116/89 (98) 05/22/25 20:00 97.8 97.8 Intake/Output Intake and Output 05/22/25 07:00 Intake Total 1880.0 ml Output Total 2275 ml Balance -395.0 ml Intake Oral 30 ml IV Total 1850.0 ml Tube Feeding 0 ml Output Urine Total 2275 ml General Appearance: Alert HEENT: Atraumatic, PERRLA, EOMI, Mucous membr. moist/pink Neck: Supple Lungs: Clear to auscultation, Other (Decreased breath sound bilateral) Cardiovascular: Regular rate, Normal S1, Normal S2, No murmurs, Gallops, Rubs Abdomen: Normal bowel sounds, Soft, No tenderness Psych/Mental Status: Mental status NL Medications Current Medications Medications Dose Ordered Sig/Negra Route Start Time Stop Time Status Last Admin Dose Admin Diagnostic Test (Pha) 1 strip Q6HR 05/09/25 18:00 05/22/25 18:09 1 STRIP Insulin Human Regular Q6HR SC 05/09/25 18:00 Dextrose 50 ml UD PRN IV 05/09/25 13:30 05/17/25 17:42 50 ML Quetiapine Fumarate 100 mg BID PO 05/09/25 22:00 05/22/25 22:00 100 MG Valproate Sodium 750 mg BID PO 05/14/25 10:00 05/22/25 22:00 750 MG Fentanyl Citrate 250 ml @ 2.5 mls/hr Q24H IV 05/16/25 11:45 05/19/25 12:32 2.5 MLS/HR Enoxaparin Sodium 40 mg DAILY SC 05/17/25 10:00 05/22/25 10:04 40 MG Cefepime HCl 50 ml @ 12.5 mls/hr Q8HR IV 05/16/25 14:00 05/22/25 22:00 12.5 MLS/HR Vancomycin HCl 0 ml @ 0 mls/hr UD IV 05/16/25 13:15 Enteral Nutritional Formula 1,000 ml 30ML/HR GT 05/17/25 10:30 Vancomycin HCl 250 ml @ 200 mls/hr Q12H IV 05/20/25 00:00 05/22/25 12:24 200 MLS/HR Dextrose/Lactated Ringer's 1,000 ml @ 50 mls/hr Q20H IV 05/21/25 18:45 05/22/25 15:41 50 MLS/HR Laboratory Results Laboratory Tests 05/22/25 03:19 Chemistry Test 05/22/25 03:19 Calcium Level 8.6 mg/dL (8.7-10.4) L Magnesium Level 1.6 mg/dL (1.6-2.6) Phosphorus Level 3.1 mg/dL (2.4-5.1) Urinalysis Test 05/09/25 09:00 Urine Color Yellow (Yellow) Urine Clarity Clear (Clear) Urine pH 5.5 (5.0-9.0) Urine Specific [place] 1.026 (1.001-1.035) Urine Protein Negative (Negative) Urine Ketones Negative (Negative) Urine Blood 1+ /uL (Negative) H Urine Nitrite Negative (Negative) Urine Bilirubin Negative (Negative) Urine Urobilinogen 2 mg/dL (Negative) H Urine Leukocyte Esterase Trace /uL (Negative) Urine RBC 7 /hpf (0 - 3) Urine Microscopic WBC 11 /HPF (0-3) H Urine Squamous Epithelial Cells Few /hpf (<5) Urine Bacteria None seen /hpf (None Seen) Urine Mucus Few (None Seen) Urine Glucose Normal mg/dL (Normal) Microbiology Microbiology Date/Time Source Procedure Growth Status 05/16/25 12:16 Bronchial Washings Gram Stain - Final Complete 05/16/25 12:16 Respiratory Culture - Final Presumptive Johanna albicans Complete 05/09/25 18:30 Nose MRSA Screen - Final Methicillin Resistant S.aureus Complete 05/08/25 21:37 Blood Blood Culture - Final Staphylococcus capitis Complete Labs and/or images reviewed: Labs reviewed by me Assessment/Plan Assessment/Plan Acute toxic metabolic encephalopathy , slowly resolved Acute hypoxic RF req mechanical ventilation, now extubated Septic shock Mucous plug atelectasis Hpovolemic hypernatremia Severe dehydration likely due to poor oral intake SRINIVAS likely hemodynamic mediated seizures? schizophrenia? HTN hypokalemia Continuing current management. Continuing with tube feeding Swallow eval, if pased we will start diet PT consult to get the patient out of bed and ambulate if tolerated full code Plan discussed with: Patient Date of Service: May 22, 2025 Billing Provider: JESSICA LÓPEZ MD Common Visit Codes: [id number] INP/OBS CARE(HIGH) JESSICA LÓPEZ MD May 22, 2025 23:24
--- NOTE | 2025-05-22 23:51 | DVHPN2 ---
Progress Note - Dictate Date Seen: May 22, 2025 Medical Necessity Reason Pt with a Central, PICC or Fol: Yes The following are medically ne: Rasheed Catheter Reason for rasheed catheter: Strict I&O Subjective Patient seen and examined at bedside. Extubated, on supplemental oxygen Overnight events reviewed. vital signs Vital Sign Date Time Temp Pulse Resp B/P (MAP) Pulse Ox O2 Delivery O2 Flow Rate FiO2 05/22/25 22:00 13 100 Nasal Cannula* 3 32 05/22/25 22:00 92 05/22/25 22:00 116/89 (98) 05/22/25 20:00 97.8 97.8 Total Intake and Output 05/21/25 05/21/25 05/22/25 15:00 23:00 07:00 Intake Total 637.5 ml 442.5 ml 800.0 ml Output Total 1075 ml 1200 ml Balance 637.5 ml -632.5 ml -400.0 ml medications Current Medications Medications Dose Ordered Sig/Negra Route Start Time Stop Time Status Last Admin Dose Admin Diagnostic Test (Pha) 1 strip Q6HR 05/09/25 18:00 05/22/25 23:44 1 STRIP Insulin Human Regular Q6HR SC 05/09/25 18:00 Dextrose 50 ml UD PRN IV 05/09/25 13:30 05/17/25 17:42 50 ML Quetiapine Fumarate 100 mg BID PO 05/09/25 22:00 05/22/25 22:00 100 MG Valproate Sodium 750 mg BID PO 05/14/25 10:00 05/22/25 22:00 750 MG Fentanyl Citrate 250 ml @ 2.5 mls/hr Q24H IV 05/16/25 11:45 05/19/25 12:32 2.5 MLS/HR Enoxaparin Sodium 40 mg DAILY SC 05/17/25 10:00 05/22/25 10:04 40 MG Cefepime HCl 50 ml @ 12.5 mls/hr Q8HR IV 05/16/25 14:00 05/22/25 22:00 12.5 MLS/HR Vancomycin HCl 0 ml @ 0 mls/hr UD IV 05/16/25 13:15 Enteral Nutritional Formula 1,000 ml 30ML/HR GT 05/17/25 10:30 Vancomycin HCl 250 ml @ 200 mls/hr Q12H IV 05/20/25 00:00 05/22/25 12:24 200 MLS/HR Dextrose/Lactated Ringer's 1,000 ml @ 50 mls/hr Q20H IV 05/21/25 18:45 05/22/25 15:41 50 MLS/HR objective Gen.: Patient lying in bed in no apparent distress. On supplemental oxygen. Head: Normocephalic, atraumatic. Eyes: EOMI/PERRLA. Ears: Normal hearing. Normal anatomy. Neck/trachea: Trachea midline, supple. Nose: Normal external anatomy. Mouth: Moist mucous membranes. Chest: Decreased air entry bilaterally. No wheezing or rhonchi. Cardiovascular: Positive S1, positive S2. Regular rate and rhythm. Abdomen: Positive bowel sounds in all 4 quadrants. Soft, non-tender, non- distended. : Deferred. Rectal: Deferred. Skin: Warm, dry. Intact. Extremities: 2+ radial pulses bilaterally. No lower extremity edema. Neuro: Awake, alert, oriented x3. No gross motor or sensory deficits. Cranial nerves II through XII intact. Gait not assessed. laboratory and microbiology Laboratory Tests 05/22/25 03:19 Test 05/22/25 03:19 Range/Units Serum Glucose 77 74-106 mg/dL Assessment/Plan Impression: Acute hypoxemic respiratory failure Mechanical ventilation, s/p extubation Altered mental status Aspiration Pneumonia Events: Patient was extubated uneventfully yesterday. Currently on supplemental oxygen at 3 LPM NC Taper O2 as tolerated Head of bed elevation Aspiration precautions Continue bronchodilators Mucolytics Continue antibiotics Incentive spirometry IV fluid supplementation Tube feeds on hold. PT evaluation Monitor renal function Monitor electrolytes. Supplement as needed Potassium supplementation Labs and imaging reviewed Rest of plan as noted below Plan: S/p extubation on 05/21/25 Continue supplemental oxygen Titrate to keep O2 sats above 92%. Taper O2 as tolerated Incentive spirometry Swallow eval and diet as tolerated Consult physical therapy Continue antibiotics F/u cultures Bronchodilators Mucomyst with nebs Monitor renal function Monitor electrolytes Supplement as needed Monitor ins and outs DVT prophylaxis Prognosis: Poor given patient's multiple co-morbidities. Condition: Critical Rest of plan per hospitalist and other consultants. A total of 35 minutes of critical care time was spent reviewing the patient record, examining the patient, making a diagnostic and therapeutic plan, discussing this plan with the medical personnel, following up on diagnostic studies and following the patient for clinical stability excluding any and all procedures. At least 50% of this time was spent in direct, [id number] contact. Thank you Dr. Gonzalez for allowing me to participate in this patient's care. Further recommendations will depend on the patient's clinical course. Please do not hesitate to contact me if you have any questions or concerns. This medical document was created using an electronic medical record system with [employer] dictation system. Although these documentations are being carefully reviewed, there may still be some phonetic and typographical changes. The errors are purely typographical, due to imperfection on the software program, and do not reflect any compromise in the patient's medical care. Dietary Evaluation Review Comments: CCHO-60 diet. glucerna 240ml PO BID when pt is off NPO. Expected Outcomes/Goals: Promote gradual wt gain Plan discussed with: Patient, Other (TERRELL Hodge) Critical Care Time(min): 35 DARON LIGHT MD May 22, 2025 23:51
[2025-05-23] VITALS (24 sets, daily range): BP systolic 95–156; BP diastolic 62–105; PULSE 51–100; RESP 10–26; TEMP 97.8–98.2; O2SAT 66–100
[2025-05-23] MEDS: VANCOMYCIN 1GM/200ML PM 200 ML IV ONE (00:03)
[2025-05-23 03:46] LABS: Hematocrit 26.8 % (41.0-53.0); Hemoglobin 9.3 g/dL (13.5-17.5); Mean Corpuscular Hemoglobin 31.6 pg (28.0-32.0); Mean Corpuscular Volume 91.4 fL (80.0-100.0); Nucleated Red Blood Cells % 0.1 %
[2025-05-23 04:16] LABS: Anion Gap 7 (5-15); BUN/Creatinine Ratio 12.5 (10.0-20.0); Chloride 106 mmol/L (98-107); Glucose 96 mg/dL (74-106); Potassium 3.6 mmol/L (3.5-5.1); Sodium 144 mmol/L (136-145)
[2025-05-23 04:20] LABS: Alanine Aminotransferase < 9 U/L (7-40); Albumin 2.5 g/dL (3.2-4.8); Alkaline Phosphatase 44 U/L (46-116); Bilirubin, Total 0.3 mg/dL (0.2-1.0); Blood Urea Nitrogen 7 mg/dL (9-23); Calcium 8.3 mg/dL (8.7-10.4); Carbon Dioxide 31 mmol/L (20-31); Total Protein 4.6 g/dL (5.7-8.2)
[2025-05-23] MEDS: Jevity 1.2 Cal/Fiber 1 Liter GT SCH (04:24)
--- NOTE | 2025-05-23 12:18 | MEDREC ---
[facility] ASP Intervention Section I [facility] ASP Intervention: Deescalate AB based on CS (PLEASE CONSIDER DE-ESCALATION BASED ON CULTURE RESULTS ) JAMILA HERNANDEZ PHARMACIST May 23, 2025 12:18
--- NOTE | 2025-05-23 13:46 | DVHPN2 ---
Subjective Patient seen and examined at bedside. No change overnight. Reviewed: Care Plan, H&P, Labs, Medications, Previous Orders, Radiology Changes from previous H/P or p: No Changes Eyes: No Pain, No Vision change, No Conjunctivae inflammation, No Eyelid inflammation, No Other, No Redness ENT: No Ear pain, No Ear discharge, No Nose pain, No Nose discharge, No Nose congestion, No Mouth pain, No Mouth swelling, No Throat pain, No Throat swelling, No Other Cardiovascular: No Chest Pain, No Palpitations, No Orthopnea, No Paroxysmal Noc. Dyspnea, No Edema, No Lt Headedness, No Other Respiratory: No Cough, No Dry; Shortness of breath; No SOB with excertion, No Wheezing, No Hemoptysis, No Pleuritic Pain, No Sputum, No Other Gastrointestinal: No Nausea, No Vomiting, No Abdominal Pain, No Diarrhea, No Constipation, No Melena, No Hematochezia, No Other Genitourinary: No Dysuria, No Frequency, No Incontinence, No Hematuria, No Retention, No Other Musculoskeletal: No other, No neck pain, No shoulder pain, No arm pain, No back pain, No hand pain, No leg pain, No foot pain Skin: No Rash, No Lesions, No Jaundice, No Bruising, No Other Objective Vitals Vital Signs Date Time Temp Pulse Resp B/P (MAP) Pulse Ox O2 Delivery O2 Flow Rate FiO2 05/23/25 12:00 66 05/23/25 12:00 12 66 Nasal Cannula* 3 32 05/23/25 12:00 98.2 120/90 (100) 98.2 Intake/Output Intake and Output 05/23/25 07:00 Intake Total 2277.5 ml Output Total 2500 ml Balance -222.5 ml Intake Oral 150 ml IV Total 1787.5 ml Tube Feeding 340 ml Output Urine Total 2500 ml General Appearance: Alert HEENT: Atraumatic, PERRLA, EOMI, Mucous membr. moist/pink Neck: Supple Lungs: Clear to auscultation, Other (Decreased breath sound bilateral) Cardiovascular: Regular rate, Normal S1, Normal S2, No murmurs, Gallops, Rubs Abdomen: Normal bowel sounds, Soft, No tenderness Psych/Mental Status: Mental status NL Medications Current Medications Medications Dose Ordered Sig/Negra Route Start Time Stop Time Status Last Admin Dose Admin Diagnostic Test (Pha) 1 strip Q6HR 05/09/25 18:00 05/23/25 12:02 1 STRIP Insulin Human Regular Q6HR SC 05/09/25 18:00 Dextrose 50 ml UD PRN IV 05/09/25 13:30 05/17/25 17:42 50 ML Quetiapine Fumarate 100 mg BID PO 05/09/25 22:00 05/23/25 09:35 100 MG Valproate Sodium 750 mg BID PO 05/14/25 10:00 05/23/25 09:36 750 MG Fentanyl Citrate 250 ml @ 2.5 mls/hr Q24H IV 05/16/25 11:45 05/19/25 12:32 2.5 MLS/HR Enoxaparin Sodium 40 mg DAILY SC 05/17/25 10:00 05/23/25 09:36 40 MG Cefepime HCl 50 ml @ 12.5 mls/hr Q8HR IV 05/16/25 14:00 05/23/25 13:16 12.5 MLS/HR Vancomycin HCl 0 ml @ 0 mls/hr UD IV 05/16/25 13:15 Enteral Nutritional Formula 1,000 ml 30ML/HR GT 05/17/25 10:30 05/23/25 04:24 1,000 ML Vancomycin HCl 250 ml @ 200 mls/hr Q12H IV 05/20/25 00:00 05/22/25 23:59 200 MLS/HR Dextrose/Lactated Ringer's 1,000 ml @ 50 mls/hr Q20H IV 05/21/25 18:45 05/23/25 06:07 50 MLS/HR Laboratory Results Laboratory Tests 05/23/25 03:22 Chemistry Test 05/23/25 03:22 Albumin 2.5 g/dL (3.2-4.8) L Calcium Level 8.3 mg/dL (8.7-10.4) L Total Protein 4.6 g/dL (5.7-8.2) L LFT Test 05/23/25 03:22 Alanine Aminotransferase (ALT) < 9 U/L (7-40) Alkaline Phosphatase 44 U/L (46-116) L Aspartate Amino Transferase (AST) 14 U/L (<34) Total Bilirubin 0.3 mg/dL (0.2-1.0) Urinalysis Test 05/09/25 09:00 Urine Color Yellow (Yellow) Urine Clarity Clear (Clear) Urine pH 5.5 (5.0-9.0) Urine Specific [place] 1.026 (1.001-1.035) Urine Protein Negative (Negative) Urine Ketones Negative (Negative) Urine Blood 1+ /uL (Negative) H Urine Nitrite Negative (Negative) Urine Bilirubin Negative (Negative) Urine Urobilinogen 2 mg/dL (Negative) H Urine Leukocyte Esterase Trace /uL (Negative) Urine RBC 7 /hpf (0 - 3) Urine Microscopic WBC 11 /HPF (0-3) H Urine Squamous Epithelial Cells Few /hpf (<5) Urine Bacteria None seen /hpf (None Seen) Urine Mucus Few (None Seen) Urine Glucose Normal mg/dL (Normal) Microbiology Microbiology Date/Time Source Procedure Growth Status 05/16/25 12:16 Bronchial Washings Gram Stain - Final Complete 05/16/25 12:16 Respiratory Culture - Final Presumptive Johanna albicans Complete 05/09/25 18:30 Nose MRSA Screen - Final Methicillin Resistant S.aureus Complete 05/08/25 21:37 Blood Blood Culture - Final Staphylococcus capitis Complete Labs and/or images reviewed: Labs reviewed by me Assessment/Plan Assessment/Plan Acute toxic metabolic encephalopathy , slowly resolved Acute hypoxic RF req mechanical ventilation, now extubated Septic shock Mucous plug atelectasis Hpovolemic hypernatremia Severe dehydration likely due to poor oral intake SRINIVAS likely hemodynamic mediated seizures? schizophrenia? HTN hypokalemia Continuing current management. Continuing with tube feeding Swallow eval, if pased we will start diet PT consult to get the patient out of bed and ambulate if tolerated Downgrade to telemetry full code Plan discussed with: Patient, Other (RN) Date of Service: May 23, 2025 Billing Provider: JESSICA LÓPEZ MD Common Visit Codes: [id number] INP/OBS CARE(HIGH) JESSICA LÓPEZ MD May 23, 2025 13:46
--- NOTE | 2025-05-23 23:53 | DVHPN2 ---
Progress Note - Dictate Date Seen: May 23, 2025 Medical Necessity Reason Pt with a Central, PICC or Fol: Yes The following are medically ne: Rasheed Catheter Reason for rasheed catheter: Strict I&O Subjective Patient seen and examined at bedside. Remains on supplemental oxygen Overnight events reviewed. vital signs Vital Sign Date Time Temp Pulse Resp B/P (MAP) Pulse Ox O2 Delivery O2 Flow Rate FiO2 05/23/25 22:00 14 100 Nasal Cannula* 3 32 05/23/25 22:00 72 05/23/25 22:00 115/74 (88) 05/23/25 20:00 97.8 97.8 Total Intake and Output 05/22/25 05/22/25 05/23/25 15:00 23:00 07:00 Intake Total 650.0 ml 487.5 ml 1140.0 ml Output Total 1350 ml 1150 ml Balance 650.0 ml -862.5 ml -10.0 ml medications Current Medications Medications Dose Ordered Sig/Negra Route Start Time Stop Time Status Last Admin Dose Admin Diagnostic Test (Pha) 1 strip Q6HR 05/09/25 18:00 05/23/25 18:06 1 STRIP Insulin Human Regular Q6HR SC 05/09/25 18:00 Dextrose 50 ml UD PRN IV 05/09/25 13:30 05/17/25 17:42 50 ML Quetiapine Fumarate 100 mg BID PO 05/09/25 22:00 05/23/25 21:03 100 MG Valproate Sodium 750 mg BID PO 05/14/25 10:00 05/23/25 21:04 750 MG Fentanyl Citrate 250 ml @ 2.5 mls/hr Q24H IV 05/16/25 11:45 05/19/25 12:32 2.5 MLS/HR Enoxaparin Sodium 40 mg DAILY SC 05/17/25 10:00 05/23/25 09:36 40 MG Cefepime HCl 50 ml @ 12.5 mls/hr Q8HR IV 05/16/25 14:00 05/23/25 21:04 12.5 MLS/HR Vancomycin HCl 0 ml @ 0 mls/hr UD IV 05/16/25 13:15 Enteral Nutritional Formula 1,000 ml 30ML/HR GT 05/17/25 10:30 05/23/25 04:24 1,000 ML Vancomycin HCl 250 ml @ 200 mls/hr Q12H IV 05/20/25 00:00 05/22/25 23:59 200 MLS/HR Dextrose/Lactated Ringer's 1,000 ml @ 50 mls/hr Q20H IV 05/21/25 18:45 05/23/25 06:07 50 MLS/HR objective Gen.: Patient lying in bed in no apparent distress. On supplemental oxygen. Head: Normocephalic, atraumatic. Eyes: EOMI/PERRLA. Ears: Normal hearing. Normal anatomy. Neck/trachea: Trachea midline, supple. Nose: Normal external anatomy. Mouth: Moist mucous membranes. Chest: Decreased air entry bilaterally. No wheezing or rhonchi. Cardiovascular: Positive S1, positive S2. Regular rate and rhythm. Abdomen: Positive bowel sounds in all 4 quadrants. Soft, non-tender, non- distended. : Deferred. Rectal: Deferred. Skin: Warm, dry. Intact. Extremities: 2+ radial pulses bilaterally. No lower extremity edema. Neuro: Awake, alert, oriented x3. No gross motor or sensory deficits. Cranial nerves II through XII intact. Gait not assessed. laboratory and microbiology Laboratory Tests 05/23/25 03:22 Test 05/23/25 03:22 Range/Units Serum Glucose 96 74-106 mg/dL Assessment/Plan Impression: Acute hypoxemic respiratory failure Dependence on supplemental oxygen Altered mental status Aspiration pneumonia Events: Remains on supplemental oxygen at 3 LPM NC Taper O2 as tolerated Head of bed elevation Aspiration precautions Continue antibiotics Incentive spirometry IV fluid supplementation NGT Tube feeds on hold Swallow evaluation Plan for right SCV central line Physical therapy evaluation Monitor renal function Monitor electrolytes. Supplement as needed Potassium supplementation Labs and imaging reviewed Rest of plan as noted below Plan: S/p extubation on 05/21/25 Continue supplemental oxygen Titrate to keep O2 sats above 92%. Taper O2 as tolerated Incentive spirometry Swallow eval and diet as tolerated Consult physical therapy Continue antibiotics F/u cultures Bronchodilators PRN Mucomyst with nebs Monitor renal function Monitor electrolytes Supplement as needed Monitor ins and outs DVT prophylaxis Prognosis: Poor given patient's multiple co-morbidities. Condition: Critical Rest of plan per hospitalist and other consultants. A total of 35 minutes of critical care time was spent reviewing the patient record, examining the patient, making a diagnostic and therapeutic plan, discussing this plan with the medical personnel, following up on diagnostic studies and following the patient for clinical stability excluding any and all procedures. At least 50% of this time was spent in direct, [id number] contact. Thank you Dr. Gonzalez for allowing me to participate in this patient's care. Further recommendations will depend on the patient's clinical course. Please do not hesitate to contact me if you have any questions or concerns. This medical document was created using an electronic medical record system with [employer] dictation system. Although these documentations are being carefully reviewed, there may still be some phonetic and typographical changes. The errors are purely typographical, due to imperfection on the software program, and do not reflect any compromise in the patient's medical care. Dietary Evaluation Review Comments: CCHO-60 diet. glucerna 240ml PO BID when pt is off NPO. Expected Outcomes/Goals: Promote gradual wt gain Plan discussed with: Patient, Other (TERRELL Hodge) Critical Care Time(min): 35 DARON LIGHT MD May 23, 2025 23:53
[2025-05-24] VITALS (12 sets, daily range): BP systolic 99–148; BP diastolic 69–107; PULSE 60–83; RESP 5–22; TEMP 98–98.6; O2SAT 98–100
[2025-05-24 03:56] LABS: Hematocrit 26.2 % (41.0-53.0); Hemoglobin 9.2 g/dL (13.5-17.5); Mean Corpuscular Hemoglobin 31.9 pg (28.0-32.0); Mean Corpuscular Volume 91.4 fL (80.0-100.0); Nucleated Red Blood Cells % 0.1 %
[2025-05-24 04:13] LABS: Anion Gap 7 (5-15); Chloride 105 mmol/L (98-107); Sodium 144 mmol/L (136-145)
[2025-05-24 04:19] LABS: BUN/Creatinine Ratio 10.5 (10.0-20.0); Glucose 83 mg/dL (74-106)
[2025-05-24 04:37] LABS: Blood Urea Nitrogen 6 mg/dL (9-23); Calcium 7.7 mg/dL (8.7-10.4); Carbon Dioxide 32 mmol/L (20-31); Potassium 3.5 mmol/L (3.5-5.1)
--- NOTE | 2025-05-24 12:05 | DVHPN2 ---
Subjective Patient seen and examined at bedside. No change overnight. Reviewed: Care Plan, H&P, Labs, Medications, Previous Orders, Radiology Changes from previous H/P or p: No Changes Eyes: No Pain, No Vision change, No Conjunctivae inflammation, No Eyelid inflammation, No Other, No Redness ENT: No Ear pain, No Ear discharge, No Nose pain, No Nose discharge, No Nose congestion, No Mouth pain, No Mouth swelling, No Throat pain, No Throat swelling, No Other Cardiovascular: No Chest Pain, No Palpitations, No Orthopnea, No Paroxysmal Noc. Dyspnea, No Edema, No Lt Headedness, No Other Respiratory: No Cough, No Dry; Shortness of breath; No SOB with excertion, No Wheezing, No Hemoptysis, No Pleuritic Pain, No Sputum, No Other Gastrointestinal: No Nausea, No Vomiting, No Abdominal Pain, No Diarrhea, No Constipation, No Melena, No Hematochezia, No Other Genitourinary: No Dysuria, No Frequency, No Incontinence, No Hematuria, No Retention, No Other Musculoskeletal: No other, No neck pain, No shoulder pain, No arm pain, No back pain, No hand pain, No leg pain, No foot pain Skin: No Rash, No Lesions, No Jaundice, No Bruising, No Other Objective Vitals Vital Signs Date Time Temp Pulse Resp B/P (MAP) Pulse Ox O2 Delivery O2 Flow Rate FiO2 05/24/25 10:00 72 12 148/94 (112) 99 05/24/25 10:00 Nasal Cannula* 2 28 05/24/25 08:00 98.3 98.3 Intake/Output Intake and Output 05/24/25 07:00 Intake Total 2103.0 ml Output Total 1600 ml Balance 503.0 ml Intake Oral 200 ml IV Total 1556.0 ml Tube Feeding 347 ml Output Urine Total 1600 ml General Appearance: Alert HEENT: Atraumatic, PERRLA, EOMI, Mucous membr. moist/pink Neck: Supple Lungs: Clear to auscultation, Other (Decreased breath sound bilateral) Cardiovascular: Regular rate, Normal S1, Normal S2, No murmurs, Gallops, Rubs Abdomen: Normal bowel sounds, Soft, No tenderness Psych/Mental Status: Mental status NL Medications Current Medications Medications Dose Ordered Sig/Negra Route Start Time Stop Time Status Last Admin Dose Admin Diagnostic Test (Pha) 1 strip Q6HR 05/09/25 18:00 05/24/25 05:47 1 STRIP Insulin Human Regular Q6HR SC 05/09/25 18:00 Dextrose 50 ml UD PRN IV 05/09/25 13:30 05/17/25 17:42 50 ML Quetiapine Fumarate 100 mg BID PO 05/09/25 22:00 05/24/25 10:27 100 MG Valproate Sodium 750 mg BID PO 05/14/25 10:00 05/24/25 10:27 750 MG Fentanyl Citrate 250 ml @ 2.5 mls/hr Q24H IV 05/16/25 11:45 05/19/25 12:32 2.5 MLS/HR Enoxaparin Sodium 40 mg DAILY SC 05/17/25 10:00 05/24/25 10:27 40 MG Cefepime HCl 50 ml @ 12.5 mls/hr Q8HR IV 05/16/25 14:00 05/24/25 05:47 12.5 MLS/HR Vancomycin HCl 0 ml @ 0 mls/hr UD IV 05/16/25 13:15 Enteral Nutritional Formula 1,000 ml 30ML/HR GT 05/17/25 10:30 05/24/25 02:21 1,000 ML Vancomycin HCl 250 ml @ 200 mls/hr Q12H IV 05/20/25 00:00 05/24/25 00:02 200 MLS/HR Dextrose/Lactated Ringer's 1,000 ml @ 50 mls/hr Q20H IV 05/21/25 18:45 05/24/25 02:14 50 MLS/HR Laboratory Results Laboratory Tests 05/24/25 03:05 05/24/25 10:30 Chemistry Test 05/24/25 03:05 Calcium Level 7.7 mg/dL (8.7-10.4) L Urinalysis Test 05/09/25 09:00 Urine Color Yellow (Yellow) Urine Clarity Clear (Clear) Urine pH 5.5 (5.0-9.0) Urine Specific [place] 1.026 (1.001-1.035) Urine Protein Negative (Negative) Urine Ketones Negative (Negative) Urine Blood 1+ /uL (Negative) H Urine Nitrite Negative (Negative) Urine Bilirubin Negative (Negative) Urine Urobilinogen 2 mg/dL (Negative) H Urine Leukocyte Esterase Trace /uL (Negative) Urine RBC 7 /hpf (0 - 3) Urine Microscopic WBC 11 /HPF (0-3) H Urine Squamous Epithelial Cells Few /hpf (<5) Urine Bacteria None seen /hpf (None Seen) Urine Mucus Few (None Seen) Urine Glucose Normal mg/dL (Normal) Microbiology Microbiology Date/Time Source Procedure Growth Status 05/16/25 12:16 Bronchial Washings Gram Stain - Final Complete 05/16/25 12:16 Respiratory Culture - Final Presumptive Johanna albicans Complete 05/09/25 18:30 Nose MRSA Screen - Final Methicillin Resistant S.aureus Complete 05/08/25 21:37 Blood Blood Culture - Final Staphylococcus capitis Complete Labs and/or images reviewed: Labs reviewed by me Assessment/Plan Assessment/Plan Acute toxic metabolic encephalopathy , slowly resolved Acute hypoxic RF req mechanical ventilation, now extubated Septic shock Mucous plug atelectasis Hpovolemic hypernatremia Severe dehydration likely due to poor oral intake SRINIVAS likely hemodynamic mediated seizures? schizophrenia? HTN hypokalemia Continuing current management. Continuing with tube feeding Swallow eval, if pased we will start diet PT consult to get the patient out of bed and ambulate if tolerated Downgrade to telemetry full code This medical document was created using an electronic medical record system with [employer] computerized dictation system. Although this document has been carefully reviewed, there may still be some phonetic and typographical errors. These areas are purely typographical due to imperfections of the software programs, and do not reflect any compromise in the patient's medical care. Plan discussed with: Patient My Orders Orders - JESSICA LÓPEZ MD Procedure Category Date Status Time Transfer Orders XFER 05/23/25 Transmitted 15:47 Date of Service: May 24, 2025 Billing Provider: JESSICA LÓPEZ MD Common Visit Codes: [id number] INP/OBS CARE(HIGH) JESSICA LÓPEZ MD May 24, 2025 12:05
--- NOTE | 2025-05-24 23:55 | DVHPN2 ---
Progress Note - Dictate Date Seen: May 24, 2025 Medical Necessity Reason Pt with a Central, PICC or Fol: Yes The following are medically ne: Rasheed Catheter Reason for rasheed catheter: Strict I&O Subjective Patient seen and examined at bedside. Remains on supplemental oxygen Overnight events reviewed. vital signs Vital Sign Date Time Temp Pulse Resp B/P (MAP) Pulse Ox O2 Delivery O2 Flow Rate FiO2 05/24/25 22:00 18 99 Nasal Cannula* 2 28 05/24/25 22:00 79 148/107 (121) 05/24/25 20:00 98.6 98.6 Total Intake and Output 05/23/25 05/23/25 05/24/25 15:00 23:00 07:00 Intake Total 412.5 ml 550.0 ml 1140.5 ml Output Total 800 ml 800 ml Balance 412.5 ml -250.0 ml 340.5 ml medications Current Medications Medications Dose Ordered Sig/Negra Route Start Time Stop Time Status Last Admin Dose Admin Diagnostic Test (Pha) 1 strip Q6HR 05/09/25 18:00 05/24/25 18:24 1 STRIP Insulin Human Regular Q6HR SC 05/09/25 18:00 Dextrose 50 ml UD PRN IV 05/09/25 13:30 05/17/25 17:42 50 ML Quetiapine Fumarate 100 mg BID PO 05/09/25 22:00 05/24/25 21:37 100 MG Valproate Sodium 750 mg BID PO 05/14/25 10:00 05/24/25 21:37 750 MG Fentanyl Citrate 250 ml @ 2.5 mls/hr Q24H IV 05/16/25 11:45 05/19/25 12:32 2.5 MLS/HR Enoxaparin Sodium 40 mg DAILY SC 05/17/25 10:00 05/24/25 10:27 40 MG Cefepime HCl 50 ml @ 12.5 mls/hr Q8HR IV 05/16/25 14:00 05/24/25 21:36 12.5 MLS/HR Vancomycin HCl 0 ml @ 0 mls/hr UD IV 05/16/25 13:15 Enteral Nutritional Formula 1,000 ml 30ML/HR GT 05/17/25 10:30 05/24/25 02:21 1,000 ML Vancomycin HCl 250 ml @ 200 mls/hr Q12H IV 05/20/25 00:00 05/24/25 12:15 200 MLS/HR Dextrose/Lactated Ringer's 1,000 ml @ 50 mls/hr Q20H IV 05/21/25 18:45 05/24/25 21:37 50 MLS/HR objective Gen.: Patient lying in bed in no apparent distress. On supplemental oxygen. Head: Normocephalic, atraumatic. Eyes: EOMI/PERRLA. Ears: Normal hearing. Normal anatomy. Neck/trachea: Trachea midline, supple. Nose: Normal external anatomy. Mouth: Moist mucous membranes. Chest: Decreased air entry bilaterally. No wheezing or rhonchi. Cardiovascular: Positive S1, positive S2. Regular rate and rhythm. Abdomen: Positive bowel sounds in all 4 quadrants. Soft, non-tender, non- distended. : Deferred. Rectal: Deferred. Skin: Warm, dry. Intact. Extremities: 2+ radial pulses bilaterally. No lower extremity edema. Neuro: Awake, alert, oriented x3. No gross motor or sensory deficits. Cranial nerves II through XII intact. Gait not assessed. laboratory and microbiology Laboratory Tests 05/24/25 10:30 05/24/25 03:05 Test 05/24/25 03:05 Range/Units Serum Glucose 83 74-106 mg/dL Assessment/Plan Impression: Acute hypoxemic respiratory failure Dependence on supplemental oxygen Altered mental status Aspiration pneumonia Events: Remains on supplemental oxygen at 3 LPM NC Taper O2 as tolerated Head of bed elevation Aspiration precautions Continue antibiotics - cefepime and vancomycin Incentive spirometry IV fluids with dextrose/LR at 50 ml/hr NGT in place Swallow evaluation passed, start on puree diet with thin liquids Physical therapy evaluation Patient is stable from the pulmonary standpoint for downgrade to [facility]. Labs and imaging reviewed Rest of plan as noted below Plan: S/p extubation on 05/21/25 Continue supplemental oxygen Titrate to keep O2 sats above 92%. Taper O2 as tolerated Incentive spirometry Continue antibiotics F/u cultures Bronchodilators PRN Mucomyst with nebs Monitor renal function Monitor electrolytes Supplement as needed Monitor ins and outs Physical therapy DVT prophylaxis Prognosis: Guarded given patient's multiple co-morbidities. Rest of plan per hospitalist and other consultants. Thank you Dr. Gonzalez for allowing me to participate in this patient's care. Further recommendations will depend on the patient's clinical course. Please do not hesitate to contact me if you have any questions or concerns. This medical document was created using an electronic medical record system with [employer] dictation system. Although these documentations are being carefully reviewed, there may still be some phonetic and typographical changes. The errors are purely typographical, due to imperfection on the software program, and do not reflect any compromise in the patient's medical care. Dietary Evaluation Review Comments: CCHO-60 diet. glucerna 240ml PO BID when pt is off NPO. Expected Outcomes/Goals: Promote gradual wt gain Plan discussed with: Patient, Other (TERRELL Davenport) DARON LIGHT MD May 24, 2025 23:55
[2025-05-25] VITALS (14 sets, daily range): BP systolic 110–169; BP diastolic 72–109; PULSE 57–100; RESP 12–22; TEMP 97.8–98.6; O2SAT 95–100
[2025-05-25] MEDS: VANCOMYCIN 1GM/200ML PM 200 ML IV ONE (00:11)
[2025-05-25 04:03] LABS: Hemoglobin 8.3 g/dL (13.5-17.5); Nucleated Red Blood Cells % 0.0 %
[2025-05-25 04:06] LABS: Hematocrit 23.5 % (41.0-53.0); Mean Corpuscular Hemoglobin 32.1 pg (28.0-32.0); Mean Corpuscular Volume 91.2 fL (80.0-100.0)
[2025-05-25 05:26] LABS: Anion Gap 6 (5-15); BUN/Creatinine Ratio 12.5 (10.0-20.0); Chloride 104 mmol/L (98-107); Glucose 92 mg/dL (74-106); Sodium 143 mmol/L (136-145)
[2025-05-25 05:27] LABS: Bilirubin, Total 0.3 mg/dL (0.2-1.0)
[2025-05-25 05:29] LABS: Alanine Aminotransferase < 9 U/L (7-40); Albumin 2.4 g/dL (3.2-4.8); Alkaline Phosphatase 40 U/L (46-116); Blood Urea Nitrogen 8 mg/dL (9-23); Calcium 7.6 mg/dL (8.7-10.4); Carbon Dioxide 33 mmol/L (20-31); Potassium 3.3 mmol/L (3.5-5.1); Total Protein 4.5 g/dL (5.7-8.2)
--- NOTE | 2025-05-25 11:33 | DVHPN2 ---
Assessment/Plan Assessment/Plan progress note 54 yo M with hx of schizophrenia, TBI living in [place] admitted for AMS. seen today. tolerating oral feeding. for transfer to [facility]. constipated. will plan for dc tomorrow physical exam on 1lpm awake, calm, does not follow command PERRLA dry mucous membrane, poor oral hygiene CTAB s1 s2 rrr abdomen soft no le edema skin dry labs egk imaging reviewed assessment and plan acute toxic metabolic encephalopathy acute hypoxic RF req mechanical ventilation septic shock mucous plug atelectasis hypovolemic hypernatremia severe dehydration likely due to poor oral intake SRINIVAS likely hemodynamic mediated seizures? schizophrenia? HTN hypok slow transit constipation c/w mech vent pulm consult c/w pressors maintain MAP >65 c/w sedation RAAS -3 obtain colateral empiric abx coverage, escalating NGT for now resume home meds trend cr strict i/o ucx admit to ICU lovenox dc tlc, o2 senna miralax dc abx diet tube feed dvt ppx lovenox condition critical prognosis poor full code Plan discussed with: Patient My Orders Orders - VIRIDIANA MARAVILLA MD Procedure Category Date Status Time Vancomycin,Trough LAB 05/26/25 Verified 11:00 Vancomycin Per NATALIIA 05/24/25 In Process Pharmacy [facility]toc 14:22 Date of Service: May 25, 2025 Billing Provider: VIRIDIANA MARAVILLA MD Common Visit Codes: [id number] INP/OBS CARE(HIGH) VIRIDIANA MARAVILLA MD May 25, 2025 11:33
[2025-05-25] MEDS: SENNA 8.6 MG TAB PO ONE (12:49)
[2025-05-25] MEDS: POLYETHYLENE GLYCOL 17 GM PWDR PO ONE (12:50)
[2025-05-25] MEDS: POTASSIUM EFFERVESENT TAB 25 MEQ PO ONE (12:58)
[2025-05-25] MEDS ORDERED: FUROSEMIDE 20 MG/2 ML VIAL IV ONE (13:15)
[2025-05-25] MEDS: DOCUSATE ORAL LIQUID 100 MG/10 ML UD PO SCH (22:00)
[2025-05-25] MEDS: DOCUSATE ORAL LIQUID 100 MG/10 ML UD PO ONE (22:08)
[2025-05-25] MEDS ORDERED: PATIENTS OWN MEDICATION (Lisinopril 40 MG) PO SCH (22:45)
[2025-05-25] MEDS ORDERED: BENZTROPINE MESYLATE 1 MG PO SCH (22:45)
[2025-05-25] MEDS ORDERED: MELATONIN 5 MG TAB PO SCH (22:45)
[2025-05-25] MEDS ORDERED: QUETIAPINE FUMERATE 200 MG PO SCH (22:45)
[2025-05-25] MEDS ORDERED: PATIENTS OWN MEDICATION (Lactulose 30 ML) PO SCH (22:45)
[2025-05-25] MEDS ORDERED: LOSARTAN POTASSIUM 50 MG TAB PO SCH (22:45)
[2025-05-25] MEDS ORDERED: LORazepam 0.5 MG TAB PO PRN (22:45)
--- NOTE | 2025-05-25 23:33 | DVHPN2 ---
Progress Note - Dictate Date Seen: May 25, 2025 Medical Necessity Reason Pt with a Central, PICC or Fol: Yes The following are medically ne: Rasheed Catheter Reason for rasheed catheter: Strict I&O Subjective Patient seen and examined at bedside. Remains on supplemental oxygen Overnight events reviewed. vital signs Vital Sign Date Time Temp Pulse Resp B/P (MAP) Pulse Ox O2 Delivery O2 Flow Rate FiO2 05/25/25 20:00 12 95 Room Air* 0 21 05/25/25 20:00 80 05/25/25 18:00 143/100 (114) 05/25/25 16:00 98.2 98.2 Total Intake and Output 05/24/25 05/24/25 05/25/25 15:00 23:00 07:00 Intake Total 681.5 ml 535.0 ml 927.5 ml Output Total 1100 ml 1100 ml Balance 681.5 ml -565.0 ml -172.5 ml medications Current Medications Medications Dose Ordered Sig/Negra Route Start Time Stop Time Status Last Admin Dose Admin Diagnostic Test (Pha) 1 strip Q6HR 05/09/25 18:00 05/25/25 17:54 1 STRIP Insulin Human Regular Q6HR SC 05/09/25 18:00 Dextrose 50 ml UD PRN IV 05/09/25 13:30 05/17/25 17:42 50 ML Quetiapine Fumarate 100 mg BID PO 05/09/25 22:00 05/25/25 22:08 100 MG Valproate Sodium 750 mg BID PO 05/14/25 10:00 05/25/25 22:08 750 MG Enoxaparin Sodium 40 mg DAILY SC 05/17/25 10:00 05/25/25 09:59 40 MG Polyethylene Glycol 17 gm DAILY PO 05/26/25 10:00 Docusate Sodium 100 mg BID PO 05/25/25 22:00 Amlodipine Besylate 10 mg DAILY PO 05/25/25 22:45 Cancel Lorazepam 1 mg QIDP PRN PO 05/25/25 22:45 Losartan Potassium 50 mg DAILY PO 05/25/25 22:45 Cancel Melatonin 5 mg HS PO 05/25/25 22:45 Cancel Patient Own Medication 750 mg BID PO 05/25/25 22:45 UNV Benztropine Mesylate 1 mg DAILY PO 05/26/25 10:00 Lactulose 30 ml DAILY PO 05/26/25 10:00 Lisinopril 40 mg DAILY PO 05/26/25 10:00 Quetiapine Fumarate 200 mg BIDAC PO 05/26/25 07:00 objective Gen.: Patient lying in bed in no apparent distress. On supplemental oxygen. Head: Normocephalic, atraumatic. Eyes: EOMI/PERRLA. Ears: Normal hearing. Normal anatomy. Neck/trachea: Trachea midline, supple. Nose: Normal external anatomy. Mouth: Moist mucous membranes. Chest: Decreased air entry bilaterally. No wheezing or rhonchi. Cardiovascular: Positive S1, positive S2. Regular rate and rhythm. Abdomen: Positive bowel sounds in all 4 quadrants. Soft, non-tender, non- distended. : Deferred. Rectal: Deferred. Skin: Warm, dry. Intact. Extremities: 2+ radial pulses bilaterally. No lower extremity edema. Neuro: Awake, alert, oriented x3. No gross motor or sensory deficits. Cranial nerves II through XII intact. Gait not assessed. laboratory and microbiology Laboratory Tests 05/25/25 03:20 Test 05/25/25 03:20 Range/Units Serum Glucose 92 74-106 mg/dL Assessment/Plan Impression: Acute hypoxemic respiratory failure Dependence on supplemental oxygen Altered mental status Aspiration pneumonia Events: Remains on supplemental oxygen at 3 LPM NC Taper O2 as tolerated Head of bed elevation Aspiration precautions Continue antibiotics - cefepime and vancomycin Incentive spirometry Monitor renal function Monitor electrolytes Supplement as needed Potassium supplementation NGT in place On puree diet Physical therapy evaluation Patient is stable from the pulmonary standpoint for downgrade to [facility]. Labs and imaging reviewed Rest of plan as noted below Plan: S/p extubation on 05/21/25 Continue supplemental oxygen Titrate to keep O2 sats above 92%. Incentive spirometry Continue antibiotics F/u cultures Bronchodilators PRN Mucomyst with nebs Monitor renal function Monitor electrolytes Supplement as needed Monitor ins and outs Accu-Cheks, ISS PRN. Physical therapy DVT prophylaxis Prognosis: Guarded given patient's multiple co-morbidities. Rest of plan per hospitalist and other consultants. Thank you Dr. Gonzalez for allowing me to participate in this patient's care. Further recommendations will depend on the patient's clinical course. Please do not hesitate to contact me if you have any questions or concerns. This medical document was created using an electronic medical record system with Dragon computerized dictation system. Although these documentations are being carefully reviewed, there may still be some phonetic and typographical changes. The errors are purely typographical, due to imperfection on the software program, and do not reflect any compromise in the patient's medical care. Dietary Evaluation Review Comments: CCHO-60 diet. glucerna 240ml PO BID when pt is off NPO. Expected Outcomes/Goals: Promote gradual wt gain Plan discussed with: Patient, Other (TERRELL Hassan) DARON LIGHT MD May 25, 2025 23:33
[2025-05-26] VITALS (17 sets, daily range): BP systolic 107–151; BP diastolic 75–102; PULSE 59–110; RESP 10–22; TEMP 97.5–98.2; O2SAT 78–100
[2025-05-26 04:26] LABS: Chloride 105 mmol/L (98-107); Potassium 3.6 mmol/L (3.5-5.1); Sodium 144 mmol/L (136-145)
[2025-05-26 04:27] LABS: Anion Gap 8 (5-15)
[2025-05-26 04:33] LABS: BUN/Creatinine Ratio 10.2 (10.0-20.0); Glucose 78 mg/dL (74-106)
[2025-05-26 04:41] LABS: Blood Urea Nitrogen 6 mg/dL (9-23); Calcium 8.2 mg/dL (8.7-10.4); Carbon Dioxide 31 mmol/L (20-31)
[2025-05-26] MEDS: BENZTROPINE MESY 0.5 MG TAB PO SCH (08:41)
[2025-05-26] MEDS: LACTULOSE 20Gm/30ML SOLN PO SCH (08:41)
[2025-05-26] MEDS: POLYETHYLENE GLYCOL 17 GM PWDR PO SCH (08:42)
[2025-05-26] MEDS: LISINOPRIL 20 MG TAB PO SCH (08:43)
[2025-05-26] MEDS ORDERED: DIVA1TAB58 PO (11:50)
[2025-05-26] MEDS ORDERED: QUET100T47 PO (11:50)
[2025-05-26] MEDS ORDERED: VALP250S3 PO (11:50)
[2025-05-26] MEDS ORDERED: BENZ0.5T PO (11:50)
[2025-05-26] MEDS ORDERED: LISI20TA56 PO (11:50)
[2025-05-26] MEDS ORDERED: LACT10SO3 PO (11:50)
--- NOTE | 2025-05-26 11:51 | DVHDS2 ---
Discharge Summary Date of Admission May 08, 2025 at 23:42 Date of Discharge: May 26, 2025 Labs/Diagnostic Data: Laboratory Results Test 05/26/25 06:19 05/26/25 03:08 05/25/25 03:20 05/24/25 10:30 POC Glucose 74 mg/dl (70-106) Sodium Level 144 mmol/L (136-145) Potassium Level 3.6 mmol/L (3.5-5.1) Chloride Level 105 mmol/L (98-107) Carbon Dioxide Level 31 mmol/L (20-31) Anion Gap 8 (5-15) Blood Urea Nitrogen 6 mg/dL (9-23) Creatinine 0.59 mg/dL (0.700-1.30) Glomerular Filtration Rate Calc 115 mL/min (>90) BUN/Creatinine Ratio 10.2 (10.0-20.0) Serum Glucose 78 mg/dL (74-106) Calcium Level 8.2 mg/dL (8.7-10.4) White Blood Count 4.3 10^3/uL (4.4-10.8) Red Blood Count 2.58 10^6/uL (4.5-5.90) Hemoglobin 8.3 g/dL (13.5-17.5) Hematocrit 23.5 % (41.0-53.0) Mean Corpuscular Volume 91.2 fL (80.0-100.0) Mean Corpuscular Hemoglobin 32.1 pg (28.0-32.0) Mean Corpuscular Hemoglobin Concent 35.2 g/dL (32.0-36.0) Red Cell Distribution Width 14.9 % (11.8-14.3) Platelet Count 102 10^3/uL (140-450) Mean Platelet Volume 7.4 fL (6.9-10.8) Neutrophils (%) (Auto) 54.9 % (37.0-80.0) Lymphocytes (%) (Auto) 28.2 % (10.0-50.0) Monocytes (%) (Auto) 9.6 % (0.0-12.0) Eosinophils (%) (Auto) 5.4 % (0.0-7.0) Basophils (%) (Auto) 1.9 % (0.0-2.0) Neutrophils # (Auto) 2.4 10 ^3/uL (1.6-8.6) Lymphocytes # (Auto) 1.2 10 ^3/uL (0.4-5.4) Monocytes # (Auto) 0.4 10 ^3/uL (0-1.3) Eosinophils # (Auto) 0.2 10 ^3/uL (0-0.8) Basophils # (Auto) 0.1 10 ^3/uL (0-0.2) Nucleated Red Blood Cells 0.0 % Total Bilirubin 0.3 mg/dL (0.2-1.0) Aspartate Amino Transferase (AST) 16 U/L (13-40) Alanine Aminotransferase (ALT) < 9 U/L (7-40) Alkaline Phosphatase 40 U/L (46-116) Total Protein 4.5 g/dL (5.7-8.2) Albumin 2.4 g/dL (3.2-4.8) Vancomycin Level Trough 17.2 ug/mL (5-10) Test 05/22/25 03:19 05/21/25 08:41 05/20/25 11:04 05/20/25 07:03 Phosphorus Level 3.1 mg/dL (2.4-5.1) Magnesium Level 1.6 mg/dL (1.6-2.6) Blood Gas Specimen Type Arterial Blood Gas Sample Site Left radial Blood Gas Patient Temperature 37.0 Arterial Blood Date Drawn [id number] Arterial Blood pH 7.512 (7.350-7.450) Arterial Blood Partial Pressure CO2 33.9 mmHg (35.0-48.0) Arterial Blood Partial Pressure O2 379.2 mmHg (83.0-108.0) Arterial Blood HCO3 26.6 mmol/L (21.0-28.0) Arterial Blood Oxygen Saturation 99.2 % (94.0-98.0) Arterial Blood Base Excess 3.7 mmol/L (-2.0-3.0) Arterial Blood Oxyhemoglobin 98.7 % (94.0-98.0) Arterial Blood Carboxyhemoglobin 0.3 % (0.5-1.5) Arterial Blood Methemoglobin 0.2 % (0.0-1.5) Rafael Test Modified Blood Gas Total Hemoglobin 10.20 g/dL (13.5-17.5) Blood Gas Modality Vent - cpap FiO2 % 30.0 Blood Gas Pressure Support 8 Blood Gas PEEP or CPAP 5.0 Blood Gas Critical Value Read Back yes Blood Gas Notified Whom joseph maravilla md Blood Gas Notified Time [id number] Blood Gas Notified By air transportation provider barbara salazar Blood Gas Spontaneous Rate 8 Blood Gas Spontaneous Tidal Volume 538 Blood Gas Set Respiration Rate 16.0 Blood Gas Tidal Volume 400.0 Test 05/16/25 10:26 05/16/25 07:07 05/12/25 04:54 05/11/25 10:47 Blood Gas Liter Flow 15.00 Platelet Estimate Adequate Differential Total Cells Counted 100.0 (100) Neutrophils % (Manual) 76 (37.0-80.0) Band Neutrophils % (Manual) 2 Lymphocytes % (Manual) 12 (10.0-50.0) Monocytes % (Manual) 9 (0-12) Eosinophils % (Manual) 0 (0-7) Basophils % (Manual) 0 (0.0-2.0) Metamyelocytes % (manual) 1 Myelocytes % (Manual) 0 Promyelocytes % (Manual) 0 Blast Cells % (Manual) 0 Reactive Lymphocytes 0 Random Vancomycin Level 5.8 ug/mL (5-10) Test 05/09/25 12:53 05/09/25 09:00 05/09/25 03:53 05/08/25 23:30 B-Type Natriuretic Peptide 17.85 pg/mL (0-100) Urine Color Yellow (Yellow) Urine Clarity Clear (Clear) Urine pH 5.5 (5.0-9.0) Urine Specific [place] 1.026 (1.001-1.035) Urine Protein Negative (Negative) Urine Ketones Negative (Negative) Urine Blood 1+ /uL (Negative) Urine Nitrite Negative (Negative) Urine Bilirubin Negative (Negative) Urine Urobilinogen 2 mg/dL (Negative) Urine Leukocyte Esterase Trace /uL (Negative) Urine RBC 7 /hpf (0 - 3) Urine Microscopic WBC 11 /HPF (0-3) Urine Squamous Epithelial Cells Few /hpf (<5) Urine Bacteria None seen /hpf (None Seen) Urine Mucus Few (None Seen) Urine Glucose Normal mg/dL (Normal) Urine Opiates Screen Neg (NEGATIVE) Urine Fentanyl Screen Neg (NEGATIVE) Urine Barbiturates Screen Neg (NEGATIVE) Urine Phencyclidine Screen Neg (NEGATIVE) Urine Amphetamines Screen Neg (NEGATIVE) Urine Benzodiazepines Screen Neg (NEGATIVE) Urine Cocaine Screen Neg (NEGATIVE) Urine Cannabinoids Screen Neg (NEGATIVE) Vitamin D 25-Hydroxy 23.4 ng/mL (30.0-100) Lactic Acid Level 2.0 mmol/L (0.4-2.0) Troponin I High Sensitivity 6 ng/L (</=54) Test 05/08/25 22:15 05/08/25 21:37 Prothrombin Time 12.4 sec (9.3-11.8) Prothrombin Time INR 1.19 (0.9-1.15) Activated Partial Thromboplast Time 29.9 SEC (24.5-34.5) Ammonia < 10 umol/L (11-32) Other Laboratory Tests 05/26/25 03:08 05/25/25 03:20 Brief Hx & Hospital Course: 54 yo M with hx of schizophrenia, TBI living in [facility] admitted for AMS. baseline patient was bedbound, talking but only oriented to self and confused. patient came in with dehydration and hypernatremia due to likely poor oral intake. was started on iv hydration, empiric abx. cannot pass swallow eval so ngt was placed. initially showed improvement however patient developed acute hypoxic respiratory failure, decision made to intubate. after intubation patient was difficult to ventilate, xray showed atelectasis on R lung and bronchoscopy showed mucus plug, with significant improvement after bronchoscopy. abx was escalated, pressors titrated down and later was extubated and he passed swallow eval, started on po meds and diet. stable to dc back to [facility], aspiration precaution. Condition at Discharge: Good Final Diagnosis/Problems List acute toxic metabolic encephalopathy acute hypoxic RF req mechanical ventilation septic shock mucous plug atelectasis hypovolemic hypernatremia severe dehydration likely due to poor oral intake SRINIVAS likely hemodynamic mediated seizures? schizophrenia? HTN hypok slow transit constipation Discharge Disposition: Home ([facility]) Discharge Instruct/Medications Diet: Consistent carbohydrate, Cardiac 2g Na,low cholest Activity: No Restrictions, As Tolerated Scheduled Benztropine Mesylate (Benztropine Mesylate), 1 MG PO DAILY Divalproex Sodium (Divalproex Sodium Dr), 750 MG PO BID Lactulose (Lactulose), 30 ML PO DAILY Lisinopril (Lisinopril), 40 MG PO DAILY Quetiapine Fumerate (Quetiapine Fumarate), 100 MG PO BID Valproate Sodium (Depakene), 750 MG PO BID Discontinued Medications Amlodipine Besylate (Norvasc Tablet), 10 MG PO DAILY, (Reported) Benztropine Mesylate (Benztropine Mesylate), 1 MG PO DAILY, (Reported) Divalproex Sodium (Divalproex Sodium), 750 MG PO BID, (Reported) Lactulose (Lactulose), 30 ML PO DAILY, (Reported) Lisinopril (Lisinopril), 40 MG PO DAILY, (Reported) Lorazepam (Ativan Tablet), 2 TAB PO QIDP PRN for ANXIETY, (Reported) Losartan Potassium (Losartan Potassium), 50 MG PO DAILY, (Reported) Melatonin (Melatonin), 5 MG PO HS Quetiapine Fumerate (Quetiapine Fumarate), 200 MG PO BIDAC, (Reported) Discharge Statement: "Patient was advised to return to the ER or call 911 if any headaches, dizziness, shortness of breath, chest pain, abdominal pain, bleeding, fevers, or worsening of medical condition. Patient was counseled about treatment plan, medications, possible side effects, patientverbalized understanding. All questions were answered to the best of my ability. This discharge took greater then 30 minutes in planning, reviewing documentation, counseling the patient, and discussing with other team members." ASSESSMENT ASSESSMENT Assessment acute hypoxic RF hypernatremia 2/2 dehydration septic shock Date of Service: May 26, 2025 Billing Provider: VIRIDIANA MARAVILLA MD Common Visit Codes: 13795-ULF/OBS DISCH DAY >30min VIRIDIANA MARAVILLA MD May 26, 2025 11:51
--- NOTE | 2025-05-26 23:36 | DVHPN2 ---
Progress Note - Dictate Date Seen: May 26, 2025 Medical Necessity Reason Pt with a Central, PICC or Fol: Yes The following are medically ne: Rasheed Catheter Reason for rasheed catheter: Strict I&O Subjective Patient seen and examined at bedside. Remains on supplemental oxygen Overnight events reviewed. vital signs Vital Sign Date Time Temp Pulse Resp B/P (MAP) Pulse Ox O2 Delivery O2 Flow Rate FiO2 05/26/25 14:26 98.2 73 15 98 05/26/25 14:00 116/83 (94) 05/26/25 14:00 Room Air* 0 21 Total Intake and Output 05/25/25 05/25/25 05/26/25 15:00 23:00 07:00 Intake Total 262.5 ml 480 ml 500 ml Output Total 2400 ml 1550 ml Balance 262.5 ml -1920 ml -1050 ml medications Current Medications Medications Dose Ordered Sig/Negra Route Start Time Stop Time Status Last Admin Dose Admin Amlodipine Besylate 10 mg DAILY PO 05/25/25 22:45 Cancel Lorazepam 1 mg QIDP PRN PO 05/25/25 22:45 Cancel Losartan Potassium 50 mg DAILY PO 05/25/25 22:45 Cancel Melatonin 5 mg HS PO 05/25/25 22:45 Cancel Quetiapine Fumarate 200 mg BIDAC PO 05/26/25 07:00 Cancel objective Gen.: Patient lying in bed in no apparent distress. On supplemental oxygen. Head: Normocephalic, atraumatic. Eyes: EOMI/PERRLA. Ears: Normal hearing. Normal anatomy. Neck/trachea: Trachea midline, supple. Nose: Normal external anatomy. Mouth: Moist mucous membranes. Chest: Decreased air entry bilaterally. No wheezing or rhonchi. Cardiovascular: Positive S1, positive S2. Regular rate and rhythm. Abdomen: Positive bowel sounds in all 4 quadrants. Soft, non-tender, non- distended. : Deferred. Rectal: Deferred. Skin: Warm, dry. Intact. Extremities: 2+ radial pulses bilaterally. No lower extremity edema. Neuro: Awake, alert, oriented x3. No gross motor or sensory deficits. Cranial nerves II through XII intact. Gait not assessed. laboratory and microbiology Laboratory Tests 05/26/25 03:08 05/25/25 03:20 Test 05/26/25 03:08 Range/Units Serum Glucose 78 74-106 mg/dL Assessment/Plan Impression: Acute hypoxemic respiratory failure Dependence on supplemental oxygen Altered mental status Aspiration pneumonia Events: Remains on supplemental oxygen at 3 LPM NC Taper O2 as tolerated No acute overnight events Head of bed elevation Aspiration precautions Complete antibiotics Incentive spirometry Patient had PT evaluation Patient is stable for discharge from the pulmonary standpoint. Labs and imaging reviewed Plan: S/p extubation on 05/21/25 Continue supplemental oxygen Titrate to keep O2 sats above 92%. Incentive spirometry Complete antibiotics F/u cultures Bronchodilators PRN Monitor renal function Monitor electrolytes Supplement as needed Monitor ins and outs DVT prophylaxis Prognosis: Guarded given patient's multiple co-morbidities. Rest of plan per hospitalist and other consultants. Thank you Dr. Gonzalez for allowing me to participate in this patient's care. Further recommendations will depend on the patient's clinical course. Please do not hesitate to contact me if you have any questions or concerns. This medical document was created using an electronic medical record system with [employer] computerized dictation system. Although these documentations are being carefully reviewed, there may still be some phonetic and typographical changes. The errors are purely typographical, due to imperfection on the software program, and do not reflect any compromise in the patient's medical care. Dietary Evaluation Review Comments: CCHO-60 diet. glucerna 240ml PO BID when pt is off NPO. Expected Outcomes/Goals: Promote gradual wt gain Plan discussed with: Patient, Other (RN) DARON LIGHT MD May 26, 2025 23:36
== END 2025-05-26 16:36 | DRG 130 ==
LOC: ER 20:15 → EDBD 20:15 → OVERFLOW 23:42 → ICU WEST 05-09 18:35 → TELE-EAST 05-10 12:40 → TELE-WESTW 05-13 14:52 → ICU WEST 05-16 11:23
PROVIDERS: ADMIT Student in an Organized Health Care Education/Training Program; ATTEND Student in an Organized Health Care Education/Training Program
PROC: 02HV33Z Insertion of Infusion Device into Superior Vena Cava, Percutaneous Approach (ICD-10-PCS; principal; 2025-05-16)
PROC: 5A1955Z Respiratory Ventilation, Greater than 96 Consecutive Hours (ICD-10-PCS; 2025-05-16)
PROC: 0B938ZZ Drainage of Right Main Bronchus, Via Natural or Artificial Opening Endoscopic (ICD-10-PCS; 2025-05-16)
PROC: 0BH17EZ Insertion of Endotracheal Airway into Trachea, Via Natural or Artificial Opening (ICD-10-PCS; 2025-05-16)
DX: J96.01 Acute respiratory failure with hypoxia (principal); R65.21 Severe sepsis with septic shock; N17.0 Acute kidney failure with tubular necrosis; J69.0 Pneumonitis due to inhalation of food and vomit; A41.9 Sepsis, unspecified organism; G92.8 Other toxic encephalopathy; T17.890A Other foreign object in other parts of respiratory tract causing asphyxiation, initial encounter; E87.20 Acidosis, unspecified; R56.9 Unspecified convulsions; D69.6 Thrombocytopenia, unspecified; E87.0 Hyperosmolality and hypernatremia; E86.0 Dehydration; E86.1 Hypovolemia; I10 Essential (primary) hypertension; F03.90 Unspecified dementia, unspecified severity, without behavioral disturbance, psychotic disturbance, mood disturbance, and anxiety; F20.9 Schizophrenia, unspecified; E87.6 Hypokalemia; G93.89 Other specified disorders of brain; E11.9 Type 2 diabetes mellitus without complications; I49.3 Ventricular premature depolarization; K59.01 Slow transit constipation; Z99.81 Dependence on supplemental oxygen; Z74.01 Bed confinement status; Z79.899 Other long term (current) drug therapy; Z87.820 Personal history of traumatic brain injury; W44.F9XA Other object of natural or organic material, entering into or through a natural orifice, initial encounter; Y93.89 Activity, other specified; Y92.89 Other specified places as the place of occurrence of the external cause; Y99.8 Other external cause status
CPT/HCPCS: 36415; 36600; 70450; 71045; 80048; 80053; 80202; 80307; 81001; 82140; 82306; 82565; 82805; 82962; 83605; 83735; 83880; 84100; 84295; 84484; 85007; 85025; 85027; 85610; 85730; 87040; 87070; 87077; 87081; 87186; 87205; 92610; 93005; 94002; 94003; 96365; 97110; 97163; 97530; 99291; G0378; J2543; J2704; J3480; J7042

== ENCOUNTER 2025-08-29 16:09 | Emergency (ER) | payer MEDICAID ==
[~2025-08-29] VITALS: Ht 170.2 cm; Wt 77.0 kg
[~2025-08-29 16:09] MED LIST changes: -AML5T PO; +BENZ0.5T PO; -BENZ1TAB6 PO; -DIVA-139 PO; +DIVA1TAB58 PO; -HAL5T PO; +LISI20TA56 PO; -LISI40TA16 PO; -LORA-1121 PO; -MELA5TAB16 PO; +QUET100T47 PO; -QUET200T4 PO; -QUET50TA5 PO; +VALP250S3 PO
[2025-08-29 16:20] VITALS: PULSE 70; RESP 18; O2SAT 97
[2025-08-29 16:51] LABS: Urine Protein, UAD Negative (Negative)
--- NOTE | 2025-08-29 18:40 | DVH ---
CT HEAD WITHOUT CONTRAST INDICATION: s/p fall COMPARISON: CT HEAD WITHOUT CONTRAST on DOS: 05/20/25, CT HEAD WITHOUT CONTRAST on DOS: 05/08/25, CT HE AD WITHOUT CONTRAST on DOS: 01/25/25, CT HEAD WITHOUT CONTRAST on DOS: 11/25/24, CT HEAD WITHOUT CONTRAST on DOS: 10/24/24 TECHNIQUE: CT of the head without intravenous contrast. RADIATION DOSE: CTDIvol: 59.52 mGy, DLP: 59.52 mGy*cm FINDINGS: There is no evidence of acute intracranial hemorrhage, extra-axial collection, mass effect, midline s hift, herniation or hydrocephalus. The ventricles, sulci and cisterns are age appropriate. Chronic m icrovascular ischemic changes. Chronic encephalomalacia is seen in the left frontal region. The harris- white differentiation is intact. The visualized paranasal sinuses and mastoid air cells are clear. Craniotomy defect is seen in the left frontoparietal region. IMPRESSION: 1. No acute intracranial abnormality.
--- NOTE | 2025-08-29 19:02 | DVH ---
HISTORY: s/p fall TECHNIQUE: Nonenhanced axial images through the facial bones with coronal and sagittal MPR. Radiation Dose Information: CT Dose: CTDI volume is 66.97 mGy. Dose-length product is 1.78 mGy*cm COMPARISON: CT HEAD WITHOUT CONTRAST on DOS: 08/29/25, CT HEAD WITHOUT CONTRAST on DOS: 05/20/25, CT HE AD WITHOUT CONTRAST on DOS: 05/08/25, CT MAXILLOFACIAL WITHOUT on DOS: 01/25/25, CT HEAD WITHOUT CONTRAS T on DOS: 01/25/25 FINDINGS: Mandible: Unremarkable Maxilla: Unremarkable Zygomatic arches: Unremarkable Nasal bone: Unremarkable Orbits: Unremarkable Sinuses: Clear Facial swelling: None IMPRESSION: 1. No acute facial fractures. Radiation optimization: All CT scans at this facility use at least one of these dose optimization fabiana hniques: automated exposure control mA and/or kV adjustment per patient size (includes targeted exam s where dose is matched to clinical indication) or iterative reconstruction.
[2025-08-29 20:23] VITALS: PULSE 69; RESP 18; O2SAT 95
[2025-08-29] MEDS ORDERED: IBUP-1454 PO (20:33)
[2025-08-29] MEDS ORDERED: ACET500T58 PO (20:33)
--- NOTE | 2025-08-29 20:33 | ED.PDOC ---
Noemy. trauma (HPI) HPI Comments The patient is a 54-year-old male who was brought to the facility today via EMS due to facial trauma sustained yesterday. Patient has a history of traumatic brain injury and has lingering altered mental status due to that event. Patient was unable to recall events leading up to the traumatic injury. Patient arrives with some crusted blood to the left side of the face as well as facial swelling. Patient does not remember the events nor can recall his medical history. Patient was hypertensive on arrival. Chief Complaint: Face pain Time Seen by MD: 17:28 Primary Care Provider: COLLIN Reviewed notes: Nurses Notes, Interior Design Coordinator Notes Allergies: Coded Allergies: NO KNOWN ALLERGIES (Unverified , 02/08/24) Home Meds Active Scripts Valproate Sodium (Depakene) 250 Mg/5 Ml Sr, 750 MG PO BID for 30 Days, #60 SYP Prov:VIRIDIANA MARAVILLA MD 05/26/25 Quetiapine Fumerate (QUETIAPINE FUMARATE) 100 Mg Tab, 100 MG PO BID for 30 Days, #60 TAB Prov:VIRIDIANA MARAVILLA MD 05/26/25 Lisinopril (Lisinopril) 20 Mg Tab, 40 MG PO DAILY for 30 Days, #60 TAB Prov:VIRIDIANA MARAVILLA MD 05/26/25 Lactulose (Lactulose) 10 Gm/15 Ml Mahnaz, 30 ML PO DAILY for 30 Days, #1200 ML Prov:VIRIDIANA MARAVILLA MD 05/26/25 Divalproex Sodium (Divalproex Sodium Dr) 250 Mg Tab, 750 MG PO BID for 30 Days, #180 TAB Prov:VIRIDIANA MARAVILLA MD 05/26/25 Benztropine Mesylate (Benztropine Mesylate) 0.5 Mg Tab, 1 MG PO DAILY for 30 Days, #60 TAB Prov:VIRIDIANA MARAVILLA MD 05/26/25 Information Source: Patient, Emergency Med Personnel Mode of Arrival: EMS Severity: Moderate Timing: Days Duration: Since onset Prehospital treatment: None Location: Head Location of laceration: None Mechanism: Blunt trauma, Fall Past Medical History PAST MEDICAL HISTORY: Anemia, Dementia, DM, HTN, Schizophrenia, Seizures Past Medical History (Other): History of TBI Surgical History: Denies all surgeries Family History Family History: Reviewed,noncontributory to illness, No family hx of Cancer, No family hx of DM, No family hx of Heart leilani, No family hx of HTN, No family hx ofKidney leilani, No family hx of Liver leilani, No family hx of Lung leilani, No family hx of Stroke Social History Smoker: Non-Smoker Alcohol: Denies ETOH Use Drugs: Denies Drug Use Lives In: Assisted Care Constitutional: denies: chills, diaphoresis, fatigue, fever, malaise, sweats, weakness, others EENTM: reports: others (Facial trauma due to fall); denies: blurred vision, double vision, ear bleeding, ear discharge, ear drainage, ear pain, ear ringing, eye pain, eye redness, hearing loss, mouth pain, mouth swelling, nasal discharge, nose bleeding, nose congestion, nose pain, photophobia, tearing, throat pain, throat swelling, voice changes Respiratory: denies: cough, hemoptysis, orthopnea, SOB at rest, shortness of breath, SOB with excertion, stridor, wheezing, others Cardiovascular: denies: chest pain, dizzy spells, diaphoresis, Dyspnea on exertion, edema, irregular heart beat, left arm pain, lightheadedness, palpitations, PND, syncope, others Gastrointestinal: denies: abdomen distended, abdominal pain, blood streaked bowels, constipated, diarrhea, dysphagia, difficulty swallowing, hematemesis, melena, nausea, poor appetite, poor fluid intake, rectal bleeding, rectal pain, vomiting, others Genitourinary: denies: burning, dysuria, flank pain, frequency, hematuria, incontinence, penile discharge, penile sore, pain, testicle pain, testicle swelling, urgency, others Neurological: denies: dizziness, fainting, headache, left sided numbness, left sided weakness, numbness, paresthesia, pre-existing deficit, right sided numbness, right sided weakness, seizure, speech problems, tingling, tremors, weakness, others Musculoskeletal: denies: back pain, gout, joint pain, joint swelling, muscle pain, muscle stiffness, neck pain, others Integumetry: denies: bruises, change in color, change in hair/nails, dryness, laceration, lesions, lumps, rash, wounds, others Allergic/Immunocompromised: denies: Difficulty Healing, Frequent Infections, Hives, Itching, others Hematologic/Lymphatic: denies: anemia, blood clots, easy bleeding, easy bruising, swollen glands, others Endocrine: denies: excessive hunger, excessive sweating, excessive thirst, excessive urination, flushing, intolerance to cold, intolerance to heat, unexplained weight gain, unexplained weight loss, others Psychiatric: denies: anxiety, bipolar disorder, depression, hopeless, panic disorder, schizophrenia, sleepless, suicidal, others Physical Exam General Appearance: No Apparent Distress (Patient did not appear to be in any distress at time of evaluation.), Normal HEENT: Head (Patient has got some crusted blood to his left lip and left-sided face. Edema noted to zygomatic region extending into the eye region. No globe involvement. Patient denies any change in vision.), Pharynx Normal, TMs Normal Neck: Full Range of Motion, Non-Tender, Normal, Normal Inspection Respiratory: Chest Non-Tender, Lungs Clear, No Accessory Muscle Use, No Respiratory Distress, Normal Breath Sounds Cardiovascular: No Edema, No JVD, No Murmur, No Gallop, Normal Peripheral Pulses, Regular Rate/Rhythm Breast Exam: Deferred Gastrointestinal: No Organomegaly, Non Tender, No Pulsatile Mass, Normal Bowel Sounds, Soft Genitalia: Deferred Pelvic: Deferred Rectal: Deferred Extremities: Normal capillary refill, No pedal edema Neurologic: Alert Cerebellar Function: NOT DONE Reflexes: NOT DONE Skin: Dry, Normal Color, Warm Lymphatic: No Adenopathy Was a procedure done? Was a procedure done?: No Differential Diagnosis Multiple Trauma: Closed Head Injury, Fractures, Other (Subarachnoid hemorrhage, subdural hematoma, skull fracture) X-Ray, Labs, Meds, VS Vital Signs Date Time Temp Pulse Resp B/P (MAP) Pulse Ox O2 Delivery O2 Flow Rate FiO2 08/29/25 20:23 69 18 95 Room Air* 0 21 08/29/25 20:00 98.1 69 18 169/110 (129) 91 98.1 08/29/25 18:30 69 17 159/99 (119) 97 08/29/25 16:20 97.9 70 18 156/97 (116) 97 97.9 08/29/25 16:20 70 18 97 Room Air* 0 21 08/29/25 16:14 98.6 70 15 158/98 98 98.6 Lab Test 08/29/25 16:34 Range/Units Urine Color Yellow Yellow Urine Clarity Clear Clear Urine pH 6.5 5.0-9.0 Urine Specific Rector 1.028 1.001-1.035 Urine Protein Negative Negative Urine Ketones Trace Negative Urine Blood Negative Negative /uL Urine Nitrite Negative Negative Urine Bilirubin Negative Negative Urine Urobilinogen Normal Negative mg/dL Urine Leukocyte Esterase Negative Negative /uL Urine RBC 8 0 - 3 /hpf Urine Microscopic WBC 3 0-3 /HPF Urine Squamous Epithelial Cells None seen <5 /hpf Urine Bacteria None seen None Seen /hpf Urine Glucose Normal Normal mg/dL X-Ray, Labs, Meds, VS Comment All studies performed the ED were evaluated by me personally. Laboratories were unremarkable for any urinary concerns. CT of head and maxillofacial were unremarkable for any fractures of the face, subarachnoid hemorrhage, subdural hematoma or skull fracture. Patient received some facial trauma due to his event. Advised Tylenol and or Motrin as needed for pain relief as well as ice therapy as tolerated. Time of 1ST Reevaluation: 20:29 Reevaluation 1ST: Improved Consultation: PCP Patient Education/Counseling: Diagnosis, Treatment Family Education/Counseling: Diagnosis, Treatment Departure 1 Departure Time of Disposition: 20:31 Impression: Primary Impression: Fall Additional Impression: Facial contusion Disposition: [facility] Condition: Stable Additional Instructions: Advised pain medication as needed for symptomatic relief. Ice therapy as tolerated. e-Prescriptions Acetaminophen (Acetaminophen) 500 Mg Tab 500 MG PO Q4HP PRN, #30 TAB Prov: JENNIFER ZHOU PAC 08/29/25 Ibuprofen (Ibuprofen) 600 Mg Tab 1 TAB PO Q6HP PRN, #20 TAB Prov: JENNIFER ZHOU PAC 08/29/25 Discharged With: Self Critical Care Note Critical Care Time?: No Stability Stability form required: No Heart Score Heart Score: Heart Score Response (Comments) Value History N/A 0 EKG N/A 0 Age N/A 0 Risk Factors N/A 0 Troponin N/A 0 Total 0 JENNIFER ZHOU PAC Aug 29, 2025 20:33
[2025-08-30 07:15] VITALS: PULSE 80; RESP 16; TEMP 98; O2SAT 95
[2025-08-30 14:35] VITALS: BP 144/75; PULSE 79; RESP 16; O2SAT 96
== END 2025-08-30 14:37 | disposition home or self-care (01) ==
LOC: ER 16:09 → EDBD 16:09 → EDUNIT# 16:09 → ER 08-30 14:35
DX: S00.83XA Contusion of other part of head, initial encounter (principal); I10 Essential (primary) hypertension; F20.9 Schizophrenia, unspecified; E11.9 Type 2 diabetes mellitus without complications; Z79.899 Other long term (current) drug therapy; W19.XXXA Unspecified fall, initial encounter; Y93.89 Activity, other specified; Y92.89 Other specified places as the place of occurrence of the external cause; Y99.8 Other external cause status
CPT/HCPCS: 70450; 70486; 81001

== ENCOUNTER 2025-09-19 10:12 | Emergency (ER) | payer MEDICAID ==
[~2025-09-19] VITALS: Ht 165.1 cm; Wt 80.0 kg
[~2025-09-19 10:12] MED LIST changes: +ACET500T58 PO; +IBUP-1454 PO
[2025-09-19 10:36] VITALS: PULSE 83; RESP 15; O2SAT 97
--- NOTE | 2025-09-19 10:48 | ED.PDOC ---
Noemy. trauma (HPI) HPI Comments This is a 54-year-old male, with a Hx of Dementia, HTN, and DM, who since to the ED via EMS with a chief complaint of multiple trauma S/P fall minutes ago. Patient was walking around [facility] when he fell, unwitnessed, and called for help. Patient presents to the ED today with a hematoma to the L facial cheek and abrasions to the bilateral lower extremities following the fall. Patient has no further complaints at this time and otherwise denies further associated symptoms of LOC, dizziness, weakness, fatigue, fever, or chills. Chief Complaint: Abrasion Time Seen by MD: 09:40 Primary Care Provider: COLLIN Reviewed notes: Medications, Allergies Allergies: Coded Allergies: NO KNOWN ALLERGIES (Unverified , 02/08/24) Home Meds Active Scripts Acetaminophen (Acetaminophen) 500 Mg Tab, 500 MG PO Q4HP PRN, #30 TAB Prov:JENNIFER ZHOU PAC 08/29/25 Ibuprofen (Ibuprofen) 600 Mg Tab, 1 TAB PO Q6HP PRN, #20 TAB Prov:JENNIFER ZHOU PAC 25 Valproate Sodium (Depakene) 250 Mg/5 Ml Sr, 750 MG PO BID for 30 Days, #60 SYP Prov:VIRIDIANA MARAVILLA MD 05/26/25 Quetiapine Fumerate (QUETIAPINE FUMARATE) 100 Mg Tab, 100 MG PO BID for 30 Days, #60 TAB Prov:VIRIDIANA MARAVILLA MD 05/26/25 Lisinopril (Lisinopril) 20 Mg Tab, 40 MG PO DAILY for 30 Days, #60 TAB Prov:VIRIDIANA MARAVILLA MD 05/26/25 Lactulose (Lactulose) 10 Gm/15 Ml Mahnaz, 30 ML PO DAILY for 30 Days, #1200 ML Prov:VIRIDIANA MARAVILLA MD 05/26/25 Divalproex Sodium (Divalproex Sodium Dr) 250 Mg Tab, 750 MG PO BID for 30 Days, #180 TAB Prov:VIRIDIANA MARAVILAL MD 05/26/25 Benztropine Mesylate (Benztropine Mesylate) 0.5 Mg Tab, 1 MG PO DAILY for 30 Days, #60 TAB Prov:VIRIDIANA MARAVILLA MD 05/26/25 Information Source: Patient, Emergency Med Personnel Mode of Arrival: EMS Severity: Moderate Timing: Minutes Duration: Since onset Prehospital treatment: Accucheck (232) Location: Face (Left cheek), (L) Leg, (R) Leg, Other Past Medical History PAST MEDICAL HISTORY: Anemia, Dementia, DM, HTN, Schizophrenia, Seizures Surgical History: Denies all surgeries Family History Family History: Reviewed,noncontributory to illness, No family hx of Cancer, No family hx of DM, No family hx of Heart leilani, No family hx of HTN, No family hx ofKidney leilani, No family hx of Liver leilani, No family hx of Lung leilani, No family hx of Stroke Social History Smoker: Non-Smoker Alcohol: Denies ETOH Use Drugs: Denies Drug Use Lives In: Assisted Care Constitutional: denies: chills, diaphoresis, fatigue, fever, malaise, sweats, weakness, others EENTM: denies: blurred vision, double vision, ear bleeding, ear discharge, ear drainage, ear pain, ear ringing, eye pain, eye redness, hearing loss, mouth pain, mouth swelling, nasal discharge, nose bleeding, nose congestion, nose pain, photophobia, tearing, throat pain, throat swelling, voice changes, others Respiratory: denies: cough, hemoptysis, orthopnea, SOB at rest, shortness of breath, SOB with excertion, stridor, wheezing, others Cardiovascular: denies: chest pain, dizzy spells, diaphoresis, Dyspnea on exertion, edema, irregular heart beat, left arm pain, lightheadedness, palpitations, PND, syncope, others Gastrointestinal: denies: abdomen distended, abdominal pain, blood streaked bowels, constipated, diarrhea, dysphagia, difficulty swallowing, hematemesis, melena, nausea, poor appetite, poor fluid intake, rectal bleeding, rectal pain, vomiting, others Genitourinary: denies: burning, dysuria, flank pain, frequency, hematuria, incontinence, penile discharge, penile sore, pain, testicle pain, testicle swelling, urgency, others Neurological: denies: dizziness, fainting, headache, left sided numbness, left sided weakness, numbness, paresthesia, pre-existing deficit, right sided numbness, right sided weakness, seizure, speech problems, tingling, tremors, weakness, others Musculoskeletal: denies: back pain, gout, joint pain, joint swelling, muscle pain, muscle stiffness, neck pain, others Integumetry: reports: bruises, wounds; denies: change in color, change in hair/nails, dryness, laceration, lesions, lumps, rash, others Allergic/Immunocompromised: denies: Difficulty Healing, Frequent Infections, Hives, Itching, others Hematologic/Lymphatic: denies: anemia, blood clots, easy bleeding, easy bruising, swollen glands, others Endocrine: denies: excessive hunger, excessive sweating, excessive thirst, excessive urination, flushing, intolerance to cold, intolerance to heat, unexplained weight gain, unexplained weight loss, others Psychiatric: denies: anxiety, bipolar disorder, depression, hopeless, panic disorder, schizophrenia, sleepless, suicidal, others All Other Systems: Reviewed and Negative Physical Exam General Appearance: Moderate Distress HEENT: Normal ENT Inspection, Pharynx Normal, TMs Normal Neck: Full Range of Motion, Non-Tender, Normal, Normal Inspection Respiratory: Chest Non-Tender, Lungs Clear, No Accessory Muscle Use, No Respiratory Distress, Normal Breath Sounds Cardiovascular: No Edema, No JVD, No Murmur, No Gallop, Normal Peripheral Pulses, Regular Rate/Rhythm Breast Exam: Deferred Gastrointestinal: No Organomegaly, Non Tender, No Pulsatile Mass, Normal Bowel Sounds, Soft Genitalia: Deferred Pelvic: Deferred Rectal: Deferred Extremities: No calf tenderness, Normal capillary refill, Normal inspection, Normal range of motion, Non-tender, No pedal edema Musculoskeletal : Apperance: Normal Neurologic: Alert, cupola melter II-XII nml as Tested, No Motor Deficits, Normal Affect, Normal Mood, No Sensory Deficits Cerebellar Function: NOT DONE Reflexes: NOT DONE Skin: Dry, Normal Color, Warm Peripheral Pulses: 3+ Radial (R), 3+ Radial (L) Lymphatic: No Adenopathy Was a procedure done? Was a procedure done?: No Differential Diagnosis Multiple Trauma: Closed Head Injury, Fractures, Abrasions, Hematoma, Laceration X-Ray, Labs, Meds, VS Vital Signs Date Time Temp Pulse Resp B/P (MAP) Pulse Ox O2 Delivery O2 Flow Rate FiO2 09/19/25 12:38 72 16 146/122 (130) 98 09/19/25 10:36 83 15 97 Room Air* 0 21 09/19/25 10:35 98.4 80 15 180/120 (140) 97 98.4 09/19/25 10:17 98.1 84 20 173/110 98 98.1 Patient alert. Comes here frequently. Status post fall. Vitals stable. Saturation pristine on room air. Heart rate within normal limits. Blood pressure slightly elevated. Was given clonidine. CT of the head reviewed does not show any acute changes. No acute process. He will need help walking. Patient insists on going home. Explained to the patient. Was told to follow up with his primary care physician. Was told to come back if there is any problem. Images Reviewed?: Images reviewed and evaluated by me Time of 1ST Reevaluation: 10:41 Reevaluation 1ST: Improved Patient Education/Counseling: Diagnosis, Treatment Family Education/Counseling: No Family Present Departure 1 Departure Time of Disposition: 11:08 Impression: Primary Impression: Hypertensive urgency Additional Impressions: Head injury Qualified Codes: S09.90XA - Unspecified injury of head, initial encounter Anxiety Disposition: 01 HOME / SELF CARE / HOMELESS Condition: Good Discharged With: Self Critical Care Note Critical Care Time?: No Stability Stability form required: No Heart Score Heart Score: Heart Score Response (Comments) Value History N/A 0 EKG N/A 0 Age N/A 0 Risk Factors N/A 0 Troponin N/A 0 Total 0 I personally scribed for THERON TAPIA MD ([facility]) on 09/19/25 at 10:48. Electronically submitted by Lillie Craig ([facility]). THERON TAPIA MD Sep 19, 2025 10:48
--- NOTE | 2025-09-19 12:20 | DVH ---
CT HEAD WITHOUT CONTRAST INDICATION: fall EXAM DATE: 09/19/2025 11:42 AM COMPARISON: CT HEAD WITHOUT CONTRAST on DOS: 08/29/25, CT HEAD WITHOUT CONTRAST on DOS: 05/20/25, CT HE AD WITHOUT CONTRAST on DOS: 05/08/25 RADIATION DOSE: CTDIvol: 55.01 mGy, DLP: 881.82 mGy*cm PROCEDURE: CT scans of the head were obtained from the vertex to the skull base. Sagittal and coronal reconstructions were provided. All CT scans at this medical facility are performed using dose modulation techniques as appropriate t o a performed exam including the following: Automated exposure control was utilized; adjustment of th e MA and/or KV according to patient size; and use of iterative reconstruction technique. FINDINGS: Post surgical changes from left craniotomy with underlying left frontal, temporal lobe ence phalomalacia. There is sulcal and ventricular prominence. The brain otherwise shows normal morpholog y and harris-white matter differentiation, without intracranial hemorrhage, extra-axial fluid collectio n, mass effect or acute large vessel infarct. The ventricles are normal in size. The basal cisterns a re patent. The skull and visible facial bones are intact. The paranasal sinuses, mastoid air cells an d middle ear cavities are well-aerated. The soft tissues of the scalp are unremarkable. IMPRESSION: Post surgical changes from left craniotomy with underlying left frontal, temporal lobe encephalomalac ia.
--- NOTE | 2025-09-19 18:23 | DVHHP2 ---
Admitting Diagnosis: multiple falls, rule out CVA History of Present Illness Home Meds Active Scripts Acetaminophen (Acetaminophen) 500 Mg Tab, 500 MG PO Q4HP PRN, #30 TAB Prov:JENNIFER ZHOU Blanco PAC 08/29/25 Ibuprofen (Ibuprofen) 600 Mg Tab, 1 TAB PO Q6HP PRN, #20 TAB Prov:JENNIFER ZHOU PAC 08/29/25 Valproate Sodium (Depakene) 250 Mg/5 Ml Sr, 750 MG PO BID for 30 Days, #60 SYP Prov:VIRIDIANA MARAVILLA MD 05/26/25 Quetiapine Fumerate (QUETIAPINE FUMARATE) 100 Mg Tab, 100 MG PO BID for 30 Days, #60 TAB Prov:VIRIDIANA MARAVILLA MD 05/26/25 Lisinopril (Lisinopril) 20 Mg Tab, 40 MG PO DAILY for 30 Days, #60 TAB Prov:VIRIDIANA MARAVILLA MD 05/26/25 Lactulose (Lactulose) 10 Gm/15 Ml Mahnaz, 30 ML PO DAILY for 30 Days, #1200 ML Prov:VIRIDIANA MARAVILLA MD 05/26/25 Divalproex Sodium (Divalproex Sodium Dr) 250 Mg Tab, 750 MG PO BID for 30 Days, #180 TAB Prov:VIRIDIANA MARAVILLA MD 05/26/25 Benztropine Mesylate (Benztropine Mesylate) 0.5 Mg Tab, 1 MG PO DAILY for 30 Days, #60 TAB Prov:VIRIDIANA MARAVILLA MD 05/26/25 Past Medical History Patient Family History: Patient reports no known family medical history. 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 Patient was walking around [facility] facility when he fell, unwitnessed, and called for help. Patient presents to the ED today with a feli vivian to the L facial cheek and abrasions to the bilateral lower extremities following the fall. Patient has no further complaints at this time and otherwise denies further associated symptoms of LOC, dizziness, weakness, fatigue, fever, or chills. Admitting Diagnosis: multiple falls, ruling out CVA PATO GRIFFITH DO Sep 19, 2025 18:23
[2025-09-19 18:27] VITALS: BP 150/82; PULSE 80; RESP 19; TEMP 98.4; O2SAT 96
[2025-09-19] MEDS ORDERED: ACETAMINOPHEN 325 MG TAB PO PRN (18:30)
[2025-09-19] MEDS ORDERED: HYDROcodone-ACET 5/325MG TAB PO PRN (18:30)
[2025-09-19] MEDS ORDERED: MORPHINE SULFATE INJ 2 MG/ml SYRG IV PRN ×2 (18:30)
[2025-09-19] MEDS ORDERED: NITROGLYCERIN 0.4 MG SL TAB SL PRN (18:30)
== END 2025-09-19 18:28 | disposition home or self-care (01) ==
LOC: EDUNIT# 10:12 → EDBD 10:12 → ER 10:14
DX: S09.8XXA Other specified injuries of head, initial encounter (principal); I16.0 Hypertensive urgency; F41.9 Anxiety disorder, unspecified; F03.94 Unspecified dementia, unspecified severity, with anxiety; E11.9 Type 2 diabetes mellitus without complications; F20.9 Schizophrenia, unspecified; I10 Essential (primary) hypertension; Z79.899 Other long term (current) drug therapy; Z98.890 Other specified postprocedural states; W19.XXXA Unspecified fall, initial encounter; Y93.01 Activity, walking, marching and hiking; Y92.89 Other specified places as the place of occurrence of the external cause; Y99.8 Other external cause status
CPT/HCPCS: 70450

== ENCOUNTER 2025-10-02 20:13 | Emergency (ER) | payer MEDICAID ==
[~2025-10-02] VITALS: Ht 165.1 cm; Wt 77.1 kg
--- NOTE | 2025-10-02 21:23 | DVH ---
EXAM: CT HEAD WITHOUT CONTRAST INDICATION: fall, pain TECHNIQUE: CT of the head without intravenous contrast. Radiation Dose Information: CT Dose: CTDI volume is 53.62 mGy. Dose-length product is 1075.79 mGy*cm The dose indicators for CT are the volume Computed Tomography (CT) Dose Index (CTDIvol) and the Dose Length Product (DLP), and are measured in units of mGy and mGy-cm, respectively. These indicators are not patient dose, but values generated from the CT scanner acquisition factors. The report includes radiation exposure data for exposures received during this examination. COMPARISON: CT HEAD WITHOUT CONTRAST on DOS: 09/19/25, CT HEAD WITHOUT CONTRAST on DOS: 08/29/25, CT HEAD WITHOUT CONTRAST on DOS: 05/20/25, CT HEAD WITHOUT CONTRAST on DOS: 05/08/25, CT HEAD WITHOUT CONTRAST on DOS: 01/25/25 FINDINGS: Prior left pterional craniotomy. There is no evidence of acute intracranial hemorrhage, extra-axial collection, mass effect, midline shift, herniation or hydrocephalus. The ventricles, sulci and cisterns are age appropriate. Remote medial left frontal infarcts. Remote lacunar infarct within the left thalamus. Patchy periventricular and subcortical white matter hypoattenuation is nonspecific but may be related to small vessel ischemic disease. The visualized paranasal sinuses and mastoid air cells are clear. The surrounding soft tissues and osseous structures are unremarkable. IMPRESSION: No acute intracranial abnormality.
[2025-10-02 21:32] VITALS: TEMP 98.9; O2SAT 97
[2025-10-02] MEDS: HALOPERIDOL LACTATE 5 MG/ML INJ VIAL IM ONE (21:42)
--- NOTE | 2025-10-02 22:48 | ED.PDOC ---
HPI Comments HPI: Patient admitted here last September 19 diagnosed with multiple falls CVA rule out Hypertensive urgency Anxiety Past Medical History: Anemia (Mild, macrocytic), Dementia, DM, HTN, Schizophrenia, Seizures TBI, Hypokalemia Nasal bone fracture status post fall Drug-induced hyperammonemia, improved Surgical History:Left frontal parietal craniotomy Family History: Denies Personal and Social History: Resides at [facility]: HPI: Poor Historian. 54-year-old male brought in by ambulance from [facility] [address] facility because he was found laying on the floor. When I asked the patient he said that he was laying down there to focus. Patient has history of traumatic brain injury and multiple visits to the ER. Patient is not sure if he took his medications today or not. He denies any pain anywhere in his body. Past Medical History: Past Surgical History: REVIEW OF SYSTEMS: CONSTITUTIONAL: Denies acute: fever, diaphoresis, chills, generalized weakness. HEAD: Denies acute: headache, photophobia Eyes: Denies acute: Double vision, vision loss, eye pain, eye discharge. EARS: Denies acute: tinnitus, hearing loss, ear discharge, ear pain, THROAT: Denies acute: sore throat, swelling, difficulty swallowing , pain with swallowing, change in voice. NECK: Denies acute: neck pain, neck swelling, stiff neck. HEART: Denies acute : chest pain, palpitations, LUNGS: Denies acute: SOB, wheezing, cough, hemoptysis ABDOMEN: Denies acute: abdominal pain, Nausea, Vomiting, diarrhea, melena , hematemesis, hematochezia SKIN: Denies acute: rash, redness, lesions, itchiness. EXTREMITIES: Denies acute: calf pain, numbness, tingling, weakness, denies pain in extremity. Denies acute: Low back pain. Neuro: Denies acute: focal neurological deficit, motor or sensory focal neurological deficit, tremors, seizure like activity, confusion, dizziness, change in mental status, loss of bowel or bladder function, cauda equina like symptoms. : Denies acute: dysuria, hematuria, flank pain, increase in urinary frequency. PSYCH: Denies acute: hallucination, suicidal ideation, homicidal ideation. PHYSICAL EXAM: General: ----no----acute distress, awake and alert. Head: , atraumatic. No raccoon's eyes, no rendon sign. Neck: supple, trachea is midline, no swelling. Cervical spine: Palpation of the posterior midline of the cervical spine rev eals no focal swelling, , focal tenderness to palpation. Patient has normal range of motion. Throat: Normal phonation. Eyes:, no erythema, no purulent discharge, no proptosis, no icterus. Heart: regular rate, regular rhythm, no significant murmur appreciated. Lungs: no apparent respiratory distress, Able to speak in full sentences. No wheezing, no rhonchi, no crackles. No stridors Clear to auscultation bilaterally. Abdomen: non tender to palpation, non distended, soft, no guarding, no rebound, + bowel sounds. Neuro: Awake, Alert, oriented to name, self, situation, follows commands at baseline GCS=15. Speech is normal. Skin: no petechia, no purpura, no cyanosis, non-pale, not jaundice. Lower extremities: --1/4 b/l- Pitting edema no deformity, no focal swelling, no calf TTP. Makes eye contact. moves all four extremities. Face: no apparent facial droop. No nuchal rigidity, Kernig's sign, Brudzinski's sign, no meningeal signs. ED COURSE: DISCLAIMER: This medical document was created using an electronic medical record system with voice recognition software and computerized dictation system. Although this document has been carefully reviewed, there might still be some phonetic and t ypographical errors. Occasional wrong-word or "sound-alike" substitutions may have occurred due to the inherent limitations of voice recognition software. These areas are purely typographical due to imperfections of the software programs and do not reflect any compromise in the patient's medical care. Please read the chart carefully and recognize, using context, where these substitutions have occurred. Chief Complaint: Fall Injury Time Seen by MD: 22:43 Primary Care Provider: COLLIN Reviewed Notes: Nurses Notes, Allergies Allergies: Coded Allergies: NO KNOWN ALLERGIES (Unverified , 02/08/24) Home Meds Active Scripts Acetaminophen (Acetaminophen) 500 Mg Tab, 500 MG PO Q4HP PRN, #30 TAB Prov:JENNIFER ZHOU PAC 08/29/25 Ibuprofen (Ibuprofen) 600 Mg Tab, 1 TAB PO Q6HP PRN, #20 TAB Prov:JENNIFER ZHOU PAC 08/29/25 Valproate Sodium (Depakene) 250 Mg/5 Ml Sr, 750 MG PO BID for 30 Days, #60 SYP Prov:VIRIDIANA MARAVILLA MD 05/26/25 Quetiapine Fumerate (QUETIAPINE FUMARATE) 100 Mg Tab, 100 MG PO BID for 30 Days, #60 TAB Prov:VIRIDIANA MARAVILLA MD 05/26/25 Lisinopril (Lisinopril) 20 Mg Tab, 40 MG PO DAILY for 30 Days, #60 TAB Prov:VIRIDIANA MARAVILLA MD 05/26/25 Lactulose (Lactulose) 10 Gm/15 Ml Mahnaz, 30 ML PO DAILY for 30 Days, #1200 ML Prov:VIRIDIANA MARAVILLA MD 05/26/25 Divalproex Sodium (Divalproex Sodium Dr) 250 Mg Tab, 750 MG PO BID for 30 Days, #180 TAB Prov:VIRIDIANA MARAVILLA MD 05/26/25 Benztropine Mesylate (Benztropine Mesylate) 0.5 Mg Tab, 1 MG PO DAILY for 30 Days, #60 TAB Prov:VIRIDIANA MARAVILLA MD 05/26/25 Information Source: Patient, Emergency Med Personnel Mode of Arrival: EMS Past Medical History PAST MEDICAL HISTORY: Anemia, Dementia, DM, HTN, Schizophrenia, Seizures Surgical History: Denies all surgeries Family History Family History: Reviewed,noncontributory to illness, No family hx of Cancer, No family hx of DM, No family hx of Heart leilani, No family hx of HTN, No family hx ofKidney leilani, No family hx of Liver leilani, No family hx of Lung leilani, No family hx of Stroke Social History Smoker: Non-Smoker Alcohol: Denies ETOH Use Drugs: Denies Drug Use Lives In: Assisted Care Was a procedure done? Was a procedure done?: No X-Ray, Labs, Meds, VS Vital Signs Date Time Temp Pulse Resp B/P (MAP) Pulse Ox O2 Delivery O2 Flow Rate FiO2 10/03/25 01:30 81 17 140/97 (111) 98 10/03/25 01:00 95 17 153/90 (111) 97 10/03/25 00:47 160/99 10/03/25 00:30 81 13 160/99 (119) 96 10/03/25 00:00 81 15 176/110 (132) 96 10/02/25 23:54 195/153 10/02/25 23:30 73 20 177/113 (134) 97 10/02/25 23:00 69 16 179/118 (138) 97 10/02/25 22:52 182/118 10/02/25 21:40 70 16 182/114 (136) 97 10/02/25 21:32 97 Room Air* 0 21 10/02/25 21:32 98.9 74 17 177/151 (160) 97 98.9 10/02/25 20:28 73 10/02/25 20:24 98.7 90 18 167/98 98 98.7 Lab Test 10/03/25 01:10 10/03/25 00:20 Range/Units Troponin I High Sensitivity Pending 4 </=54 ng/L White Blood Count 6.0 4.4-10.8 10^3/uL Red Blood Count 3.58 L 4.5-5.90 10^6/uL Hemoglobin 11.5 L 13.5-17.5 g/dL Hematocrit 34.1 L 41.0-53.0 % Mean Corpuscular Volume 95.3 80.0-100.0 fL Mean Corpuscular Hemoglobin 32.2 H 28.0-32.0 pg Mean Corpuscular Hemoglobin Concent 33.8 32.0-36.0 g/dL Red Cell Distribution Width 15.8 H 11.8-14.3 % Platelet Count 94 L 140-450 10^3/uL Mean Platelet Volume 6.8 L 6.9-10.8 fL Neutrophils (%) (Auto) 60.2 37.0-80.0 % Lymphocytes (%) (Auto) 27.9 10.0-50.0 % Monocytes (%) (Auto) 8.7 0.0-12.0 % Eosinophils (%) (Auto) 2.7 0.0-7.0 % Basophils (%) (Auto) 0.5 0.0-2.0 % Neutrophils # (Auto) 3.6 1.6-8.6 10 ^3/uL Lymphocytes # (Auto) 1.7 0.4-5.4 10 ^3/uL Monocytes # (Auto) 0.5 0-1.3 10 ^3/uL Eosinophils # (Auto) 0.2 0-0.8 10 ^3/uL Basophils # (Auto) 0 0-0.2 10 ^3/uL Nucleated Red Blood Cells 0.1 % Sodium Level 144 136-145 mmol/L Potassium Level 3.5 3.5-5.1 mmol/L Chloride Level 108 H 98-107 mmol/L Carbon Dioxide Level 27 20-31 mmol/L Anion Gap 9 5-15 Blood Urea Nitrogen 14 9-23 mg/dL Creatinine 0.83 0.700-1.30 mg/dL Glomerular Filtration Rate Calc 103 >90 mL/min BUN/Creatinine Ratio 16.9 10.0-20.0 Serum Glucose 99 74-106 mg/dL Calcium Level 8.7 8.7-10.4 mg/dL Total Bilirubin 0.6 0.2-1.0 mg/dL Aspartate Amino Transferase (AST) 25 13-40 U/L Alanine Aminotransferase (ALT) 12 7-40 U/L Alkaline Phosphatase 79 46-116 U/L Total Protein 7.2 5.7-8.2 g/dL Albumin 3.6 3.2-4.8 g/dL Current Medications Medications (Trade) Dose Ordered Sig/Negra Route Start Time Stop Time Status Last Admin Hydralazine HCl (Apresoline Injection) 5 mg ONCE ONCE IV 10/02/25 22:00 10/02/25 22:01 DC 10/02/25 22:52 Hydralazine HCl (Apresoline Injection) 10 mg ONCE ONCE IV 10/02/25 23:45 10/02/25 23:46 DC 10/02/25 23:54 Hydralazine HCl (Apresoline Injection) 5 mg ONCE ONCE IV 10/03/25 00:45 10/03/25 00:46 DC 10/03/25 00:[address] [address] Ph: [phone] DIAGNOSTIC IMAGING Diagnostic Imaging Report : [id number] Signed PATIENT: SUHAIL STEWARD ACCT: [id number] UNIT: [id number] : 1970 LOC: ER ROOM / BED: / AGE / SEX: 54 / M ADM STATUS: REG ER SERVICE 46 ORDERING PHYSICIAN: LORI STERN DO PROCEDURE(s): HWOCT - HEAD WITHOUT CONTRAST REASON: fall ORDER NUMBER(s): [id number], ACCESSION NUMBER(s): [id number] EXAM: CT HEAD WITHOUT CONTRAST INDICATION: fall, pain TECHNIQUE: CT of the head without intravenous contrast. Radiation Dose Information: CT Dose: CTDI volume is 53.62 mGy. Dose-length product is 1075.79 mGy*cm The dose indicators for CT are the volume Computed Tomography (CT) Dose Index (CTDIvol) and the Dose Length Product (DLP), and are measured in units of mGy and mGy-cm, respectively. These indicators are not patient dose, but values generated from the CT scanner acquisition factors. The report includes radiation exposure data for exposures received during this examination. COMPARISON: CT HEAD WITHOUT CONTRAST on DOS: 09/19/25, CT HEAD WITHOUT CONTRAST on DOS: 08/29/25, CT HEAD WITHOUT CONTRAST on DOS: 05/20/25, CT HEAD WITHOUT CONTRAST on DOS: 05/08/25, CT HEAD WITHOUT CONTRAST on DOS: 01/25/25 FINDINGS: Prior left pterional craniotomy. There is no evidence of acute intracranial hemorrhage, extra-axial collection, mass effect, midline shift, herniation or hydrocephalus. The ventricles, sulci and cisterns are age appropriate. Remote medial left frontal infarcts. Remote lacunar infarct within the left thalamus. Patchy periventricular and subcortical white matter hypoattenuation is nonspecific but may be related to small vessel ischemic disease. The visualized paranasal sinuses and mastoid air cells are clear. The surrounding soft tissues and osseous structures are unremarkable. IMPRESSION: No acute intracranial abnormality. ATED BY: PENNY JAVIER MD DICTATED DATE/TIME: 10/02/252119 SIGNED BY: PENNY JAVIER MD SIGNED DATE/TIME: 10/02/252119 CC: Time of 1ST Reevaluation: 22:44 Reevaluation 1ST: Unchanged Patient Education/Counseling: Diagnosis, Treatment Family Education/Counseling: No Family Present SEPSIS Sepsis Screen Date sepsis recognized/suspect: Oct 02, 2025 Time Sepsis recognized/suspect: 2131 Recent Procedure: No On Antibiotic Therapy: No Respiratory Rate >20: No Heart Rate >90: No Temp<36 C (96.8 F) or >38.3 C: No SBP <90 or MAP <65 mmHG: No New Acute Mental Status Change: No Is the patient on CPAP, BIPAP,: No Physician Orders Head Without Contrast (10/02/25 20:47) Nicardipine 20mg/200ml (Cardene Iv) (10/03/25 00:15) Alliances Consultant (10/03/25 ) Electrocardigram (10/03/25 00:14) Troponin-I Hs (10/03/25 01:14) Troponin-I Hs (10/03/25 03:14) Amlodipine Tablet (Norvasc Tablet) (10/03/25 10:00) Hydralazine Injection (Apresoline Inject (10/03/25 01:00) Losartan Tablet (Cozaar Tablet) (10/03/25 10:00) Consistent Carb(Ccho)Diabetes (10/03/25 Breakfast) Allergies (10/03/25 01:00) Code Status (10/03/25 01:00) Sodium Chloride Lock (Saline Lock Ns) (10/03/25 06:00) Oxygen Per Hour (10/03/25 01:00) Hydrocodone-Acet 5/325mg Tab ([place]oplar 5/32 (10/03/25 01:00) Ondansetron Hcl (Zofran) (10/03/25 01:00) Docusate Sodium Capsule (Colace Capsule) (10/03/25 01:00) Fall Risk Precautions In Place QSHIFT (10/03/25 01:00) Complete Blood Count (10/04/25 04:00) Comprehensive Metabolic Panel (10/04/25 04:00) Condition: Serious (10/03/25 01:00) Acetaminophen Tablet (Tylenol Tablet) (10/03/25 01:00) Maintain Bed Rest (10/03/25 01:00) Sequential Compression Device (10/03/25 ) Divalproex Dr Tablet (Depakote "Dr" Tabl (10/03/25 10:00) Vital Signs Date Time Temp Pulse Resp B/P (MAP) Pulse Ox O2 Delivery O2 Flow Rate FiO2 10/03/25 01:30 81 17 140/97 (111) 98 10/03/25 01:00 95 17 153/90 (111) 97 10/03/25 00:47 160/99 10/03/25 00:30 81 13 160/99 (119) 96 10/03/25 00:00 81 15 176/110 (132) 96 10/02/25 23:54 195/153 10/02/25 23:30 73 20 177/113 (134) 97 10/02/25 23:00 69 16 179/118 (138) 97 10/02/25 22:52 182/118 10/02/25 21:40 70 16 182/114 (136) 97 10/02/25 21:32 97 Room Air* 0 21 10/02/25 21:32 98.9 74 17 177/151 (160) 97 98.9 10/02/25 20:28 73 10/02/25 20:24 98.7 90 18 167/98 98 98.7 Laboratory Tests Test 10/03/25 00:20 White Blood Count 6.0 10^3/uL (4.4-10.8) Medications Medications Dose Ordered Sig/Negra Route Start Time Stop Time Status Last Admin Dose Admin Hydralazine HCl 5 mg ONCE ONCE IV 10/02/25 22:00 10/02/25 22:01 DC 10/02/25 22:52 Hydralazine HCl 5 mg ONCE ONCE IV 10/03/25 00:45 10/03/25 00:46 DC 10/03/25 00:47 Hydralazine HCl 10 mg ONCE ONCE IV 10/02/25 23:45 10/02/25 23:46 DC 10/02/25 23:54 Departure 1 Departure Time of Disposition: 00:14 Impression: Primary Impression: Hypertensive crisis Disposition: 01 HOME / SELF CARE / HOMELESS Condition: Stable Additional Instructions: Additional instructions: Please read all instructions provided in this packet carefully. You MUST follow-up with your primary care/family doctor in 1 to 2 days. If you are unable to see your primary care/family doctor, please return to our emergency room for re-assessment and re-evaluation in 1 to 2 days. Return to the emergency room here in our facility or to the nearest ER XI if your symptoms change or worsen. CONSULTATIONS: you MUST Follow-up for consultation as soon as possible with: -cardiology in 1-2 days. Please call for appointment. You MUST call the consultants office yourself to make an appointment. You may need to arrange that through your insurance and/or your primary/family doctor. If you are unable to see the advisor consultant in 1 to 2 days, you must return to our emergency room (or any other ER of your choice) for re-assessment and re-evalu ation. Adequate fluid hydration. Although you have been discharged from the Emergency Department, this does not mean that you have a "clean bill of health". No definitive diagnosis for your symptoms has been made today. It is possible that you are in the process of developing a serious illness. This is why you must return to the ED without fail if any new or worsening symptoms develop. Monitoring blood pressure at home at least 3 times a day. Below is a copy of your radiological report for follow up: Discharged With: Self Critical Care Note Critical Care Time?: No I personally scribed for LORI STERN DO ([email or web address]) on 10/02/25 at 22:47. Electronically submitted by Robin Graves ([email or web address]). I personally scribed for LORI STERN DO ([email or web address]) on 10/02/25 at 22:50. Electronically submitted by Robin Graves ([email or web address]). LORI STERN DO Oct 02, 2025 22:47
[2025-10-02] MEDS: hydrALAZINE HCL 20 MG/ML VL IV ONE ×2 (22:52→23:54)
[2025-10-03 00:37] LABS: Hematocrit 34.1 % (41.0-53.0); Hemoglobin 11.5 g/dL (13.5-17.5); Mean Corpuscular Hemoglobin 32.2 pg (28.0-32.0); Mean Corpuscular Volume 95.3 fL (80.0-100.0); Nucleated Red Blood Cells % 0.1 %
[2025-10-03] MEDS: hydrALAZINE HCL 20 MG/ML VL IV ONE (00:47)
[2025-10-03 00:58] LABS: Alanine Aminotransferase 12 U/L (7-40); Albumin 3.6 g/dL (3.2-4.8); Alkaline Phosphatase 79 U/L (46-116); Anion Gap 9 (5-15); BUN/Creatinine Ratio 16.9 (10.0-20.0); Blood Urea Nitrogen 14 mg/dL (9-23); Carbon Dioxide 27 mmol/L (20-31); Glucose 99 mg/dL (74-106); Potassium 3.5 mmol/L (3.5-5.1); Sodium 144 mmol/L (136-145); Total Protein 7.2 g/dL (5.7-8.2)
[2025-10-03 00:59] LABS: Bilirubin, Total 0.6 mg/dL (0.2-1.0)
[2025-10-03 01:00] LABS: Calcium 8.7 mg/dL (8.7-10.4); Chloride 108 mmol/L (98-107)
[2025-10-03] MEDS ORDERED: DOCUSATE SOD 100 MG CAP PO PRN (01:00)
[2025-10-03] MEDS ORDERED: ACETAMINOPHEN 325 MG TAB PO PRN (01:00)
[2025-10-03] MEDS ORDERED: ONDANSETRON HCL 4 MG/2 ML VIAL IV PRN (01:00)
[2025-10-03] MEDS ORDERED: HYDROcodone-ACET 5/325MG TAB PO PRN (01:00)
[2025-10-03] MEDS ORDERED: hydrALAZINE HCL 20 MG/ML VL IV PRN (01:00)
[2025-10-03 02:40] VITALS: BP 146/93; PULSE 88; RESP 18; O2SAT 97
[2025-10-03] MEDS ORDERED: SODIUM CHLOR 0.9% PF (SALINE LOCK) 10ML VIAL/SYR IV SCH (06:00)
[2025-10-03] MEDS ORDERED: LOSARTAN POTASSIUM 50 MG TAB PO SCH (10:00)
== END 2025-10-03 02:40 | disposition home or self-care (01) ==
LOC: ER 20:13 → EDBD 20:13 → ER 10-03 02:40
DX: I16.0 Hypertensive urgency (principal); I10 Essential (primary) hypertension; E11.9 Type 2 diabetes mellitus without complications; F03.90 Unspecified dementia, unspecified severity, without behavioral disturbance, psychotic disturbance, mood disturbance, and anxiety; F20.9 Schizophrenia, unspecified; R29.6 Repeated falls; Z79.899 Other long term (current) drug therapy; Z87.820 Personal history of traumatic brain injury; Z98.890 Other specified postprocedural states
CPT/HCPCS: 36415; 70450; 80053; 82947; 84484; 85025; 96374; 96376; 99285; J0360; J2404

== ENCOUNTER 2025-10-06 16:38 | Emergency (ER) | payer MEDICAID ==
[~2025-10-06] VITALS: Ht 162.6 cm; Wt 90.9 kg
--- NOTE | 2025-10-06 18:24 | ED.PDOC ---
History of Present Illness HPI Comments 54-year-old male NADIR with prior medical history of TBI and a chief complaint of a fall injury x1 hour ago. [facility] on the patient experiencing an unwitnessed fall injury, the patient was found lying down on the floor. Patient is currently complaining of back pain at this time. Denies any other symptoms at this time. Denies chills, fever, N/V/D, SOB, CP. No other associated symptoms, modifiers, recent injuries or sick contacts present at this time. Chief Complaint: Fall Injury Time Seen by MD: 18:20 Primary Care Provider: COLLIN Reviewed Notes: Nurses Notes, Medications, Allergies Allergies: Coded Allergies: NO KNOWN ALLERGIES (Unverified , 02/08/24) Home Meds Active Scripts Acetaminophen (Acetaminophen) 500 Mg Tab, 500 MG PO Q4HP PRN, #30 TAB Prov:JENNIFER ZHOU PAC 08/29/25 Ibuprofen (Ibuprofen) 600 Mg Tab, 1 TAB PO Q6HP PRN, #20 TAB Prov:JENNIFER ZHOU PAC 25 Valproate Sodium (Depakene) 250 Mg/5 Ml Sr, 750 MG PO BID for 30 Days, #60 SYP Prov:VIRIDIANA MARAVILLA MD 05/26/25 Quetiapine Fumerate (QUETIAPINE FUMARATE) 100 Mg Tab, 100 MG PO BID for 30 Days, #60 TAB Prov:VIRIDIANA MARAVILLA MD 05/26/25 Lisinopril (Lisinopril) 20 Mg Tab, 40 MG PO DAILY for 30 Days, #60 TAB Prov:VIRIDIANA MARAVILLA MD 05/26/25 Lactulose (Lactulose) 10 Gm/15 Ml Mahnaz, 30 ML PO DAILY for 30 Days, #1200 ML Prov:VIRIDIANA MARAVILLA MD 05/26/25 Divalproex Sodium (Divalproex Sodium Dr) 250 Mg Tab, 750 MG PO BID for 30 Days, #180 TAB Prov:VIRIDIANA MARAVILLA MD 05/26/25 Benztropine Mesylate (Benztropine Mesylate) 0.5 Mg Tab, 1 MG PO DAILY for 30 Days, #60 TAB Prov:VIRIDIANA MARAVILLA MD 05/26/25 Information Source: Patient, Emergency Med Personnel Mode of Arrival: EMS Severity: Moderate Timing: Minutes Duration: Since onset, Minutes Prehospital treatment: None Past Medical History PAST MEDICAL HISTORY: Unknown Past Medical History (Other): TBI Surgical History: Denies all surgeries Family History Family History: Reviewed,noncontributory to illness, Unknown Social History Smoker: Non-Smoker Alcohol: Denies ETOH Use Drugs: Denies Drug Use Lives In: Assisted Care Constitutional: denies: chills, diaphoresis, fatigue, fever, malaise, sweats, weakness, others EENTM: denies: blurred vision, double vision, ear bleeding, ear discharge, ear drainage, ear pain, ear ringing, eye pain, eye redness, hearing loss, mouth pain, mouth swelling, nasal discharge, nose bleeding, nose congestion, nose pain, photophobia, tearing, throat pain, throat swelling, voice changes, others Respiratory: denies: cough, hemoptysis, orthopnea, SOB at rest, shortness of breath, SOB with excertion, stridor, wheezing, others Cardiovascular: denies: chest pain, dizzy spells, diaphoresis, Dyspnea on exertion, edema, irregular heart beat, left arm pain, lightheadedness, palpitations, PND, syncope, others Gastrointestinal: denies: abdomen distended, abdominal pain, blood streaked bowels, constipated, diarrhea, dysphagia, difficulty swallowing, hematemesis, melena, nausea, poor appetite, poor fluid intake, rectal bleeding, rectal pain, vomiting, others Genitourinary: denies: burning, dysuria, flank pain, frequency, hematuria, incontinence, penile discharge, penile sore, pain, testicle pain, testicle swelling, urgency, others Neurological: denies: dizziness, fainting, headache, left sided numbness, left sided weakness, numbness, paresthesia, pre-existing deficit, right sided numbness, right sided weakness, seizure, speech problems, tingling, tremors, weakness, others Musculoskeletal: reports: back pain; denies: gout, joint pain, joint swelling, muscle pain, muscle stiffness, neck pain, others Integumetry: denies: bruises, change in color, change in hair/nails, dryness, laceration, lesions, lumps, rash, wounds, others Allergic/Immunocompromised: denies: Difficulty Healing, Frequent Infections, Hives, Itching, others Hematologic/Lymphatic: denies: anemia, blood clots, easy bleeding, easy bruising, swollen glands, others Endocrine: denies: excessive hunger, excessive sweating, excessive thirst, excessive urination, flushing, intolerance to cold, intolerance to heat, unexplained weight gain, unexplained weight loss, others Psychiatric: denies: anxiety, bipolar disorder, depression, hopeless, panic disorder, schizophrenia, sleepless, suicidal, others All Other Systems: Reviewed and Negative Physical Exam General Appearance: No Apparent Distress, Normal HEENT: Normal ENT Inspection, Pharynx Normal, TMs Normal Neck: Full Range of Motion, Non-Tender, Normal, Normal Inspection Respiratory: Chest Non-Tender, Lungs Clear, No Accessory Muscle Use, No Respiratory Distress, Normal Breath Sounds Cardiovascular: No Edema, No JVD, No Murmur, No Gallop, Normal Peripheral Pulses, Regular Rate/Rhythm Breast Exam: Deferred Gastrointestinal: No Organomegaly, Non Tender, No Pulsatile Mass, Normal Bowel Sounds, Soft Genitalia: Deferred Pelvic: Deferred Rectal: Deferred Extremities: No calf tenderness, Normal capillary refill, Normal inspection, N ormal range of motion, Non-tender, No pedal edema Musculoskeletal : Apperance: Normal Neurologic: Alert, aids nurse II-XII nml as Tested, No Motor Deficits, Normal Affect, Normal Mood, No Sensory Deficits Cerebellar Function: Normal Reflexes: Normal Skin: Dry, Normal Color, Warm Lymphatic: No Adenopathy Was a procedure done? Was a procedure done?: No Differential Dx Considerations may include: CHI, FALL X-Ray, Labs, Meds, VS Vital Signs Date Time Temp Pulse Resp B/P (MAP) Pulse Ox O2 Delivery O2 Flow Rate FiO2 10/06/25 17:24 98.4 81 16 177/97 98 98.4 X-Ray, Labs, Meds, VS Comment VITALS REVIEWED BY THIS PROVIDER. PRIOR HX REVIEWED BY PROVIDER Time of 1ST Reevaluation: 18:50 Reevaluation 1ST: Unchanged Patient Education/Counseling: Diagnosis, Treatment, Prognosis, Need For Follow Up (FOLLOW UP WITH PCP NEEDED ) Family Education/Counseling: No Family Present SEPSIS Sepsis Screen Date sepsis recognized/suspect: Oct 06, 2025 Time Sepsis recognized/suspect: 1657 Recent Procedure: No On Antibiotic Therapy: No Respiratory Rate >20: No Heart Rate >90: No Temp<36 C (96.8 F) or >38.3 C: No SBP <90 or MAP <65 mmHG: No New Acute Mental Status Change: No Is the patient on CPAP, BIPAP,: No Vital Signs Date Time Temp Pulse Resp B/P (MAP) Pulse Ox O2 Delivery O2 Flow Rate FiO2 10/06/25 17:24 98.4 81 16 177/97 98 98.4 Departure 1 Departure Time of Disposition: 18:56 Impression: Primary Impression: Accident due to mechanical fall without injury Qualified Codes: W19.XXXA - Unspecified fall, initial encounter Disposition: HOME / SELF CARE / HOMELESS Condition: Stable Discharged With: Self Critical Care Note Critical Care Time?: No Stability Stability form required: No Heart Score Heart Score: Heart Score Response (Comments) Value History N/A 0 EKG N/A 0 Age N/A 0 Risk Factors N/A 0 Troponin N/A 0 Total 0 I personally scribed for VANDANA BARBOUR ([email or web address]) on 10/06/25 at 18:23. Electronically submitted by Adrián Navarro ([email or web address]). VANDANA BARBOUR Oct 06, 2025 18:23
[2025-10-06 19:30] VITALS: PULSE 70; RESP 18; O2SAT 96
[2025-10-06] MEDS: HYDROcodone-ACET 5/325MG TAB PO ONE (20:45)
[2025-10-07] MEDS: LORazepam 0.5 MG TAB PO ONE (08:41)
[2025-10-07 09:36] VITALS: PULSE 73; RESP 18; O2SAT 100
[2025-10-07 11:30] VITALS: BP 177/128; PULSE 79; RESP 19; TEMP 97.7; O2SAT 98
== END 2025-10-07 11:47 | disposition home or self-care (01) ==
LOC: ER 16:38 → EDBD 16:38 → EDUNIT# 16:38 → ER 18:57
DX: M54.9 Dorsalgia, unspecified (principal); Z79.899 Other long term (current) drug therapy; Z87.820 Personal history of traumatic brain injury; W19.XXXA Unspecified fall, initial encounter; Y93.89 Activity, other specified; Y92.89 Other specified places as the place of occurrence of the external cause; Y99.8 Other external cause status

== ENCOUNTER 2025-10-20 01:10 | Emergency (ER) | payer MEDICAID ==
--- NOTE | 2025-10-20 01:44 | ED.PDOC ---
History of Present Illness HPI Comments 54-year-old male with a past medical history of traumatic brain injury, hypertension, bipolar disorder, seizures, hypokalemia has come to the ER via EMS due to dizziness. EMS reports that the patient lives at a nursing facility, had been dizzy, fell to the ground and was found lying on his back, was conscious but they are unsure if he hit his head. EMS reports patient was A&O x1 on initial assessment(this is patient's baseline), blood pressure was 190/113 mmHg. In the ER patient's blood pressure was 199/139 mmHg. 0.1 mg clonidine was given to the patient. Comments Dizziness and fall Time Seen by MD: 02:00 Primary Care Provider: COLLIN Allergies: Coded Allergies: NO KNOWN ALLERGIES (Unverified , 02/08/24) Home Meds Active Scripts Acetaminophen (Acetaminophen) 500 Mg Tab, 500 MG PO Q4HP PRN, #30 TAB Prov:JENNIFER ZHOU PAC 08/29/25 Ibuprofen (Ibuprofen) 600 Mg Tab, 1 TAB PO Q6HP PRN, #20 TAB Prov:JENNIFER ZHOU PAC 25 Valproate Sodium (Depakene) 250 Mg/5 Ml Sr, 750 MG PO BID for 30 Days, #60 SYP Prov:VIRIDIANA MARAVILLA MD 05/26/25 Quetiapine Fumerate (QUETIAPINE FUMARATE) 100 Mg Tab, 100 MG PO BID for 30 Days, #60 TAB Prov:VIRIDIANA MARAVILLA MD 05/26/25 Lisinopril (Lisinopril) 20 Mg Tab, 40 MG PO DAILY for 30 Days, #60 TAB Prov:VIRIDIANA MARAVILLA MD 05/26/25 Lactulose (Lactulose) 10 Gm/15 Ml Mahnaz, 30 ML PO DAILY for 30 Days, #1200 ML Prov:VIRIDIANA MARAVILLA MD 05/26/25 Divalproex Sodium (Divalproex Sodium Dr) 250 Mg Tab, 750 MG PO BID for 30 Days, #180 TAB Prov:VIRIDIANA MARAVILLA MD 05/26/25 Benztropine Mesylate (Benztropine Mesylate) 0.5 Mg Tab, 1 MG PO DAILY for 30 Days, #60 TAB Prov:VIRIDIANA MARAVILLA MD 05/26/25 Information Source: Emergency Med Personnel Mode of Arrival: EMS Severity: None Timing: Hours Duration: Hours Prehospital treatment: None Past Medical History PAST MEDICAL HISTORY: HTN, Seizures Past Medical History (Other): Traumatic brain injury, bipolar disorder, hypokalemia Surgical History: Denies all surgeries Family History Family History: Reviewed,noncontributory to illness, Unknown Social History Smoker: Non-Smoker Alcohol: Denies ETOH Use Drugs: Denies Drug Use Lives In: Assisted Care Constitutional: reports: others; denies: chills, diaphoresis, fatigue, fever, malaise, sweats, weakness EENTM: denies: blurred vision, double vision, ear bleeding, ear discharge, ear drainage, ear pain, ear ringing, eye pain, eye redness, hearing loss, mouth pain, mouth swelling, nasal discharge, nose bleeding, nose congestion, nose pain, photophobia, tearing, throat pain, throat swelling, voice changes, others Respiratory: denies: cough, hemoptysis, orthopnea, SOB at rest, shortness of breath, SOB with excertion, stridor, wheezing, others Cardiovascular: denies: chest pain, dizzy spells, diaphoresis, Dyspnea on exertion, edema, irregular heart beat, left arm pain, lightheadedness, palpitations, PND, syncope, others Gastrointestinal: denies: abdomen distended, abdominal pain, blood streaked bowels, constipated, diarrhea, dysphagia, difficulty swallowing, hematemesis, melena, nausea, poor appetite, poor fluid intake, rectal bleeding, rectal pain, vomiting, others Genitourinary: denies: burning, dysuria, flank pain, frequency, hematuria, incontinence, penile discharge, penile sore, pain, testicle pain, testicle swelling, urgency, others Neurological: reports: dizziness; denies: fainting, headache, left sided numbness, left sided weakness, numbness, paresthesia, pre-existing deficit, right sided numbness, right sided weakness, seizure, speech problems, tingling, tremors, weakness, others Musculoskeletal: denies: back pain, gout, joint pain, joint swelling, muscle pain, muscle stiffness, neck pain, others Integumetry: denies: bruises, change in color, change in hair/nails, dryness, laceration, lesions, lumps, rash, wounds, others Allergic/Immunocompromised: denies: Difficulty Healing, Frequent Infections, Hives, Itching, others Hematologic/Lymphatic: denies: anemia, blood clots, easy bleeding, easy bruising, swollen glands, others Endocrine: denies: excessive hunger, excessive sweating, excessive thirst, excessive urination, flushing, intolerance to cold, intolerance to heat, unexplained weight gain, unexplained weight loss, others Psychiatric: reports: bipolar disorder; denies: anxiety, depression, hopeless, panic disorder, schizophrenia, sleepless, suicidal, others Physical Exam General Appearance: Other (A&O x1, knows only his name) HEENT: Other (No pallor, no icterus no JVD) Neck: Non-Tender, Normal Inspection Respiratory: No Accessory Muscle Use, No Respiratory Distress, Normal Breath Sounds Cardiovascular: No Edema, No JVD, No Murmur, None, Regular Rate/Rhythm Breast Exam: Deferred Gastrointestinal: No Organomegaly, No Pulsatile Mass, Normal Bowel Sounds Genitalia: Deferred Pelvic: Deferred Rectal: Deferred Extremities: Normal inspection, Non-tender, No pedal edema Neurologic: None Cerebellar Function: Unable to Test Reflexes: Normal Skin: Normal Color Lymphatic: Other (No cervical lymphadenopathy palpated) Was a procedure done? Was a procedure done?: No Differential Dx Considerations may include: Syncope, hypoglycemia, hypertensive urgency X-Ray, Labs, Meds, VS Vital Signs Date Time Temp Pulse Resp B/P (MAP) Pulse Ox O2 Delivery O2 Flow Rate FiO2 10/20/25 02:12 187/115 10/20/25 01:55 98.4 76 21 187/115 (139) 97 98.4 10/20/25 01:47 Room Air* 0 21 10/20/25 01:39 75 10/20/25 01:30 97.9 78 16 199/139 96 97.9 Lab Test 10/20/25 01:50 Range/Units White Blood Count 5.7 4.4-10.8 10^3/uL Red Blood Count 3.63 L 4.5-5.90 10^6/uL Hemoglobin 11.6 L 13.5-17.5 g/dL Hematocrit 34.7 L 41.0-53.0 % Mean Corpuscular Volume 95.4 80.0-100.0 fL Mean Corpuscular Hemoglobin 31.8 28.0-32.0 pg Mean Corpuscular Hemoglobin Concent 33.4 32.0-36.0 g/dL Red Cell Distribution Width 16.2 H 11.8-14.3 % Platelet Count 83 L 140-450 10^3/uL Mean Platelet Volume 6.8 L 6.9-10.8 fL Neutrophils (%) (Auto) 57.2 37.0-80.0 % Lymphocytes (%) (Auto) 23.7 10.0-50.0 % Monocytes (%) (Auto) 16.1 H 0.0-12.0 % Eosinophils (%) (Auto) 2.6 0.0-7.0 % Basophils (%) (Auto) 0.4 0.0-2.0 % Neutrophils # (Auto) 3.3 1.6-8.6 10 ^3/uL Lymphocytes # (Auto) 1.3 0.4-5.4 10 ^3/uL Monocytes # (Auto) 0.9 0-1.3 10 ^3/uL Eosinophils # (Auto) 0.1 0-0.8 10 ^3/uL Basophils # (Auto) 0 0-0.2 10 ^3/uL Nucleated Red Blood Cells 0.2 % Sodium Level 145 136-145 mmol/L Potassium Level 3.9 3.5-5.1 mmol/L Chloride Level 110 H 98-107 mmol/L Carbon Dioxide Level 25 20-31 mmol/L Anion Gap 10 5-15 Blood Urea Nitrogen 17 9-23 mg/dL Creatinine 0.87 0.700-1.30 mg/dL Glomerular Filtration Rate Calc 102 >90 mL/min BUN/Creatinine Ratio 19.5 10.0-20.0 Serum Glucose 106 74-106 mg/dL Calcium Level 8.4 L 8.7-10.4 mg/dL Current Medications Medications (Trade) Dose Ordered Sig/Negra Route Start Time Stop Time Status Last Admin Clonidine HCl (Catapres Tablet) 0.1 mg ONCE ONCE PO 10/20/25 01:30 10/20/25 01:44 DC 10/20/25 02:12 Images Reviewed?: Images reviewed and evaluated by me Time of 1ST Reevaluation: 03:15 Reevaluation 1ST: Improved Patient Education/Counseling: Diagnosis, Treatment Family Education/Counseling: No Family Present Comments Patient came in with dizziness and fall. BP was 199/139 mmHg. Clonidine 0.1 mg was given. Patient's EKG showed normal sinus rhythm, HR 75. CBC and BMP were unremarkable, UA showed and UDS showed. CT head without contrast was done which showed No acute intracranial abnormality. Patient is stable and is being discharged. SEPSIS Sepsis Screen Recent Procedure: No On Antibiotic Therapy: No Respiratory Rate >20: No Heart Rate >90: No Temp<36 C (96.8 F) or >38.3 C: No SBP <90 or MAP <65 mmHG: No New Acute Mental Status Change: No Is the patient on CPAP, BIPAP,: No Physician Orders Head Without Contrast (10/20/25 01:30) Urinalysis (10/20/25 01:30) Drug Screen (10/20/25 01:30) Vital Signs Date Time Temp Pulse Resp B/P (MAP) Pulse Ox O2 Delivery O2 Flow Rate FiO2 10/20/25 02:12 187/115 10/20/25 01:55 98.4 76 21 187/115 (139) 97 98.4 10/20/25 01:47 Room Air* 0 21 10/20/25 01:39 75 10/20/25 01:30 97.9 78 16 199/139 96 97.9 Laboratory Tests Test 10/20/25 01:50 White Blood Count 5.7 10^3/uL (4.4-10.8) Medications Medications Dose Ordered Sig/Negra Route Start Time Stop Time Status Last Admin Dose Admin Clonidine HCl 0.1 mg ONCE ONCE PO 10/20/25 01:30 10/20/25 01:44 DC 10/20/25 02:12 Departure 1 Departure Time of Disposition: 03:17 Impression: Primary Impression: Hypertensive urgency Additional Impression: History of traumatic brain injury Disposition: HOME / SELF CARE / HOMELESS Condition: Stable Discharged With: Self Critical Care Note Critical Care Time?: No Stability Stability form required: No Heart Score Heart Score: Heart Score Response (Comments) Value History N/A 0 EKG N/A 0 Age N/A 0 Risk Factors N/A 0 Troponin N/A 0 Total 0 KARTIK MOSQUEDA Oct 20, 2025 01:44 ISMAEL GREEN MD Oct 20, 2025 03:24
[2025-10-20 01:55] VITALS: BP 187/115; PULSE 76; RESP 21; TEMP 98.4; O2SAT 97
[2025-10-20 02:05] LABS: Hematocrit 34.7 % (41.0-53.0); Hemoglobin 11.6 g/dL (13.5-17.5); Mean Corpuscular Hemoglobin 31.8 pg (28.0-32.0); Mean Corpuscular Volume 95.4 fL (80.0-100.0); Nucleated Red Blood Cells % 0.2 %
[2025-10-20 02:08] LABS: Potassium 3.9 mmol/L (3.5-5.1); Sodium 145 mmol/L (136-145)
[2025-10-20 02:09] LABS: Anion Gap 10 (5-15); Carbon Dioxide 25 mmol/L (20-31)
[2025-10-20 02:12] LABS: Calcium 8.4 mg/dL (8.7-10.4); Chloride 110 mmol/L (98-107)
[2025-10-20 02:14] LABS: Glucose 106 mg/dL (74-106)
[2025-10-20 02:15] LABS: BUN/Creatinine Ratio 19.5 (10.0-20.0); Blood Urea Nitrogen 17 mg/dL (9-23)
--- NOTE | 2025-10-20 02:23 | ECG ---
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
--- NOTE | 2025-10-20 02:56 | DVH ---
EXAM: CT HEAD WITHOUT CONTRAST INDICATION: Patient found on the floor, hit his head TECHNIQUE: CT of the head without intravenous contrast. Radiation Dose Information: CT Dose: CTDI volume is 64.99 mGy. Dose-length product is 1041.62 mGy*cm The dose indicators for CT are the volume Computed Tomography (CT) Dose Index (CTDIvol) and the Dose Length Product (DLP), and are measured in units of mGy and mGy-cm, respectively. These indicators are not patient dose, but values generated from the CT scanner acquisition factors. The report includes radiation exposure data for exposures received during this examination. COMPARISON: CT HEAD WITHOUT CONTRAST on DOS: 10/02/25, CT HEAD WITHOUT CONTRAST on DOS: 09/19/25, CT HEAD WITHOUT CONTRAST on DOS: 08/29/25 FINDINGS: There is no evidence of acute intracranial hemorrhage, extra-axial collection, mass effect, midline shift, herniation or hydrocephalus. There has been prior left craniotomy. There is prominence of the ventricles, similar to prior examination. Hypodensity in the left frontal lobe likely represents prior infarction. Chronic lacunar infarct in the left thalamus. There is cerebral atrophy. IMPRESSION: 1. No acute intracranial abnormality.
== END 2025-10-20 03:17 | disposition home or self-care (01) ==
LOC: ER 01:10 → EDBD 01:10 → ER 03:17
DX: I16.0 Hypertensive urgency (principal); F31.9 Bipolar disorder, unspecified; I10 Essential (primary) hypertension; Z87.820 Personal history of traumatic brain injury; Z79.899 Other long term (current) drug therapy
CPT/HCPCS: 36415; 70450; 80048; 85025; 93005

== ENCOUNTER 2025-10-20 23:21 | Emergency (ER) | payer MEDICAID ==
[~2025-10-20] VITALS: Ht 175.3 cm; Wt 90.9 kg
[2025-10-20 23:29] VITALS: TEMP 97.8
--- NOTE | 2025-10-20 23:57 | ED.PDOC ---
History of Present Illness HPI Comments 54-year-old male brought in by EMS. Per EMS, patient had a fall, it is unknown when it happened and for how long patient is a was down for patient was complaining of headache and neck pain. Patient was placed in C-collar and brought into emergency department. Patient has a history of traumatic brain injury, patient alert to name and place but has a hard time following commands and answering questions naturally. Chief Complaint: Fall Injury Time Seen by MD: 23:40 Primary Care Provider: COLLIN Armendariz Notes: Nurses Notes Allergies: Coded Allergies: NO KNOWN ALLERGIES (Unverified , 02/08/24) Home Meds Active Scripts Acetaminophen (Acetaminophen) 500 Mg Tab, 500 MG PO Q4HP PRN, #30 TAB Prov:JENNIFER ZHOU PAC 08/29/25 Ibuprofen (Ibuprofen) 600 Mg Tab, 1 TAB PO Q6HP PRN, #20 TAB Prov:JENNIFER ZHOU PAC 08/29/25 Valproate Sodium (Depakene) 250 Mg/5 Ml Sr, 750 MG PO BID for 30 Days, #60 SYP Prov:VIRIDIANA MARAVILLA MD 05/26/25 Quetiapine Fumerate (QUETIAPINE FUMARATE) 100 Mg Tab, 100 MG PO BID for 30 Days, #60 TAB Prov:VIRIDIANA MARAVILLA MD 05/26/25 Lisinopril (Lisinopril) 20 Mg Tab, 40 MG PO DAILY for 30 Days, #60 TAB Prov:VIRIDIANA MARAVILLA MD 05/26/25 Lactulose (Lactulose) 10 Gm/15 Ml Mahnaz, 30 ML PO DAILY for 30 Days, #1200 ML Prov:VIRIDIANA MARAVILLA MD 05/26/25 Divalproex Sodium (Divalproex Sodium Dr) 250 Mg Tab, 750 MG PO BID for 30 Days, #180 TAB Prov:VIRIDIANA MARAVILLA MD 05/26/25 Benztropine Mesylate (Benztropine Mesylate) 0.5 Mg Tab, 1 MG PO DAILY for 30 Days, #60 TAB Prov:VIRIDIANA MARAVILLA MD 05/26/25 Information Source: Patient Mode of Arrival: EMS Past Medical History PAST MEDICAL HISTORY: HTN, Seizures Surgical History: Denies all surgeries Family History Family History: Reviewed,noncontributory to illness, Unknown Social History Smoker: Non-Smoker Alcohol: Denies ETOH Use Drugs: Denies Drug Use Lives In: Assisted Care Constitutional: denies: chills, diaphoresis, fatigue, fever, malaise, sweats, weakness, others EENTM: denies: blurred vision, double vision, ear bleeding, ear discharge, ear drainage, ear pain, ear ringing, eye pain, eye redness, hearing loss, mouth pain, mouth swelling, nasal discharge, nose bleeding, nose congestion, nose pain, photophobia, tearing, throat pain, throat swelling, voice changes, others Respiratory: denies: cough, hemoptysis, orthopnea, SOB at rest, shortness of breath, SOB with excertion, stridor, wheezing, others Cardiovascular: denies: chest pain, dizzy spells, diaphoresis, Dyspnea on exertion, edema, irregular heart beat, left arm pain, lightheadedness, p alpitations, PND, syncope, others Gastrointestinal: denies: abdomen distended, abdominal pain, blood streaked bowels, constipated, diarrhea, dysphagia, difficulty swallowing, hematemesis, melena, nausea, poor appetite, poor fluid intake, rectal bleeding, rectal pain, vomiting, others Genitourinary: denies: burning, dysuria, flank pain, frequency, hematuria, incontinence, penile discharge, penile sore, pain, testicle pain, testicle swelling, urgency, others Neurological: denies: dizziness, fainting, headache, left sided numbness, left sided weakness, numbness, paresthesia, pre-existing deficit, right sided numbness, right sided weakness, seizure, speech problems, tingling, tremors, weakness, others Musculoskeletal: denies: back pain, gout, joint pain, joint swelling, muscle pain, muscle stiffness, neck pain, others Integumetry: denies: bruises, change in color, change in hair/nails, dryness, laceration, lesions, lumps, rash, wounds, others Allergic/Immunocompromised: denies: Difficulty Healing, Frequent Infections, Hives, Itching, others Physical Exam General Appearance: No Apparent Distress, Normal HEENT: Normal ENT Inspection, Pharynx Normal, TMs Normal Neck: Full Range of Motion, Non-Tender, Normal, Normal Inspection Respiratory: Chest Non-Tender, Lungs Clear, No Accessory Muscle Use, No Respiratory Distress, Normal Breath Sounds Cardiovascular: No Edema, No JVD, No Murmur, No Gallop, Normal Peripheral Pulses, Regular Rate/Rhythm Breast Exam: Deferred Gastrointestinal: No Organomegaly, Non Tender, No Pulsatile Mass, Normal Bowel Sounds, Soft Genitalia: Deferred Pelvic: Deferred Rectal: Deferred Extremities: No calf tenderness, Normal capillary refill, Normal inspection, Normal range of motion, Non-tender, No pedal edema Musculoskeletal : Apperance: Normal Neurologic: Alert, wall taper helper II-XII nml as Tested, No Motor Deficits, Normal Affect, Normal Mood, No Sensory Deficits Cerebellar Function: Normal Reflexes: Normal Skin: Dry, Normal Color, Warm Lymphatic: No Adenopathy Was a procedure done? Was a procedure done?: No Differential Dx Considerations may include: Closed head injury, concussion, X-Ray, Labs, Meds, VS Vital Signs Date Time Temp Pulse Resp B/P (MAP) Pulse Ox O2 Delivery O2 Flow Rate FiO2 10/20/25 23:29 97.8 73 18 149/103 95 97.8 X-Ray, Labs, Meds, VS Comment Imaging was reviewed by this provider, there is no obvious pathological or acute disease process. Pending radiology review Labs were reviewed by this provider, no abnormalities Vital signs reviewed by this provider, clinically stable Images Reviewed?: Images reviewed and evaluated by me Time of 1ST Reevaluation: 23:56 Reevaluation 1ST: Unchanged Patient Education/Counseling: Diagnosis, Treatment, Need For Follow Up (Follow up with PCP next available appointment.) Family Education/Counseling: Diagnosis, Treatment SEPSIS Sepsis Screen Date sepsis recognized/suspect: Oct 20, 2025 Time Sepsis recognized/suspect: 2324 Recent Procedure: No On Antibiotic Therapy: No Respiratory Rate >20: No Heart Rate >90: No Temp<36 C (96.8 F) or >38.3 C: No SBP <90 or MAP <65 mmHG: No New Acute Mental Status Change: No Is the patient on CPAP, BIPAP,: No Physician Orders Head Without Contrast (10/20/25 23:45) Cervical Without Contrast (10/20/25 23:45) Vital Signs Date Time Temp Pulse Resp B/P (MAP) Pulse Ox O2 Delivery O2 Flow Rate FiO2 10/20/25 23:29 97.8 73 18 149/103 95 97.8 Departure 1 Departure Time of Disposition: 23:56 Impression: Primary Impression: Accident due to mechanical fall without injury Qualified Codes: W19.XXXA - Unspecified fall, initial encounter Disposition: HOME / SELF CARE / HOMELESS Condition: Stable Discharged With: Self Critical Care Note Critical Care Time?: No Stability Stability form required: No Heart Score Heart Score: Heart Score Response (Comments) Value History N/A 0 EKG N/A 0 Age N/A 0 Risk Factors N/A 0 Troponin N/A 0 Total 0 VANDANA BARBOURP Oct 20, 2025 23:57
[2025-10-21] MEDS: LORazepam 2MG/ML-1ML VIAL IM ONE (00:03)
--- NOTE | 2025-10-21 01:08 | DVH ---
EXAM: CT HEAD WITHOUT CONTRAST INDICATION: fall, pain TECHNIQUE: CT of the head without intravenous contrast. Radiation Dose Information: CT Dose: CTDI volume is 63.11 mGy. Dose-length product is 1243.52 mGy*cm The dose indicators for CT are the volume Computed Tomography (CT) Dose Index (CTDIvol) and the Dose Length Product (DLP), and are measured in units of mGy and mGy-cm, respectively. These indicators are not patient dose, but values generated from the CT scanner acquisition factors. The report includes radiation exposure data for exposures received during this examination. COMPARISON: CT HEAD WITHOUT CONTRAST on DOS: 10/20/25, CT HEAD WITHOUT CONTRAST on DOS: 10/02/25, CT HEAD WITHOUT CONTRAST on DOS: 09/19/25, CT HEAD WITHOUT CONTRAST on DOS: 08/29/25, CT HEAD WITHOUT CONTRAST on DOS: 05/20/25 FINDINGS: Previous left frontoparietal craniotomy. There is no evidence of acute intracranial hemorrhage, extra-axial collection, mass effect, midline shift, herniation or hydrocephalus. The ventricles, sulci and cisterns are age appropriate. The harris-white differentiation is intact. Patchy periventricular and subcortical white matter hypoattenuation is nonspecific but may be related to small vessel ischemic disease. The visualized paranasal sinuses and mastoid air cells are clear. The surrounding soft tissues and osseous structures are unremarkable. IMPRESSION: No acute intracranial abnormality.
--- NOTE | 2025-10-21 01:09 | DVH ---
EXAM: CT CERVICAL WITHOUT CONTRAST HISTORY: fall, pain COMPARISON: CT CERVICAL WITHOUT CONTRAST on DOS: 06/29/24, CT CERVICAL WITHOUT CONTRAST on DOS: 05/23/24, CT C-SPINE on DOS: 03/15/24 CTDIvol 26.99 mGy, DLP 673.15 mGy*cm. TECHNIQUE: Multiple axial CT images of the spine were obtained using bone algorithm. Axial and coronal reformatting was done. Bone and soft tissue windows were reviewed. FINDINGS: No evidence of definite acute fracture, spinal dislocation, or significant appearing acute subluxation is seen. IMPRESSION: No acute cervical spine abnormality.
[2025-10-21 08:00] VITALS: BP 149/93; PULSE 68; RESP 15; O2SAT 97
[2025-10-22] MEDS ORDERED: AMLO1TAB22 PO (04:56)
== END 2025-10-21 08:47 | disposition home or self-care (01) ==
LOC: EDUNIT# 23:21 → ER 23:21 → EDBD 23:21 → ER 10-21 08:47
DX: R51.9 Headache, unspecified (principal); M54.2 Cervicalgia; I10 Essential (primary) hypertension; Z79.899 Other long term (current) drug therapy; W19.XXXA Unspecified fall, initial encounter; Y93.89 Activity, other specified; Y92.89 Other specified places as the place of occurrence of the external cause; Y99.8 Other external cause status
CPT/HCPCS: 70450; 72125; 96372; 99285; J2060

== ENCOUNTER 2025-10-22 04:20 | Emergency (ER) | payer MEDICAID ==
[~2025-10-22] VITALS: Ht 162.6 cm; Wt 63.9 kg
[2025-10-22 04:47] VITALS: PULSE 62; RESP 17; O2SAT 99
[2025-10-22] MEDS ORDERED: AMLO1TAB22 PO (04:56)
--- NOTE | 2025-10-22 05:09 | ED.PDOC ---
History of Present Illness HPI Comments 54-year-old male who came to ER via EMS for fall injury. Patient resides at [facility] facility, has been seen here multiple times for fall injury. Had another possible unwitnessed fall earlier as patient was seen laying on the ground. Patient sent here for evaluation Chief Complaint: Fall Injury Time Seen by MD: 05:08 Primary Care Provider: COLLIN Armendariz Notes: Nurses Notes Allergies: Coded Allergies: NO KNOWN ALLERGIES (Unverified , 02/08/24) Home Meds Active Scripts Amlodipine Besylate (Amlodipine Besylate) 5 Mg Tab, 1 TAB PO BID for 90 Days, #180 TAB 3 Refills Prov:EDMOND SINHA MD 10/22/25 Acetaminophen (Acetaminophen) 500 Mg Tab, 500 MG PO Q4HP PRN, #30 TAB Prov:JENNIFER ZHOU PAC 08/29/25 Ibuprofen (Ibuprofen) 600 Mg Tab, 1 TAB PO Q6HP PRN, #20 TAB Prov:JENNIFER ZHOU PAC 08/29/25 Valproate Sodium (Depakene) 250 Mg/5 Ml Sr, 750 MG PO BID for 30 Days, #60 SYP Prov:VIRIDIANA MARAVILLA MD 05/26/25 Quetiapine Fumerate (QUETIAPINE FUMARATE) 100 Mg Tab, 100 MG PO BID for 30 Days, #60 TAB Prov:VIRIDIANA MARAVILLA MD 05/26/25 Lisinopril (Lisinopril) 20 Mg Tab, 40 MG PO DAILY for 30 Days, #60 TAB Prov:VIRIDIANA MARAVILLA MD 05/26/25 Lactulose (Lactulose) 10 Gm/15 Ml Mahnaz, 30 ML PO DAILY for 30 Days, #1200 ML Prov:VIRIDIANA MARAVILLA MD 05/26/25 Divalproex Sodium (Divalproex Sodium Dr) 250 Mg Tab, 750 MG PO BID for 30 Days, #180 TAB Prov:VIRIDIANA MARAVILLA MD 05/26/25 Benztropine Mesylate (Benztropine Mesylate) 0.5 Mg Tab, 1 MG PO DAILY for 30 Days, #60 TAB Prov:VIRIDIANA MARAVILLA MD 05/26/25 Information Source: Patient Mode of Arrival: EMS Past Medical History PAST MEDICAL HISTORY: HTN, Seizures Past Medical History (Other): Traumatic brain injury, recurrent falls Surgical History: Denies all surgeries Family History Family History: Reviewed,noncontributory to illness, Unknown Social History Smoker: Non-Smoker Alcohol: Denies ETOH Use Drugs: Denies Drug Use Lives In: Assisted Care Constitutional: denies: chills, diaphoresis, fatigue, fever, malaise, sweats, weakness, others EENTM: denies: blurred vision, double vision, ear bleeding, ear discharge, ear drainage, ear pain, ear ringing, eye pain, eye redness, hearing loss, mouth pain, mouth swelling, nasal discharge, nose bleeding, nose congestion, nose pain, photophobia, tearing, throat pain, throat swelling, voice changes, others Respiratory: denies: cough, hemoptysis, orthopnea, SOB at rest, shortness of breath, SOB with excertion, stridor, wheezing, others Cardiovascular: denies: chest pain, dizzy spells, diaphoresis, Dyspnea on exertion, edema, irregular heart beat, left arm pain, lightheadedness, palpitations, PND, syncope, others Gastrointestinal: denies: abdomen distended, abdominal pain, blood streaked bowels, constipated, diarrhea, dysphagia, difficulty swallowing, hematemesis, melena, nausea, poor appetite, poor fluid intake, rectal bleeding, rectal pain, vomiting, others Genitourinary: denies: burning, dysuria, flank pain, frequency, hematuria, incontinence, penile discharge, penile sore, pain, testicle pain, testicle swelling, urgency, others Neurological: denies: dizziness, fainting, headache, left sided numbness, left sided weakness, numbness, paresthesia, pre-existing deficit, right sided numbness, right sided weakness, seizure, speech problems, tingling, tremors, weakness, others Musculoskeletal: denies: back pain, gout, joint pain, joint swelling, muscle pain, muscle stiffness, neck pain, others Integumetry: denies: bruises, change in color, change in hair/nails, dryness, laceration, lesions, lumps, rash, wounds, others Allergic/Immunocompromised: denies: Difficulty Healing, Frequent Infections, Hives, Itching, others Hematologic/Lymphatic: denies: anemia, blood clots, easy bleeding, easy bruising, swollen glands, others Endocrine: denies: excessive hunger, excessive sweating, excessive thirst, excessive urination, flushing, intolerance to cold, intolerance to heat, unexplained weight gain, unexplained weight loss, others Psychiatric: denies: anxiety, bipolar disorder, depression, hopeless, panic disorder, schizophrenia, sleepless, suicidal, others Physical Exam General Appearance: No Apparent Distress, Normal HEENT: Normal ENT Inspection, Pharynx Normal, TMs Normal Neck: Full Range of Motion, Non-Tender, Normal, Normal Inspection Respiratory: Chest Non-Tender, Lungs Clear, No Accessory Muscle Use, No Respiratory Distress, Normal Breath Sounds Cardiovascular: No Edema, No JVD, No Murmur, No Gallop, Normal Peripheral Pulses, Regular Rate/Rhythm Breast Exam: Deferred Gastrointestinal: No Organomegaly, Non Tender, No Pulsatile Mass, Normal Bowel Sounds, Soft Genitalia: Deferred Pelvic: Deferred Rectal: Deferred Extremities: No calf tenderness, Normal capillary refill, Normal inspection, Normal range of motion, Non-tender, No pedal edema Musculoskeletal : Apperance: Normal Neurologic: Alert, stenciling machine tender II-XII nml as Tested, No Motor Deficits, Normal Affect, Normal Mood, No Sensory Deficits Cerebellar Function: Normal Reflexes: Normal Skin: Dry, Normal Color, Warm Lymphatic: No Adenopathy Was a procedure done? Was a procedure done?: No Differential Dx Considerations may include: Traumatic brain injury, fall injury, fracture X-Ray, Labs, Meds, VS Vital Signs Date Time Temp Pulse Resp B/P (MAP) Pulse Ox O2 Delivery O2 Flow Rate FiO2 10/22/25 08:08 20 Room Air* 0 21 10/22/25 06:55 98.1 84 20 166/109 (128) 97 98.1 10/22/25 05:30 67 20 169/116 (133) 97 10/22/25 05:01 182/121 10/22/25 04:47 62 17 99 Room Air* 0 21 10/22/25 04:45 97.9 62 17 182/121 (141) 99 97.9 10/22/25 04:33 97.9 66 20 169/134 99 97.9 Current Medications Medications (Trade) Dose Ordered Sig/Negra Route Start Time Stop Time Status Last Admin Hydralazine HCl (Apresoline Tablet) 50 mg ONCE ONCE PO 10/22/25 05:00 10/22/25 05:01 DC 10/22/25 05:01 Time of 1ST Reevaluation: 05:05 Reevaluation 1ST: Unchanged Patient Education/Counseling: Diagnosis, Treatment Family Education/Counseling: No Family Present SEPSIS Sepsis Screen Date sepsis recognized/suspect: Oct 22, 2025 Time Sepsis recognized/suspect: 448 Recent Procedure: No On Antibiotic Therapy: No Respiratory Rate >20: No Heart Rate >90: No Temp<36 C (96.8 F) or >38.3 C: No SBP <90 or MAP <65 mmHG: No New Acute Mental Status Change: No Is the patient on CPAP, BIPAP,: No Vital Signs Date Time Temp Pulse Resp B/P (MAP) Pulse Ox O2 Delivery O2 Flow Rate FiO2 10/22/25 08:08 20 Room Air* 0 21 10/22/25 06:55 98.1 84 20 166/109 (128) 97 98.1 10/22/25 05:30 67 20 169/116 (133) 97 10/22/25 05:01 182/121 10/22/25 04:47 62 17 99 Room Air* 0 21 10/22/25 04:45 97.9 62 17 182/121 (141) 99 97.9 10/22/25 04:33 97.9 66 20 169/134 99 97.9 Departure 1 Departure Time of Disposition: 06:00 Impression: Primary Impression: Hypertensive urgency Additional Impressions: TBI (traumatic brain injury) Schizophrenia Disposition: 01 HOME / SELF CARE / HOMELESS Condition: Stable Additional Instructions: Follow up with your primary physician Return to the ED for any worsening symptoms or concerns for any worsening symptoms or concerns e-Prescriptions Amlodipine Besylate (Amlodipine Besylate) 5 Mg Tab 1 TAB PO BID for 90 Days, #180 TAB 3 Refills Prov: EDMOND SINHA MD 10/22/25 Critical Care Note Critical Care Time?: No Stability Stability form required: No Heart Score Heart Score: Heart Score Response (Comments) Value History N/A 0 EKG N/A 0 Age N/A 0 Risk Factors N/A 0 Troponin N/A 0 Total 0 I personally scribed for EDMODN SINHA MD ([email or web address]) on 10/22/25 at 05:09. Electronically submitted by Robin Graves ([email or web address]). EDMOND SINHA MD Oct 22, 2025 05:09
[2025-10-22 06:55] VITALS: BP 166/109; PULSE 84; TEMP 98.1; O2SAT 97
[2025-10-22 08:08] VITALS: RESP 20
[2025-10-23] MEDS ORDERED: AMLO1TAB22 PO (23:15)
== END 2025-10-22 09:37 | disposition home or self-care (01) ==
LOC: EDBD 04:20 → ER 04:20
DX: S06.9X0A Unspecified intracranial injury without loss of consciousness, initial encounter (principal); I10 Essential (primary) hypertension; I16.0 Hypertensive urgency; F20.9 Schizophrenia, unspecified; Z79.899 Other long term (current) drug therapy; W19.XXXA Unspecified fall, initial encounter; Y93.89 Activity, other specified; Y92.89 Other specified places as the place of occurrence of the external cause; Y99.8 Other external cause status

== ENCOUNTER 2025-10-23 22:44 | Emergency (ER) | payer MEDICAID ==
[~2025-10-23] VITALS: Ht 177.8 cm; Wt 82.0 kg
[~2025-10-23 22:44] MED LIST changes: +AMLO1TAB22 PO
[2025-10-23 23:00] VITALS: PULSE 64; RESP 12; TEMP 97.9; O2SAT 94
--- NOTE | 2025-10-23 23:05 | ED.PDOC ---
History of Present Illness HPI Comments 54-year-old male who came to ER via EMS for fall injury. Patient resides at [facility] facility, seen here multiple times for Fall injuries. Does have history of traumatic brain injury. Was seen by caregivers today on the floor, with his beddings, and they are unsure if patient fell off the bed, so patient brought here for evaluation and management Chief Complaint: Fall Injury Time Seen by MD: 23:07 Primary Care Provider: COLLIN Reviewed Notes: [employer] Floorperson Notes Allergies: Coded Allergies: NO KNOWN ALLERGIES (Unverified , 02/08/24) Home Meds Active Scripts Amlodipine Besylate (Amlodipine Besylate) 5 Mg Tab, 1 TAB PO DAILY, #90 TAB 1 Refill Prov:EDMOND SINHA MD 10/23/25 Amlodipine Besylate (Amlodipine Besylate) 5 Mg Tab, 1 TAB PO BID for 90 Days, #180 TAB 3 Refills Prov:EDMOND SINHA MD 10/22/25 Acetaminophen (Acetaminophen) 500 Mg Tab, 500 MG PO Q4HP PRN, #30 TAB Prov:JENNIFER ZHOU PAC 08/29/25 Ibuprofen (Ibuprofen) 600 Mg Tab, 1 TAB PO Q6HP PRN, #20 TAB Prov:JENNIFER ZHOU PAC 08/29/25 Valproate Sodium (Depakene) 250 Mg/5 Ml Sr, 750 MG PO BID for 30 Days, #60 SYP Prov:VIRIDIANA MARAVILLA MD 05/26/25 Quetiapine Fumerate (QUETIAPINE FUMARATE) 100 Mg Tab, 100 MG PO BID for 30 Days, #60 TAB Prov:VIRIDIANA MARAVILLA MD 05/26/25 Lisinopril (Lisinopril) 20 Mg Tab, 40 MG PO DAILY for 30 Days, #60 TAB Prov:VIRIDIANA MARAVILLA MD 05/26/25 Lactulose (Lactulose) 10 Gm/15 Ml Mahnaz, 30 ML PO DAILY for 30 Days, #1200 ML Prov:VIRIDIANA MARAVILLA MD 05/26/25 Divalproex Sodium (Divalproex Sodium Dr) 250 Mg Tab, 750 MG PO BID for 30 Days, #180 TAB Prov:VIRIDIANA MARAVILLA MD 05/26/25 Benztropine Mesylate (Benztropine Mesylate) 0.5 Mg Tab, 1 MG PO DAILY for 30 Days, #60 TAB Prov:VIRIDIANA MARAVILLA MD 05/26/25 Information Source: Patient Mode of Arrival: EMS Past Medical History PAST MEDICAL HISTORY: HTN, Seizures Past Medical History (Other): Traumatic brain injury, recurrent falls Surgical History: Denies all surgeries Family History Family History: Reviewed,noncontributory to illness Social History Smoker: Non-Smoker Alcohol: Denies ETOH Use Drugs: Denies Drug Use Lives In: Assisted Care Constitutional: denies: chills, diaphoresis, fatigue, fever, malaise, sweats, weakness, others EENTM: denies: blurred vision, double vision, ear bleeding, ear discharge, ear drainage, ear pain, ear ringing, eye pain, eye redness, hearing loss, mouth pain, mouth swelling, nasal discharge, nose bleeding, nose congestion, nose pain, photophobia, tearing, throat pain, throat swelling, voice changes, others Respiratory: denies: cough, hemoptysis, orthopnea, SOB at rest, shortness of breath, SOB with excertion, stridor, wheezing, others Cardiovascular: denies: chest pain, dizzy spells, diaphoresis, Dyspnea on exertion, edema, irregular heart beat, left arm pain, lightheadedness, palpitations, PND, syncope, others Gastrointestinal: denies: abdomen distended, abdominal pain, blood streaked bowels, constipated, diarrhea, dysphagia, difficulty swallowing, hematemesis, melena, nausea, poor appetite, poor fluid intake, rectal bleeding, rectal pain, vomiting, others Genitourinary: denies: burning, dysuria, flank pain, frequency, hematuria, incontinence, penile discharge, penile sore, pain, testicle pain, testicle swelling, urgency, others Neurological: denies: dizziness, fainting, headache, left sided numbness, left sided weakness, numbness, paresthesia, pre-existing deficit, right sided numbness, right sided weakness, seizure, speech problems, tingling, tremors, weakness, others Musculoskeletal: denies: back pain, gout, joint pain, joint swelling, muscle pain, muscle stiffness, neck pain, others Integumetry: denies: bruises, change in color, change in hair/nails, dryness, laceration, lesions, lumps, rash, wounds, others Allergic/Immunocompromised: denies: Difficulty Healing, Frequent Infections, Hives, Itching, others Hematologic/Lymphatic: denies: anemia, blood clots, easy bleeding, easy bruising, swollen glands, others Endocrine: denies: excessive hunger, excessive sweating, excessive thirst, excessive urination, flushing, intolerance to cold, intolerance to heat, unexplained weight gain, unexplained weight loss, others Psychiatric: denies: anxiety, bipolar disorder, depression, hopeless, panic disorder, schizophrenia, sleepless, suicidal, others Physical Exam General Appearance: No Apparent Distress, Normal HEENT: Normal ENT Inspection, Pharynx Normal, TMs Normal Neck: Full Range of Motion, Non-Tender, Normal, Normal Inspection Respiratory: Chest Non-Tender, Lungs Clear, No Accessory Muscle Use, No Respiratory Distress, Normal Breath Sounds Cardiovascular: No Edema, No JVD, No Murmur, No Gallop, Normal Peripheral Pulses, Regular Rate/Rhythm Breast Exam: Deferred Gastrointestinal: No Organomegaly, Non Tender, No Pulsatile Mass, Normal Bowel Sounds, Soft Genitalia: Deferred Pelvic: Deferred Rectal: Deferred Extremities: No calf tenderness, Normal capillary refill, Normal inspection, Normal range of motion, Non-tender, No pedal edema Musculoskeletal : Apperance: Normal Neurologic: Alert, police detective II-XII nml as Tested, No Motor Deficits, Normal Affect, Normal Mood, No Sensory Deficits Cerebellar Function: Normal Reflexes: Normal Skin: Dry, Normal Color, Warm Lymphatic: No Adenopathy Was a procedure done? Was a procedure done?: No Differential Dx Considerations may include: fall injury, fractures X-Ray, Labs, Meds, VS Vital Signs Date Time Temp Pulse Resp B/P (MAP) Pulse Ox O2 Delivery O2 Flow Rate FiO2 10/24/25 01:30 64 12 156/90 (112) 94 10/23/25 23:24 189/116 10/23/25 23:00 97.9 64 12 189/116 (140) 94 97.9 10/23/25 23:00 64 12 94 Room Air* 0 21 10/23/25 22:45 98.0 72 16 172/104 98 98.0 Current Medications Medications (Trade) Dose Ordered Sig/Negra Route Start Time Stop Time Status Last Admin Hydralazine HCl (Apresoline Tablet) 50 mg ONCE ONCE PO 10/23/25 23:15 10/23/25 23:16 DC 10/23/25 23:24 Olanzapine (ZyPREXA Tablet) 15 mg ONCE ONCE PO 10/24/25 00:00 10/24/25 00:02 DC 10/24/25 00:14 Time of 1ST Reevaluation: 23:03 Reevaluation 1ST: Unchanged Patient Education/Counseling: Diagnosis, Treatment Family Education/Counseling: No Family Present SEPSIS Sepsis Screen Date sepsis recognized/suspect: Oct 23, 2025 Time Sepsis recognized/suspect: 2244 Recent Procedure: No On Antibiotic Therapy: No Respiratory Rate >20: No Heart Rate >90: No Temp<36 C (96.8 F) or >38.3 C: No SBP <90 or MAP <65 mmHG: No New Acute Mental Status Change: No Is the patient on CPAP, BIPAP,: No Vital Signs Date Time Temp Pulse Resp B/P (MAP) Pulse Ox O2 Delivery O2 Flow Rate FiO2 10/24/25 01:30 64 12 156/90 (112) 94 10/23/25 23:24 189/116 10/23/25 23:00 97.9 64 12 189/116 (140) 94 97.9 10/23/25 23:00 64 12 94 Room Air* 0 21 10/23/25 22:45 98.0 72 16 172/104 98 98.0 Medications Medications Dose Ordered Sig/Negra Route Start Time Stop Time Status Last Admin Dose Admin Hydralazine HCl 50 mg ONCE ONCE PO 10/23/25 23:15 10/23/25 23:16 DC 10/23/25 23:24 Olanzapine 15 mg ONCE ONCE PO 10/24/25 00:00 10/24/25 00:02 DC 10/24/25 00:14 Departure 1 Departure Time of Disposition: 01:00 Impression: Primary Impression: Fall Additional Impressions: Schizophrenia TBI (traumatic brain injury) Disposition: 01 HOME / SELF CARE / HOMELESS Condition: Stable e-Prescriptions Amlodipine Besylate (Amlodipine Besylate) 5 Mg Tab 1 TAB PO DAILY, #90 TAB 1 Refill Prov: EDMOND SINHA MD 10/23/25 Discharged With: Self Critical Care Note Critical Care Time?: No Stability Stability form required: No Heart Score Heart Score: Heart Score Response (Comments) Value History N/A 0 EKG N/A 0 Age N/A 0 Risk Factors N/A 0 Troponin N/A 0 Total 0 I personally scribed for EDMOND SINHA MD ([email or web address]) on 10/23/25 at 23:05. Electronically submitted by Robin Graves ([facility] I personally scribed for EDMOND SINHA MD ([email or web address]) on 10/23/25 at 23:07. Electronically submitted by Robin Graves ([email or web address]). EDMOND SINHA MD Oct 23, 2025 23:05
[2025-10-23] MEDS ORDERED: AMLO1TAB22 PO (23:15)
[2025-10-24] MEDS: OLANZapine 5 MG TAB PO ONE (00:14)
[2025-10-24 01:30] VITALS: BP 156/90; PULSE 64; RESP 12; O2SAT 94
== END 2025-10-24 01:37 | disposition home or self-care (01) ==
LOC: EDBD 22:44 → ER 22:44
DX: S06.9XAA Unspecified intracranial injury with loss of consciousness status unknown, initial encounter (principal); F20.9 Schizophrenia, unspecified; I10 Essential (primary) hypertension; Z79.899 Other long term (current) drug therapy; W19.XXXA Unspecified fall, initial encounter; Y93.89 Activity, other specified; Y92.89 Other specified places as the place of occurrence of the external cause; Y99.8 Other external cause status

== ENCOUNTER 2025-11-03 16:03 | Emergency (ER) | payer MEDICAID ==
[~2025-11-03] VITALS: Ht 177.8 cm; Wt 77.5 kg
[2025-11-03 16:08] VITALS: BP 149/90; PULSE 75; RESP 15; TEMP 98.1; O2SAT 100
--- NOTE | 2025-11-03 16:12 | ED.PDOC ---
History of Present Illness HPI Comments 54 year old male with PMHx HTN, seizures presents to the ED via EMS with a chief complaint of fall injury onset today. Patient is from [facility]. Patient was on wheelchair, wheels were locked, patient was trying to turn, fell over onto side. Patient has no complaints. Denies LOC, nausea, vomiting, diarrhea, headache, dizziness, fever, chills, chest pain, shortness of breath. No other symptoms or modifying factors present at this time. Chief Complaint: Fall Injury Time Seen by MD: 16:00 Primary Care Provider: COLLIN Reviewed Notes: Nurses Notes, Medications, Allergies Allergies: Coded Allergies: NO KNOWN ALLERGIES (Unverified , 02/08/24) Home Meds Active Scripts Amlodipine Besylate (Amlodipine Besylate) 5 Mg Tab, 1 TAB PO DAILY, #90 TAB 1 Refill Prov:EDMOND SINHA MD 10/23/25 Amlodipine Besylate (Amlodipine Besylate) 5 Mg Tab, 1 TAB PO BID for 90 Days, #180 TAB 3 Refills Prov:EDMOND SINHA MD 10/22/25 Acetaminophen (Acetaminophen) 500 Mg Tab, 500 MG PO Q4HP PRN, #30 TAB Prov:JENNIFER ZHOU PAC 08/29/25 Ibuprofen (Ibuprofen) 600 Mg Tab, 1 TAB PO Q6HP PRN, #20 TAB Prov:JENNIFER ZHOU PAC 08/29/25 Valproate Sodium (Depakene) 250 Mg/5 Ml Sr, 750 MG PO BID for 30 Days, #60 SYP Prov:VIRIDIANA MARAVILLA MD 05/26/25 Quetiapine Fumerate (QUETIAPINE FUMARATE) 100 Mg Tab, 100 MG PO BID for 30 Days, #60 TAB Prov:VIRIDIANA MARAVILLA MD 05/26/25 Lisinopril (Lisinopril) 20 Mg Tab, 40 MG PO DAILY for 30 Days, #60 TAB Prov:VIRDIIANA MARAVILLA MD 05/26/25 Lactulose (Lactulose) 10 Gm/15 Ml Mahnaz, 30 ML PO DAILY for 30 Days, #1200 ML Prov:VIRIDIANA MARAVILLA MD 05/26/25 Divalproex Sodium (Divalproex Sodium Dr) 250 Mg Tab, 750 MG PO BID for 30 Days, #180 TAB Prov:VIRIDIANA MARAVILLA MD 05/26/25 Benztropine Mesylate (Benztropine Mesylate) 0.5 Mg Tab, 1 MG PO DAILY for 30 Days, #60 TAB Prov:VIRIDIANA MARAVILLA MD 05/26/25 Information Source: Patient, Emergency Med Personnel Mode of Arrival: EMS Severity: Moderate Timing: Minutes Duration: Since onset Prehospital treatment: None Past Medical History PAST MEDICAL HISTORY: HTN, Seizures Surgical History: Denies all surgeries Family History Family History: Reviewed,noncontributory to illness Social History Smoker: Non-Smoker Alcohol: Denies ETOH Use Drugs: Denies Drug Use Lives In: Assisted Care Constitutional: denies: chills, diaphoresis, fatigue, fever, malaise, sweats, weakness, others EENTM: denies: blurred vision, double vision, ear bleeding, ear discharge, ear drainage, ear pain, ear ringing, eye pain, eye redness, hearing loss, mouth pain, mouth swelling, nasal discharge, nose bleeding, nose congestion, nose pain, photophobia, tearing, throat pain, throat swelling, voice changes, others Respiratory: denies: cough, hemoptysis, orthopnea, SOB at rest, shortness of breath, SOB with excertion, stridor, wheezing, others Cardiovascular: denies: chest pain, dizzy spells, diaphoresis, Dyspnea on exertion, edema, irregular heart beat, left arm pain, lightheadedness, palpitations, PND, syncope, others Gastrointestinal: denies: abdomen distended, abdominal pain, blood streaked bowels, constipated, diarrhea, dysphagia, difficulty swallowing, hematemesis, melena, nausea, poor appetite, poor fluid intake, rectal bleeding, rectal pain, vomiting, others Genitourinary: denies: burning, dysuria, flank pain, frequency, hematuria, incontinence, penile discharge, penile sore, pain, testicle pain, testicle swelling, urgency, others Neurological: denies: dizziness, fainting, headache, left sided numbness, left sided weakness, numbness, paresthesia, pre-existing deficit, right sided numbness, right sided weakness, seizure, speech problems, tingling, tremors, weakness, others Musculoskeletal: denies: back pain, gout, joint pain, joint swelling, muscle pain, muscle stiffness, neck pain, others Integumetry: denies: bruises, change in color, change in hair/nails, dryness, laceration, lesions, lumps, rash, wounds, others Allergic/Immunocompromised: denies: Difficulty Healing, Frequent Infections, Hives, Itching, others Hematologic/Lymphatic: denies: anemia, blood clots, easy bleeding, easy bruising, swollen glands, others Endocrine: denies: excessive hunger, excessive sweating, excessive thirst, excessive urination, flushing, intolerance to cold, intolerance to heat, unexplained weight gain, unexplained weight loss, others Psychiatric: denies: anxiety, bipolar disorder, depression, hopeless, panic disorder, schizophrenia, sleepless, suicidal, others All Other Systems: Reviewed and Negative Physical Exam General Appearance: No Apparent Distress HEENT: Normal ENT Inspection, Pharynx Normal, TMs Normal Neck: Full Range of Motion, Non-Tender, Normal, Normal Inspection Respiratory: Chest Non-Tender, Lungs Clear, No Accessory Muscle Use, No Respiratory Distress, Normal Breath Sounds Cardiovascular: No Edema, No JVD, No Murmur, No Gallop, Normal Peripheral Pulses, Regular Rate/Rhythm Breast Exam: Deferred Gastrointestinal: No Organomegaly, Non Tender, No Pulsatile Mass, Normal Bowel Sounds, Soft Genitalia: Deferred Pelvic: Deferred Rectal: Deferred Extremities: No calf tenderness, Normal capillary refill, No pedal edema Musculoskeletal : Apperance: Normal Neurologic: Alert, learning and development specialist II-XII nml as Tested, Motor Weakness, Normal Affect, Normal Mood, No Sensory Deficits Cerebellar Function: Normal Reflexes: Normal Skin: Dry, Normal Color, Warm Lymphatic: No Adenopathy Was a procedure done? Was a procedure done?: No Differential Dx Considerations may include: Generalized weakness, electrolyte imbalance, dehydration X-Ray, Labs, Meds, VS Vital Signs Date Time Temp Pulse Resp B/P (MAP) Pulse Ox O2 Delivery O2 Flow Rate FiO2 11/03/25 16:08 98.1 75 15 149/90 100 98.1 At this time, the patient will be discharged and will follow up with the primary care doctor The patient will return to the emergency department's condition worsens The patient understands and agrees with the management. Images Reviewed?: Images reviewed and evaluated by me Time of 1ST Reevaluation: 16:30 Reevaluation 1ST: Unchanged Patient Education/Counseling: Diagnosis, Treatment, Prognosis Family Education/Counseling: No Family Present SEPSIS Sepsis Screen Vital Signs Date Time Temp Pulse Resp B/P (MAP) Pulse Ox O2 Delivery O2 Flow Rate FiO2 11/03/25 16:08 98.1 75 15 149/90 100 98.1 Departure 1 Departure Time of Disposition: 16:18 Impression: Primary Impression: Accident due to mechanical fall without injury Qualified Codes: W19.XXXA - Unspecified fall, initial encounter Disposition: HOME / SELF CARE / HOMELESS Condition: Fair Discharged With: Self, Help Desk Intern Critical Care Note Critical Care Time?: No Stability Stability form required: No Heart Score Heart Score: Heart Score Response (Comments) Value History N/A 0 EKG N/A 0 Age N/A 0 Risk Factors N/A 0 Troponin N/A 0 Total 0 I personally scribed for ISMAEL GREEN MD ([email or web address]) on 11/03/25 at 16:12. Electronically submitted by Shagufta Johnson ([email or web address]). ISMAEL GREEN MD Nov 03, 2025 16:12
== END 2025-11-03 19:57 | disposition home or self-care (01) ==
LOC: ER 16:03 → EDBD 16:03 → ER 19:57
DX: R56.9 Unspecified convulsions (principal); I10 Essential (primary) hypertension; Z79.899 Other long term (current) drug therapy; W19.XXXA Unspecified fall, initial encounter; Y93.89 Activity, other specified; Y92.89 Other specified places as the place of occurrence of the external cause; Y99.8 Other external cause status

== ENCOUNTER 2025-11-05 21:59 | Emergency (ER) | payer MEDICAID ==
[~2025-11-05] VITALS: Ht 175.3 cm; Wt 160.0 kg
--- NOTE | 2025-11-05 22:12 | ED.PDOC ---
History of Present Illness HPI Comments 54-year-old male who came to ER via EMS for shortness of breath. Patient picked up at the assisted care facility. Was noted by caregivers to be short of breath earlier,, saturating 60% on room air. Patient was given half of a breathing treatment. Was paramedics came in patient was saturating 97% on room air. Patient has no subjective complaints at this time of care Chief Complaint: Shortness of breath Time Seen by MD: 22:12 Primary Care Provider: COLLIN Reviewed Notes: Nurses Notes, Human Resources Trainee Notes Allergies: Coded Allergies: NO KNOWN ALLERGIES (Unverified , 02/08/24) Home Meds Active Scripts Amlodipine Besylate (Amlodipine Besylate) 5 Mg Tab, 1 TAB PO DAILY, #90 TAB 3 Re fills Prov:EDMOND SINHA MD 11/05/25 Amlodipine Besylate (Amlodipine Besylate) 5 Mg Tab, 1 TAB PO DAILY, #90 TAB 1 Refill Prov:EDMOND SINHA MD 10/23/25 Amlodipine Besylate (Amlodipine Besylate) 5 Mg Tab, 1 TAB PO BID for 90 Days, #180 TAB 3 Refills Prov:EDMOND SINHA MD 10/22/25 Acetaminophen (Acetaminophen) 500 Mg Tab, 500 MG PO Q4HP PRN, #30 TAB Prov:JENNIFER ZHOU PAC 08/29/25 Ibuprofen (Ibuprofen) 600 Mg Tab, 1 TAB PO Q6HP PRN, #20 TAB Prov:JENNIFER ZHOU PAC 08/29/25 Valproate Sodium (Depakene) 250 Mg/5 Ml Sr, 750 MG PO BID for 30 Days, #60 SYP Prov:VIRIDIANA MARAVILLA MD 05/26/25 Quetiapine Fumerate (QUETIAPINE FUMARATE) 100 Mg Tab, 100 MG PO BID for 30 Days, #60 TAB Prov:VIRIDIANA MARAVILLA MD 05/26/25 Lisinopril (Lisinopril) 20 Mg Tab, 40 MG PO DAILY for 30 Days, #60 TAB Prov:VIRIDIANA MARAVILLA MD 05/26/25 Lactulose (Lactulose) 10 Gm/15 Ml Mahnaz, 30 ML PO DAILY for 30 Days, #1200 ML Prov:VIRIDIANA MARAVILLA MD 05/26/25 Divalproex Sodium (Divalproex Sodium Dr) 250 Mg Tab, 750 MG PO BID for 30 Days, #180 TAB Prov:VIRIDIANA MARAVILLA MD 05/26/25 Benztropine Mesylate (Benztropine Mesylate) 0.5 Mg Tab, 1 MG PO DAILY for 30 Days, #60 TAB Prov:VIRIDIANA MARAVILLA MD 05/26/25 Information Source: Patient, Emergency Med Personnel Past Medical History PAST MEDICAL HISTORY: HTN, Seizures Surgical History: Denies all surgeries Family History Family History: Reviewed,noncontributory to illness Social History Smoker: Non-Smoker Alcohol: Denies ETOH Use Drugs: Denies Drug Use Lives In: Assisted Care Constitutional: denies: chills, diaphoresis, fatigue, fever, malaise, sweats, weakness, others EENTM: denies: blurred vision, double vision, ear bleeding, ear discharge, ear drainage, ear pain, ear ringing, eye pain, eye redness, hearing loss, mouth pain, mouth swelling, nasal discharge, nose bleeding, nose congestion, nose pain, photophobia, tearing, throat pain, throat swelling, voice changes, others Respiratory: reports: shortness of breath; denies: cough, hemoptysis, orthopnea, SOB at rest, SOB with excertion, stridor, wheezing, others Cardiovascular: denies: chest pain, dizzy spells, diaphoresis, Dyspnea on exertion, edema, irregular heart beat, left arm pain, lightheadedness, palpitations, PND, syncope, others Gastrointestinal: denies: abdomen distended, abdominal pain, blood streaked bowels, constipated, diarrhea, dysphagia, difficulty swallowing, hematemesis, melena, nausea, poor appetite, poor fluid intake, rectal bleeding, rectal pain, vomiting, others Genitourinary: denies: burning, dysuria, flank pain, frequency, hematuria, incontinence, penile discharge, penile sore, pain, testicle pain, testicle swelling, urgency, others Neurological: denies: dizziness, fainting, headache, left sided numbness, left sided weakness, numbness, paresthesia, pre-existing deficit, right sided numbness, right sided weakness, seizure, speech problems, tingling, tremors, weakness, others Musculoskeletal: denies: back pain, gout, joint pain, joint swelling, muscle pain, muscle stiffness, neck pain, others Integumetry: denies: bruises, change in color, change in hair/nails, dryness, laceration, lesions, lumps, rash, wounds, others Allergic/Immunocompromised: denies: Difficulty Healing, Frequent Infections, Hives, Itching, others Hematologic/Lymphatic: denies: anemia, blood clots, easy bleeding, easy bruising, swollen glands, others Endocrine: denies: excessive hunger, excessive sweating, excessive thirst, excessive urination, flushing, intolerance to cold, intolerance to heat, unexplained weight gain, unexplained weight loss, others Psychiatric: denies: anxiety, bipolar disorder, depression, hopeless, panic disorder, schizophrenia, sleepless, suicidal, others Physical Exam General Appearance: No Apparent Distress, Normal HEENT: Normal ENT Inspection, Pharynx Normal, TMs Normal Neck: Full Range of Motion, Non-Tender, Normal, Normal Inspection Respiratory: Chest Non-Tender, Lungs Clear, No Accessory Muscle Use, No Respiratory Distress, Normal Breath Sounds Cardiovascular: No Edema, No JVD, No Murmur, No Gallop, Normal Peripheral Pulses, Regular Rate/Rhythm Breast Exam: Deferred Gastrointestinal: No Organomegaly, Non Tender, No Pulsatile Mass, Normal Bowel Sounds, Soft Genitalia: Deferred Pelvic: Deferred Rectal: Deferred Extremities: No calf tenderness, Normal capillary refill, Normal inspection, Normal range of motion, Non-tender, No pedal edema Musculoskeletal : Apperance: Normal Neurologic: Alert, operations research engineer II-XII nml as Tested, No Motor Deficits, Normal Affect, Normal Mood, No Sensory Deficits Cerebellar Function: Normal Reflexes: Normal Skin: Dry, Normal Color, Warm Lymphatic: No Adenopathy Was a procedure done? Was a procedure done?: No Differential Dx Considerations may include: Anemia, electrolyte imbalance, shortness of breath, upper respiratory infection X-Ray, Labs, Meds, VS Vital Signs Date Time Temp Pulse Resp B/P (MAP) Pulse Ox O2 Delivery O2 Flow Rate FiO2 11/06/25 03:00 64 12 120/87 (98) 93 11/06/25 01:00 64 12 122/101 (108) 94 11/05/25 23:30 140/98 11/05/25 22:35 97.9 70 12 141/102 (115) 94 97.9 11/05/25 22:35 70 12 94 Room Air* 0 21 11/05/25 22:30 98.2 68 18 141/97 97 98.2 Current Medications Medications (Trade) Dose Ordered Sig/Negra Route Start Time Stop Time Status Last Admin Hydralazine HCl (Apresoline Tablet) 25 mg ONCE ONCE PO 11/05/25 23:00 11/05/25 23:01 DC 11/05/25 23:30 Time of 1ST Reevaluation: 22:10 Reevaluation 1ST: Unchanged Patient Education/Counseling: Diagnosis, Treatment Family Education/Counseling: No Family Present SEPSIS Sepsis Screen Physician Orders Vital Signs .PER UNIT PROTOCOL (11/05/25 22:14) Vital Signs Date Time Temp Pulse Resp B/P (MAP) Pulse Ox O2 Delivery O2 Flow Rate FiO2 11/06/25 03:00 64 12 120/87 (98) 93 11/06/25 01:00 64 12 122/101 (108) 94 11/05/25 23:30 140/98 11/05/25 22:35 97.9 70 12 141/102 (115) 94 97.9 11/05/25 22:35 70 12 94 Room Air* 0 21 11/05/25 22:30 98.2 68 18 141/97 97 98.2 Medications Medications Dose Ordered Sig/Negra Route Start Time Stop Time Status Last Admin Dose Admin Hydralazine HCl 25 mg ONCE ONCE PO 11/05/25 23:00 11/05/25 23:01 DC 11/05/25 23:30 Departure 1 Departure Time of Disposition: 23:55 Impression: Primary Impression: History of traumatic brain injury Additional Impressions: Dyspnea HTN (hypertension) Disposition: HOME / SELF CARE / HOMELESS Condition: Stable e-Prescriptions Amlodipine Besylate (Amlodipine Besylate) 5 Mg Tab 1 TAB PO DAILY, #90 TAB 3 Refills Prov: EDMOND SINHA MD 11/05/25 Discharged With: Self Critical Care Note Critical Care Time?: No Stability Stability form required: No Heart Score Heart Score: Heart Score Response (Comments) Value History N/A 0 EKG N/A 0 Age N/A 0 Risk Factors N/A 0 Troponin N/A 0 Total 0 I personally scribed for EDMOND SINHA MD ([email or web address]) on 11/05/25 at 22:12. Electronically submitted by Robin Graves ([facility]). EDMOND SINHA MD Nov 05, 2025 22:12
[2025-11-05 22:35] VITALS: PULSE 70; RESP 12; TEMP 97.9; O2SAT 94
[2025-11-06 05:45] VITALS: BP 140/91; PULSE 70; RESP 16; O2SAT 94
== END 2025-11-06 05:45 | disposition home or self-care (01) ==
LOC: ER 21:59 → EDBD 21:59 → ER 11-06 05:45
DX: I10 Essential (primary) hypertension (principal); R06.00 Dyspnea, unspecified; Z79.899 Other long term (current) drug therapy; Z87.820 Personal history of traumatic brain injury